=== PATIENT | male | born 1960 | race Caucasian/White ===

== ENCOUNTER 2019-08-28 15:24 | Inpatient (IN) ==
[2019-08-28] MEDS ORDERED: SODIUM CHLORIDE 0.9% 1000ML 1,000 ML IV SCH (16:30)
--- NOTE | 2019-08-28 16:32 | Emergency Department Note ---
Entered by Corrina Sloan acting as a scribe for Homero Cantu DO History of Present Illness General Chief complaint: Fall Stated complaint: FALL Time Seen by Provider: 08/28/19 16:00 Source: patient and other (half-way guards) History of Present Illness Onset (ago): hour(s) (today at 2:00PM) Location: pelvis (left hip) Pain Consistency: + constant Associated symptoms: + denies other symptoms (abdominal pain), + confusion (unsure where he is, mumbling words) and + other (increased falls over the past month, per guards new "markings" on legs) The patient is a 59 year old male with a PMHx pertinent for acidosis, kidney injury, bowel obstruction, lithium toxicity and no other medical problems [facility] who presents to the Emergency Room for evaluation of a fall. [facility] guards state that the patient has been experiencing increased falls and increasing AMS over the past month. The guards state that his most recent fall was today at 2:00PM. They state that the patient also experienced a fall this morning and his file from the half-way indicated that he has a left hip contusion. The guards also report that they noticed "markings" on the patient's legs when they arrived to the ED but they state they were not present this morning. They also note that his left hand was twisted in his cuff today which temporarily "cut off circulation" and they noticed a tasneem on the hand once they arrived to the ED. The patient is currently mumbling when asked questions and states that he is unsure where he is. He denies abdominal pain. HPI is limited due to patient's current condition Home Medications Home Medications Medication Instructions Recorded Confirmed Type ferrous sulfate [Feosol] 325 mg PO DAILY 07/05/19 08/28/19 History lithium carbonate [Lithobid] 300 mg PO BID 07/05/19 08/28/19 History clonazepam 1 mg PO BID 08/28/19 08/28/19 History cyanocobalamin (vitamin B-12) 100 mcg PO DAILY 08/28/19 08/28/19 History docusate sodium 250 mg PO HS 08/28/19 08/28/19 History magnesium hydroxide [Milk of 60 ml PO DAILY PRN 08/28/19 08/28/19 History Magnesia] olanzapine 10 mg PO HS 08/28/19 08/28/19 History spironolactone 25 mg PO DAILY 08/28/19 08/28/19 History sulfamethoxazole-trimethoprim 1 tab PO BID 08/28/19 08/28/19 History Allergies Allergy/AdvReac Type Severity Reaction Status Date / Time haloperidol [From Haldol] AdvReac Unknown Unknown Unverified 08/28/19 16:50 Past Med/Surg History Medical History Bipolar disorder Hepatitis C Family History Other No pertinent family history in first degree relatives Social History Preferred Language: Portuguese Communication Ability: Effective Cable Technician Required: No Beliefs That Will Affect Care: None Current Living Situation: Other Current Living Situation Comment: From [facility] Other Information That Helps Us Care for You: No Feels Safe at Home: Yes Safety Concerns: Feels Safe At This Time Smoking Status: Former smoker Tobacco Type: cigarettes ; Cigarettes Per Day: 1 pack per day ; Do You Dip or Chew Tobacco: No ; Second Hand Exposure: No ; To bacco Cessation Education Requested by Patient: No Hx Alcohol Use: No Hx Substance Use: No Review of Systems See HPI for pertinent positives & negatives. Other (ROS is limited due to patient's current condition ) Physical Exam Vital Signs Vital Signs - 24 hr 08/28/19 17:52 08/28/19 18:01 08/28/19 19:55 Pulse Rate [Apical] 55 L 66 77 Respiratory Rate 18 18 18 Blood Pressure [Right Arm] 82/56 L 91/60 L 113/67 Blood Pressure Mean [Right Arm] 64 70 82 Pulse Oximetry 100 100 98 Oxygen Delivery Method Room Air Room Air Room Air GENERAL: The patient is awake and alert. He is non-anxious appearing but is slow to answer questions and commands. EYES: The conjunctivae are clear. The pupils are round and reactive. EARS, NOSE, MOUTH AND THROAT: The nose is without any evidence of any deformity. Mucous members are dry. NECK: The neck is nontender and supple. RESPIRATORY: Shallow respirations were noted. There is no rales rhonchi or wheezing to auscultation. CARDIOVASCULAR: Bradycardic rate with regular rhythm was noted. There was no definite murmur noted to auscultation. GASTROINTESTINAL: The abdomen is soft and nondistended. There is left-sided tenderness to palpation. No guarding was noted. MUSCULOSKELETAL/EXTREMITIES: There is no evidence of gross deformity full range of motion is noted in the hips and shoulders SKIN: There is pedal edema bilaterally. There was edema to the left hand consistent with patient's recent infection according to his medical records. Skin was cool. NEUROLOGIC: Patient is oriented to person place and situation. Strength is diminished but symmetric. Course Course 1611: Past medical records reviewed. The patient was evaluated in room C09. A complete history and physical exam was performed. 2018: Spoke with Dr. Cheung, [facility] who accepts the patient for admission. The patient verbally expressed understanding and agreement of the treatment plan. The patient will be evaluated for further treatment. Administered Medications Clonazepam (Klonopin) 1 mg PO BID [facility] Stop: 09/27/19 22:42 Last Admin: 08/29/19 10:54 Dose: 1 mg Documented by: [id number] Admin: 08/28/19 23:12 Dose: 1 mg Documented by: [id number] Cyanocobalamin (Vitamin B-12) 100 mcg PO DAILY [facility] Stop: 09/28/19 08:59 Last Admin: 08/29/19 10:58 Dose: 100 mcg Documented by: [id number] Ferrous Sulfate (Feosol) 325 mg PO DAILY [facility] Stop: 09/28/19 08:59 Last Admin: 08/29/19 10:56 Dose: 325 mg Documented by: [id number] Ceftriaxone Sodium 1,000 mg/ (Dextrose) 50 mls @ 100 mls/hr IV Q24H [facility]; Protocol Stop: 09/07/19 22:59 Last Infusion: 08/29/19 01:05 Dose: 0 mls/hr Documented by: [id number] Admin: 08/29/19 00:21 Dose: 100 mls/hr Documented by: [id number] [place] Carbonate (Lithobid) 300 mg PO BID [facility] Stop: 09/27/19 22:42 Last Admin: 08/29/19 09:00 Dose: 300 mg Documented by: [id number] Admin: 08/29/19 00:17 Dose: 300 mg Documented by: [id number] Polyethylene Glycol (Miralax Powder Packet) 17 gm PO DAILY [facility] Stop: 09/28/19 08:59 Last Admin: 08/29/19 10:54 Dose: 17 gm Documented by: [id number] Spironolactone (Aldactone) 25 mg PO DAILY [facility] Stop: 09/28/19 08:59 Last Admin: 08/29/19 09:00 Dose: 25 mg Documented by: [id number] Trimethoprim/Sulfamethoxazole (Septra Ds 800/160mg Tab) 1 tab PO BID [facility] Stop: 09/07/19 22:42 Last Admin: 08/29/19 09:00 Dose: 1 tab Documented by: [id number] Admin: 08/29/19 00:17 Dose: 1 tab Documented by: [id number] Discontinued Medications Sodium Chloride (Nss 1000ml) 1,000 mls @ 999 mls/hr IV .Q1H1M [facility] Stop: 08/28/19 17:30 Last Infusion: 08/28/19 17:51 Dose: 0 mls/hr Documented by: [id number] Admin: 08/28/19 16:49 Dose: 999 mls/hr Documented by: [id number] Sodium Chloride (Nss 1000ml) 1,000 mls @ 999 mls/hr IV .Q1H1M ONE Stop: 08/28/19 18:49 Last Infusion: 08/28/19 18:52 Dose: 0 mls/hr Documented by: [id number] Admin: 08/28/19 17:51 Dose: 999 mls/hr Documented by: [id number] Piperacillin Sod/Tazobactam Sod (Zosyn) 4.5 gm in 120 mls @ 240 mls/hr IV NOW ONE Stop: 08/28/19 18:25 Last Infusion: 08/28/19 18:35 Dose: 0 mls/hr Documented by: [id number] Admin: 08/28/19 18:05 Dose: 240 mls/hr Documented by: [id number] Lactated Ringer's (Lr) 1,000 mls @ 100 mls/hr IV .Q10H [facility] Stop: 09/27/19 22:49 Last Infusion: 08/29/19 10:58 Dose: 0 mls/hr Documented by: [id number] Infusion: 08/29/19 02:35 Dose: 100 mls/hr Documented by: [id number] Infusion: 08/29/19 02:00 Dose: 0 mls/hr Documented by: [id number] Admin: 08/29/19 00:22 Dose: 100 mls/hr Documented by: [id number] Potassium Chloride (K Dinesh / Wtr) 10 meq in 100 mls @ 100 mls/hr IV Q1H [facility] Stop: 08/29/19 00:59 Last Infusion: 08/29/19 02:30 Dose: 100 mls/hr Documented by: [id number] Infusion: 08/29/19 02:00 Dose: 0 mls/hr Documented by: [id number] Admin: 08/29/19 01:15 Dose: 100 mls/hr Documented by: [id number] Infusion: 08/29/19 01:15 Dose: 100 mls/hr Documented by: [id number] Admin: 08/29/19 00:22 Dose: 100 mls/hr Documented by: [id number] Dextrose (D5w) 1,000 mls @ 300 mls/hr IV .Q3H20M [facility] Stop: 09/28/19 07:59 Last Admin: 08/29/19 15:14 Dose: 300 mls/hr Documented by: [id number] Infusion: 08/29/19 13:34 Dose: 180 mls/hr Documented by: [id number] Admin: 08/29/19 08:00 Dose: 180 mls/hr Documented by: [id number] Ioversol (Optiray 320 100ml) 90 ml IV ONCE PRN PRN Reason: Interaction Checking Stop: 09/01/19 17:10 Last Admin: 08/28/19 17:11 Dose: 90 ml Documented by: [id number] Impression & Plan Dehydration, Hypothermia, Weakness, Contusion of hip, left Discharge Plan Visit Data *Final* Discharge Date/Time: 08/28/19 22:10 Chief Complaint: Fall Stated Complaint: FALL ED Provider: Homero Cantu Discharge Problem: Dehydration, Hypothermia, Weakness, Contusion of hip, left Patient Disposition: Admitted As Inpatient Discharge Instructions Interventions: ED Discharge Assessment Last Done: 08/28/19 22:10 Medical Decision Making Differential Diagnosis Differential diagnosis includes but is not limited to etiologies such as metabolic, infection, hypo/hyperglycemia, electrolyte abnormalities, cardiac sources, intracerebral event, toxicologic, neurologic, as well as others were entertained. Medical Records Attestation: I reviewed the patient's medical records. Home Medications Current Medication List: was personally reviewed by me Laboratory Data Attestation: I reviewed the patient's lab results. Result diagrams: 08/29/19 06:16 08/29/19 14:59 Lab Results 08/28/19 08/28/19 08/28/19 Range/Units 16:41 16:41 16:41 WBC (4.8-10.8) K/uL RBC (4.7-6.1) M/uL Hgb (14.0-18.0) g/dL POC Hgb (14.0-18.0) g/dl Hct (42-52) % POC Hct (42-52) % MCV (80-100) fL MCH (25-34) pg MCHC (32-36) g/dL RDW Std Deviation (36.4-46.3) fL RDW Coeff of Shamar (11.5-14.5) % Plt Count (130-400) K/uL MPV (7.4-10.4) fL Immature Gran % (Auto) % Neut % (Auto) % Lymph % (Auto) % [place] % (Auto) % Eos % (Auto) % Baso % (Auto) % Immature Gran # (Auto) (0.00-0.02) K/uL Neut # (Auto) (1.4-6.5) K/uL Lymph # (Auto) (1.2-3.4) K/uL [place] # (Auto) (0.11-0.59) K/uL Eos # (Auto) (0-0.5) K/uL Baso # (Auto) (0-0.2) K/uL Absolute Nucleated RBC (0-0) K/uL Nucleated RBC % (auto) % Toxic Vacuolation Echinocytes Peripher Smr Path Cons PT 11.4 (9.0-12.0) Seconds INR 1.1 (0.9-1.1) APTT 37.5 H (21.0-31.0) Seconds PTT Ratio 1.4 POC Sodium (135-144) mEq/L Sodium (136-145) mmol/L POC Potassium (3.3-5.0) mEq/L Potassium (3.5-5.1) mmol/L POC Chloride (101-112) mEq/L Chloride (98-107) mmol/L Carbon Dioxide (21-32) mmol/L POC Total CO2 (24-31) mEq/l Anion Gap (3-11) POC Anion Gap (16-25) mmol/L POC BUN (7-18) mg/dl BUN (7-18) mg/dl Creatinine (0.6-1.4) mg/dl POC Creatinine (0.6-1.3) mg/dl Est Cr Clr Drug Dosing ml/min Est GFR ( Amer) Est GFR (Non-Af Amer) BUN/Creatinine Ratio (10-20) Glucose (70-99) mg/dl POC Glucose (other) (70-99) mg/dl Lactate 1.9 (0.4-2.0) mmol/L Calcium (8.5-10.1) mg/dl POC Ioniz Calcium Jaki (1.12-1.32) mmol/l Magnesium (1.8-2.4) mg/dl Total Bilirubin (0.2-1) mg/dl AST (15-37) U/L ALT (12-78) U/L Alkaline Phosphatase (45-117) U/L Total Creatine Kinase (39-308) U/L Troponin I (0-0.045) ng/ml Total Protein (6.4-8.2) gm/dl Albumin (3.4-5.0) gm/dl Globulin (2.5-4.0) gm/dl Albumin/Globulin Ratio (0.9-2) TSH (0.300-4.500) uIu/ml Urine Color Urine Appearance (Clear) Urine pH (4.5-7.5) Ur Specific [place] (1.000-1.030) Urine Protein (Negative) Urine Glucose (UA) (Negative) Urine Ketones (Negative) Urine Blood (Negative) Urine Nitrite (Negative) Urine Bilirubin (Negative) Urine Urobilinogen (Negative) Ur Leukocyte Esterase (Negative) [place] 1.0 (0.6-1.2) mmol/L 08/28/19 08/28/19 08/28/19 Range/Units 16:41 16:41 16:47 WBC 7.22 (4.8-10.8) K/uL RBC 3.11 L (4.7-6.1) M/uL Hgb 9.4 L (14.0-18.0) g/dL POC Hgb 8.8 L (14.0-18.0) g/dl Hct 29.6 L (42-52) % POC Hct 26 L (42-52) % MCV 95.2 (80-100) fL MCH 30.2 (25-34) pg MCHC 31.8 L (32-36) g/dL RDW Std Deviation 52.2 H (36.4-46.3) fL RDW Coeff of Shamar 15.1 H (11.5-14.5) % Plt Count 116 L (130-400) K/uL MPV 11.4 H (7.4-10.4) fL Immature Gran % (Auto) 0.1 % Neut % (Auto) 89.1 % Lymph % (Auto) 6.2 % [place] % (Auto) 4.6 % Eos % (Auto) 0.0 % Baso % (Auto) 0.0 % Immature Gran # (Auto) 0.01 (0.00-0.02) K/uL Neut # (Auto) 6.43 (1.4-6.5) K/uL Lymph # (Auto) 0.45 L (1.2-3.4) K/uL [place] # (Auto) 0.33 (0.11-0.59) K/uL Eos # (Auto) 0.00 (0-0.5) K/uL Baso # (Auto) 0.00 (0-0.2) K/uL Absolute Nucleated RBC 0.00 (0-0) K/uL Nucleated RBC % (auto) 0.0 % Toxic Vacuolation 1+ Echinocytes 1+ Peripher Smr Path Cons PT (9.0-12.0) Seconds INR (0.9-1.1) APTT (21.0-31.0) Seconds PTT Ratio POC Sodium 147 H (135-144) mEq/L Sodium 147 H (136-145) mmol/L POC Potassium 3.3 (3.3-5.0) mEq/L Potassium 3.4 L (3.5-5.1) mmol/L POC Chloride 114 H (101-112) mEq/L Chloride 117 H (98-107) mmol/L Carbon Dioxide 26 (21-32) mmol/L POC Total CO2 26 (24-31) mEq/l Anion Gap 4.0 (3-11) POC Anion Gap 11.0 L (16-25) mmol/L POC BUN 22 H (7-18) mg/dl BUN 24 H (7-18) mg/dl Creatinine 1.01 (0.6-1.4) mg/dl POC Creatinine 1.0 (0.6-1.3) mg/dl Est Cr Clr Drug Dosing 80.8 ml/min Est GFR ( Amer) 93.9 Est GFR (Non-Af Amer) 81.0 BUN/Creatinine Ratio 23.4 H (10-20) Glucose 137 H (70-99) mg/dl POC Glucose (other) 142 H (70-99) mg/dl Lactate (0.4-2.0) mmol/L Calcium 10.0 (8.5-10.1) mg/dl POC Ioniz Calcium Jaki 1.46 H (1.12-1.32) mmol/l Magnesium 2.4 (1.8-2.4) mg/dl Total Bilirubin 0.2 (0.2-1) mg/dl AST 10 L (15-37) U/L ALT 19 (12-78) U/L Alkaline Phosphatase 62 (45-117) U/L Total Creatine Kinase 88 (39-308) U/L Troponin I < 0.015 (0-0.045) ng/ml Total Protein 6.3 L (6.4-8.2) gm/dl Albumin 2.5 L (3.4-5.0) gm/dl Globulin 3.8 (2.5-4.0) gm/dl Albumin/Globulin Ratio 0.7 L (0.9-2) TSH 1.590 (0.300-4.500) uIu/ml Urine Color Urine Appearance (Clear) Urine pH (4.5-7.5) Ur Specific [place] (1.000-1.030) Urine Protein (Negative) Urine Glucose (UA) (Negative) Urine Ketones (Negative) Urine Blood (Negative) Urine Nitrite (Negative) Urine Bilirubin (Negative) Urine Urobilinogen (Negative) Ur Leukocyte Esterase (Negative) [place] (0.6-1.2) mmol/L 08/28/19 Range/Units 20:54 WBC (4.8-10.8) K/uL RBC (4.7-6.1) M/uL Hgb (14.0-18.0) g/dL POC Hgb (14.0-18.0) g/dl Hct (42-52) % POC Hct (42-52) % MCV (80-100) fL MCH (25-34) pg MCHC (32-36) g/dL RDW Std Deviation (36.4-46.3) fL RDW Coeff of Shamar (11.5-14.5) % Plt Count (130-400) K/uL MPV (7.4-10.4) fL Immature Gran % (Auto) % Neut % (Auto) % Lymph % (Auto) % [place] % (Auto) % Eos % (Auto) % Baso % (Auto) % Immature Gran # (Auto) (0.00-0.02) K/uL Neut # (Auto) (1.4-6.5) K/uL Lymph # (Auto) (1.2-3.4) K/uL [place] # (Auto) (0.11-0.59) K/uL Eos # (Auto) (0-0.5) K/uL Baso # (Auto) (0-0.2) K/uL Absolute Nucleated RBC (0-0) K/uL Nucleated RBC % (auto) % Toxic Vacuolation Echinocytes Peripher Smr Path Cons PT (9.0-12.0) Seconds INR (0.9-1.1) APTT (21.0-31.0) Seconds PTT Ratio POC Sodium (135-144) mEq/L Sodium (136-145) mmol/L POC Potassium (3.3-5.0) mEq/L Potassium (3.5-5.1) mmol/L POC Chloride (101-112) mEq/L Chloride (98-107) mmol/L Carbon Dioxide (21-32) mmol/L POC Total CO2 (24-31) mEq/l Anion Gap (3-11) POC Anion Gap (16-25) mmol/L POC BUN (7-18) mg/dl BUN (7-18) mg/dl Creatinine (0.6-1.4) mg/dl POC Creatinine (0.6-1.3) mg/dl Est Cr Clr Drug Dosing ml/min Est GFR ( Amer) Est GFR (Non-Af Amer) BUN/Creatinine Ratio (10-20) Glucose (70-99) mg/dl POC Glucose (other) (70-99) mg/dl Lactate (0.4-2.0) mmol/L Calcium (8.5-10.1) mg/dl POC Ioniz Calcium Jaki (1.12-1.32) mmol/l Magnesium (1.8-2.4) mg/dl Total Bilirubin (0.2-1) mg/dl AST (15-37) U/L ALT (12-78) U/L Alkaline Phosphatase (45-117) U/L Total Creatine Kinase (39-308) U/L Troponin I (0-0.045) ng/ml Total Protein (6.4-8.2) gm/dl Albumin (3.4-5.0) gm/dl Globulin (2.5-4.0) gm/dl Albumin/Globulin Ratio (0.9-2) TSH (0.300-4.500) uIu/ml Urine Color Yellow Urine Appearance Clear (Clear) Urine pH 8.0 H (4.5-7.5) Ur Specific [place] 1.014 (1.000-1.030) Urine Protein Negative (Negative) Urine Glucose (UA) Negative (Negative) Urine Ketones Negative (Negative) Urine Blood Negative (Negative) Urine Nitrite Negative (Negative) Urine Bilirubin Negative (Negative) Urine Urobilinogen Negative (Negative) Ur Leukocyte Esterase Negative (Negative) [place] (0.6-1.2) mmol/L Imaging Data Radiologist's Impression: Radiology results as stated below per my review and the radiologist's interpretation: ABDOMEN AND PELVIS CT WITH IV CONTRAST CT DOSE: 610.78 mGycm HISTORY: Acute mid abdominal pain pain TECHNIQUE: Multiaxial CT images of the abdomen and pelvis were performed following the IV administration of 90 cc of Optiray 320, A dose lowering technique was utilized adhering to the principles of ALARA. COMPARISON STUDY: CT abdomen and pelvis 07/05/2019 FINDINGS: Moderate emphysema. Dependent bibasilar airspace consolidation. Study is motion degraded. Study is limited secondary to positioning of the upper extremities. Imaged inferior cardiac chambers are unremarkable. There is resolution of the previously described pneumatosis and portal venous air. There is no pneumatosis or pneumoperitoneum identified on today's exam. The unenhanced liver is unremarkable. Spleen is enlarged, 14.6 cm. Mild generalized pancreatic atrophy. No biliary ductal dilation. Contracted gallbladder. Unremarkable adrenal glands. Cuneiform is unremarkable. Dilation of the infrarenal abdominal aorta redemonstrated, 5.7 x 4.5 cm. Moderate mixed plaque of the abdominal aorta. No evidence of aneurysm rupture. Unremarkable IVC. There is no adenopathy by CT size criteria. Resolution of the previously noted small bowel obstruction. Moderate fecal retention. No bowel wall thickening identified. Air-filled tubular structure is noted within the abdominal right lower quadrant suggestive of an noninflamed appendix. No drainable fluid collection. Degenerative changes of the pelvis, hips and spine. Mild generalized body wall and mesenteric edema. Severe disc space narrowing at L5-S1. IMPRESSION: 1. No bowel obstruction or bowel wall thickening. 2. Moderate fecal retention. 3. Diffuse mesenteric and body wall edema. 4. Moderate emphysema with dependent bibasilar consolidative opacities suggestive of atelectasis or pneumonitis. 5. Fusiform aneurysmal dilation of the infrarenal abdominal aorta appears unchanged, 5.7 x 4.5 cm. No evidence of aneurysm rupture. 6. Additional findings as above. Electronically signed by: Isidro Mak M.D. 08/28/2019 5:24 PM XR hand LT min 3V routine CLINICAL HISTORY: 59 years-old Male presenting with fall. TECHNIQUE: Frontal, oblique, and lateral views of the left hand were obtained. COMPARISON: None. FINDINGS: Middle and distal phalanges of the fourth finger absent, which appears chronic. No acute fracture or malalignment. No advanced degenerative change. Mild diffuse soft tissue swelling. IMPRESSION: No acute osseous injury. Electronically signed by: Surendra Bolton M.D. 08/28/2019 4:[address] head/brain wo con CLINICAL HISTORY: 59 years-old Male with fall. Acute head injury status post fall TECHNIQUE: Multiple axial CT images of the head were obtained without contrast. A dose lowering technique was utilized adhering to the principles of ALARA. CT DOSE: 638.56 mGycm COMPARISON: Head CT 07/05/2019. FINDINGS: No acute intracranial hemorrhage, midline shift, intracranial mass, hydrocephalus, territorial ischemia or abnormal extra-axial collection. Mild age-related involutional changes. Mild patchy white matter hypodensities suggest chronic microvascular ischemic disease. The calvarium is intact. The paranasal sinuses, mastoid air cells, and middle ear cavities are clear. IMPRESSION: No acute intracranial abnormality or calvarial fracture. The above report was generated using voice recognition software. It may contain grammatical, syntax or spelling errors. Electronically signed by: Isidro Mak M.D. 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 Severe disc space narrowing at L5-S1. No acute fracture, dislocation or avascular necrosis. Moderate fecal retention. Imaged pelvic bones appear intact. IMPRESSION: No acute fracture or dislocation. The above report was generated using voice recognition software. It may contain grammatical, syntax or spelling errors. Electronically signed by: Isidro Mak M.D. 08/28/2019 4:37 PM XR chest 1V portable CLINICAL HISTORY: 59 years-old Male presenting with weakness. TECHNIQUE: Portable upright AP view of the chest was obtained. COMPARISON: 07/05/2019. FINDINGS: Cardiomediastinal silhouette normal. Mildly coarsened lung markings with heterogeneous radiolucency of the upper lungs. Lung markings at the lung bases stable to slightly increased in prominence from prior. No other focal opacity. No large effusion or pneumothorax. Osseous structures normal. Upper abdomen normal. IMPRESSION: 1. Prominent bibasilar lung markings. Subtle basilar infiltrates or atelectasis not excluded. 2. Heterogeneous radiolucency of the upper lobes could suggest underlying emphysema. Electronically signed by: Surendra Bolton M.D. 08/28/2019 4:33 PM ECG Data Attestation: I personally reviewed and interpreted this ECG as follows: Indication: + other (fall) Rate (beats per minute): 66 Rhythm: + normal sinus ECG Findings: + Other (no acute ST segments); no PACs and no PVCs Comparison ECG Date: from (07/05/19) Change: no significant change Blood Pressure Blood Pressure Findings: Low blood pressure Blood Pressure Disposition: further management by hospitalist PATRICK Peguero The patient is a 59-year-old male who presented to the emergency department for an evaluation of weakness and falls. 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 He did have recent surgery on his abdomen. He is currently being treated for an infection in his left hand. This is felt to be a soft tissue infection. The patient has been having more falls and generalized weakness and was sent from the half-way for further evaluation. The patient was treated with IV fluids and IV antibiotics. He was reevaluated multiple times. The patient was found to have hypothermia. There is significant concern that the patient may be hypovolemic and dehydrated. There is also significant concern for infection. The patient was feeling somewhat improved on reevaluation. I discussed the patient's condition with the on-call [facility] hospitalist group. They have agreed to evaluate the patient in the emergency department for further management disposition. Discharge Problem: Hypothermia Qualifiers: Encounter type: initial encounter Qualified Code(s): T68.XXXA - Hypothermia, initial encounter Contusion of hip, left Qualifiers: Encounter type: initial encounter Qualified Code(s): S70.02XA - Contusion of left hip, initial encounter The scribe's documentation has been prepared under my direction and personally reviewed by me in its entirety. I confirm that the note above accurately reflects all work, treatment, procedures, and medical decision making performed by me.
--- NOTE | 2019-08-28 16:35 | XRay Report ---
XR chest 1V portable CLINICAL HISTORY: 59 years-old Male presenting with weakness. TECHNIQUE: Portable upright AP view of the chest was obtained. COMPARISON: 07/05/2019. FINDINGS: Cardiomediastinal silhouette normal. Mildly coarsened lung markings with heterogeneous radiolucency o f the upper lungs. Lung markings at the lung bases stable to slightly increased in prominence from pr ior. No other focal opacity. No large effusion or pneumothorax. Osseous structures normal. Upper abdo men normal. IMPRESSION: 1. Prominent bibasilar lung markings. Subtle basilar infiltrates or atelectasis not excluded. 2. Heterogeneous radiolucency of the upper lobes could suggest underlying emphysema. Electronically signed by: Surendra Bolton M.D. 08/28/2019 4:33 PM
--- NOTE | 2019-08-28 16:38 | XRay Report ---
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 Severe disc space narrowing at L5-S1. No acute fracture, dislocation or avascular necrosis. M oderate fecal retention. Imaged pelvic bones appear intact. IMPRESSION: No acute fracture or dislocation. The above report was generated using voice recognition software. It may contain grammatical, syntax o r spelling errors. Electronically signed by: Isidro Mak M.D. 08/28/2019 4:37 PM
--- NOTE | 2019-08-28 16:38 | XRay Report ---
XR hand LT min 3V routine CLINICAL HISTORY: 59 years-old Male presenting with fall. TECHNIQUE: Frontal, oblique, and lateral views of the left hand were obtained. COMPARISON: None. FINDINGS: Middle and distal phalanges of the fourth finger absent, which appears chronic. No acute fracture or malalignment. No advanced degenerative change. Mild diffuse soft tissue swelling. IMPRESSION: No acute osseous injury. Electronically signed by: Surendra Bolton M.D. 08/28/2019 4:37 PM
[2019-08-28 16:54] LABS: Hematocrit (blood only) 29.6 % (42-52); Hemoglobin 9.4 g/dL (14.0-18.0); Immature Granulocytes # (auto) 0.01 K/uL (0.00-0.02); Immature Granulocytes % (auto) 0.1 %; Lymphocytes # (auto) 0.45 K/uL (1.2-3.4); Lymphocytes % (auto) 6.2 %; Mean Corpuscular Hemoglobin 30.2 pg (25-34); Mean Corpuscular Hgb Conc 31.8 g/dL (32-36); Mean Corpuscular Volume 95.2 fL (80-100); Mean Platelet Volume 11.4 fL (7.4-10.4); Monocytes # (auto) 0.33 K/uL (0.11-0.59); Monocytes % (auto) 4.6 %; Neutrophils # (auto) 6.43 K/uL (1.4-6.5); Neutrophils % (auto) 89.1 %; Platelet Count 116 K/uL (130-400); RDW Coefficient of Variation 15.1 % (11.5-14.5); RDW Standard Deviation 52.2 fL (36.4-46.3); Red Blood Count 3.11 M/uL (4.7-6.1); White Blood Count 7.22 K/uL (4.8-10.8)
[2019-08-28 17:04] LABS: INR 1.1 (0.9-1.1); Partial Thromboplastin Ratio 1.4; Partial Thromboplastin Time 37.5 Seconds (21.0-31.0); Prothrombin Time 11.4 Seconds (9.0-12.0)
[2019-08-28 17:11] LABS: Alanine Aminotransferase 19 U/L (12-78); Albumin Level 2.5 gm/dl (3.4-5.0); Aspartate Aminotransferase 10 U/L (15-37); BUN Creatinine Ratio 23.4 (10-20); Blood Urea Nitrogen 24 mg/dl (7-18); Carbon Dioxide 26 mmol/L (21-32); Chloride 117 mmol/L (98-107); Creatinine Clr Calc Pharmacy 80.8 ml/min; Est GFR (African American) 93.9; Glucose 137 mg/dl (70-99); Magnesium 2.4 mg/dl (1.8-2.4); Potassium 3.4 mmol/L (3.5-5.1); Sodium 147 mmol/L (136-145)
[2019-08-28] MEDS ORDERED: IOVERSOL 100ml IV PRN (17:11)
--- NOTE | 2019-08-28 17:17 | CT Scan Report ---
CT head/brain wo con CLINICAL HISTORY: 59 years-old Male with fall. Acute head injury status post fall TECHNIQUE: Multiple axial CT images of the head were obtained without contrast. A dose lowering tech nique was utilized adhering to the principles of ALARA. CT DOSE: 638.56 mGycm COMPARISON: Head CT 07/05/2019. FINDINGS: No acute intracranial hemorrhage, midline shift, intracranial mass, hydrocephalus, territorial ischem ia or abnormal extra-axial collection. Mild age-related involutional changes. Mild patchy white matte r hypodensities suggest chronic microvascular ischemic disease. The calvarium is intact. The paranasal sinuses, mastoid air cells, and middle ear cavities are clear . IMPRESSION: No acute intracranial abnormality or calvarial fracture. The above report was generated using voice recognition software. It may contain grammatical, syntax o r spelling errors. Electronically signed by: Isidro Mak M.D. 08/28/2019 5:15 PM
[2019-08-28 17:22] LABS: Albumin Globulin Ratio 0.7 (0.9-2); Alkaline Phosphatase 62 U/L (45-117); Bilirubin,Total 0.2 mg/dl (0.2-1); Creatine Kinase 88 U/L (39-308); Globulin 3.8 gm/dl (2.5-4.0); Total Protein 6.3 gm/dl (6.4-8.2); Troponin I < 0.015 ng/ml (0-0.045)
--- NOTE | 2019-08-28 17:25 | CT Scan Report ---
ABDOMEN AND PELVIS CT WITH IV CONTRAST CT DOSE: 610.78 mGycm HISTORY: Acute mid abdominal pain pain TECHNIQUE: Multiaxial CT images of the abdomen and pelvis were performed following the IV administrat ion of 90 cc of Optiray 320, A dose lowering technique was utilized adhering to the principles of AL ALDO. COMPARISON STUDY: CT abdomen and pelvis 07/05/2019 FINDINGS: Moderate emphysema. Dependent bibasilar airspace consolidation. Study is motion degraded. Study is li mited secondary to positioning of the upper extremities. Imaged inferior cardiac chambers are unremar kable. There is resolution of the previously described pneumatosis and portal venous air. There is no pneumatosis or pneumoperitoneum identified on today's exam. The unenhanced liver is unremarkable. Spleen is enlarged, 14.6 cm. Mild generalized pancreatic atroph y. No biliary ductal dilation. Contracted gallbladder. Unremarkable adrenal glands. Cuneiform is unre markable. Dilation of the infrarenal abdominal aorta redemonstrated, 5.7 x 4.5 cm. Moderate mixed stacie que of the abdominal aorta. No evidence of aneurysm rupture. Unremarkable IVC. There is no adenopathy by CT size criteria. Resolution of the previously noted small bowel obstruction. Moderate fecal rete ntion. No bowel wall thickening identified. Air-filled tubular structure is noted within the abdomina l right lower quadrant suggestive of an noninflamed appendix. No drainable fluid collection. Degenera tive changes of the pelvis, hips and spine. Mild generalized body wall and mesenteric edema. Severe d isc space narrowing at L5-S1. IMPRESSION: 1. No bowel obstruction or bowel wall thickening. 2. Moderate fecal retention. 3. Diffuse mesenteric and body wall edema. 4. Moderate emphysema with dependent bibasilar consolidative opacities suggestive of atelectasis or p neumonitis. 5. Fusiform aneurysmal dilation of the infrarenal abdominal aorta appears unchanged, 5.7 x 4.5 cm. No evidence of aneurysm rupture. 6. Additional findings as above. Electronically signed by: Isidro Mak M.D. 08/28/2019 5:24 PM
[2019-08-28] MEDS ORDERED: SODIUM CHLORIDE 0.9% 1000ML 1,000 ML IV ONE (17:49)
[2019-08-28] MEDS ORDERED: PIPERACILL/TAZOBAC CONSULT ACTIVE PRN (17:56)
[2019-08-28] MEDS ORDERED: PIPERACILLIN/TAZOBACTAM 4.5 GM/120 ML BAG IV ONE (17:56)
[2019-08-28 21:08] LABS: Appearance Urine Clear (Clear); Bilirubin Urine Negative (Negative); Blood Urine Negative (Negative); Color Urine Yellow; Glucose Urine UA Negative (Negative); Ketones Urine Negative (Negative); Leukocyte Esterase Urine Negative (Negative); Nitrite Urine Negative (Negative); Protein Urine Negative (Negative); Specific Gravity Urine 1.014 (1.000-1.030); Urobilinogen Urine Negative (Negative)
--- NOTE | 2019-08-28 21:41 | History & Physical Report ---
Date of Service August 28, 2019 Assessment & Plan (1) Hypothermia: 59yoM with hx of anemia, B12 deficiency, HCV, schizoaffective disorder, seizure, GERD, constipation, aspiration pneumonitis, gastroparesis, abdominal aortic aneurysm presents status post 2 falls most recently at 2 PM today [facility] records reviewed: Recent labs on 08/27/2019 in the setting of left upper extremity cellulitis concerning for WBC of 18.1, hemoglobin 10.[address] 218. BUN/creatinine 29/1.3 and sodium 144. Found to be hypothermic and concern for left upper extremity cellulitis Fall with left hip contusion Likely secondary to infection versus chronic deconditioning/weakness versus possible seizure given history See infectious work-up below CT had negative Hip/pelvis x-ray negative CK normal Troponin negative EKG: Normal sinus rhythm 66 QTC 540 Cellulitis left upper extremity Hypothermia otherwise normal vitals White blood cell count improved from 18.1 on August 27, 2019 to 7.2 today, lactate X-ray and: Mild diffuse soft tissue swelling, middle and distal phalanx fourth finger chronically missing Culture x2 pending Given significant hand edema concern for DVT -Doppler ordered Continue Bactrim Started on Rocephin for gram-negative coverage Continue to monitor clinically Consider CT hand if clinically worsening Hyponatremia/hyperchloremia Given elevated BUN/creatinine ratio and exam likely secondary to dehydration Started on IV fluids LR at 100 cc/h Thrombocytopenia Possibly secondary to Bactrim; no concern for DIC Platelet count 116 Blood count normal on 08/27/2019 at 218 Peripheral smear ordered Continue to monitor CBC Constipation Abdominal CT: Moderate fecal retention, diffuse mesenteric/bowel wall edema Continue home bowel regimen MiraLAX daily Hypokalemia Replete 20 mEq KCl IV History of anemia Cannot rule out acute GI bleed Hemoglobin 10.4 on 08/27 and 9.4 today Patient refused rectal exam for Hemoccult Stool Hemoccult ordered Continue ferrous sulfate Continue to monitor History of hypertension Tinea home spironolactone B12 deficiency Continue B12 supplement Schizoaffective disorder Continue home lithium, olanzapine and clonazepam FEN/GI: LR 100 cc/h, heart healthy diet Code: Full Dispo: MedSurg with telemetry DVT prophylaxis: SCDs, chemical withheld given downtrending hemoglobin for concern of possible GI bleed (2) Dehydration: (3) Contusion of hip, left: (4) Fall: (5) Schizoaffective disorder: (6) Pneumonitis: (7) Gastroparesis: (8) AAA (abdominal aortic aneurysm): (9) Constipation: (10) Anemia: (11) HCV (hepatitis C virus): (12) GERD (gastroesophageal reflux disease): (13) B12 deficiency: History of Present Illness Chief Complaint: fall Primary Care Provider: SARAI Ramos 59yoM with hx of anemia, B12 deficiency, HCV, schizoaffective disorder, seizure, GERD, constipation, aspiration pneumonitis, gastroparesis, abdominal aortic aneurysm presents status post 2 falls most recently at 2 PM today. Patient disoriented and does not answer questions appropriately. He denies any complaints right now. Per guards he is more disoriented compared to baseline and was initially also complaining of left hip pain. Patient was also recently diagnosed with left hand/arm cellulitis and started on Bactrim. Found to have hypothermia rectal temp of 31.4 in the ED. [facility] records reviewed: Recent labs on 08/27/2019 in the setting of left upper extremity cellulitis concerning for WBC of 18.1, hemoglobin 10.[address] 218[address] BUN/creatinine 29/1.3 and sodium 144. Allergies Allergy/AdvReac Type Severity Reaction Status Date / Time haloperidol [From Haldol] AdvReac Unknown Unknown Unverified 08/28/19 16:50 Home Medications Home Medications Medication Instructions Recorded Confirmed Type ferrous sulfate [Feosol] 325 mg PO DAILY 07/05/19 08/28/19 History lithium carbonate [Lithobid] 300 mg PO BID 07/05/19 08/28/19 History clonazepam 1 mg PO BID 08/28/19 08/28/19 History cyanocobalamin (vitamin B-12) 100 mcg PO DAILY 08/28/19 08/28/19 History docusate sodium 250 mg PO HS 08/28/19 08/28/19 History magnesium hydroxide [Milk of 60 ml PO DAILY PRN 08/28/19 08/28/19 History Magnesia] olanzapine 10 mg PO HS 08/28/19 08/28/19 History spironolactone 25 mg PO DAILY 08/28/19 08/28/19 History sulfamethoxazole-trimethoprim 1 tab PO BID 08/28/19 08/28/19 History Past Med/Surg History Medical History Bipolar disorder Hepatitis C Family History Other No pertinent family history in first degree relatives Social History Preferred Language: Nepali Communication Ability: Effective Reel And Rewinder Operator Required: No Beliefs That Will Affect Care: None Current Living Situation: Other Current Living Situation Comment: From [facility] Other Information That Helps Us Care for You: No Feels Safe at Home: Yes Safety Concerns: Feels Safe At This Time Smoking Status: Former smoker Tobacco Type: cigarettes ; Cigarettes Per Day: 1 pack per day ; Do You Dip or Chew Tobacco: No ; Second Hand Exposure: No ; Tobacco Cessation Education Requested by Patient: No Hx Alcohol Use: No Hx Substance Use: No Review of Systems Review of Systems: As per HPI otherwise limited due to patient mental status Physical Exam Physical Exam: General: In NAD, disoriented Neuro: Disoriented but alert Psych: disorganized speech, appears to be responding to internal stimuli Pulm: CTAB equal breath sounds bilaterally CV: RRR, no m/r/g Abdomen:+BS, no TTP in all quadrants, non-distended, midline abdominal incision MSK: LUE forearm cellulitis extending up the arm, 2+ dorsal hand edema without associated erythema, no open lesions on hand or arm, several scabs on hand/fingers LE: no LE edema, no calf TTP Results & Data Vital Signs (Past 12 Hours) Vital Signs Temp Pulse Pulse Resp BP BP Pulse Ox 08/28/19 19:55 77 18 113/67 98 08/28/19 18:01 66 18 91/60 L 100 08/28/19 17:52 55 L 18 82/56 L 100 08/28/19 17:24 62 18 99/58 L 100 08/28/19 17:00 60 16 102/59 L 100 08/28/19 16:25 99 08/28/19 16:21 31.4 C L 08/28/19 15:44 99 08/28/19 15:32 66 18 114/60 99 Laboratory Results Abnormal lab results 08/28/19 08/28/19 08/28/19 Range/Units 16:41 16:41 16:41 RBC 3.11 L (4.7-6.1) M/uL Hgb 9.4 L (14.0-18.0) g/dL Hct 29.6 L (42-52) % MCHC 31.8 L (32-36) g/dL RDW Std Deviation 52.2 H (36.4-46.3) fL RDW Coeff of Shamar 15.1 H (11.5-14.5) % Plt Count 116 L (130-400) K/uL MPV 11.4 H (7.4-10.4) fL Lymph # (Auto) 0.45 L (1.2-3.4) K/uL APTT 37.5 H (21.0-31.0) Seconds Sodium 147 H (136-145) mmol/L Potassium 3.4 L (3.5-5.1) mmol/L Chloride 117 H (98-107) mmol/L BUN 24 H (7-18) mg/dl BUN/Creatinine Ratio 23.4 H (10-20) Glucose 137 H (70-99) mg/dl AST 10 L (15-37) U/L Total Protein 6.3 L (6.4-8.2) gm/dl Albumin 2.5 L (3.4-5.0) gm/dl Albumin/Globulin Ratio 0.7 L (0.9-2) Urine pH (4.5-7.5) 08/28/19 Range/Units 20:54 RBC (4.7-6.1) M/uL Hgb (14.0-18.0) g/dL Hct (42-52) % MCHC (32-36) g/dL RDW Std Deviation (36.4-46.3) fL RDW Coeff of Shamar (11.5-14.5) % Plt Count (130-400) K/uL MPV (7.4-10.4) fL Lymph # (Auto) (1.2-3.4) K/uL APTT (21.0-31.0) Seconds Sodium (136-145) mmol/L Potassium (3.5-5.1) mmol/L Chloride (98-107) mmol/L BUN (7-18) mg/dl BUN/Creatinine Ratio (10-20) Glucose (70-99) mg/dl AST (15-37) U/L Total Protein (6.4-8.2) gm/dl Albumin (3.4-5.0) gm/dl Albumin/Globulin Ratio (0.9-2) Urine pH 8.0 H (4.5-7.5) Diagnostic Findings ABDOMEN AND PELVIS CT WITH IV CONTRAST CT DOSE: 610.78 mGycm HISTORY: Acute mid abdominal pain pain TECHNIQUE: Multiaxial CT images of the abdomen and pelvis were performed followi ng the IV administration of 90 cc of Optiray 320, A dose lowering technique was utilized adhering to the principles of ALARA. COMPARISON STUDY: CT abdomen and pelvis 07/05/2019 FINDINGS: Moderate emphysema. Dependent bibasilar airspace consolidation. Study is motion degraded. Study is limited secondary to positioning of the upper extremities. Imaged inferior cardiac chambers are unremarkable. There is resolution of the previously described pneumatosis and portal venous air. There is no pneumatosis or pneumoperitoneum identified on today's exam. The unenhanced liver is unremarkable. Spleen is enlarged, 14.6 cm. Mild generalized pancreatic atrophy. No biliary ductal dilation. Contracted gallbladder. Unremarkable adrenal glands. Cuneiform is unremarkable. Dilation of the infrarenal abdominal aorta redemonstrated, 5.7 x 4.5 cm. Moderate mixed plaque of the abdominal aorta. No evidence of aneurysm rupture. Unremarkable IVC. There is no adenopathy by CT size criteria. Resolution of the previously noted small bowel obstruction. Moderate fecal retention. No bowel wall thickening identified. Air-filled tubular structure is noted within the abdominal right lower quadrant suggestive of an noninflamed appendix. No drainable fluid collection. Degenerative changes of the pelvis, hips and spine. Mild generalized body wall and mesenteric edema. Severe disc space narrowing at L5-S1. IMPRESSION: 1. No bowel obstruction or bowel wall thickening. 2. Moderate fecal retention. 3. Diffuse mesenteric and body wall edema. 4. Moderate emphysema with dependent bibasilar consolidative opacities s uggestive of atelectasis or pneumonitis. 5. Fusiform aneurysmal dilation of the infrarenal abdominal aorta appears unchanged, 5.7 x 4.5 cm. No evidence of aneurysm rupture. 6. Additional findings as above. XR hand LT min 3V routine CLINICAL HISTORY: 59 years-old Male presenting with fall. TECHNIQUE: Frontal, oblique, and lateral views of the left hand were obtained. COMPARISON: None. FINDINGS: Middle and distal phalanges of the fourth finger absent, which appears chronic. No acute fracture or malalignment. No advanced degenerative change. Mild diffuse soft tissue swelling. IMPRESSION: No acute osseous injury. CT head/brain wo con CLINICAL HISTORY: 59 years-old Male with fall. Acute head injury status post fall TECHNIQUE: Multiple axial CT images of the head were obtained without contrast. A dose lowering technique was utilized adhering to the principles of ALARA. CT DOSE: 638.56 mGycm COMPARISON: Head CT 07/05/2019. FINDINGS: No acute intracranial hemorrhage, midline shift, intracranial mass, hydrocephalus, territorial ischemia or abnormal extra-axial collection. Mild age-related involutional changes. Mild patchy white matter hypodensities suggest chronic microvascular ischemic disease. The calvarium is intact. The paranasal sinuses, mastoid air cells, and middle ear cavities are clear. IMPRESSION: No acute intracranial abnormality or calvarial fracture. XR hip LT 2V w pelvis HISTORY: 59 years-old Male fall acute pelvic and left hip pain status post fall COMPARISON: CT abdomen and pelvis 07/05/2019 TECHNIQUE: AP view of the pelvis with 2 views of the left hip FINDINGS: Mild osteoarthritis of the bilateral femoral acetabular joints with prominent marginal osteophytic spurring. Severe disc space narrowing at L5-S1. No acute fracture, dislocation or avascular necrosis. Moderate fecal retention. Imaged pelvic bones appear intact. IMPRESSION: No acute fracture or dislocation. XR chest 1V portable CLINICAL HISTORY: 59 years-old Male presenting with weakness. TECHNIQUE: Portable upright AP view of the chest was obtained. COMPARISON: 07/05/2019. FINDINGS: Cardiomediastinal silhouette normal. Mildly coarsened lung markings with heterogeneous radiolucency of the upper lungs. Lung markings at the lung bases stable to slightly increased in prominence from prior. No other focal opacity. No large effusion or pneumothorax. Osseous structures normal. Upper abdomen normal. IMPRESSION: 1. Prominent bibasilar lung markings. Subtle basilar infiltrates or atelectasis not excluded. 2. Heterogeneous radiolucency of the upper lobes could suggest underlying emphysema. Code Status & VTE Plan Code Status Full VTE Prophylaxis Plan VTE Prophylaxis will be ordered: Yes Supervising Physician Co-Signing Physician Notes Attending addendum: I have physically seen this patient, have supervised the medical residents activities, and agree with the H&P unless as otherwise noted. Assessment and Plan: Cellulitis of left upper extremity- Continue oral Bactrim. Add ceftriaxone 1 g IV daily. Doppler negative for DVT. White blood cell count has improved significantly over the past 24 hours, however, if clinical condition does not continue to improve appropriately, will order CT to assess for possible osteo-. Hyponatremia/hypokalemia- Check serum and urine osmolalities. For now, placed on LR 100 cc/h. Give single K rider 20 mEq IV. Follow serial BMP and magnesium levels. Remainder orders and notations as noted. Resident Activity Tracking Resident Involvement: Resident Care Provided Care Provided: Adult Hospital Medicine (1) Hypothermia Encounter type: initial encounter Qualified Code(s): T68.XXXA - Hypothermia, initial encounter (2) Contusion of hip, left Encounter type: initial encounter Qualified Code(s): S70.02XA - Contusion of left hip, initial encounter
[2019-08-28] MEDS ORDERED: ACETAMINOPHEN 325 MG TAB PO PRN (22:43)
[2019-08-28] MEDS ORDERED: MAGNESIUM HYDROXIDE SUSP 30 ML UDC PO PRN (22:43)
[2019-08-28] MEDS ORDERED: LACTATED RINGER'S 1,000 ML IV SCH (22:50)
[2019-08-28] MEDS: clonazePAM 1 MG TAB PO SCH (23:12)
[2019-08-28 23:45] LABS: Echinocytes 1+
[2019-08-29] MEDS: LITHIUM CARBONATE SLOW REL 300 MG TAB PO SCH ×3 (00:17→20:31)
[2019-08-29] MEDS: SULFAMETHOXAZOLE/TRIMETHOPRIM DS 800/160MG TAB PO SCH ×3 (00:17→20:31)
[2019-08-29] MEDS: cefTRIAXone SODIUM 1,000 MG in DEXTROSE 5% 50 ML IV SCH ×2 (00:21→22:23)
[2019-08-29] MEDS: POTASSIUM CHLORIDE / WTR 10 MEQ/100 ML PLCT IV SCH ×2 (00:22→01:15)
[2019-08-29 06:55] LABS: Mean Corpuscular Hgb Conc 31.6 g/dL (32-36)
--- NOTE | 2019-08-29 07:07 | Ultrasound Report ---
US venous doppler UE LT CLINICAL HISTORY: 59 years-old Male presenting with left hand swelling, concern for upper extremity D VT. TECHNIQUE: Real-time grayscale and color and spectral Doppler ultrasound imaging of the veins of the left upper extremity was performed. Compression and augmentation were also utilized. COMPARISON: None. FINDINGS: LEFT: Internal jugular vein: Patent. Subclavian vein: Patent. Axillary vein: Patent. Brachial vein: Patent. Basilic vein (superficial): Patent. Cephalic vein (superficial): Occlusive thrombus extending from the antecubital fossa to the shoulder. Radial vein: Patent. Ulnar vein: Patent. Other: Prominent lymph node noted in the left supraclavicular region measuring 1.4 x 1.0 x 0.9 cm. Th is has a somewhat globular morphology. IMPRESSION: 1. Occlusive superficial venous thrombosis in the cephalic vein. 2. No evidence of deep venous thrombosis. 3. Enlarged left supraclavicular lymph node. This does not have a definitively benign morphology. A follow-up ultrasound or contrast-enhanced CT neck is recommended within one to 3 months. This could b e reactive though a malignant etiology is also possible. The report will be called/faxed according to standard departmental protocol. Electronically signed by: Surendra Bolton M.D. 08/29/2019 7:06 AM
[2019-08-29 07:17] LABS: Hematocrit (blood only) 29.4 % (42-52); Hemoglobin 9.3 g/dL (14.0-18.0); Mean Corpuscular Hemoglobin 30.2 pg (25-34); Mean Corpuscular Volume 95.5 fL (80-100); RDW Coefficient of Variation 15.1 % (11.5-14.5); RDW Standard Deviation 52.2 fL (36.4-46.3); Red Blood Count 3.08 M/uL (4.7-6.1); White Blood Count 5.36 K/uL (4.8-10.8)
[2019-08-29 07:18] LABS: Immature Granulocytes # (auto) 0.03 K/uL (0.00-0.02); Immature Granulocytes % (auto) 0.6 %; Lymphocytes # (auto) 0.52 K/uL (1.2-3.4); Lymphocytes % (auto) 9.7 %; Monocytes # (auto) 0.25 K/uL (0.11-0.59); Monocytes % (auto) 4.7 %; Neutrophils # (auto) 4.56 K/uL (1.4-6.5)
[2019-08-29 07:20] LABS: BUN Creatinine Ratio 18.3 (10-20); Calcium 9.7 mg/dl (8.5-10.1); Creatinine Clr Calc Pharmacy 77.4 ml/min; Est GFR (African American) 103.8; Est GFR (Non-African American) 89.5; Potassium 3.6 mmol/L (3.5-5.1)
[2019-08-29] MEDS: DEXTROSE 5% 1,000 ML IV SCH ×2 (08:00→15:14)
[2019-08-29 08:16] LABS: Toxic Vacuolation 1+
[2019-08-29 08:22] LABS: Echinocytes 1+
[2019-08-29] MEDS: SPIRONOLACTONE 25 MG TAB PO SCH (09:00)
[2019-08-29 09:01] LABS: BUN Creatinine Ratio 16.2 (10-20); Calcium 9.8 mg/dl (8.5-10.1); Creatinine Clr Calc Pharmacy 75.8 ml/min; Est GFR (African American) 101.1; Est GFR (Non-African American) 87.3; Potassium 3.4 mmol/L (3.5-5.1)
[2019-08-29 10:40] LABS: BUN Creatinine Ratio 14.2 (10-20); Calcium 9.9 mg/dl (8.5-10.1); Creatinine Clr Calc Pharmacy 68.6 ml/min; Est GFR (African American) 89.6; Est GFR (Non-African American) 77.3; Potassium 3.5 mmol/L (3.5-5.1)
[2019-08-29] MEDS: POLYETHYLENE (MIRALAX) 17 GM PACK PO SCH (10:54)
[2019-08-29] MEDS: clonazePAM 1 MG TAB PO SCH ×2 (10:54→20:31)
[2019-08-29] MEDS: FERROUS SULFATE 325 MG TAB PO SCH (10:56)
[2019-08-29] MEDS: CYANOCOBALAMIN (VITAMIN B-12) 100 MCG TABLET PO SCH (10:58)
[2019-08-29 12:38] LABS: BUN Creatinine Ratio 13.6 (10-20); Calcium 9.4 mg/dl (8.5-10.1); Creatinine Clr Calc Pharmacy 65.5 ml/min; Est GFR (African American) 84.7; Est GFR (Non-African American) 73.1; Potassium 3.6 mmol/L (3.5-5.1)
[2019-08-29 13:47] LABS: iSTAT Hemoglobin 8.8 g/dl (14.0-18.0); iSTAT Ionized Calcium 1.46 mmol/l (1.12-1.32); iSTAT Potassium 3.3 mEq/L (3.3-5.0)
[2019-08-29 14:02] LABS: BUN Creatinine Ratio 11.1 (10-20); Calcium 9.7 mg/dl (8.5-10.1); Est GFR (African American) 74.7; Est GFR (Non-African American) 64.5; Potassium 3.8 mmol/L (3.5-5.1)
[2019-08-29 15:22] LABS: BUN Creatinine Ratio 10.5 (10-20); Calcium 9.9 mg/dl (8.5-10.1); Creatinine Clr Calc Pharmacy 56.3 ml/min; Est GFR (African American) 70.5; Est GFR (Non-African American) 60.9; Potassium 3.8 mmol/L (3.5-5.1)
[2019-08-29 17:39] LABS: Calcium 9.9 mg/dl (8.5-10.1); Creatinine Clr Calc Pharmacy 59.5 ml/min; Est GFR (African American) 75.5; Est GFR (Non-African American) 65.1; Potassium 3.7 mmol/L (3.5-5.1)
[2019-08-29] MEDS: SODIUM CHLORIDE 0.45 % 1,000 ML IV SCH (17:58)
--- NOTE | 2019-08-29 18:17 | Hospitalist Progress Note ---
Date of Service August 29, 2019 Assessment & Plan (1) Dehydration: 59yoM with hx of anemia, B12 deficiency, HCV, schizoaffective disorder, seizure, GERD, constipation, aspiration pneumonitis, gastroparesis, abdominal aortic aneurysm presents status post 2 falls most recently at 2 PM today Hypernatremia -likely secondary to dehydration; this AM Na = 150 -Started on D5W at 180mL/h before progression to 300mL/h; with serial rechecks of BMP -Na trended down to 146 during the day -switched IV fluids to 1/2NSS at 120mL/h; will continue serial checks of Na overnight. Fall with left hip contusion: -Likely secondary to infection versus chronic deconditioning/weakness versus possible seizure given history -CT head negative -Hip/pelvis x-ray negative -CK normal -Troponin negative -EKG: Normal sinus rhythm 66 QTC 540 Cellulitis left upper extremity: -White blood cell count improved from 18.1 on August 27, 2019 to 7.2 today, lactate -X-ray and: Mild diffuse soft tissue swelling, middle and distal phalanx fourth finger chronically missing -DVT -Doppler demonstrated History of hypertension: -continue home spironolactone B12 deficiency: -Continue B12 supplement Schizoaffective disorder: -Continue home lithium, olanzapine and clonazepam FEN/GI: LR 100 cc/h, heart healthy diet Code: Full Dispo: MedSurg with telemetry (2) Hypothermia: (3) Contusion of hip, left: (4) Fall: (5) Schizoaffective disorder: (6) Pneumonitis: (7) Gastroparesis: (8) AAA (abdominal aortic aneurysm): (9) Constipation: (10) Anemia: (11) HCV (hepatitis C virus): (12) GERD (gastroesophageal reflux disease): (13) B12 deficiency: Supervising Physician Co-Signing Physician Notes I personally examined the patient and verified all montemayor points of history and exam, discussed case, and agree with decision making with Dr Harvey. Difficult to obtain much HPI review of systems from him. He was very verbose, but fairly tangential and uncertain how much veracity. He claims to be feeling fine. Vitals noted, in general he is awake and alert pleasant no distress. HEENT normal cephalic atraumatic mucous membranes are still fairly dry despite rather copious IV fluids. Breathing is unlabored no accessory muscle use good effort. Skin shows no rashes no pallor or icterus. He has rather significant muscle wasting and temporal wasting. No focal neuro deficits. Mental status as above. Hypothermiasuspect this was erroneoushe was refusing to have meaningful temper atures checked, but Dr. Harvey was able to convince him that it was important and now we are getting true readings that are not hypothermic. Hypernatremiastrongly suspect from poor oral intakehe is a picture of malnutrition with his muscle wasting, and clinically still appears dry with his dry cracked lips in spite of having had copious IV fluids since admission. Continue fluids, given that he also has lower blood pressures and the hyponatremia is now improving, we will switch from D5W to half-normal saline to affect a degree of intravascular repletion as well. Follow oral intake. Clinically proteincalorie malnutritionconcern on how much she is eating and drinking at the [facility]. Once we have him doing better clinically here, we will follow his oral intake. After discharge certainly will ask him to keep a close eye on how he is doing back at present as well. Fallssuspect due to low blood pressure Borderline hypotensionalmost certainly from volume depletionsee above. Otherwise as above. Subjective Patient remains compliant with all questions but is really unable to provide meaningful information about situation leading up to his fall, per [facility] guards stood up from bed and then fell yesterday. No previous episodes that they are aware of. Review of Systems Review of Systems: Unobtainable due to cognitive status Physical Exam Constitutional: WD/WN, vitals as above + thin and + underweight Eyes: PERRL, conjunctivae normal, anicteric sclerae ENMT: Mouth: + lip abnormality (dry mucus membranes) Respiratory: normal respiratory effort, lungs clear to auscultation Cardiovascular: Rate/Rhythm: regular rate and regular rhythm Heart Sounds: normal S1 and normal S2; no gallop, no murmur and no cardiac rub Gastrointestinal (Abdomen): normal bowel sounds, soft, nontender, no hepatosplenomegaly Neurologic: moves all extremities; no focal motor deficits Motor/Sensory: no tremor Psychiatric: Affect: euthymic affect Insight: + limited insight Judgement: + limited judgement Results & Data Vital Signs (Past 12 Hours) Vital Signs Temp Pulse Pulse Resp BP BP Pulse Ox 08/29/19 15:32 36.6 C 96 H 20 106/61 97 08/29/19 15:00 100 H 08/29/19 11:27 36.9 C 86 18 81/55 L 95 08/29/19 07:47 60 18 99/50 L 96 08/29/19 07:25 34.6 C L 08/29/19 07:19 61 08/29/19 06:44 34.6 C L Laboratory Results 08/29/19 08/29/19 08/29/19 Range/Units 16:49 14:59 13:28 WBC (4.8-10.8) K/uL RBC (4.7-6.1) M/uL Hgb (14.0-18.0) g/dL POC Hgb (14.0-18.0) g/dl Hct (42-52) % POC Hct (42-52) % MCV (80-100) fL MCH (25-34) pg MCHC (32-36) g/dL RDW Std Deviation (36.4-46.3) fL RDW Coeff of Shamar (11.5-14.5) % Plt Count (130-400) K/uL MPV (7.4-10.4) fL Immature Gran % (Auto) % Neut % (Auto) % Lymph % (Auto) % [place] % (Auto) % Eos % (Auto) % Baso % (Auto) % Immature Gran # (Auto) (0.00-0.02) K/uL Neut # (Auto) (1.4-6.5) K/uL Lymph # (Auto) (1.2-3.4) K/uL [place] # (Auto) (0.11-0.59) K/uL Eos # (Auto) (0-0.5) K/uL Baso # (Auto) (0-0.2) K/uL Absolute Nucleated RBC (0-0) K/uL Nucleated RBC % (auto) % Toxic Vacuolation Echinocytes Peripher Smr Path Cons POC Sodium (135-144) mEq/L Sodium 146 H 148 H 147 H (136-145) mmol/L POC Potassium (3.3-5.0) mEq/L Potassium 3.7 3.8 3.8 (3.5-5.1) mmol/L POC Chloride (101-112) mEq/L Chloride 116 H 117 H 117 H (98-107) mmol/L Carbon Dioxide 23 23 23 (21-32) mmol/L POC Total CO2 (24-31) mEq/l Anion Gap 7.0 7.0 7.0 (3-11) POC Anion Gap (16-25) mmol/L POC BUN (7-18) mg/dl BUN 13 14 14 (7-18) mg/dl Creatinine 1.21 1.28 1.22 (0.6-1.4) mg/dl POC Creatinine (0.6-1.3) mg/dl Est Cr Clr Drug Dosing 59.5 56.3 59.0 ml/min Est GFR ( Amer) 75.5 70.5 74.7 Est GFR (Non-Af Amer) 65.1 60.9 64.5 BUN/Creatinine Ratio 11.0 10.5 11.1 (10-20) Glucose 138 H 142 H 165 H (70-99) mg/dl POC Glucose (other) (70-99) mg/dl Calcium 9.9 9.9 9.7 (8.5-10.1) mg/dl POC Ioniz Calcium Jaki (1.12-1.32) mmol/l Specimen Hemolysis Urine Color Urine Appearance (Clear) Urine pH (4.5-7.5) Ur Specific [place] (1.000-1.030) Urine Protein (Negative) Urine Glucose (UA) (Negative) Urine Ketones (Negative) Urine Blood (Negative) Urine Nitrite (Negative) Urine Bilirubin (Negative) Urine Urobilinogen (Negative) Ur Leukocyte Esterase (Negative) Nasal Screen MRSA (PCR) (Negative) 08/29/19 08/29/19 08/29/19 Range/Units 11:59 09:57 08:06 WBC (4.8-10.8) K/uL RBC (4.7-6.1) M/uL Hgb (14.0-18.0) g/dL POC Hgb (14.0-18.0) g/dl Hct (42-52) % POC Hct (42-52) % MCV (80-100) fL MCH (25-34) pg MCHC (32-36) g/dL RDW Std Deviation (36.4-46.3) fL RDW Coeff of Shamar (11.5-14.5) % Plt Count (130-400) K/uL MPV (7.4-10.4) fL Immature Gran % (Auto) % Neut % (Auto) % Lymph % (Auto) % [place] % (Auto) % Eos % (Auto) % Baso % (Auto) % Immature Gran # (Auto) (0.00-0.02) K/uL Neut # (Auto) (1.4-6.5) K/uL Lymph # (Auto) (1.2-3.4) K/uL [place] # (Auto) (0.11-0.59) K/uL Eos # (Auto) (0-0.5) K/uL Baso # (Auto) (0-0.2) K/uL Absolute Nucleated RBC (0-0) K/uL Nucleated RBC % (auto) % Toxic Vacuolation Echinocytes Peripher Smr Path Cons POC Sodium (135-144) mEq/L Sodium 149 H 150 H 151 H (136-145) mmol/L POC Potassium (3.3-5.0) mEq/L Potassium 3.6 3.5 3.4 L (3.5-5.1) mmol/L POC Chloride (101-112) mEq/L Chloride 120 H 121 H 122 H (98-107) mmol/L Carbon Dioxide 24 25 24 (21-32) mmol/L POC Total CO2 (24-31) mEq/l Anion Gap 5.0 4.0 5.0 (3-11) POC Anion Gap (16-25) mmol/L POC BUN (7-18) mg/dl BUN 15 15 15 (7-18) mg/dl Creatinine 1.10 1.05 0.95 (0.6-1.4) mg/dl POC Creatinine (0.6-1.3) mg/dl Est Cr Clr Drug Dosing 65.5 68.6 75.8 ml/min Est GFR ( Amer) 84.7 89.6 101.1 Est GFR (Non-Af Amer) 73.1 77.3 87.3 BUN/Creatinine Ratio 13.6 14.2 16.2 (10-20) Glucose 132 H 124 H 61 L (70-99) mg/dl POC Glucose (other) (70-99) mg/dl Calcium 9.4 9.9 9.8 (8.5-10.1) mg/dl POC Ioniz Calcium Jaki (1.12-1.32) mmol/l Specimen Hemolysis Urine Color Urine Appearance (Clear) Urine pH (4.5-7.5) Ur Specific [place] (1.000-1.030) Urine Protein (Negative) Urine Glucose (UA) (Negative) Urine Ketones (Negative) Urine Blood (Negative) Urine Nitrite (Negative) Urine Bilirubin (Negative) Urine Urobilinogen (Negative) Ur Leukocyte Esterase (Negative) Nasal Screen MRSA (PCR) (Negative) 08/29/19 08/29/19 08/29/19 Range/Units 06:16 06:16 00:36 WBC 5.36 (4.8-10.8) K/uL RBC 3.08 L (4.7-6.1) M/uL Hgb 9.3 L (14.0-18.0) g/dL POC Hgb (14.0-18.0) g/dl Hct 29.4 L (42-52) % POC Hct (42-52) % MCV 95.5 (80-100) fL MCH 30.2 (25-34) pg MCHC 31.6 L (32-36) g/dL RDW Std Deviation 52.2 H (36.4-46.3) fL RDW Coeff of Shamar 15.1 H (11.5-14.5) % Plt Count (130-400) K/uL MPV (7.4-10.4) fL Immature Gran % (Auto) 0.6 % Neut % (Auto) 85.0 % Lymph % (Auto) 9.7 % [place] % (Auto) 4.7 % Eos % (Auto) 0.0 % Baso % (Auto) 0.0 % Immature Gran # (Auto) 0.03 H (0.00-0.02) K/uL Neut # (Auto) 4.56 (1.4-6.5) K/uL Lymph # (Auto) 0.52 L (1.2-3.4) K/uL [place] # (Auto) 0.25 (0.11-0.59) K/uL Eos # (Auto) 0.00 (0-0.5) K/uL Baso # (Auto) 0.00 (0-0.2) K/uL Absolute Nucleated RBC (0-0) K/uL Nucleated RBC % (auto) % Toxic Vacuolation Echinocytes 1+ Peripher Smr Path Cons POC Sodium (135-144) mEq/L Sodium 150 H (136-145) mmol/L POC Potassium (3.3-5.0) mEq/L Potassium 3.6 (3.5-5.1) mmol/L POC Chloride (101-112) mEq/L Chloride 121 H (98-107) mmol/L Carbon Dioxide 23 (21-32) mmol/L POC Total CO2 (24-31) mEq/l Anion Gap 6.0 (3-11) POC Anion Gap (16-25) mmol/L POC BUN (7-18) mg/dl BUN 17 (7-18) mg/dl Creatinine 0.93 (0.6-1.4) mg/dl POC Creatinine (0.6-1.3) mg/dl Est Cr Clr Drug Dosing 77.4 ml/min Est GFR ( Amer) 103.8 Est GFR (Non-Af Amer) 89.5 BUN/Creatinine Ratio 18.3 (10-20) Glucose 69 L (70-99) mg/dl POC Glucose (other) (70-99) mg/dl Calcium 9.7 (8.5-10.1) mg/dl POC Ioniz Calcium Jaki (1.12-1.32) mmol/l Specimen Hemolysis Urine Color Urine Appearance (Clear) Urine pH (4.5-7.5) Ur Specific [place] (1.000-1.030) Urine Protein (Negative) Urine Glucose (UA) (Negative) Urine Ketones (Negative) Urine Blood (Negative) Urine Nitrite (Negative) Urine Bilirubin (Negative) Urine Urobilinogen (Negative) Ur Leukocyte Esterase (Negative) Nasal Screen MRSA (PCR) Negative (Negative) 08/28/19 08/28/19 08/28/19 Range/Units 20:54 16:47 16:41 WBC (4.8-10.8) K/uL RBC (4.7-6.1) M/uL Hgb (14.0-18.0) g/dL POC Hgb 8.8 L (14.0-18.0) g/dl Hct (42-52) % POC Hct 26 L (42-52) % MCV (80-100) fL MCH (25-34) pg MCHC (32-36) g/dL RDW Std Deviation (36.4-46.3) fL RDW Coeff of Shamar (11.5-14.5) % Plt Count (130-400) K/uL MPV (7.4-10.4) fL Immature Gran % (Auto) % Neut % (Auto) % Lymph % (Auto) % [place] % (Auto) % Eos % (Auto) % Baso % (Auto) % Immature Gran # (Auto) (0.00-0.02) K/uL Neut # (Auto) (1.4-6.5) K/uL Lymph # (Auto) (1.2-3.4) K/uL [place] # (Auto) (0.11-0.59) K/uL Eos # (Auto) (0-0.5) K/uL Baso # (Auto) (0-0.2) K/uL Absolute Nucleated RBC 0.00 (0-0) K/uL Nucleated RBC % (auto) 0.0 % Toxic Vacuolation 1+ Echinocytes 1+ Peripher Smr Path Cons POC Sodium 147 H (135-144) mEq/L Sodium (136-145) mmol/L POC Potassium 3.3 (3.3-5.0) mEq/L Potassium (3.5-5.1) mmol/L POC Chloride 114 H (101-112) mEq/L Chloride (98-107) mmol/L Carbon Dioxide (21-32) mmol/L POC Total CO2 26 (24-31) mEq/l Anion Gap (3-11) POC Anion Gap 11.0 L (16-25) mmol/L POC BUN 22 H (7-18) mg/dl BUN (7-18) mg/dl Creatinine (0.6-1.4) mg/dl POC Creatinine 1.0 (0.6-1.3) mg/dl Est Cr Clr Drug Dosing ml/min Est GFR ( Amer) Est GFR (Non-Af Amer) BUN/Creatinine Ratio (10-20) Glucose (70-99) mg/dl POC Glucose (other) 142 H (70-99) mg/dl Calcium (8.5-10.1) mg/dl POC Ioniz Calcium Jaki 1.46 H (1.12-1.32) mmol/l Specimen Hemolysis Urine Color Yellow Urine Appearance Clear (Clear) Urine pH 8.0 H (4.5-7.5) Ur Specific [place] 1.014 (1.000-1.030) Urine Protein Negative (Negative) Urine Glucose (UA) Negative (Negative) Urine Ketones Negative (Negative) Urine Blood Negative (Negative) Urine Nitrite Negative (Negative) Urine Bilirubin Negative (Negative) Urine Urobilinogen Negative (Negative) Ur Leukocyte Esterase Negative (Negative) Nasal Screen MRSA (PCR) (Negative) Medications Administered Current Inpatient Medications Acetaminophen (Tylenol) 650 mg PO Q4H PRN PRN Reason: Pain or Fever Stop: 09/27/19 22:42 Clonazepam (Klonopin) 1 mg PO BID PENDING SALE TO [facility] Stop: 09/27/19 22:42 Last Admin: 08/29/19 10:54 Dose: 1 mg Documented by: Cyanocobalamin (Vitamin B-12) 100 mcg PO DAILY PENDING SALE TO [facility] Stop: 09/28/19 08:59 Last Admin: 08/29/19 10:58 Dose: 100 mcg Documented by: Docusate Sodium (Colace) 250 mg PO HS PENDING SALE TO [facility] Stop: 09/28/19 20:59 Ferrous Sulfate (Feosol) 325 mg PO DAILY PENDING SALE TO [facility] Stop: 09/28/19 08:59 Last Admin: 08/29/19 10:56 Dose: 325 mg Documented by: Ceftriaxone Sodium 1,000 mg/ (Dextrose) 50 mls @ 100 mls/hr IV Q24H PENDING SALE TO [facility]; Protocol Stop: 09/07/19 22:59 Last Infusion: 08/29/19 01:05 Dose: Infused Documented by: Sodium Chloride (1/2 Nss) 1,000 mls @ 120 mls/hr IV .Q8H20M PENDING SALE TO [facility] Stop: 09/28/19 16:44 Last Admin: 08/29/19 17:58 Dose: 120 mls/hr Documented by: [place] Carbonate (Lithobid) 300 mg PO BID PENDING SALE TO [facility] Stop: 09/27/19 22:42 Last Admin: 08/29/19 09:00 Dose: 300 mg Documented by: Magnesium Hydroxide (Milk Of Magnesia) 60 ml PO DAILY PRN PRN Reason: Constipation Stop: 09/27/19 22:42 Olanzapine (Zyprexa) 10 mg PO HS PENDING SALE TO [facility] Stop: 09/28/19 20:59 Polyethylene Glycol (Miralax Powder Packet) 17 gm PO DAILY PENDING SALE TO [facility] Stop: 09/28/19 08:59 Last Admin: 08/29/19 10:54 Dose: 17 gm Documented by: Spironolactone (Aldactone) 25 mg PO DAILY PENDING SALE TO [facility] Stop: 09/28/19 08:59 Last Admin: 08/29/19 09:00 Dose: 25 mg Documented by: Trimethoprim/Sulfamethoxazole (Septra Ds 800/160mg Tab) 1 tab PO BID DIANA Stop: 09/07/19 22:42 Last Admin: 08/29/19 09:00 Dose: 1 tab Documented by: Resident Activity Tracking Resident Involvement: Resident Care Provided Care Provided: Adult Hospital Medicine (1) Hypothermia Encounter type: initial encounter Qualified Code(s): T68.XXXA - Hypothermia, initial encounter (2) Contusion of hip, left Encounter type: initial encounter Qualified Code(s): S70.02XA - Contusion of left hip, initial encounter
--- NOTE | 2019-08-29 19:01 | Billing Data ---
Coding Level of Care Code 95206 Subseq Hosp Care Lvl 3
[2019-08-29 19:32] LABS: BUN Creatinine Ratio 9.7 (10-20); Calcium 9.4 mg/dl (8.5-10.1); Creatinine Clr Calc Pharmacy 52.9 ml/min; Est GFR (African American) 65.5; Est GFR (Non-African American) 56.6; Potassium 3.8 mmol/L (3.5-5.1)
[2019-08-29] MEDS: DOCUSATE SODIUM SYRUP 100 MG/10 ML UDC PO SCH (20:31)
[2019-08-29] MEDS ORDERED: OLANZapine 10 MG TAB PO SCH (21:00)
[2019-08-29 23:14] LABS: BUN Creatinine Ratio 9.1 (10-20); Calcium 9.7 mg/dl (8.5-10.1); Creatinine Clr Calc Pharmacy 50.3 ml/min; Est GFR (African American) 61.7; Est GFR (Non-African American) 53.2; Potassium 3.8 mmol/L (3.5-5.1)
--- NOTE | 2019-08-30 00:50 | Billing Data ---
Coding Level of Care Code 00417 Initial Inpt Care Lvl 3
[2019-08-30] MEDS: SODIUM CHLORIDE 0.45 % 1,000 ML IV SCH ×2 (02:12→10:35)
[2019-08-30 03:48] LABS: Hematocrit (blood only) 28.3 % (42-52); Lymphocytes # (auto) 0.93 K/uL (1.2-3.4); Lymphocytes % (auto) 16.2 %; Mean Corpuscular Hemoglobin 30.3 pg (25-34); Mean Corpuscular Hgb Conc 31.8 g/dL (32-36); Mean Corpuscular Volume 95.3 fL (80-100); Mean Platelet Volume 11.3 fL (7.4-10.4); Monocytes # (auto) 0.32 K/uL (0.11-0.59); Monocytes % (auto) 5.6 %; Neutrophils # (auto) 4.48 K/uL (1.4-6.5); Neutrophils % (auto) 78.2 %; Platelet Count 123 K/uL (130-400); RDW Coefficient of Variation 15.3 % (11.5-14.5); RDW Standard Deviation 53.1 fL (36.4-46.3); Red Blood Count 2.97 M/uL (4.7-6.1); White Blood Count 5.73 K/uL (4.8-10.8)
[2019-08-30 04:04] LABS: BUN Creatinine Ratio 9.8 (10-20); Calcium 9.1 mg/dl (8.5-10.1); Creatinine Clr Calc Pharmacy 51.1 ml/min; Est GFR (African American) 62.7; Est GFR (Non-African American) 54.1; Potassium 3.6 mmol/L (3.5-5.1)
[2019-08-30] MEDS: SPIRONOLACTONE 25 MG TAB PO SCH (07:38)
[2019-08-30] MEDS: POLYETHYLENE (MIRALAX) 17 GM PACK PO SCH (07:47)
[2019-08-30] MEDS: SULFAMETHOXAZOLE/TRIMETHOPRIM DS 800/160MG TAB PO SCH (07:47)
[2019-08-30] MEDS: LITHIUM CARBONATE SLOW REL 300 MG TAB PO SCH (07:47)
[2019-08-30] MEDS: clonazePAM 1 MG TAB PO SCH (07:47)
[2019-08-30] MEDS: FERROUS SULFATE 325 MG TAB PO SCH (07:47)
[2019-08-30] MEDS: CYANOCOBALAMIN (VITAMIN B-12) 100 MCG TABLET PO SCH (07:48)
[2019-08-30 07:59] LABS: Est GFR (African American) 70.5; Potassium 3.7 mmol/L (3.5-5.1)
[2019-08-30 08:00] LABS: BUN Creatinine Ratio 10.4 (10-20); Calcium 9.6 mg/dl (8.5-10.1); Creatinine Clr Calc Pharmacy 63.3 ml/min; Est GFR (Non-African American) 60.9
[2019-08-30 10:28] LABS: BUN Creatinine Ratio 10.4 (10-20); Calcium 9.4 mg/dl (8.5-10.1); Creatinine Clr Calc Pharmacy 60.9 ml/min; Est GFR (African American) 67.3; Est GFR (Non-African American) 58.1; Potassium 3.8 mmol/L (3.5-5.1)
[2019-08-30] MEDS ORDERED: VANCOMYCIN CONSULT ACTIVE PRN (11:09)
[2019-08-30 12:27] LABS: Base Excess VBG -0.8 mEq/L; Oxygen Saturation VBG 84.5 %; pH VBG 7.43 (7.36-7.41)
[2019-08-30] MEDS ORDERED: VANCOMYCIN HCL 1,750 MG in SODIUM CHLORIDE 0.9% 500 ML IV ONE (12:30)
[2019-08-30] MEDS ORDERED: CEFEPIME 2,000 MG in SYRINGE 7.5 ML IV SCH (12:30)
[2019-08-30] MEDS ORDERED: VANCOMYCIN HCL 1,750 MG in DEXTROSE 5% 500 ML IV ONE (12:30)
--- NOTE | 2019-08-30 12:36 | Critical Care Consultation ---
Date of Consultation August 30, 2019 Assessment & Plan (1) Altered mental status: Reason Critically Ill: Dennis Childers is a 59 y/o male with a history of vitamin B12 deficiency, schizoaffective disorder, anemia, seizures, GERD, constipation, aspiration pneumonitis, gastroparesis, abdominal aortic aneurysm, CKD. He presented to [facility] for complaints of a fall x2 and AMS. He was found to have decreasing level of consciousness and hypothermia and appeared critically ill without explanation. Hospitalist service consulted net developer software engineer c service for ICU management with evaluation and management of a critically ill patient. His past medical history is limited on medical record review. [facility] was contacted but medical record staff left for weekend. Neuro: Confused and unintelligible He has a reported history of schizoaffective disorder/Bipolar type and on [place] 300mg BID; two levels have been taking with one repeated today that were both WNL. Last visit prior 07/05/19 had [place] toxicity of 2.8. Will hold [place]. He is on Clonazepam 1mg PO BID, unknown reason, will hold since was scheduled order and will only contribute to AMS Zyprexa 10mg PO HS is also reviewed on med list; medication stopped He has had [address], with most recent today after worsening mentation which were both negative for acute intracranial abnormality; Left occipital scalp contusion and trace hematoma were noted; No subjacent osseous injury Considered Hepatic Encephalopathy, ordered Ammonia which was 31 WNL His medical records from [facility] note seizure history which is new from previous [facility] facesheet provided at ED visit here on 07/05/2019. Cardiac/Vascular: Trop on initial workup was negative Initial ECG was significant for prolonged QTc; repeat today was improved Soft BPs of 90s/50s despite adequate fluid status Rate is stable in 70s. Follow on manager monitoring; monitor hemodynamics. Pulm: CXR on 08/28/19 showed prominent bibasilar lung markings and findings suggestive of emphysema Currently on 3L NC with SpO2 100% GI: Continue with home Vitamin B12 oral medication for Vitamin B12 deficiency Nutrition consulted; patient appears very thin Requested to obtain records from [facility] and [facility] about events after Lifeflight from here on 07/05/2019 for ischemic bowel. Hx noted of Hep C; no elevations of AST/ALT Renal/Lytes: Sodium elevated at 146 but improved from prior. Potassium, Phos, Mag WNL Creatinine this AM of 1.33 improved from 1.43 yesterday; possible baseline of 1.0-1.1. Discontinued D5W @ 300mL and started NSS @ 125mLs/hr : Ng ordered Monitor I&O Prior UA unremarkable Urine culture ordered by hospitalist Urine Osmolality ordered Endo: Elevated blood glucose levels in 100s persistently; will order A1C in the AM Hypothyroid hx: hold oral medication at this time Random Cortisol this AM was 19.33 Heme Hx of anemia this AM Hgb 9.0; with no medical records available to determine baseline No signs of bleeding Platelets stable at 123 WBC WNL ID: Was transfered here on Cefepime and Vanc Will discontinue as no significant signs of infection MRSA swab negative Will follow blood and urine cultures Lines: peripheral IVs Bear hugger for Hypothermia with rectal temps to track re-warming status; currently 36.9 C WNL; came in to ED with temp of 31.4 C. DVT ppx: None currently ordered Resuscitation Status: Full Code; contacted [facility] to attempt to get consent forms in need of CVC or need for otto, but no one available to give consent until Monday. They are unaware of any family members who would be able to give consent (2) Dehydration: (3) Hypothermia: (4) Contusion of hip, left: (5) Fall: (6) Schizoaffective disorder: (7) Pneumonitis: (8) Gastroparesis: (9) AAA (abdominal aortic aneurysm): (10) Constipation: (11) Anemia: (12) HCV (hepatitis C virus): (13) GERD (gastroesophageal reflux disease): (14) B12 deficiency: Supervising Physician Co-Signing Physician Notes Patient seen and examined at the request of the hospitalist. History is obtained from discussion with them as the patient is obtunded and unable to pro vide pertinent history. Agree with assessment and plan by FP resident as noted with following addendum. 59-year-old incarcerated male with a history of schizoaffective disorder admitted after multiple falls. He is chronically on lithium and Zyprexa for his schizoaffective disorder. The patient apparently has had multiple falls and was brought to the emergency room 08/28. He was found to be hyponatremic with sodium above 150. There was also concern about a hand cellulitis. He was also noted to be hypothermic. He was admitted to the hospitalist service. They contacted me today due to progressive encephalopathy and recurrent hypothermia. I assessed the patient on arrival to the ICU. He is arousable to verbal and tactile stimulus but becomes somnolent fairly rapidly thereafter. He is receiving passive external warming. Of note the patient had a lithium level of 2.8. In June. His current level has been 1-0.8 Impression: 59-year-old incarcerated male with multiple falls and presentation now with hyponatremia, hypothermia, and altered level of consciousness. Certainly his hypernatremia and altered level of consciousness may be attributed to chronic lithium toxicity. Acute levels often do not reflect chronic exposures. Do not think the patient requires dialysis currently for removal of lithium but will follow closely. Is unclear if his temperature dysregulation it may be related to lithium as well. For now we will hold his lithium as well as other antipsychotics and allow for his mental status to clear. His neuro exam appears nonfocal. I do not think he warrants a lumbar puncture currently but if there were suspicion for persistent encephalopathy, consultation with neurology and consideration for LP may be appropriate. with regards to his hypothermia comments unclear if this could be attributed to his lithium toxicity. His cortisol is borderline at 19 and TSH was normal at 1.59. He does not have other electrolyte abnormalities which would be highly suggestive of primary adrenal insufficiency. We will hold on replacement for now pending patient's clinical response although should his blood pressure drop would have a low threshold for institution of replacement hydrocortisone and Florinef Hypovolemic hyponatremia: Wonder if the patient could have nephrogenic or central diabetes insipidus perpetuated by lithium and limited access to water due to his schizoaffective disorder and institutionalized state. Will change fluids to normal saline with frequent BMP levels. Checking urine osmolarity. Follow urine output with Ng catheter. Depending on his urine osmolarity, may need to change to more hypotonic fluids and increased rate to match output. We will continue to follow during his ICU course. History of Present Illness Attending Physician: Jairo Carrillo DO History of Present Illness Caveat: History Limited by - Altered Mental Status. Dennis Childers is a 59 y/o male with a history of vitamin B12 deficiency, schizoaffective disorder, anemia, seizures, GERD, constipation, aspiration pneumonitis, gastroparesis, abdominal aortic aneurysm, CKD. He presented to [facility] for complaints of a fall x2. He sustained injury to left hip contusion. Imaging in [facility] did not show any acute fractures and head CT was negative. He was found to have decreasing level of consciousness an hypothermia and appeared critically ill without explanation. Hospitalist service consulted net developer software engineer c service for ICU management with evaluation and management of a critically ill patient. Futher rewiew of old EMR to get more information on patient shows that he was Life Flighted to [facility] on 07/05/2019 for bowel ischemia; there is no records showing what happened between then and when arriving to [facility] for current admission. Allergies Allergy/AdvReac Type Severity Reaction Status Date / Time haloperidol [From Haldol] AdvReac Unknown Unknown Unverified 08/28/19 16:50 Home Medications Home Medications Medication Instructions Recorded Confirmed Type ferrous sulfate [Feosol] 325 mg PO DAILY 07/05/19 08/28/19 History lithium carbonate [Lithobid] 300 mg PO BID 07/05/19 08/28/19 History clonazepam 1 mg PO BID 08/28/19 08/28/19 History cyanocobalamin (vitamin B-12) 100 mcg PO DAILY 08/28/19 08/28/19 History docusate sodium 250 mg PO HS 08/28/19 08/28/19 History magnesium hydroxide [Milk of 60 ml PO DAILY PRN 08/28/19 08/28/19 History Magnesia] olanzapine 10 mg PO HS 08/28/19 08/28/19 History spironolactone 25 mg PO DAILY 08/28/19 08/28/19 History sulfamethoxazole-trimethoprim 1 tab PO BID 08/28/19 08/28/19 History Patient History Medical History Bipolar disorder Hepatitis C Family History Other No pertinent family history in first degree relatives Social History Preferred Language: Swiss Communication Ability: Effective Air Quality Chemist Required: No Beliefs That Will Affect Care: None Current Living Situation: Other Current Living Situation Comment: From [facility] Other Information That Helps Us Care for You: No Feels Safe at Home: Yes Safety Concerns: Feels Safe At This Time Smoking Status: Former smoker Tobacco Type: cigarettes ; Cigarettes Per Day: 1 pack per day ; Do You Dip or Chew Tobacco: No ; Second Hand Exposure: No ; Tobacco Cessation Education Requested by Patient: No Hx Alcohol Use: No Hx Substance Use: No Review of Systems Review of Systems: Limited by Altered Mental Status/confusion Physical Exam Constitutional: + ill appearing, + thin, comfortable and + underweight Eyes: + conjunctival abnormality and PERRL Neck: normal visual inspection and trachea midline Respiratory: no respiratory distress Auscultation: + diminished lung sounds; no wheezes Cardiovascular: Rate/Rhythm: regular rate distant heart sounds Gastrointestinal (Abdomen): Percussion/Palpation: abdomen soft; abdomen nontender, no guarding and abdomen not rigid old well healed mid line abdominal surgical scar Musculoskeletal: Head/Neck/Chest: normocephalic left wrist handcuffed to exam bed; he is missing his left 4th digit from area after DIP that is healed; there are distal skin lesions that appear black and irregular but small less than 0.5cm to distal fingers; no significant erythema; he does withdraw hands from examination but unsure if painful, unable to understand speech; there are no lesions to nails; bilateral feet were examined and only significant for oncyhomycosis Skin: no rashes, warm and dry Neurologic: moves all extremities and + confused; no focal motor deficits does respond to yes/no questioning and can follow simple commands Psychiatric: Orientation: + not oriented to place and + not oriented to time drowsy but arouses easily Results & Data Vital Signs (Past 12 Hours) Vital Signs Temp Pulse Pulse Resp BP BP Pulse Ox 08/30/19 11:44 35.1 C L 08/30/19 11:03 34.7 C L 08/30/19 10:59 64 18 93/59 L 96 08/30/19 10:15 34.8 C L 08/30/19 08:00 78 08/30/19 07:18 65 20 93/57 L 96 08/30/19 03:21 36.4 C L 75 18 101/60 96 PG Care Time/CCT Total # of Minutes Spent Total Time Spent with Patient: Total time spent is greater than 50% in coordination of care (as documented) at patient's floor/unit and/or counseling patient: Resident Activity Tracking Resident Involvement: Resident Care Provided Care Provided: Adult Hospital Medicine (1) Hypothermia Encounter type: initial encounter Qualified Code(s): T68.XXXA - Hypothermia, initial encounter (2) Altered mental status Altered mental status type: unspecified Qualified Code(s): R41.82 - Altered mental status, unspecified (3) Contusion of hip, left Encounter type: initial encounter Qualified Code(s): S70.02XA - Contusion of left hip, initial encounter
[2019-08-30 12:46] LABS: BUN Creatinine Ratio 11.4 (10-20); Calcium 9.6 mg/dl (8.5-10.1); Creatinine Clr Calc Pharmacy 65.9 ml/min; Est GFR (Non-African American) 63.9
--- NOTE | 2019-08-30 12:55 | Pharmacy Report ---
Pharmacy Abx Dose Short Note - Date of Service August 30, 2019 - Assessment & Plan Assessment * 59 year old M receiving VANCOMYCIN + CEFEPIME for treatment of LUE cellulitis. Pharmacy consulted to dose VANCOMYCIN * Patient was admitted for falls, dehydration, hypernatremia on 08/28. Today patient is being transferred to ICU for deteriorating clinical status * + risk factors for MRSA (incarceration), however nares not colonized * Patient had been receiving Bactrim prior to admission * Of note, pt does have underlying malnutrition, thus making assessment of eCrCl/eGFR less accurate Plan Vancomycin * Loading dose: 1750mg (~24mg/kg) IV x 1 * Maint dose: 1000mg (~14mg/kg) IV Q 14 hrs * Goal trough level for skin/soft tissue infxn, possible sepsis : 15 to 20 mcg/mL initially given ICU admission * Trough level ordered for: 09/01/19 w/ maint dose * P'kinetic estimates: Vd 0.7L/kg, half-life ~13 hrs * OF NOTE: ONLY 48 HRS IF VANCOMYCIN THERAPY HAVE BEEN ORDERED Pharmacy will continue to follow and will adjust dose/frequency as necessary. Thank you.
[2019-08-30] MEDS: DEXTROSE 5% 1,000 ML IV SCH ×2 (12:59→15:17)
--- NOTE | 2019-08-30 13:04 | CT Scan Report ---
CT head/brain wo con CLINICAL HISTORY: 59 years-old Male presenting with decreasing sedation, altered mental status. TECHNIQUE: Multidetector CT imaging of the head was performed without the use of intravenous contrast . IV contrast: None. One or more dose lowering techniques were used consistent with the principles of ALARA (as low as reasonably achievable), including automatic exposure control, mA or kV adjustment t o individual patient size, and/or use of iterative reconstruction. COMPARISON: 08/28/2019. CT DOSE (mGy.cm): The estimated cumulative dose is 614.27 mGy.cm. FINDINGS: Slusher Operator topogram: Unremarkable. Ventricles and sulci normal in size. No hemorrhage. Brain parenchyma normal in appearance with preser bobby noel-white differentiation. No acute territorial infarct. No mass effect or midline shift. No ext ra-axial fluid collection. Paranasal sinuses and mastoid air cells clear. Calvarium intact. Extensive infiltration and swelling with trace hematoma in the left occipital scalp. IMPRESSION: 1. No acute intracranial abnormality. 2. Left occipital scalp contusion and trace hematoma. No subjacent osseous injury. Electronically signed by: Surendra Bolton M.D. 08/30/2019 1:02 PM
[2019-08-30 13:38] LABS: INR 1.1 (0.9-1.1); Prothrombin Time 11.2 Seconds (9.0-12.0)
[2019-08-30 13:47] LABS: Magnesium 2.3 mg/dl (1.8-2.4); Phosphorus 2.6 mg/dl (2.5-4.9)
[2019-08-30 13:48] LABS: Alanine Aminotransferase 17 U/L (12-78); Albumin Level 2.1 gm/dl (3.4-5.0); Aspartate Aminotransferase 9 U/L (15-37); BUN Creatinine Ratio 11.8 (10-20); Bilirubin Direct < 0.1 mg/dl (0-0.2); Blood Urea Nitrogen 14 mg/dl (7-18); Calcium 9.2 mg/dl (8.5-10.1); Carbon Dioxide 23 mmol/L (21-32); Chloride 120 mmol/L (98-107); Creatinine Clr Calc Pharmacy 66.4 ml/min; Est GFR (African American) 74.7; Est GFR (Non-African American) 64.5; Glucose 172 mg/dl (70-99); Potassium 3.9 mmol/L (3.5-5.1); Sodium 146 mmol/L (136-145)
[2019-08-30 13:53] LABS: Alkaline Phosphatase 141 U/L (45-117); Bilirubin,Total 0.2 mg/dl (0.2-1); Total Protein 5.9 gm/dl (6.4-8.2)
--- NOTE | 2019-08-30 13:53 | Hospitalist Progress Note ---
Date of Service August 30, 2019 Assessment & Plan (1) Dehydration: 59yoM with hx of anemia, B12 deficiency, HCV, schizoaffective disorder, seizure, GERD, constipation, aspiration pneumonitis, gastroparesis, abdominal aortic aneurysm presents status post 2 falls most recently at 2 PM today Obtundation: -rapid onset somnelence, in setting of rehydration hypernatremia to 148; ?source/connection to rehydration vs hypothermia vs sepsis vs lithium toxicity vs adrenal insufficiency vs cerebral edema -At jail was quoted as being hypothermic to 31.4 C, after monitoring during the day yesterday with rectal temps true temp determined to be 36.9 C; this morning repeat temps initially 36.4C before sudden drop to 34.6C rectal, and decrease in functional status - Blood cultures X2 taken, Urine Culture ordered - ordered rewarming with D5W for continued improvement of temperature and hypernatremia - started on broad spectrum Vanc & Cefepime - lithium level 0.8 - Cortisol 19.33 - repeat CT head did not demonstrate any intracranial abnormalities Hypernatremia -likely secondary to dehydration; this AM Na = 148; 150 on admission -Started on D5W at progression to 300mL/h; with serial rechecks of BMP -switched IV fluids to 1/2NSS at 120mL/h; will continue serial checks of Na overnight. Fall with left hip contusion: -Likely secondary to infection versus chronic deconditioning/weakness versus possible seizure given history -CT head negative -Hip/pelvis x-ray negative -CK normal -Troponin negative -EKG: Normal sinus rhythm 66 QTC 540 Cellulitis left upper extremity: -White blood cell count improved from 18.1 on August 27, 2019 to 7.2 today, lactate -X-ray and: Mild diffuse soft tissue swelling, middle and distal phalanx fourth finger chronically missing -DVT -Doppler demonstrated History of hypertension: -continue home spironolactone B12 deficiency: -Continue B12 supplement Schizoaffective disorder: -Continue home lithium, olanzapine and clonazepam FEN/GI: LR 100 cc/h, heart healthy diet Code: Full Dispo: MedSurg with telemetry Supervising Physician Co-Signing Physician Notes I personally examined the patient and verified all montemayor points of history and exam, discussed case, and agree with decision making with Dr Harvey. somnolent. follows commands and denies pain but falls asleep mid sentence Vitals noted, in general he is fairly somnolent. He will awaken to medium loud voice or physical stimulation, but fairly quickly trails off. HEENT normocephalic atraumatic mucous membranes are more moist than yesterday. Neck appears to be supple. Cardio is regular without rubs murmurs or gallops. Lungs clear to auscultation bilaterally no rales rhonchi or wheezes with moderate spontaneous effort certainly suboptimal exam. Abdomen is soft nondistended nontender no masses organomegaly. Extremities show no sinus clubbing or edema no calf tenderness. Ongoing muscle wasting as before. Hypothermiayesterday this appeared erroneous given that he was refusing to have meaningful temperatures checked but rectal temps were all normal. However today he is showing even a rectal temperature that is somewhat low. Wide differential including sepsis, lithium toxicity, adrenal insufficiency, possibly simple exp osure given how frail and wasted he is. Warm IV fluids, warming blanket, moved to ICU given his obtunded state. Hypernatremianot dumping urine to corroborate diabetes insipidus, would still suspect from poor oral intake, but continue to follow closely and rehydrate carefully. Clinically proteincalorie malnutritionconcern on how much she is eating and [facility] the jail. Once we have him doing better clinically here, we will follow his oral intake. After discharge certainly will ask him to keep a close eye on how he is doing back at present as well. Fallssuspect due to low blood pressure Borderline hypotensionalmost certainly from volume depletionsee above. Transfer to ICU, case discussed with ICU staff multiple times throughout the day, input greatly appreciated. Otherwise as above. Subjective Patient was responsive to questions, and while somewhat tangential when seen this morning at 9am, had clear decompensation in functional status when checking on him an hour later. Had increased somnelence as compared and impairment of his speech. Able to be aroused with light sternal stimulation, but quickly return to sleep despite active conversation. Review of Systems Review of Systems: Unobtainable due to reduced consciousness Physical Exam Constitutional: + intoxicated appearing, + altered mental status, + lethargic and + underweight Eyes: PERRL, conjunctivae normal, anicteric sclerae Respiratory: normal respiratory effort; no respiratory distress Auscultation: lungs clear to auscultation bilaterally Cardiovascular: Rate/Rhythm: regular rate and regular rhythm Heart Sounds: normal S1 and normal S2; no gallop, no murmur and no cardiac rub Skin: + turgor decreased; no rashes, no lesions and no ulcers Neurologic: moves all extremities, + confused and + obtunded; no focal motor deficits increased sedation, responsive to sternal stimulation, with rapid return to sleep during conversation when not being stimulated Psychiatric: Orientation: oriented to person and oriented to place Thought Process: + tangential thought process and + looseness of associations Results & Data Vital Signs (Past 12 Hours) Vital Signs Temp Pulse Pulse Resp BP BP Pulse Ox 08/30/19 11:44 35.1 C L 08/30/19 11:03 34.7 C L 08/30/19 10:59 64 18 93/59 L 96 08/30/19 10:15 34.8 C L 08/30/19 08:00 78 08/30/19 07:18 65 20 93/57 L 96 08/30/19 03:21 36.4 C L 75 18 101/60 96 Laboratory Results 08/30/19 08/30/19 08/30/19 Range/Units 13:19 13:19 13:18 WBC (4.8-10.8) K/uL RBC (4.7-6.1) M/uL Hgb (14.0-18.0) g/dL POC Hgb (14.0-18.0) g/dl Hct (42-52) % POC Hct (42-52) % MCV (80-100) fL MCH (25-34) pg MCHC (32-36) g/dL RDW Std Deviation (36.4-46.3) fL RDW Coeff of Shamar (11.5-14.5) % Plt Count (130-400) K/uL MPV (7.4-10.4) fL Immature Gran % (Auto) % Neut % (Auto) % Lymph % (Auto) % [place] % (Auto) % Eos % (Auto) % Baso % (Auto) % Immature Gran # (Auto) (0.00-0.02) K/uL Neut # (Auto) (1.4-6.5) K/uL Lymph # (Auto) (1.2-3.4) K/uL [place] # (Auto) (0.11-0.59) K/uL Eos # (Auto) (0-0.5) K/uL Baso # (Auto) (0-0.2) K/uL PT (9.0-12.0) Seconds INR (0.9-1.1) VBG pH (7.36-7.41) VBG pCO2 (38-50) mmHg VBG pO2 mmHg VBG HCO3 mmol/L VBG O2 Saturation % VBG Base Excess mEq/L Barometric Pressure mm/Hg POC Sodium (135-144) mEq/L Sodium (136-145) mmol/L POC Potassium (3.3-5.0) mEq/L Potassium (3.5-5.1) mmol/L POC Chloride (101-112) mEq/L Chloride (98-107) mmol/L Carbon Dioxide (21-32) mmol/L POC Total CO2 (24-31) mEq/l Anion Gap (3-11) POC Anion Gap (16-25) mmol/L POC BUN (7-18) mg/dl BUN (7-18) mg/dl Creatinine Cancelled (0.6-1.4) mg/dl POC Creatinine (0.6-1.3) mg/dl Est Cr Clr Drug Dosing Cancelled ml/min Est GFR ( Amer) Cancelled Est GFR (Non-Af Amer) Cancelled BUN/Creatinine Ratio (10-20) Glucose (70-99) mg/dl POC Glucose (other) (70-99) mg/dl Lactate Pending Calcium (8.5-10.1) mg/dl POC Ioniz Calcium Jaki (1.12-1.32) mmol/l Phosphorus Pending Magnesium Pending Total Bilirubin Direct Bilirubin AST ALT Alkaline Phosphatase Ammonia Total Protein Albumin Random Cortisol mcg/dl [place] (0.6-1.2) mmol/L 08/30/19 08/30/19 08/30/19 Range/Units 13:18 13:18 13:18 WBC (4.8-10.8) K/uL RBC (4.7-6.1) M/uL Hgb (14.0-18.0) g/dL POC Hgb (14.0-18.0) g/dl Hct (42-52) % POC Hct (42-52) % MCV (80-100) fL MCH (25-34) pg MCHC (32-36) g/dL RDW Std Deviation (36.4-46.3) fL RDW Coeff of Shamar (11.5-14.5) % Plt Count (130-400) K/uL MPV (7.4-10.4) fL Immature Gran % (Auto) % Neut % (Auto) % Lymph % (Auto) % [place] % (Auto) % Eos % (Auto) % Baso % (Auto) % Immature Gran # (Auto) (0.00-0.02) K/uL Neut # (Auto) (1.4-6.5) K/uL Lymph # (Auto) (1.2-3.4) K/uL [place] # (Auto) (0.11-0.59) K/uL Eos # (Auto) (0-0.5) K/uL Baso # (Auto) (0-0.2) K/uL PT 11.2 (9.0-12.0) Seconds INR 1.1 (0.9-1.1) VBG pH (7.36-7.41) VBG pCO2 (38-50) mmHg VBG pO2 mmHg VBG HCO3 mmol/L VBG O2 Saturation % VBG Base Excess mEq/L Barometric Pressure mm/Hg POC Sodium (135-144) mEq/L Sodium Pending (136-145) mmol/L POC Potassium (3.3-5.0) mEq/L Potassium Pending (3.5-5.1) mmol/L POC Chloride (101-112) mEq/L Chloride Pending (98-107) mmol/L Carbon Dioxide Pending (21-32) mmol/L POC Total CO2 (24-31) mEq/l Anion Gap Pending (3-11) POC Anion Gap (16-25) mmol/L POC BUN (7-18) mg/dl BUN Pending (7-18) mg/dl Creatinine Pending (0.6-1.4) mg/dl POC Creatinine (0.6-1.3) mg/dl Est Cr Clr Drug Dosing Pending ml/min Est GFR ( Amer) Pending Est GFR (Non-Af Amer) Pending BUN/Creatinine Ratio Pending (10-20) Glucose Pending (70-99) mg/dl POC Glucose (other) (70-99) mg/dl Lactate Calcium Pending (8.5-10.1) mg/dl POC Ioniz Calcium Jaki (1.12-1.32) mmol/l Phosphorus Magnesium Total Bilirubin Pending Direct Bilirubin Pending AST Pending ALT Pending Alkaline Phosphatase Pending Ammonia Pending Total Protein Pending Albumin Pending Random Cortisol mcg/dl [place] (0.6-1.2) mmol/L 08/30/19 08/30/19 08/30/19 Range/Units 12:18 12:18 10:28 WBC (4.8-10.8) K/uL RBC (4.7-6.1) M/uL Hgb (14.0-18.0) g/dL POC Hgb (14.0-18.0) g/dl Hct (42-52) % POC Hct (42-52) % MCV (80-100) fL MCH (25-34) pg MCHC (32-36) g/dL RDW Std Deviation (36.4-46.3) fL RDW Coeff of Shamar (11.5-14.5) % Plt Count (130-400) K/uL MPV (7.4-10.4) fL Immature Gran % (Auto) % Neut % (Auto) % Lymph % (Auto) % [place] % (Auto) % Eos % (Auto) % Baso % (Auto) % Immature Gran # (Auto) (0.00-0.02) K/uL Neut # (Auto) (1.4-6.5) K/uL Lymph # (Auto) (1.2-3.4) K/uL [place] # (Auto) (0.11-0.59) K/uL Eos # (Auto) (0-0.5) K/uL Baso # (Auto) (0-0.2) K/uL PT (9.0-12.0) Seconds INR (0.9-1.1) VBG pH 7.43 H (7.36-7.41) VBG pCO2 36 L (38-50) mmHg VBG pO2 52 mmHg VBG HCO3 23 mmol/L VBG O2 Saturation 84.5 % VBG Base Excess -0.8 mEq/L Barometric Pressure 736.5 mm/Hg POC Sodium (135-144) mEq/L Sodium 147 H (136-145) mmol/L POC Potassium (3.3-5.0) mEq/L Potassium 4.0 (3.5-5.1) mmol/L POC Chloride (101-112) mEq/L Chloride 120 H (98-107) mmol/L Carbon Dioxide 23 (21-32) mmol/L POC Total CO2 (24-31) mEq/l Anion Gap 4.0 (3-11) POC Anion Gap (16-25) mmol/L POC BUN (7-18) mg/dl BUN 14 (7-18) mg/dl Creatinine 1.23 (0.6-1.4) mg/dl POC Creatinine (0.6-1.3) mg/dl Est Cr Clr Drug Dosing 65.9 ml/min Est GFR ( Amer) 74.0 Est GFR (Non-Af Amer) 63.9 BUN/Creatinine Ratio 11.4 (10-20) Glucose 131 H (70-99) mg/dl POC Glucose (other) (70-99) mg/dl Lactate Calcium 9.6 (8.5-10.1) mg/dl POC Ioniz Calcium Jaki (1.12-1.32) mmol/l Phosphorus Magnesium Total Bilirubin Direct Bilirubin AST ALT Alkaline Phosphatase Ammonia Total Protein Albumin Random Cortisol 19.33 mcg/dl [place] (0.6-1.2) mmol/L 08/30/19 08/30/19 08/30/19 Range/Units 10:28 09:44 06:59 WBC (4.8-10.8) K/uL RBC (4.7-6.1) M/uL Hgb (14.0-18.0) g/dL POC Hgb (14.0-18.0) g/dl Hct (42-52) % POC Hct (42-52) % MCV (80-100) fL MCH (25-34) pg MCHC (32-36) g/dL RDW Std Deviation (36.4-46.3) fL RDW Coeff of Shamar (11.5-14.5) % Plt Count (130-400) K/uL MPV (7.4-10.4) fL Immature Gran % (Auto) % Neut % (Auto) % Lymph % (Auto) % [place] % (Auto) % Eos % (Auto) % Baso % (Auto) % Immature Gran # (Auto) (0.00-0.02) K/uL Neut # (Auto) (1.4-6.5) K/uL Lymph # (Auto) (1.2-3.4) K/uL [place] # (Auto) (0.11-0.59) K/uL Eos # (Auto) (0-0.5) K/uL Baso # (Auto) (0-0.2) K/uL PT (9.0-12.0) Seconds INR (0.9-1.1) VBG pH (7.36-7.41) VBG pCO2 (38-50) mmHg VBG pO2 mmHg VBG HCO3 mmol/L VBG O2 Saturation % VBG Base Excess mEq/L Barometric Pressure mm/Hg POC Sodium (135-144) mEq/L Sodium 148 H 148 H (136-145) mmol/L POC Potassium (3.3-5.0) mEq/L Potassium 3.8 3.7 (3.5-5.1) mmol/L POC Chloride (101-112) mEq/L Chloride 120 H 120 H (98-107) mmol/L Carbon Dioxide 24 23 (21-32) mmol/L POC Total CO2 (24-31) mEq/l Anion Gap 4.0 6.0 (3-11) POC Anion Gap (16-25) mmol/L POC BUN (7-18) mg/dl BUN 14 13 (7-18) mg/dl Creatinine 1.33 1.28 (0.6-1.4) mg/dl POC Creatinine (0.6-1.3) mg/dl Est Cr Clr Drug Dosing 60.9 63.3 ml/min Est GFR ( Amer) 67.3 70.5 Est GFR (Non-Af Amer) 58.1 60.9 BUN/Creatinine Ratio 10.4 10.4 (10-20) Glucose 142 H 97 (70-99) mg/dl POC Glucose (other) (70-99) mg/dl Lactate Calcium 9.4 9.6 (8.5-10.1) mg/dl POC Ioniz Calcium Jaki (1.12-1.32) mmol/l Phosphorus Magnesium Total Bilirubin Direct Bilirubin AST ALT Alkaline Phosphatase Ammonia Total Protein Albumin Random Cortisol mcg/dl [place] 0.8 (0.6-1.2) mmol/L 08/30/19 08/30/19 08/29/19 Range/Units 03:18 03:18 22:42 WBC 5.73 (4.8-10.8) K/uL RBC 2.97 L (4.7-6.1) M/uL Hgb 9.0 L (14.0-18.0) g/dL POC Hgb (14.0-18.0) g/dl Hct 28.3 L (42-52) % POC Hct (42-52) % MCV 95.3 (80-100) fL MCH 30.3 (25-34) pg MCHC 31.8 L (32-36) g/dL RDW Std Deviation 53.1 H (36.4-46.3) fL RDW Coeff of Shamar 15.3 H (11.5-14.5) % Plt Count 123 L (130-400) K/uL MPV 11.3 H (7.4-10.4) fL Immature Gran % (Auto) 0.0 % Neut % (Auto) 78.2 % Lymph % (Auto) 16.2 % [place] % (Auto) 5.6 % Eos % (Auto) 0.0 % Baso % (Auto) 0.0 % Immature Gran # (Auto) 0.00 (0.00-0.02) K/uL Neut # (Auto) 4.48 (1.4-6.5) K/uL Lymph # (Auto) 0.93 L (1.2-3.4) K/uL [place] # (Auto) 0.32 (0.11-0.59) K/uL Eos # (Auto) 0.00 (0-0.5) K/uL Baso # (Auto) 0.00 (0-0.2) K/uL PT (9.0-12.0) Seconds INR (0.9-1.1) VBG pH (7.36-7.41) VBG pCO2 (38-50) mmHg VBG pO2 mmHg VBG HCO3 mmol/L VBG O2 Saturation % VBG Base Excess mEq/L Barometric Pressure mm/Hg POC Sodium (135-144) mEq/L Sodium 146 H 146 H (136-145) mmol/L POC Potassium (3.3-5.0) mEq/L Potassium 3.6 3.8 (3.5-5.1) mmol/L POC Chloride (101-112) mEq/L Chloride 118 H 116 H (98-107) mmol/L Carbon Dioxide 24 25 (21-32) mmol/L POC Total CO2 (24-31) mEq/l Anion Gap 4.0 5.0 (3-11) POC Anion Gap (16-25) mmol/L POC BUN (7-18) mg/dl BUN 14 13 (7-18) mg/dl Creatinine 1.41 H 1.43 H (0.6-1.4) mg/dl POC Creatinine (0.6-1.3) mg/dl Est Cr Clr Drug Dosing 51.1 50.3 ml/min Est GFR ( Amer) 62.7 61.7 Est GFR (Non-Af Amer) 54.1 53.2 BUN/Creatinine Ratio 9.8 L 9.1 L (10-20) Glucose 119 H 132 H (70-99) mg/dl POC Glucose (other) (70-99) mg/dl Lactate Calcium 9.1 9.7 (8.5-10.1) mg/dl POC Ioniz Calcium Jaki (1.12-1.32) mmol/l Phosphorus Magnesium Total Bilirubin Direct Bilirubin AST ALT Alkaline Phosphatase Ammonia Total Protein Albumin Random Cortisol mcg/dl [place] (0.6-1.2) mmol/L 08/29/19 08/29/19 08/29/19 Range/Units 19:08 16:49 14:59 WBC (4.8-10.8) K/uL RBC (4.7-6.1) M/uL Hgb (14.0-18.0) g/dL POC Hgb (14.0-18.0) g/dl Hct (42-52) % POC Hct (42-52) % MCV (80-100) fL MCH (25-34) pg MCHC (32-36) g/dL RDW Std Deviation (36.4-46.3) fL RDW Coeff of Shamar (11.5-14.5) % Plt Count (130-400) K/uL MPV (7.4-10.4) fL Immature Gran % (Auto) % Neut % (Auto) % Lymph % (Auto) % [place] % (Auto) % Eos % (Auto) % Baso % (Auto) % Immature Gran # (Auto) (0.00-0.02) K/uL Neut # (Auto) (1.4-6.5) K/uL Lymph # (Auto) (1.2-3.4) K/uL [place] # (Auto) (0.11-0.59) K/uL Eos # (Auto) (0-0.5) K/uL Baso # (Auto) (0-0.2) K/uL PT (9.0-12.0) Seconds INR (0.9-1.1) VBG pH (7.36-7.41) VBG pCO2 (38-50) mmHg VBG pO2 mmHg VBG HCO3 mmol/L VBG O2 Saturation % VBG Base Excess mEq/L Barometric Pressure mm/Hg POC Sodium (135-144) mEq/L Sodium 145 146 H 148 H (136-145) mmol/L POC Potassium (3.3-5.0) mEq/L Potassium 3.8 3.7 3.8 (3.5-5.1) mmol/L POC Chloride (101-112) mEq/L Chloride 115 H 116 H 117 H (98-107) mmol/L Carbon Dioxide 24 23 23 (21-32) mmol/L POC Total CO2 (24-31) mEq/l Anion Gap 6.0 7.0 7.0 (3-11) POC Anion Gap (16-25) mmol/L POC BUN (7-18) mg/dl BUN 13 13 14 (7-18) mg/dl Creatinine 1.36 1.21 1.28 (0.6-1.4) mg/dl POC Creatinine (0.6-1.3) mg/dl Est Cr Clr Drug Dosing 52.9 59.5 56.3 ml/min Est GFR ( Amer) 65.5 75.5 70.5 Est GFR (Non-Af Amer) 56.6 65.1 60.9 BUN/Creatinine Ratio 9.7 L 11.0 10.5 (10-20) Glucose 153 H 138 H 142 H (70-99) mg/dl POC Glucose (other) (70-99) mg/dl Lactate Calcium 9.4 9.9 9.9 (8.5-10.1) mg/dl POC Ioniz Calcium Jaki (1.12-1.32) mmol/l Phosphorus Magnesium Total Bilirubin Direct Bilirubin AST ALT Alkaline Phosphatase Ammonia Total Protein Albumin Random Cortisol mcg/dl [place] (0.6-1.2) mmol/L 08/29/19 08/28/19 Range/Units 13:28 16:47 WBC (4.8-10.8) K/uL RBC (4.7-6.1) M/uL Hgb (14.0-18.0) g/dL POC Hgb 8.8 L (14.0-18.0) g/dl Hct (42-52) % POC Hct 26 L (42-52) % MCV (80-100) fL MCH (25-34) pg MCHC (32-36) g/dL RDW Std Deviation (36.4-46.3) fL RDW Coeff of Shamar (11.5-14.5) % Plt Count (130-400) K/uL MPV (7.4-10.4) fL Immature Gran % (Auto) % Neut % (Auto) % Lymph % (Auto) % [place] % (Auto) % Eos % (Auto) % Baso % (Auto) % Immature Gran # (Auto) (0.00-0.02) K/uL Neut # (Auto) (1.4-6.5) K/uL Lymph # (Auto) (1.2-3.4) K/uL [place] # (Auto) (0.11-0.59) K/uL Eos # (Auto) (0-0.5) K/uL Baso # (Auto) (0-0.2) K/uL PT (9.0-12.0) Seconds INR (0.9-1.1) VBG pH (7.36-7.41) VBG pCO2 (38-50) mmHg VBG pO2 mmHg VBG HCO3 mmol/L VBG O2 Saturation % VBG Base Excess mEq/L Barometric Pressure mm/Hg POC Sodium 147 H (135-144) mEq/L Sodium 147 H (136-145) mmol/L POC Potassium 3.3 (3.3-5.0) mEq/L Potassium 3.8 (3.5-5.1) mmol/L POC Chloride 114 H (101-112) mEq/L Chloride 117 H (98-107) mmol/L Carbon Dioxide 23 (21-32) mmol/L POC Total CO2 26 (24-31) mEq/l Anion Gap 7.0 (3-11) POC Anion Gap 11.0 L (16-25) mmol/L POC BUN 22 H (7-18) mg/dl BUN 14 (7-18) mg/dl Creatinine 1.22 (0.6-1.4) mg/dl POC Creatinine 1.0 (0.6-1.3) mg/dl Est Cr Clr Drug Dosing 59.0 ml/min Est GFR ( Amer) 74.7 Est GFR (Non-Af Amer) 64.5 BUN/Creatinine Ratio 11.1 (10-20) Glucose 165 H (70-99) mg/dl POC Glucose (other) 142 H (70-99) mg/dl Lactate Calcium 9.7 (8.5-10.1) mg/dl POC Ioniz Calcium Jaki 1.46 H (1.12-1.32) mmol/l Phosphorus Magnesium Total Bilirubin Direct Bilirubin AST ALT Alkaline Phosphatase Ammonia Total Protein Albumin Random Cortisol mcg/dl [place] (0.6-1.2) mmol/L Medications Administered Current Inpatient Medications Acetaminophen (Tylenol) 650 mg PO Q4H PRN PRN Reason: Pain or Fever Stop: 09/27/19 22:42 Clonazepam (Klonopin) 1 mg PO BID DIANA Stop: 09/27/19 22:42 Last Admin: 08/30/19 07:47 Dose: 1 mg Documented by: Cyanocobalamin (Vitamin B-12) 100 mcg PO DAILY DIANA Stop: 09/28/19 08:59 Last Admin: 08/30/19 07:48 Dose: 100 mcg Documented by: Docusate Sodium (Colace) 250 mg PO HS DIANA Stop: 09/28/19 20:59 Last Admin: 08/29/19 20:31 Dose: 250 mg Documented by: Ferrous Sulfate (Feosol) 325 mg PO DAILY DIANA Stop: 09/28/19 08:59 Last Admin: 08/30/19 07:47 Dose: 325 mg Documented by: Dextrose (D5w) 1,000 mls @ 300 mls/hr IV .Q3H20M DIANA Stop: 09/29/19 09:29 Last Admin: 08/30/19 12:59 Dose: 300 mls/hr Documented by: Cefepime HCl 2,000 mg/ Syringe 20 mls @ 5 mls/min IV Q12H DIANA; Protocol Stop: 09/01/19 12:29 Last Admin: 08/30/19 12:59 Dose: 5 mls/min Documented by: Vancomycin HCl 1,750 mg/ (Dextrose) 535 mls @ 200 mls/hr IV 1230 ONE Stop: 08/30/19 15:10 Last Admin: 08/30/19 13:00 Dose: 200 mls/hr Documented by: Vancomycin HCl 1,000 mg/ (Sodium Chloride) 270 mls @ 125 mls/hr IV Q14H DIANA Stop: 09/01/19 12:30 [place] Carbonate (Lithobid) 300 mg PO BID DIANA Stop: 09/27/19 22:42 Last Admin: 08/30/19 07:47 Dose: 300 mg Documented by: Magnesium Hydroxide (Milk Of Magnesia) 60 ml PO DAILY PRN PRN Reason: Constipation Stop: 09/27/19 22:42 Miscellaneous Information (Consult) 1 ea N/A UD PRN PRN Reason: Consult Stop: 09/29/19 11:08 Olanzapine (Zyprexa) 10 mg PO HS DIANA Stop: 09/28/19 20:59 Last Admin: 08/29/19 20:31 Dose: 10 mg Documented by: Polyethylene Glycol (Miralax Powder Packet) 17 gm PO DAILY DIANA Stop: 09/28/19 08:59 Last Admin: 08/30/19 07:47 Dose: 17 gm Documented by:
[2019-08-30] MEDS ORDERED: SODIUM CHLORIDE 0.9% 500 ML IV SCH (15:15)
[2019-08-30] MEDS: SODIUM CHLORIDE 0.9% 1000ML 1,000 ML IV SCH ×2 (15:21→23:49)
[2019-08-30 15:22] LABS: iSTAT Hematocrit 24 % (42-52); iSTAT Potassium 3.8 mEq/L (3.3-5.0); iSTAT Sodium 145 mEq/L (135-144)
[2019-08-30 15:23] LABS: iSTAT Art Bld Gas pCO2 Correct 39 mmHg (35-46); iSTAT Art Bld Gas pH Corrected 7.369 (7.35-7.45); iSTAT Arterial Blood Gas pCO2 41 mmHg (35-46); iSTAT Arterial Blood Gas pH 7.35 (7.35-7.45); iSTAT Hemoglobin 8.2 g/dl (14.0-18.0)
[2019-08-30 15:24] LABS: iSTAT Arterial Blood Gas HCO3 23 meg/L (19-24); iSTAT Arterial Blood Gas pO2 129 mmHg (80-95); iSTAT Arterial Blood Gas pO2 C 123; iSTAT Carbon Dioxide 24 mEq/l (24-31)
--- NOTE | 2019-08-30 19:21 | Billing Data ---
Coding Level of Care Code 19897 Subseq Hosp Care Lvl 3
[2019-08-30] MEDS: DOCUSATE SODIUM SYRUP 100 MG/10 ML UDC PO SCH (21:26)
[2019-08-31] MEDS ORDERED: VANCOMYCIN HCL 1,000 MG in SODIUM CHLORIDE 0.9% 250 ML IV SCH (02:00)
[2019-08-31 04:59] LABS: Hematocrit (blood only) 30.1 % (42-52); Hemoglobin 9.5 g/dL (14.0-18.0); Mean Corpuscular Hemoglobin 29.8 pg (25-34); Mean Corpuscular Hgb Conc 31.6 g/dL (32-36); Mean Corpuscular Volume 94.4 fL (80-100); Mean Platelet Volume 11.4 fL (7.4-10.4); Platelet Count 121 K/uL (130-400); RDW Coefficient of Variation 15.2 % (11.5-14.5); RDW Standard Deviation 52.8 fL (36.4-46.3); Red Blood Count 3.19 M/uL (4.7-6.1); White Blood Count 7.63 K/uL (4.8-10.8)
[2019-08-31 05:17] LABS: Albumin Level 2.2 gm/dl (3.4-5.0); BUN Creatinine Ratio 12.5 (10-20); Calcium 9.4 mg/dl (8.5-10.1); Creatinine Clr Calc Pharmacy 72.3 ml/min; Est GFR (African American) 82.9; Est GFR (Non-African American) 71.5; Magnesium 2.1 mg/dl (1.8-2.4); Potassium 4.1 mmol/L (3.5-5.1)
[2019-08-31 05:29] LABS: Albumin Globulin Ratio 0.6 (0.9-2); Bilirubin,Total 0.2 mg/dl (0.2-1); Ferritin 199.8 ng/ml (8-388); Globulin 3.9 gm/dl (2.5-4.0); Phosphorus 3.4 mg/dl (2.5-4.9); Total Protein 6.1 gm/dl (6.4-8.2)
[2019-08-31] MEDS ORDERED: SODIUM CHLORIDE 0.65% NA SOLN 45 ML (OCEAN) ONE (07:28)
[2019-08-31 07:37] LABS: Estimated Average Glucose 131 mg/dl; Hemoglobin A1C 6.2 % (4.5-5.6)
[2019-08-31] MEDS: SODIUM CHLORIDE 0.9% 1000ML 1,000 ML IV SCH (08:14)
--- NOTE | 2019-08-31 08:14 | Critical Care Progress Note ---
Date of Service August 31, 2019 Assessment & Plan (1) Altered mental status: Reason Critically Ill: Dennis Childers is a 59 y/o male with a history of vitamin B12 deficiency, schizoaffective disorder, anemia, seizures, GERD, constipation, aspiration pneumonitis, gastroparesis, abdominal aortic aneurysm, CKD. He presented to [facility] for complaints of a fall x2 and AMS. He was found to have decreasing level of consciousness and hypothermia and appeared critically ill without explanation. Hospitalist service consulted portable irrigation operator service for ICU management with evaluation and management of a critically ill patient. Patient is had high urine output with low urine Ausmus concerning for potential diabetes insipidus. This may be related to lithium toxicity. His previous lithium level was elevated in June at almost 3. Suspect chronic lithium toxicity causing many of his problems. His mental status is resolved Neuro: Now back to baseline. I suspect the patient had some component of lithium toxicity. His other schizoaffective medications of also been held. Would consider restarting these at some point in time although lithium may not be the drug of choice given potential chronic toxicity and diabetes insipidus. Psychiatric consultation may be beneficial. Cardiac/Vascular: No acute issues. Hemodynamic stable. Continue to follow Pulm: Wean oxygen as tolerated. Chest x-ray without infiltrates GI: Continue with home Vitamin B12 oral medication for Vitamin B12 deficiency Nutrition consulted. Renal/Lytes: Urine awesome inappropriately low especially given hypernatremia. Feel this is consistent with diabetes insipidus. Discontinued lithium and follow. Continue IV fluids to replace output. Encourage free water. Will change fluids to half- normal saline. Could consider DDAVP and repeating urine zones but suspect this may continue to improve with discontinuation of the patient's lithium : Remove Ng. Continues to have high urinary output and will need to be followed questionable issue of urinary retention and this will need to be followed Endo: Elevated blood glucose levels in 100s persistently; will order A1C in the AM Hypothyroid hx: Continue oral Synthroid Random Cortisol this AM was 19.33 Heme Hx of anemia this AM Hgb 9.0; with no medical records available to determine baseline No signs of bleeding Platelets stable at 123 WBC WNL ID: Patient was hypothermic and there was suspicion for sepsis causing this. I see no signs of infection feel this is more likely related to his toxicology issues. Antibiotics have been held. Follow clinically Lines: peripheral IVs DVT ppx: Subcu heparin Resuscitation Status: Full Code; contacted [facility] to attempt to get consent forms in need of CVC or need for otto, but no one available to give consent until Monday. They are unaware of any family members who would be able to give consent Patient has responded favorably to observation and discontinuation of antipsychotics and lithium. Would recommend he be back to the floor. Will sign off once he leaves the ICU. Feel free to contact us with questions or concerns. (2) Schizoaffective disorder: (3) Hypothermia: (4) Tula toxicity: (5) Diabetes insipidus: Subjective Patient seen and examined. Electronic medical record reviewed. The patient is markedly better this morning. His temperature is regulated. He continues to have high urine output. Tula and other antipsychotics were held with marked clearing of his mental status. He appears to be back to baseline today although his speech is somewhat pressured and tangential. Review of Systems Review of Systems: All systems reviewed & are unremarkable except as noted in HPI & below Physical Exam Constitutional: WD/WN, vitals as above + thin and + underweight Eyes: PERRL, conjunctivae normal, anicteric sclerae ENMT: Mouth: + lip abnormality (dry mucus membranes) Respiratory: normal respiratory effort, lungs clear to auscultation Cardiovascular: Rate/Rhythm: regular rate and regular rhythm Heart Sounds: normal S1 and normal S2; no gallop, no murmur and no cardiac rub Gastrointestinal (Abdomen): normal bowel sounds, soft, nontender, no hepatosplenomegaly Neurologic: moves all extremities; no focal motor deficits Motor/Sensory: no tremor Psychiatric: Affect: euthymic affect Insight: + limited insight Judgement: + limited judgement Results & Data Vital Signs (Past 12 Hours) Vital Signs Temp Pulse Pulse Resp BP BP Pulse Ox 08/31/19 06:00 37 C 95 H 95 H 19 143/73 H 143/73 H 97 08/31/19 05:00 96 H 96 H 16 111/71 111/71 98 08/31/19 04:00 36.7 C 83 83 16 122/73 122/73 98 08/31/19 03:00 89 89 16 121/71 121/71 97 08/31/19 02:00 96 H 96 H 15 100/57 L 100/57 L 100 08/31/19 01:00 89 89 17 109/66 109/66 97 08/31/19 00:00 37.0 C 82 82 18 121/62 121/62 100 08/30/19 23:00 92 H 92 H 14 113/60 113/60 97 08/30/19 21:00 82 82 16 107/74 107/74 98 Coding Level of Care Code 44597 Subseq Hosp Care Lvl 3 Diagnoses Altered mental status R41.82 Altered mental status type: unspecified Schizoaffective disorder F25.9 Hypothermia T68.XXXA Encounter type: initial encounter Tula toxicity T56.891A Diabetes insipidus E23.2 Time Spent (min) 35 (1) Altered mental status Altered mental status type: unspecified Qualified Code(s): R41.82 - Altered mental status, unspecified (2) Hypothermia Encounter type: initial encounter Qualified Code(s): T68.XXXA - Hypothermia, initial encounter
[2019-08-31] MEDS: POLYETHYLENE (MIRALAX) 17 GM PACK PO SCH (08:29)
[2019-08-31] MEDS: FERROUS SULFATE 325 MG TAB PO SCH (08:29)
[2019-08-31] MEDS: CYANOCOBALAMIN (VITAMIN B-12) 100 MCG TABLET PO SCH (08:29)
[2019-08-31] MEDS: SODIUM CHLORIDE 0.45 % 1,000 ML IV SCH ×2 (08:30→18:15)
--- NOTE | 2019-08-31 16:21 | Hospitalist Progress Note ---
Date of Service August 31, 2019 Assessment & Plan (1) Dehydration: 59yoM with hx of anemia, B12 deficiency, HCV, schizoaffective disorder, seizure, GERD, constipation, aspiration pneumonitis, gastroparesis, abdominal aortic aneurysm presents status post 2 falls Obtundation: (resolved) -rapid onset somnelence, in setting of rehydration hypernatremia to 148; ?source/connection to rehydration vs hypothermia vs sepsis vs lithium toxicity vs adrenal insufficiency vs cerebral edema -At detention was quoted as being hypothermic to 31.4 C, after monitoring during the day yesterday with rectal temps true temp determined to be 36.9 C; this morning repeat temps initially 36.4C before sudden drop to 34.6C rectal, and decrease in functional status - Blood cultures X2 taken, Urine Culture ordered - ordered rewarming with D5W for continued improvement of temperature and hypernatremia - started on broad spectrum Vanc & Cefepime - lithium level 0.8 - Cortisol 19.33 - repeat CT head did not demonstrate any intracranial abnormalities - this could be secondary to lithium toxicity, however this does not explain the acute decline in mentation yesterday verse other days while in the hospital, and the history of missing medications while in detention, in the setting of normal lithium levels - will continue to hold lithium given inherit risks for patient's condition and poor existing control of mental status -increased Zyprexa to 15mg daily Hypernatremia -likely secondary to dehydration; this AM Na = 148; 150 on admission -currently being maintained on NSS, will recheck in AM and consider gentle rehydration in the setting of improved mentation Fall with left hip contusion: -Likely secondary to infection versus chronic deconditioning/weakness versus possible seizure given history -CT head negative -Hip/pelvis x-ray negative -CK normal -Troponin negative -EKG: Normal sinus rhythm 66 QTC 540 Cellulitis left upper extremity: -White blood cell count improved from 18.1 on August 27, 2019 to 7.2 today, lactate -X-ray and: Mild diffuse soft tissue swelling, middle and distal phalanx fourth finger chronically missing -DVT -Doppler demonstrated History of hypertension: -continue home spironolactone B12 deficiency: -Continue B12 supplement Schizoaffective disorder: -will continue to hold lithium for inherit risks to mentation -continue clonazepam; increase zyprexa to 15mg daily Diet: heart healthy diet Code: Full Dispo: MedSurg with telemetry Supervising Physician Co-Signing Physician Notes I personally examined the patient and verified all montemayor points of history and exam, discussed case, and agree with decision making with Dr Harvey. feeling better doing better talking much more and seeming more like himself from 2 days ago. no new complaints, passing foul smelling flatus at times but notes that he's feeling like he'll have to have a bowel movement soon. Hypothermiaimproved. ?lithium related vs other - but has improved. follow. stopped lithium Hypernatremia?poor intake (current guard who knows him well corroborates that this would be quite possible with his baseline) or ?DI / lithium related - continue to follow, contnue hydration Clinically proteincalorie malnutritionconcern on how much she is eating and drinking at the detention. seems to be eating better today. After discharge certainly will ask him to keep a close eye on how he is doing back at present as well. Fallssuspect due to low blood pressure Borderline hypotensionalmost certainly from volume depletionsee above. now improved schizoaffective / ?schizophrenia - hold lithium for now, increase zyprexa follow for sedation, cointinue klonopin for now, detention psych to assume care/titration of meds after discharge (and therefore as long as no significant decompensation, would hold on inpt psych consult) Otherwise as above. Subjective Patient is much more responsive today, has no clear memory of the events of yesterday; otherwise continues to be tangential in discussions. Able to tolerate foods well throughout the day without complications Review of Systems Review of Systems: Unobtainable due to mental health condition Physical Exam Constitutional: WD/WN, vitals as above + thin and + underweight Eyes: PERRL, conjunctivae normal, anicteric sclerae Respiratory: normal respiratory effort, lungs clear to auscultation normal respiratory effort; no respiratory distress Auscultation: lungs clear to auscultation bilaterally Cardiovascular: Rate/Rhythm: regular rate and regular rhythm Heart Sounds: normal S1 and normal S2; no gallop, no murmur and no cardiac rub Gastrointestinal (Abdomen): normal bowel sounds, soft, nontender, no hepatosplenomegaly Skin: + turgor decreased; no rashes, no lesions and no ulcers Neurologic: moves all extremities; no focal motor deficits Motor/Sensory: no tremor Psychiatric: Orientation: oriented to person and oriented to place Affect: euthymic affect Thought Process: + tangential thought process and + looseness of associations Insight: + limited insight Judgement: + limited judgement Results & Data Vital Signs (Past 12 Hours) Vital Signs Temp Pulse Pulse Pulse Resp BP BP 08/31/19 16:02 36.9 C 90 18 116/69 08/31/19 14:52 98 H 08/31/19 11:54 97 H 08/31/19 11:25 37.1 C 95 H 18 143/83 H 08/31/19 08:13 36.5 C 08/31/19 08:00 86 20 153/87 H 08/31/19 07:31 99 H 17 135/87 08/31/19 07:01 77 17 117/65 08/31/19 06:00 37 C 95 H 95 H 19 143/73 H 08/31/19 05:00 96 H 96 H 16 111/71 BP Pulse Ox 08/31/19 16:02 97 08/31/19 14:52 08/31/19 11:54 08/31/19 11:25 98 08/31/19 08:13 08/31/19 08:00 96 08/31/19 07:31 95 08/31/19 07:01 96 08/31/19 06:00 143/73 H 97 08/31/19 05:00 111/71 98 Laboratory Results 08/31/19 08/31/19 08/31/19 Range/Units Unknown Unknown 04:45 WBC (4.8-10.8) K/uL RBC (4.7-6.1) M/uL Hgb (14.0-18.0) g/dL Hct (42-52) % MCV (80-100) fL MCH (25-34) pg MCHC (32-36) g/dL RDW Std Deviation (36.4-46.3) fL RDW Coeff of Shamar (11.5-14.5) % Plt Count (130-400) K/uL MPV (7.4-10.4) fL Sodium (136-145) mmol/L Potassium (3.5-5.1) mmol/L Chloride (98-107) mmol/L Carbon Dioxide (21-32) mmol/L Anion Gap (3-11) BUN (7-18) mg/dl Creatinine (0.6-1.4) mg/dl Est Cr Clr Drug Dosing ml/min Est GFR ( Amer) Est GFR (Non-Af Amer) BUN/Creatinine Ratio (10-20) Glucose (70-99) mg/dl POC Glucose (70-99) Estimat Average Glucose 131 mg/dl Hemoglobin A1c 6.2 H (4.5-5.6) % Calcium (8.5-10.1) mg/dl Phosphorus (2.5-4.9) mg/dl Magnesium (1.8-2.4) mg/dl Iron (35-175) mcg/dl TIBC (250-450) mcg/dl Ferritin (8-388) ng/ml Total Bilirubin (0.2-1) mg/dl AST (15-37) U/L ALT (12-78) U/L Alkaline Phosphatase (45-117) U/L Total Protein (6.4-8.2) gm/dl Albumin (3.4-5.0) gm/dl Globulin (2.5-4.0) gm/dl Albumin/Globulin Ratio (0.9-2) Urine Osmolality 168 L (500-800) mOsm/kg Ur Random Sodium 54 mmol/L 08/31/19 08/31/19 08/30/19 Range/Units 04:45 04:45 16:34 WBC 7.63 (4.8-10.8) K/uL RBC 3.19 L (4.7-6.1) M/uL Hgb 9.5 L (14.0-18.0) g/dL Hct 30.1 L (42-52) % MCV 94.4 (80-100) fL MCH 29.8 (25-34) pg MCHC 31.6 L (32-36) g/dL RDW Std Deviation 52.8 H (36.4-46.3) fL RDW Coeff of Shamar 15.2 H (11.5-14.5) % Plt Count 121 L (130-400) K/uL MPV 11.4 H (7.4-10.4) fL Sodium 148 H (136-145) mmol/L Potassium 4.1 (3.5-5.1) mmol/L Chloride 121 H (98-107) mmol/L Carbon Dioxide 22 (21-32) mmol/L Anion Gap 5.0 (3-11) BUN 14 (7-18) mg/dl Creatinine 1.12 (0.6-1.4) mg/dl Est Cr Clr Drug Dosing 72.3 ml/min Est GFR ( Amer) 82.9 Est GFR (Non-Af Amer) 71.5 BUN/Creatinine Ratio 12.5 (10-20) Glucose 78 (70-99) mg/dl POC Glucose 125 H (70-99) Estimat Average Glucose mg/dl Hemoglobin A1c (4.5-5.6) % Calcium 9.4 (8.5-10.1) mg/dl Phosphorus 3.4 (2.5-4.9) mg/dl Magnesium 2.1 (1.8-2.4) mg/dl Iron 16 L (35-175) mcg/dl TIBC 171 L (250-450) mcg/dl Ferritin 199.8 (8-388) ng/ml Total Bilirubin 0.2 (0.2-1) mg/dl AST 7 L (15-37) U/L ALT 18 (12-78) U/L Alkaline Phosphatase 61 (45-117) U/L Total Protein 6.1 L (6.4-8.2) gm/dl Albumin 2.2 L (3.4-5.0) gm/dl Globulin 3.9 (2.5-4.0) gm/dl Albumin/Globulin Ratio 0.6 L (0.9-2) Urine Osmolality (500-800) mOsm/kg Ur Random Sodium mmol/L Medications Administered Current Inpatient Medications Acetaminophen (Tylenol) 650 mg PO Q4H PRN PRN Reason: Pain or Fever Stop: 09/27/19 22:42 Clonazepam (Klonopin) 1 mg PO BID DIANA Stop: 09/27/19 22:42 Last Admin: 08/30/19 07:47 Dose: 1 mg Documented by: Cyanocobalamin (Vitamin B-12) 100 mcg PO DAILY DIANA Stop: 09/28/19 08:59 Last Admin: 08/31/19 08:29 Dose: 100 mcg Documented by: Docusate Sodium (Colace) 250 mg PO HS DIANA Stop: 09/28/19 20:59 Last Admin: 08/30/19 21:26 Dose: 250 mg Documented by: Ferrous Sulfate (Feosol) 325 mg PO DAILY DIANA Stop: 09/28/19 08:59 Last Admin: 08/31/19 08:29 Dose: 325 mg Documented by: Sodium Chloride (1/2 Nss) 1,000 mls @ 125 mls/hr IV .Q8H DIANA Stop: 09/30/19 08:14 Last Admin: 08/31/19 08:30 Dose: 125 mls/hr Documented by: Magnesium Hydroxide (Milk Of Magnesia) 60 ml PO DAILY PRN PRN Reason: Constipation Stop: 09/27/19 22:42 Olanzapine (Zyprexa) 15 mg PO HS DIANA Stop: 09/30/19 20:59 Polyethylene Glycol (Miralax Powder Packet) 17 gm PO DAILY DIANA Stop: 09/28/19 08:59 Last Admin: 08/31/19 08:29 Dose: 17 gm Documented by: Resident Activity Tracking Resident Involvement: Resident Care Provided Care Provided: Adult Hospital Medicine
--- NOTE | 2019-08-31 16:51 | Billing Data ---
Coding Level of Care Code 04168 Subseq Hosp Care Lvl 3
[2019-08-31] MEDS ORDERED: OLANZapine 10 MG TAB PO SCH (21:00)
[2019-08-31] MEDS: DOCUSATE SODIUM SYRUP 100 MG/10 ML UDC PO SCH (21:15)
[2019-08-31] MEDS: OLANZapine 5 MG TABLET PO SCH (21:16)
[2019-09-01] MEDS: SODIUM CHLORIDE 0.45 % 1,000 ML IV SCH ×2 (00:21→08:03)
[2019-09-01] MEDS ORDERED: VANCOMYCIN TROUGH ONE (05:30)
[2019-09-01 06:29] LABS: Hematocrit (blood only) 29.8 % (42-52); Hemoglobin 9.4 g/dL (14.0-18.0); Immature Granulocytes # (auto) 0.02 K/uL (0.00-0.02); Immature Granulocytes % (auto) 0.3 %; Lymphocytes # (auto) 0.99 K/uL (1.2-3.4); Lymphocytes % (auto) 13.9 %; Mean Corpuscular Hemoglobin 29.7 pg (25-34); Mean Corpuscular Hgb Conc 31.5 g/dL (32-36); Mean Corpuscular Volume 94.3 fL (80-100); Mean Platelet Volume 11.2 fL (7.4-10.4); Monocytes # (auto) 0.73 K/uL (0.11-0.59); Monocytes % (auto) 10.3 %; Neutrophils # (auto) 5.36 K/uL (1.4-6.5); Neutrophils % (auto) 75.5 %; Platelet Count 125 K/uL (130-400); RDW Coefficient of Variation 15.3 % (11.5-14.5); RDW Standard Deviation 52.7 fL (36.4-46.3); Red Blood Count 3.16 M/uL (4.7-6.1)
[2019-09-01 07:06] LABS: BUN Creatinine Ratio 16.1 (10-20); Calcium 9.5 mg/dl (8.5-10.1); Creatinine Clr Calc Pharmacy 71.6 ml/min; Est GFR (African American) 82.9; Est GFR (Non-African American) 71.5; Magnesium 2.2 mg/dl (1.8-2.4); Phosphorus 3.3 mg/dl (2.5-4.9); Potassium 4.1 mmol/L (3.5-5.1)
[2019-09-01] MEDS: CYANOCOBALAMIN (VITAMIN B-12) 100 MCG TABLET PO SCH (08:03)
[2019-09-01] MEDS: FERROUS SULFATE 325 MG TAB PO SCH (08:03)
[2019-09-01] MEDS: POLYETHYLENE (MIRALAX) 17 GM PACK PO SCH (08:08)
--- NOTE | 2019-09-01 15:29 | Hospitalist Progress Note ---
Date of Service September 01, 2019 Assessment & Plan (1) Dehydration: 59yoM with hx of anemia, B12 deficiency, HCV, schizoaffective disorder, seizure, GERD, constipation, aspiration pneumonitis, gastroparesis, abdominal aortic aneurysm presents status post 2 falls Obtundation: (resolved) - this in combination with hypernatremia, and the addition that patient had a seizure leading up to being brought to the hospital and was receiving several doses of Ativan, had decreased oral intake - rapid onset somnelence, in setting of rehydration hypernatremia to 148; ?source/connection to rehydration vs hypothermia vs sepsis vs lithium toxicity vs adrenal insufficiency vs cerebral edema - At [facility] was quoted as being hypothermic to 31.4 C, after monitoring during the day yesterday with rectal temps true temp determined to be 36.9 C; this morning repeat temps initially 36.4C before sudden drop to 34.6C rectal, and decrease in functional status - Blood cultures X2 negative, Urine Culture negative - lithium level 0.8 - Cortisol 19.33 - repeat CT head did not demonstrate any intracranial abnormalities - will advise discontinuing lithium given inherit risks for patient's condition and poor existing control of mental status - increased Zyprexa to 15mg daily Hypernatremia - likely secondary to dehydration; this AM Na = 146; 150 on admission - will recheck in AM and consider gentle rehydration in the setting of improved mentation Fall with left hip contusion: - Likely secondary to infection versus chronic deconditioning/weakness versus possible seizure given history - CT head negative - Hip/pelvis x-ray negative - CK normal - Troponin negative - EKG: Normal sinus rhythm 66 QTC 540 Cellulitis left upper extremity: - White blood cell count improved from 18.1 on August 27, 2019 to 7.2 today, lactate - X-ray and: Mild diffuse soft tissue swelling, middle and distal phalanx fourth finger chronically missing - superficial VT - Doppler demonstrated History of hypertension: - continue home spironolactone B12 deficiency: - Continue B12 supplement Schizoaffective disorder: - will continue to hold lithium for inherit risks to mentation - continue clonazepam; increase zyprexa to 15mg daily Diet: heart healthy diet Code: Full Supervising Physician Co-Signing Physician Notes I personally examined the patient and verified all montemayor points of history and exam, discussed case, and agree with decision making with Dr Harvey. feeling good overall, joking. eating well, drinking well. vitals noted nad heent nc at mmm breathing unlabored no accessory muscles good effort. no focal neuro deficits. Hypothermiaimproved. ?lithium related vs other - but has improved. follow. stopped lithium, continue to follow Hypernatremia?poor intake (current guard who knows him well corroborates that this would be quite possible with his baseline) or ?DI / lithium related - now stabilized. off lithium and this would be the most likely reversible culprit. stop IVF and follow BMP into tomorrow. if holding stable then can consider discharge seizures at [facility] - not reported to us until Dr Harvey called infirmary today. no structural brain disease on imaging, could relate to lithium as well. Clinically proteincalorie malnutritionconcern on how much she is eating and drinking at the [facility]. appears to be eating better today. After discharge certainly will ask him to keep a close eye on how he is doing back at present as well. Fallssuspect due to low blood pressure Borderline hypotensionalmost certainly from volume depletionsee above. now improved schizoaffective / ?schizophrenia -stopping, increased zyprexa follow for sedation but actually currently is the best we've seen his mentation, continue klonopin for now, [facility] psych to assume care/titration of meds after discharge (and therefore as long as no significant decompensation, would hold on inpt psych consult) Otherwise as above. Subjective Patient is continuing to feel better, and has been able to get up and walk to bathroom with assistance of the officers and walker. After discussions with the [facility], patient was receiving Ativan up to three times a day for the last several days prior to being sent to the hospital after having a seizure on 08/23. Physical Exam Constitutional: WD/WN, vitals as above + thin and + underweight Eyes: PERRL, conjunctivae normal, anicteric sclerae Respiratory: normal respiratory effort; no respiratory distress Auscultation: lungs clear to auscultation bilaterally Cardiovascular: Rate/Rhythm: regular rate and regular rhythm Heart Sounds: normal S1 and normal S2; no gallop, no murmur and no cardiac rub Psychiatric: Orientation: oriented to person and oriented to place Thought Process: + tangential thought process and + looseness of associations Insight: + limited insight Judgement: + limited judgement Results & Data Vital Signs (Past 12 Hours) Vital Signs Temp Pulse Pulse Resp BP BP Pulse Ox 09/01/19 15:06 105 H 09/01/19 11:25 36.7 C 71 18 109/60 97 09/01/19 09:35 80 09/01/19 07:30 37 C 81 20 131/61 97 09/01/19 04:40 37 C 76 20 137/74 98 Laboratory Results 09/01/19 09/01/19 Range/Units 06:08 06:08 WBC 7.10 (4.8-10.8) K/uL RBC 3.16 L (4.7-6.1) M/uL Hgb 9.4 L (14.0-18.0) g/dL Hct 29.8 L (42-52) % MCV 94.3 (80-100) fL MCH 29.7 (25-34) pg MCHC 31.5 L (32-36) g/dL RDW Std Deviation 52.7 H (36.4-46.3) fL RDW Coeff of Shamar 15.3 H (11.5-14.5) % Plt Count 125 L (130-400) K/uL MPV 11.2 H (7.4-10.4) fL Immature Gran % (Auto) 0.3 % Neut % (Auto) 75.5 % Lymph % (Auto) 13.9 % Otero % (Auto) 10.3 % Eos % (Auto) 0.0 % Baso % (Auto) 0.0 % Immature Gran # (Auto) 0.02 (0.00-0.02) K/uL Neut # (Auto) 5.36 (1.4-6.5) K/uL Lymph # (Auto) 0.99 L (1.2-3.4) K/uL Otero # (Auto) 0.73 H (0.11-0.59) K/uL Eos # (Auto) 0.00 (0-0.5) K/uL Baso # (Auto) 0.00 (0-0.2) K/uL Sodium 146 H (136-145) mmol/L Potassium 4.1 (3.5-5.1) mmol/L Chloride 120 H (98-107) mmol/L Carbon Dioxide 21 (21-32) mmol/L Anion Gap 5.0 (3-11) BUN 18 (7-18) mg/dl Creatinine 1.12 (0.6-1.4) mg/dl Est Cr Clr Drug Dosing 71.6 ml/min Est GFR ( Amer) 82.9 Est GFR (Non-Af Amer) 71.5 BUN/Creatinine Ratio 16.1 (10-20) Glucose 118 H (70-99) mg/dl Calcium 9.5 (8.5-10.1) mg/dl Phosphorus 3.3 (2.5-4.9) mg/dl Magnesium 2.2 (1.8-2.4) mg/dl Medications Administered Current Inpatient Medications Acetaminophen (Tylenol) 650 mg PO Q4H PRN PRN Reason: Pain or Fever Stop: 09/27/19 22:42 Clonazepam (Klonopin) 1 mg PO BID [facility] Stop: 09/27/19 22:42 Last Admin: 08/30/19 07:47 Dose: 1 mg Documented by: Cyanocobalamin (Vitamin B-12) 100 mcg PO DAILY DIANA Stop: 09/28/19 08:59 Last Admin: 09/01/19 08:03 Dose: 100 mcg Documented by: Docusate Sodium (Colace) 250 mg PO HS DIANA Stop: 09/28/19 20:59 Last Admin: 08/31/19 21:15 Dose: 250 mg Documented by: Ferrous Sulfate (Feosol) 325 mg PO DAILY DIANA Stop: 09/28/19 08:59 Last Admin: 09/01/19 08:03 Dose: 325 mg Documented by: Magnesium Hydroxide (Milk Of Magnesia) 60 ml PO DAILY PRN PRN Reason: Constipation Stop: 09/27/19 22:42 Olanzapine (Zyprexa) 15 mg PO HS DIANA Stop: 09/30/19 20:59 Last Admin: 08/31/19 21:16 Dose: 15 mg Documented by: Polyethylene Glycol (Miralax Powder Packet) 17 gm PO DAILY DIANA Stop: 09/28/19 08:59 Last Admin: 09/01/19 08:08 Dose: 17 gm Documented by: Resident Activity Tracking Resident Involvement: Resident Care Provided Care Provided: Adult [facility] Medicine
--- NOTE | 2019-09-01 17:33 | Billing Data ---
Coding Level of Care Code 47178 Subseq Hosp Care Lvl 3
[2019-09-01] MEDS: DOCUSATE SODIUM SYRUP 100 MG/10 ML UDC PO SCH (21:08)
[2019-09-01] MEDS: OLANZapine 5 MG TABLET PO SCH (21:08)
[2019-09-02 07:06] LABS: Hematocrit (blood only) 30.4 % (42-52); Hemoglobin 9.6 g/dL (14.0-18.0); Immature Granulocytes # (auto) 0.01 K/uL (0.00-0.02); Immature Granulocytes % (auto) 0.2 %; Lymphocytes # (auto) 1.36 K/uL (1.2-3.4); Lymphocytes % (auto) 21.3 %; Mean Corpuscular Hemoglobin 29.7 pg (25-34); Mean Corpuscular Hgb Conc 31.6 g/dL (32-36); Mean Corpuscular Volume 94.1 fL (80-100); Monocytes # (auto) 0.55 K/uL (0.11-0.59); Monocytes % (auto) 8.6 %; Neutrophils # (auto) 4.48 K/uL (1.4-6.5); Neutrophils % (auto) 69.9 %; Platelet Count 117 K/uL (130-400); RDW Coefficient of Variation 15.3 % (11.5-14.5); RDW Standard Deviation 52.2 fL (36.4-46.3); Red Blood Count 3.23 M/uL (4.7-6.1)
[2019-09-02 07:31] LABS: BUN Creatinine Ratio 20.5 (10-20); Calcium 9.3 mg/dl (8.5-10.1); Creatinine Clr Calc Pharmacy 79.3 ml/min; Est GFR (African American) 98.6; Est GFR (Non-African American) 85.1; Magnesium 2.2 mg/dl (1.8-2.4); Phosphorus 3.1 mg/dl (2.5-4.9)
[2019-09-02] MEDS: POLYETHYLENE (MIRALAX) 17 GM PACK PO SCH (08:54)
[2019-09-02] MEDS: CYANOCOBALAMIN (VITAMIN B-12) 100 MCG TABLET PO SCH (08:55)
[2019-09-02] MEDS: FERROUS SULFATE 325 MG TAB PO SCH (08:55)
--- NOTE | 2019-09-02 14:59 | Discharge Summary ---
Date of Service September 02, 2019 Admission HPI Per Admitting Provider 59yoM with hx of anemia, B12 deficiency, HCV, schizoaffective disorder, seizure, GERD, constipation, aspiration pneumonitis, gastroparesis, abdominal aortic aneurysm presents status post 2 falls most recently at 2 PM today. Patient disoriented and does not answer questions appropriately. He denies any complaints right now. Per guards he is more disoriented compared to baseline and was initially also complaining of left hip pain. Patient was also recently diagnosed with left hand/arm cellulitis and started on Bactrim. Found to have hypothermia rectal temp of 31.4 in the ED. Long-Term records reviewed: Recent labs on 08/27/2019 in the setting of left upper extremity cellulitis concerning for WBC of 18.1, hemoglobin 10.[address] 218[address] BUN/creatinine 29/1.3 and sodium 144. Admission Exam Per Admitting Provider General: In NAD, disoriented Neuro: Disoriented but alert Psych: disorganized speech, appears to be responding to internal stimuli Pulm: CTAB equal breath sounds bilaterally CV: RRR, no m/r/g Abdomen:+BS, no TTP in all quadrants, non-distended, midline abdominal incision MSK: LUE forearm cellulitis extending up the arm, 2+ dorsal hand edema without associated erythema, no open lesions on hand or arm, several scabs on hand/fingers LE: no LE edema, no calf TTP Principal Diagnosis Somnolence, Hypothermia, Diabetes Insipidus Discharge Exam Constitutional WD/WN, vitals as above Eyes PERRL, conjunctivae normal, anicteric sclerae Respiratory normal respiratory effort, lungs clear to auscultation Cardiovascular RRR, no murmur, no edema Gastrointestinal (Abdomen) normal bowel sounds, soft, nontender, no hepatosplenomegaly Skin no rashes, warm and dry Psychiatric Orientation: alert, oriented to person, oriented to place and cooperative Affect: + labile affect Thought Process: + tangential thought process Insight: + limited insight Judgement: + limited judgement Discharge Data Allergies Allergy/AdvReac Type Severity Reaction Status Date / Time haloperidol [From Haldol] AdvReac Unknown Unknown Unverified 08/28/19 16:50 Consultations 08/28/19 17:55 ED Decision to Admit Stat 08/28/19 20:02 ED Decision to Admit Stat 08/30/19 11:22 Consult Investigations Director Routine Ordered Studies 08/28/19 16:16 CT abd pelvis IV con only Stat CT head/brain wo con Stat 08/28/19 21:13 US venous doppler UE LT Urgent 08/30/19 11:26 CT head/brain wo con Stat Hospital Course (1) Altered mental status: 59 yo M with hx of anemia, B12 deficiency, HCV, schizoaffective disorder, seizure, GERD, constipation, aspiration pneumonitis, gastroparesis, abdominal aortic aneurysm presents status post 2 falls Mental status change - ? sec to nephrogenic DI from lithium causing hypernatremia leading to seizures. - No sign of infection - Blood cultures X2 negative, Urine Culture negative. - CT head x 2 negative. . - d/kelly [place]. - Mental cleared at the time of discharge. Probable DI - resolved. - likely from lithium. - lithium d/kelly. Hypernatremia - likely secondary to dehydration vs DI; this AM Na is 145 and pt is doing well. Schizoaffective disorder: - d/kelly lithium for h/o toxicity leading to diabetes insipidus. - continue clonazepam; - increased Zyprexa to 15mg daily. Fall with left hip contusion: - Hip/pelvis x-ray negative. - CK normal. Swelling of left upper extremity: - White blood cell count improved from 18.1 on August 27, 2019 to 6.40 today. No signs or symptoms of infection. - X-ray: Mild diffuse soft tissue swelling, middle and distal phalanx fourth finger chronically missing. - US showed superficial clot but no DVT. Hypertension: - continue home spironolactone. B12 deficiency: - Continue B12 supplement. Constipation: - Miralax PRN constipation. (2) [place] toxicity: (3) Diabetes insipidus: (4) B12 deficiency: (5) GERD (gastroesophageal reflux disease): (6) Constipation: (7) Schizoaffective disorder: (8) Contusion of hip, left: (9) Hypernatremia: Total Time Total Time Spent Total Time Spent (In Minutes): see attending attestation. Discharge Plan Discharge Items Patient Disposition: [facility] Reason For Visit: FALL,HYPOTHERMIA,CELLULITIS Discharge Diagnosis: confusion likely due to lithium toxicity Condition on Discharge: Good Activity: Resume your previous activity Non-emergency contact: Primary Care Provider and Hospitalist Call non-emergency contact if: your symptoms worsen and your rectal temperature is above 100.4 Follow-up/Referrals: Richard MOON [Primary Care Provider] - Diet: Regular Addtl Attending Provider Instructions: 59 yo M with hx of anemia, B12 deficiency, HCV, schizoaffective disorder, seizure, GERD, constipation, aspiration pneumonitis, gastroparesis, abdominal aortic aneurysm presents status post 2 falls Obtundation: (resolved) - likely due to a combination of factors including hypernatremia, central DI due to lithium toxicity, seizure prior to arrival also likely due to lithium. - Blood cultures X2 negative, Urine Culture negative. - repeat CT head did not demonstrate any intracranial abnormalities that would explain his somnolence. - advise discontinuing lithium indefinitely given inherit risks for patient's condition and poor existing control of mental status - increased Zyprexa to 15mg daily, Ativan as needed for seizures. Hypernatremia - likely secondary to dehydration vs DI; this AM Na is 145 and pt is doing well. - encourage PO hydration. Fall with left hip contusion: - Hip/pelvis x-ray negative. - CK normal. Swelling of left upper extremity: - White blood cell count improved from 18.1 on August 27, 2019 to 6.40 today. No signs or symptoms of infection. - X-ray: Mild diffuse soft tissue swelling, middle and distal phalanx fourth finger chronically missing - US showed superficial clot but no DVT. History of hypertension: - continue home spironolactone. B12 deficiency: - Continue B12 supplement. Schizoaffective disorder: - will continue to hold lithium for inherit risks to mentation. - continue clonazepam; increase Zyprexa to 15mg daily. Constipation: - Miralax PRN constipation. Pending Studies at Discharge: No Stand-Alone Forms: My [facility] Skilled Items Patient informed of condition?: Yes Discharge Level of Care: Other Communicable Disease: Yes Discharge Prognosis: Stable Lines: None Urinary Catheter: No Medications and DC Order Prescriptions: New polyethylene glycol 3350 [Miralax] 17 gram Powder In Packet 17 g PO ONCE PRN (Reason: constipation) Qty: 10 RF: 0 olanzapine 5 mg Tablet 15 mg PO HS Qty: 30 RF: 1 Continued cyanocobalamin (vitamin B-12) 100 mcg Tablet 100 mcg PO DAILY RF: 0 clonazepam 1 mg Tablet 1 mg PO BID RF: 0 sulfamethoxazole-trimethoprim 800-160 mg Tablet 1 tab PO BID RF: 0 spironolactone 25 mg Tablet 25 mg PO DAILY RF: 0 magnesium hydroxide [Milk of Magnesia] 400 mg/5 mL Suspension 60 ml PO DAILY PRN (Reason: Constipation) RF: 0 docusate sodium 250 mg Capsule 250 mg PO HS RF: 0 ferrous sulfate [Feosol] 325 mg (65 mg iron) Tablet 325 mg PO DAILY RF: 0 Discontinued olanzapine 10 mg Tablet 10 mg PO HS RF: 0 lithium carbonate [Lithobid] 300 mg Tablet Extended Release 300 mg PO BID RF: 0 Discharge Orders: Discharge Order (Routine); Ordered 09/02/19 Ordered By: Stella Negrete Admission Data Admit Date/Time: 08/28/19 21:36 Attending Provider: Harmony Red Admit Provider: Higinio Cheung Primary Care Provider: Richard MOON Other Providers: Thai Patterson ; Higinio Cheung ; Kobe Mejia ; Jairo Carrillo Other Interventions: Discharge Summary Assessment (RN) Last Done: 09/02/19 13:01 DC Date/Time DO NOT enter until pt leaves facility: 09/02/19 15:07 Supervising Physician Co-Signing Physician Notes Resident Physician Supervision Note: I independently interviewed and examined the patient and verified the montemayor history and physical, reviewed labs and image studies, discussed the case with the resident Dr. Negrete and agree with the findings and care plan. Time spent in discharge 35 min Resident Activity Tracking Resident Involvement: Resident Care Provided Care Provided: Adult Hospital Medicine
--- NOTE | 2019-09-09 08:12 | Coding Query ---
CODING QUERY To promote full compliance with coding requirements relating to patient care, provider participation is requested in all cases of accountant budget uncertainty. Please assist us with the question(s) below: Coding Question(s): Patient admitted with altered mental status, diabetes insipidus due to [place] toxicity. 08/30 Critical care note documented encephalopathy. Please document, if known or suspected, the etiology of the encephalophy on admission. Thanks for your help! Oscar Collier SURVEY COORDINATOR [facility] Physician's Response(s): Diabetes Insipidus, Hypernatremia secondary to [place] Toxicity Principal Diagnosis: "that condition established after study, to be chiefly responsible for occasioning the admission of the patient to the hospital for care." Co-Existing Principal Diagnosis: "when two or more diagnoses equally meet the criteria for principal diagnosis as determined by the circumstances of admission, diagnostic work up, and/or therapy provided, and the Alphabetic Index, Tabular List, or another coding guideline does not provide sequencing direction, any one of the diagnoses may be sequenced first." "When the physician has documented what appears to be a current diagnosis in the body of the record, but has not included the diagnosis in the final diagnostic statement, the physician should be asked whether the diagnosis should be added." (Source Coding [facility] 2 QTR90. p3-4) NATALI
== END 2019-09-02 15:07 | DRG 643 ==
LOC: ED 15:24 → SUATTDRO 21:36 → 2N 21:36 → 2W 08-29 20:42 → 1E 08-30 11:35 → 2N 08-31 10:00

== ENCOUNTER 2019-09-12 12:28 | Inpatient (IN) ==
[2019-09-12] MEDS ORDERED: SODIUM CHLORIDE 0.9% 1000ML 2,000 ML IV ONE (12:47)
[2019-09-12] MEDS ORDERED: HALOPERIDOL LACTATE 5 MG/ML 1 ML VIAL ONE (12:47)
[2019-09-12] MEDS ORDERED: HALOPERIDOL LACTATE 5 MG/ML 1 ML VIAL IV STA (12:47)
[2019-09-12 13:07] LABS: Hemoglobin 10.8 g/dL (14.0-18.0); Immature Granulocytes # (auto) 0.01 K/uL (0.00-0.02); Immature Granulocytes % (auto) 0.1 %; Lymphocytes # (auto) 1.02 K/uL (1.2-3.4); Lymphocytes % (auto) 12.5 %; Mean Corpuscular Hemoglobin 30.3 pg (25-34); Mean Corpuscular Hgb Conc 32.7 g/dL (32-36); Mean Corpuscular Volume 92.7 fL (80-100); Mean Platelet Volume 11.7 fL (7.4-10.4); Monocytes # (auto) 0.49 K/uL (0.11-0.59); Neutrophils # (auto) 6.66 K/uL (1.4-6.5); Neutrophils % (auto) 81.4 %; Platelet Count 269 K/uL (130-400); RDW Coefficient of Variation 15.2 % (11.5-14.5); RDW Standard Deviation 51.6 fL (36.4-46.3); Red Blood Count 3.56 M/uL (4.7-6.1); White Blood Count 8.18 K/uL (4.8-10.8)
[2019-09-12 13:16] LABS: INR 1.1 (0.9-1.1)
[2019-09-12 13:24] LABS: Alanine Aminotransferase 24 U/L (12-78); Albumin Level 3.5 gm/dl (3.4-5.0); Aspartate Aminotransferase 21 U/L (15-37); BUN Creatinine Ratio 37.6 (10-20); Blood Urea Nitrogen 56 mg/dl (7-18); Calcium 10.5 mg/dl (8.5-10.1); Carbon Dioxide 16 mmol/L (21-32); Chloride 109 mmol/L (98-107); Creatinine Clr Calc Pharmacy 51.9 ml/min; Est GFR (African American) 58.2; Est GFR (Non-African American) 50.2; Glucose 114 mg/dl (70-99); Lipase 43 U/L (73-393); Magnesium 2.7 mg/dl (1.8-2.4); Potassium 4.2 mmol/L (3.5-5.1); Sodium 142 mmol/L (136-145)
[2019-09-12 13:35] LABS: Albumin Globulin Ratio 0.8 (0.9-2); Alkaline Phosphatase 93 U/L (45-117); Bilirubin,Total 0.5 mg/dl (0.2-1); Globulin 4.6 gm/dl (2.5-4.0); Phosphorus 6.5 mg/dl (2.5-4.9); Total Protein 8.1 gm/dl (6.4-8.2); Troponin I < 0.015 ng/ml (0-0.045)
[2019-09-12 13:35] LABS: Appearance Urine Clear (Clear); Bilirubin Urine Negative (Negative); Blood Urine Negative (Negative); Color Urine Yellow; Glucose Urine UA Negative (Negative); Ketones Urine 1+ (Negative); Leukocyte Esterase Urine Negative (Negative); Nitrite Urine Negative (Negative); Protein Urine Negative (Negative); Specific Gravity Urine 1.017 (1.000-1.030); Urobilinogen Urine Negative (Negative)
--- NOTE | 2019-09-12 13:36 | XRay Report ---
XR chest 1V portable CLINICAL HISTORY: 59 years-old Male presenting with Chest Pain. TECHNIQUE: Portable upright AP view of the chest was obtained. COMPARISON: 08/28/2019. FINDINGS: Atherosclerosis of the aortic arch. Cardiac silhouette normal in size. No focal opacity. No large eff usion or pneumothorax. Osseous structures normal. Upper abdomen normal. IMPRESSION: 1. No acute cardiopulmonary disease. Electronically signed by: Surendra Bolton M.D. 09/12/2019 1:34 PM
[2019-09-12] MEDS ORDERED: D5W AND NSS 1,000 ML IV STA (13:50)
[2019-09-12] MEDS ORDERED: THIAMINE HCL 100 MG in SYRINGE 9 ML IV STA (13:50)
--- NOTE | 2019-09-12 13:56 | CT Scan Report ---
CT head/brain wo con CLINICAL HISTORY: 59 years-old Male presenting with ams. TECHNIQUE: Multidetector CT imaging of the head was performed without the use of intravenous contrast . IV contrast: None. One or more dose lowering techniques were used consistent with the principles of ALARA (as low as reasonably achievable), including automatic exposure control, mA or kV adjustment t o individual patient size, and/or use of iterative reconstruction. COMPARISON: 08/30/2019. CT DOSE (mGy.cm): The estimated cumulative dose is 823.12 mGy.cm. FINDINGS: Accounts Receivable Clerk topogram: Unremarkable. Ventricles and sulci normal in size. No hemorrhage. Brain parenchyma normal in appearance with preser bobby noel-white differentiation. No acute territorial infarct. No mass effect or midline shift. No ext ra-axial fluid collection. Paranasal sinuses and mastoid air cells clear. Calvarium intact. The prior left occipital scalp contusion and hematoma have largely resolved. IMPRESSION: 1. No acute intracranial abnormality. 2. Near complete resolution of the prior left occipital scalp contusion and hematoma. Electronically signed by: Surendra Bolton M.D. 09/12/2019 1:54 PM
--- NOTE | 2019-09-12 14:37 | Emergency Department Note ---
Entered by Veronica Griffith acting as a scribe for History of Present Illness General Chief complaint: Altered Mental Status Time Seen by Provider: 09/12/19 12:29 Source: EMS and other ([facility] psychiatry note) Mode of arrival: EMS Limitations: no limitations History of Present Illness Provider complaint: Altered mental status Onset (ago): hour(s) (around 0700 today) Location: head Radiation: non-radiation Pain Consistency: + other (worsening) Quality: + other (altered mental status) Associated symptoms: + other (Additional symptoms: word salad, agitation, decreased cognitive reserve) The patient is a 59 year old male inmate at [facility] with a history of schizoaffective disorder previously well controlled with El[place] and Clozaril, bipolar disorder, Hep C, and an SBO who presents to the Emergency Room with complaints of a worsening altered mental status starting around 0700 today. Per EMS, the patient is normally calm but has become agitated today. Per psychiatry note from [facility], the patient was recently hospitalized for a SBO with complications of aspiration and vent requirement. He was subsequently taken off Clozaril and tried on Stelazine instead but showed evidence of worsening psychosis, so his medication was changed to Zyprexa. El[place]orn was discontinued shortly after secondary to diabetes insipidus and his Zyprexa dose was increased to 15 mg QHS for additional mood stabilization coverage. Per psychiatry progress note, the patient has continued to worsen from a psychiatric perspective and started deteriorating last night. The patient has reportedly been speaking nonsensical word salad, spitting on staff, grabbing and shaking his genitals, refusing medication, and exhibiting decreased cognitive reserve. Home Medications Home Medications Medication Instructions Recorded Confirmed Type ferrous sulfate [Feosol] 325 mg PO DAILY 07/05/19 09/12/19 History cyanocobalamin (vitamin B-12) 100 mcg PO DAILY 08/28/19 09/12/19 History docusate sodium 250 mg PO HS 08/28/19 09/12/19 History magnesium hydroxide [Milk of 60 ml PO DAILY PRN 08/28/19 09/12/19 History Magnesia] spironolactone 25 mg PO DAILY 08/28/19 09/12/19 History polyethylene glycol 3350 [Miralax] 17 g PO ONCE PRN #10 ea 09/02/19 09/12/19 Rx olanzapine 20 mg PO HS 09/12/19 09/12/19 History ramelteon 8 mg PO HS 09/12/19 09/12/19 History Allergies Allergy/AdvReac Type Severity Reaction Status Date / Time haloperidol [From Haldol] AdvReac Unknown Unknown Unverified 09/12/19 13:23 Past Med/Surg History Medical History Bipolar disorder Bowel obstruction (Inactive) Diabetes insipidus Hepatitis C Schizoaffective disorder Family History Other No pertinent family history in first degree relatives Social History Preferred Language: Upper Sorbian Communication Ability: Effective Business Excellence Manager Required: No Beliefs That Will Affect Care: None Current Living Situation: Other Current Living Situation Comment: [facility] Feels Safe at Home: Yes Smoking Status: Former smoker Tobacco Type: cigarettes ; Cigarettes Per Day: 1 pack per day ; Second Hand Exposure: No ; Hx Alcohol Use: No Hx Substance Use: No Review of Systems See HPI for pertinent positives & negatives. and A total of 10 systems reviewed and were otherwise negative Physical Exam Vital Signs Vital Signs - 24 hr 09/12/19 12:38 09/12/19 12:56 09/12/19 14:19 Temperature 36.8 C Temperature Source Axillary Pulse Rate 101 H Pulse Rate [Apical] 89 Respiratory Rate 20 18 Respiratory Effort / Characteristics Non-Labored Spontaneous Non-Labored Spontaneous Respiratory Depth Normal Normal Blood Pressure 134/73 Blood Pressure [Right Arm] 88/65 L Blood Pressure Mean 93 Blood Pressure Mean [Right Arm] 72 Pulse Oximetry 100 100 100 Oxygen Delivery Method Room Air Sepsis Recent Fever Within 48 Hours No Sepsis New/Unexplained Change in Mental Status No Sepsis Action Taken by Nursing No Action Required GENERAL: Awake, belligerent, psychotic appearing, physically restrained in handcuffs. HENT: Normocephalic, atraumatic. Oropharynx with dry mucous membranes and otherwise unremarkable. EYES: Normal conjunctiva. Sclera non-icteric. EOMI. No nystamgus. PEARRL. NECK: Supple. No nuchal rigidity. FROM. No JVD. RESPIRATORY: CTAB. CARDIAC: Tachycardic rate, normal rhythm. Extremities warm and well perfused. Pulses equal. ABDOMEN: Soft, non-distended. No tenderness to palpation. No rebound or guarding. No masses. RECTAL: Deferred. MUSCULOSKELETAL: Chest examination reveals no tenderness. The back is symmetrical on inspection without obvious abnormality. There is no CVA tenderness to palpation. No joint edema. LOWER EXTREMITIES: Calves are equal size bilaterally and non-tender. No edema. No discoloration. NEURO: Normal sensorium. No sensory or motor deficits noted. SKIN: No rash or jaundice noted. Course Course 1240: The patient was evaluated in room B8, and a complete history and physical examination were performed. 1410: I reviewed the patient's case with Dr[facility] Shah will evaluate the patient for further management. Consultations Consultation #1: I reviewed the patient's case with Dr. Shah - Hospitaleddie, [facility]. Dr. Shah will evaluate the patient for further management. Time: 14:10 Administered Medications Sodium Chloride (Nss 1000ml) 1,000 mls @ 100 mls/hr IV .Q10H DIANA Stop: 09/13/19 12:10 Last Admin: 09/12/19 16:50 Dose: 100 mls/hr Documented by: [id number] Discontinued Medications Haloperidol Lactate (Haldol) Confirm Administered Dose 5 mg .ROUTE .STK-MED ONE Stop: 09/12/19 12:48 Last Admin: 09/12/19 12:51 Dose: Not Given Documented by: [id number] Haloperidol Lactate (Haldol) 2 mg IV NOW STA Stop: 09/12/19 12:48 Last Admin: 09/12/19 12:51 Dose: 2 mg Documented by: [id number] Sodium Chloride (Nss 1000ml) 2,000 mls @ 999 mls/hr IV .Q2H1M ONE Stop: 09/12/19 14:47 Last Infusion: 09/12/19 15:03 Dose: 0 mls/hr Documented by: [id number] Admin: 09/12/19 12:51 Dose: 999 mls/hr Documented by: [id number] Thiamine HCl 100 mg/ Syringe 10 mls @ 2 mls/min IV NOW STA Stop: 09/12/19 13:54 Last Admin: 09/12/19 14:38 Dose: 2 mls/min Documented by: [id number] Dextrose/Sodium Chloride (D5w And Nss) 1,000 mls @ 999 mls/hr IV .Q1H1M STA Stop: 09/12/19 14:50 Last Infusion: 09/12/19 16:02 Dose: 0 mls/hr Documented by: [id number] Admin: 09/12/19 14:52 Dose: 999 mls/hr Documented by: [id number] Folic Acid 1 mg/ Syringe 10 mls @ 5 mls/min IV ONE ONE Stop: 09/12/19 16:46 Last Admin: 09/12/19 16:51 Dose: 5 mls/min Documented by: [id number] Olanzapine (Zyprexa) 10 mg IM NOW STA Stop: 09/12/19 14:42 Last Admin: 09/12/19 14:52 Dose: 10 mg Documented by: [id number] Critical Care Time Critical Care Time: Yes Total Critical Care Time: 35 I have personally spent greater than 35 minutes of critical care time in the direct management of this patient. This includes bedside care, interpretation of diagnostic studies, and testing, discussion with consultants, patient, and family members, and other required patient management activities. This 35 estuardo lou is in excess of all separately billable procedures. Medical Decision Making Differential Diagnosis Differential diagnosis: Etiologies such as metabolic, infection, hypo/hyperglycemia, electrolyte abnormalities, cardiac sources, intracerebral event, toxicologic, neurologic, as well as others were entertained. Medical Records Attestation: I reviewed the patient's medical records. Home Medications Current Medication List: was personally reviewed by me Laboratory Data Attestation: I reviewed the patient's lab results. Result diagrams: 09/12/19 16:22 09/12/19 12:55 Lab Results 09/12/19 09/12/19 09/12/19 Range/Units 12:55 12:55 12:55 WBC 8.18 (4.8-10.8) K/uL RBC 3.56 L (4.7-6.1) M/uL Hgb 10.8 L (14.0-18.0) g/dL Hct 33.0 L (42-52) % MCV 92.7 (80-100) fL MCH 30.3 (25-34) pg MCHC 32.7 (32-36) g/dL RDW Std Deviation 51.6 H (36.4-46.3) fL RDW Coeff of Shamar 15.2 H (11.5-14.5) % Plt Count 269 (130-400) K/uL MPV 11.7 H (7.4-10.4) fL Immature Gran % (Auto) 0.1 % Neut % (Auto) 81.4 % Lymph % (Auto) 12.5 % [place] % (Auto) 6.0 % Eos % (Auto) 0.0 % Baso % (Auto) 0.0 % Immature Gran # (Auto) 0.01 (0.00-0.02) K/uL Neut # (Auto) 6.66 H (1.4-6.5) K/uL Lymph # (Auto) 1.02 L (1.2-3.4) K/uL [place] # (Auto) 0.49 (0.11-0.59) K/uL Eos # (Auto) 0.00 (0-0.5) K/uL Baso # (Auto) 0.00 (0-0.2) K/uL PT 11.0 (9.0-12.0) Seconds INR 1.1 (0.9-1.1) Sodium 142 (136-145) mmol/L Potassium 4.2 (3.5-5.1) mmol/L Chloride 109 H (98-107) mmol/L Carbon Dioxide 16 L (21-32) mmol/L Anion Gap 17.0 H (3-11) BUN 56 H (7-18) mg/dl Creatinine 1.50 H (0.6-1.4) mg/dl Est Cr Clr Drug Dosing 51.9 ml/min Est GFR ( Amer) 58.2 Est GFR (Non-Af Amer) 50.2 BUN/Creatinine Ratio 37.6 H (10-20) Glucose 114 H (70-99) mg/dl Calcium 10.5 H (8.5-10.1) mg/dl Phosphorus 6.5 H (2.5-4.9) mg/dl Magnesium 2.7 H (1.8-2.4) mg/dl Total Bilirubin 0.5 (0.2-1) mg/dl AST 21 (15-37) U/L ALT 24 (12-78) U/L Alkaline Phosphatase 93 (45-117) U/L Ammonia (11-32) umol/L Troponin I < 0.015 (0-0.045) ng/ml Total Protein 8.1 (6.4-8.2) gm/dl Albumin 3.5 (3.4-5.0) gm/dl Globulin 4.6 H (2.5-4.0) gm/dl Albumin/Globulin Ratio 0.8 L (0.9-2) Lipase 43 L (73-393) U/L TSH 1.810 (0.300-4.500) uIu/ml Urine Color Urine Appearance (Clear) Urine pH (4.5-7.5) Ur Specific [place] (1.000-1.030) Urine Protein (Negative) Urine Glucose (UA) (Negative) Urine Ketones (Negative) Urine Blood (Negative) Urine Nitrite (Negative) Urine Bilirubin (Negative) Urine Urobilinogen (Negative) Ur Leukocyte Esterase (Negative) 09/12/19 09/12/19 Range/Units 12:55 13:22 WBC (4.8-10.8) K/uL RBC (4.7-6.1) M/uL Hgb (14.0-18.0) g/dL Hct (42-52) % MCV (80-100) fL MCH (25-34) pg MCHC (32-36) g/dL RDW Std Deviation (36.4-46.3) fL RDW Coeff of Shamar (11.5-14.5) % Plt Count (130-400) K/uL MPV (7.4-10.4) fL Immature Gran % (Auto) % Neut % (Auto) % Lymph % (Auto) % [place] % (Auto) % Eos % (Auto) % Baso % (Auto) % Immature Gran # (Auto) (0.00-0.02) K/uL Neut # (Auto) (1.4-6.5) K/uL Lymph # (Auto) (1.2-3.4) K/uL [place] # (Auto) (0.11-0.59) K/uL Eos # (Auto) (0-0.5) K/uL Baso # (Auto) (0-0.2) K/uL PT (9.0-12.0) Seconds INR (0.9-1.1) Sodium (136-145) mmol/L Potassium (3.5-5.1) mmol/L Chloride (98-107) mmol/L Carbon Dioxide (21-32) mmol/L Anion Gap (3-11) BUN (7-18) mg/dl Creatinine (0.6-1.4) mg/dl Est Cr Clr Drug Dosing ml/min Est GFR ( Amer) Est GFR (Non-Af Amer) BUN/Creatinine Ratio (10-20) Glucose (70-99) mg/dl Calcium (8.5-10.1) mg/dl Phosphorus (2.5-4.9) mg/dl Magnesium (1.8-2.4) mg/dl Total Bilirubin (0.2-1) mg/dl AST (15-37) U/L ALT (12-78) U/L Alkaline Phosphatase (45-117) U/L Ammonia < 10.0 L (11-32) umol/L Troponin I (0-0.045) ng/ml Total Protein (6.4-8.2) gm/dl Albumin (3.4-5.0) gm/dl Globulin (2.5-4.0) gm/dl Albumin/Globulin Ratio (0.9-2) Lipase (73-393) U/L TSH (0.300-4.500) uIu/ml Urine Color Yellow Urine Appearance Clear (Clear) Urine pH 5.0 (4.5-7.5) Ur Specific [place] 1.017 (1.000-1.030) Urine Protein Negative (Negative) Urine Glucose (UA) Negative (Negative) Urine Ketones 1+ H (Negative) Urine Blood Negative (Negative) Urine Nitrite Negative (Negative) Urine Bilirubin Negative (Negative) Urine Urobilinogen Negative (Negative) Ur Leukocyte Esterase Negative (Negative) Imaging Data Radiologist's Impression: Radiology results as stated below per my review and the radiologist's interpretation: XR chest 1V portable CLINICAL HISTORY: 59 years-old Male presenting with Chest Pain. TECHNIQUE: Portable upright AP view of the chest was obtained. COMPARISON: 08/28/2019. FINDINGS: Atherosclerosis of the aortic arch. Cardiac silhouette normal in size. No focal opacity. No large effusion or pneumothorax. Osseous structures normal. Upper abdomen normal. IMPRESSION: 1. No acute cardiopulmonary disease. Electronically signed by: Surendra Bolton M.D. 09/12/2019 1:[address] head/brain wo con CLINICAL HISTORY: 59 years-old Male presenting with ams. TECHNIQUE: Multidetector CT imaging of the head was performed without the use of intravenous contrast. IV contrast: None. One or more dose lowering techniques were used consistent with the principles of ALARA (as low as reasonably achievable), including automatic exposure control, mA or kV adjustment to individual patient size, and/or use of iterative reconstruction. COMPARISON: 08/30/2019. CT DOSE (mGy.cm): The estimated cumulative dose is 823.12 mGy.cm. FINDINGS: System Support Technician topogram: Unremarkable. Ventricles and sulci normal in size. No hemorrhage. Brain parenchyma normal in appearance with preserved noel-white differentiation. No acute territorial infarct. No mass effect or midline shift. No extra-axial fluid collection. Paranasal sinuses and mastoid air cells clear. Calvarium intact. The prior left occipital scalp contusion and hematoma have largely resolved. IMPRESSION: 1. No acute intracranial abnormality. 2. Near complete resolution of the prior left occipital scalp contusion and hematoma. Electronically signed by: Surendra Bolton M.D. 09/12/2019 1:54 PM ECG Data Attestation: I personally reviewed and interpreted this ECG as follows: Indication: + altered mental status Rate (beats per minute): 96 Rhythm: + normal sinus ECG [place]: + Normal ECG ST segments: no ST depression and no ST elevation ECG Findings: + Other (QTC is 497); no PACs and no PVCs Blood Pressure Blood Pressure Findings: Normal blood pressure MDM Narrative The patient is a pleasant 59-year-old gentleman with a past medical history of schizophrenia, history of bowel obstruction status post laparotomy in June 2019, history of AAA measuring 5 cm, history of dehydration/hypernatremia in the setting of possible lithium toxicity/DI who presents emergency department from his present facility concern for worsening psychosis over the past 24 hours per hpi. On arrival is in no acute distress, afebrile stable vital signs. The patient is psychotic appearing with hallucinations appearing to be respond to internal stimuli. He appears clinically dry. Reflexes within normal limits. There are no focal neuro deficits. EKG without overt acute ischemia. Chest x- ray negative for acute process. CT head negative for acute process. WBC and platelets within normal limits. H/H 10.8/33.0 improved from prior values. Chemistry demonstrates anion gap acidosis in the setting of acute renal insuffic iency. Bicarb is 16 with anion gap of 17 and creatinine is 1.5 with BUN of 56. BUN/creatinine > 30 digestive of prerenal etiology. Patient also does have elevated electrolytes including calcium of 10.5, phosphorus of 6.5 and magnesium of 2.7. UA negative for infection however does have 1+ ketones. Given the patient's clinically dry and cachectic appearance certainly a starvation ketosis with associated renal insufficiency could explain the patient's symptoms. Lactate, VBG and blood cultures were ordered and are pending. Given these metabolic abnormalities reasonable to admit the patient for further management. Lactate subsequently within normal limits at 0.7. VBG with acidemia with a pH of 7.26. Case was discussed with Dr. Shah, [facility] [place] hospitalist, who will evaluate the patient for admission. Impression & Plan Metabolic acidosis, increased anion gap, Altered mental status, Hypercalcemia, Hypermagnesemia, Hyperphosphatemia, Acute renal insufficiency, Psychosis Discharge Plan Visit Data *Final* Discharge Date/Time: 09/12/19 15:20 Chief Complaint: Altered Mental Status ED Provider: Dontrell Calvert Discharge Problem: Metabolic acidosis, increased anion gap, Altered mental status, Hypercalcemia, Hypermagnesemia, Hyperphosphatemia, Acute renal insufficiency, Psychosis Patient Disposition: Admitted As Inpatient Discharge Instructions Interventions: ED Discharge Assessment Last Done: 09/12/19 15:20 Discharge Problem: Altered mental status Qualifiers: Altered mental status type: unspecified Qualified Code(s): R41.82 - Altered mental status, unspecified Psychosis Qualifiers: Psychosis type: unspecified psychosis type Qualified Code(s): F29 - Unspecified psychosis not due to a substance or known physiological condition The scribe's documentation has been prepared under my direction and personally reviewed by me in its entirety. I confirm that the note above accurately reflects all work, treatment, procedures, and medical decision making performed by me.
[2019-09-12] MEDS ORDERED: OLANZapine 10 MG/2.1 ML SDV IM STA (14:41)
--- NOTE | 2019-09-12 14:47 | History & Physical Report ---
Date of Service September 12, 2019 Assessment & Plan (1) Metabolic acidosis, increased anion gap: Admits to PCU on telemetry Vital signs every 4 hours Replenish electrolytes CBC CMP daily BMP every 6 hours, BNP pending, lactate pending. IV fluid hydration with D5 normal saline at 100 cc/h. Given folic acid and vitamin B12. DVT prophylaxis heparin 5000 units every 12 hours. Full code Present on Admission?: Yes (2) Altered mental status: Patient has hallucinations visual and tactile. He is combative, unable to follow the directions. Consult psychiatry. Discussed with Dr. Jhaveri and he recommended to give him in addition to 2 mg of Haldol IV , 10 mg of Zyprexa IM and if that does not help 2 mg of Ativan separately in 1 to 2 hours after Zyprexa. Patient has 2 guards in the room, he is prisoner. CT of the head negative for acute abnormalities. Present on Admission?: Yes (3) Hypermagnesemia: Monitor magnesium. Today's 2.7. Present on Admission?: Yes (4) Hyperphosphatemia: Most likely due to dehydration. IV fluids with normal saline 100 cc/h. Monitor electrolytes and phosphate. Present on Admission?: Yes (5) Acute renal insufficiency: Appears to be due to dehydration. Avoid nephrotoxic agents. Continue IV fluid hydration 100 cc/h. Monitor electrolytes creatinine and GFR. Present on Admission?: Yes (6) Acute psychosis: Patient was discharged on September 02. 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 Patient was sent home with olanzapine 20 mg p.o. nightly. It is not clear and patient was taking his medicine or not. He was in senior care all the time. Urine drug screen pending and alcohol involved. Discussed with Dr. Jhaveri psychiatrist and he recommended to besides Haldol that has been already given in the emergency room 2 mg IV x1 the patient does not come down to give him 10 mg of olanzapine IM, and if not improvement then 2 mg of lorazepam IV or IM which are accessible. Present on Admission?: Yes (7) Diabetes insipidus: Diabetes insipidus induced by lithium before probably is because of of severe dehydration that resulted in metabolic acidosis. Continue monitoring electrolytes. Replenish IV fluids. Patient is not on lithium anymore. Present on Admission?: Yes (8) HCV (hepatitis C virus): We will check hepatitis C quant. Appears stable now. Present on Admission?: Yes (9) Constipation: Continue MiraLAX. Hold milk of magnesia since patient magnesium is 2.7. Present on Admission?: Yes (10) AAA (abdominal aortic aneurysm): Patient had appointment with vascular surgeon last admission for elective repair of abdominal aortic aneurysm since it is 5 cm in size. Appears that he did not follow-up. Consults [facility] vascular. Present on Admission?: Yes (11) Bipolar disorder: As discussed above. Patient is in acute psychosis. Consulted psychiatry. Drug screen pending. Alcohol pending. Robbins was discontinued last visit due to nephrogenic diabetes insipidus. 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 Per psychiatry note from [facility] the patient was hospitalized at [facility] for small bowel obstruction with complication of aspiration and ventilation requirement. Patient was at that point taken off Clozaril and tried on Stelazine instead but showed evidence of worsening psychosis, so his medication was changed to Zyprexa. Fair patient records patient supposed to take 20 mg of the proximal nightly. Robbins was also discontinued at the previous visit to the hospital due to nephrogenic diabetes insipidus and continued with Zyprexa 2 stabilize patient mood. Per psychiatric notes patient continued to worsen from psychiatric perspective and started to deteriorate at night. Patient exhibits nonsensical word salad, spitting on staff, refusing medication, attempting to bite personnel, having active hallucinations and delusions. Patient is poor historian and review of system is extremely d ifficult. No significant complaint at this time. Patient is in his own internal world. Labs are reviewed: WBC is 8.18, hemoglobin 10.8, hematocrit 33.0, platelets 269, PT 11, INR 1.1, pH 7.26, PCO2 31, O2 54, sodium 142, potassium 4.2 chloride 109, carbon dioxide 16, BUN 56, creatinine 1.5, GFR 50, calcium 10.5, phosphorus 6.5, magnesium 2.7, AST 21, ALT 24, ammonia less than 10, troponin 0 0.015, TSH 1.81. Urine normal with 1+ ketones. Nasal MRSA negative from the previous visit. Head CT: No acute intracranial abnormality. Near complete resolution of the prior left occipital scalp contusion and hematoma. Chest x-ray no acute cardiopulmonary disease. Patient was treated in the emergency room with 1 L of normal saline and 1 L of D5 with normal saline, hypothyroid 2 mg IV x1, thiamine 100 mg x 1, olanzapine 10 mg x 1 IM. Decision was made to admit patient to PCU on telemetry for acute metabolic acidosis, electrolyte his balance including phosphorus and magnesium, acute kidney injury, severe dehydration and acute psychosis. Allergies Allergy/AdvReac Type Severity Reaction Status Date / Time haloperidol [From Haldol] AdvReac Unknown Unknown Unverified 09/12/19 13:23 Home Medications Home Medications Medication Instructions Recorded Confirmed Type ferrous sulfate [Feosol] 325 mg PO DAILY 07/05/19 09/12/19 History cyanocobalamin (vitamin B-12) 100 mcg PO DAILY 08/28/19 09/12/19 History docusate sodium 250 mg PO HS 08/28/19 09/12/19 History magnesium hydroxide [Milk of 60 ml PO DAILY PRN 08/28/19 09/12/19 History Magnesia] spironolactone 25 mg PO DAILY 08/28/19 09/12/19 History polyethylene glycol 3350 [Miralax] 17 g PO ONCE PRN #10 ea 09/02/19 09/12/19 Rx olanzapine 20 mg PO HS 09/12/19 09/12/19 History ramelteon 8 mg PO HS 09/12/19 09/12/19 History Past Med/Surg History Medical History Bipolar disorder Bowel obstruction (Inactive) Diabetes insipidus Hepatitis C Schizoaffective disorder Family History Other No pertinent family history in first degree relatives Social History Preferred Language: Swedish Communication Ability: Effective Credit Analyst Required: No Beliefs That Will Affect Care: None Current Living Situation: Other Current Living Situation Comment: [facility] Other Information That Helps Us Care for You: No Feels Safe at Home: Yes Safety Concerns: Feels Safe At This Time Smoking Status: Former smoker Tobacco Type: cigarettes ; Cigarettes Per Day: 1 pack per day ; Do You Dip or Chew Tobacco: No ; Second Hand Exposure: No ; Tobacco Cessation Education Requested by Patient: No Hx Alcohol Use: No Hx Substance Use: No Review of Systems Review of Systems: All systems reviewed & are unremarkable except as noted in HPI & below Physical Exam Constitutional: well developed, + ill appearing and + cachectic Eyes: PERRL, conjunctivae normal, anicteric sclerae ENMT: external ear and nose normal, oropharynx normal Neck: trachea midline, no thyromegaly Respiratory: normal respiratory effort, lungs clear to auscultation Cardiovascular: Rate/Rhythm: + tachycardic Heart Sounds: normal S1 and normal S2 Vessels: dorsalis pedis pulses present Gastrointestinal (Abdomen): normal bowel sounds, soft, nontender, no hepatosplenomegaly Musculoskeletal: no cyanosis or clubbing, extremities motor strength 5/5 Skin: no rashes, warm and dry Neurologic: patellar DTR's 2+ bilat, sensation intact Psychiatric: Apperance: + disheveled Motor Behavior: + psychomotor agitation and + akathisia Speech: + loud speech Affect: + irritable affect Mood: + angry mood Thought Process: + perseveration and + incoherent th ought process Thought Content: + compulsions, + delusions, + neologisms and + thought insertion Insight: + impaired insight Lymphatic: no cervical or axillary lymphadenopathy Results & Data Vital Signs (Past 12 Hours) Vital Signs Temp Pulse Pulse Resp BP BP Pulse Ox 09/12/19 14:19 89 18 88/65 L 100 09/12/19 12:56 100 09/12/19 12:38 36.8 C 101 H 20 134/73 100 Code Status & VTE Plan Code Status Full code VTE Prophylaxis Plan VTE Prophylaxis will be ordered: Yes PG Care Time/CCT Total # of Minutes Spent Total Time Spent with Patient: Total time spent is greater than 50% in coordination of care (as documented) at patient's floor/unit and/or counseling patient: (1) Altered mental status Altered mental status type: unspecified Qualified Code(s): R41.82 - Altered mental status, unspecified
[2019-09-12 14:50] LABS: Base Excess VBG -12.1 mEq/L; pH VBG 7.26 (7.36-7.41)
[2019-09-12] MEDS ORDERED: ACETAMINOPHEN 325 MG TAB PO PRN (16:11)
[2019-09-12] MEDS ORDERED: ONDANSETRON INJ 2 MG/ML 2 ML VIAL IV PRN (16:11)
[2019-09-12] MEDS ORDERED: POLYETHYLENE (MIRALAX) 17 GM PACK PO PRN (16:11)
[2019-09-12] MEDS ORDERED: ALUMINUM/MAGNESIUM SUSP 30 ML UDC PO PRN (16:11)
[2019-09-12] MEDS ORDERED: HALOPERIDOL LACTATE 5 MG/ML 1 ML VIAL IV PRN (16:11)
[2019-09-12] MEDS ORDERED: MAGNESIUM HYDROXIDE SUSP 30 ML UDC PO PRN (16:11)
[2019-09-12 16:41] LABS: Hemoglobin 8.9 g/dL (14.0-18.0); Lymphocytes # (auto) 0.94 K/uL (1.2-3.4); Lymphocytes % (auto) 16.4 %; Mean Corpuscular Hemoglobin 29.8 pg (25-34); Mean Corpuscular Hgb Conc 31.8 g/dL (32-36); Mean Corpuscular Volume 93.6 fL (80-100); Mean Platelet Volume 10.3 fL (7.4-10.4); Monocytes # (auto) 0.36 K/uL (0.11-0.59); Monocytes % (auto) 6.3 %; Neutrophils # (auto) 4.43 K/uL (1.4-6.5); Neutrophils % (auto) 77.3 %; Platelet Count 200 K/uL (130-400); RDW Coefficient of Variation 15.1 % (11.5-14.5); RDW Standard Deviation 51.4 fL (36.4-46.3); Red Blood Count 2.99 M/uL (4.7-6.1); White Blood Count 5.73 K/uL (4.8-10.8)
[2019-09-12] MEDS ORDERED: FOLIC ACID 1 MG in SYRINGE 9.8 ML IV ONE (16:45)
[2019-09-12] MEDS: SODIUM CHLORIDE 0.9% 1000ML 1,000 ML IV SCH (16:50)
[2019-09-12 17:10] LABS: Phosphorus 5.6 mg/dl (2.5-4.9)
[2019-09-12 17:44] LABS: Amphetamines+Metham, Urine Neg (Neg); Barbiturates, Urine Neg (Neg); Benzodiazepine, Urine Neg (Neg); Cocaine, Urine Neg (Neg); MDMA (Ecstacy), Urine Neg (Neg); Methadone, Urine Neg (Neg); Opiate, Urine Neg (Neg); Phencyclidine, Urine Neg (Neg)
[2019-09-12] MEDS: OLANZapine 20 MG TABLET PO SCH (21:25)
[2019-09-12] MEDS: HEPARIN SOD 5,000 UNIT/0.5 ML VIAL SQ SCH (21:31)
[2019-09-12] MEDS: DOCUSATE SODIUM 100 MG CAP PO SCH (21:31)
[2019-09-13] MEDS: SODIUM CHLORIDE 0.9% 1000ML 1,000 ML IV SCH (02:18)
[2019-09-13 07:05] LABS: Hematocrit (blood only) 27.9 % (42-52); Hemoglobin 8.9 g/dL (14.0-18.0); Lymphocytes # (auto) 0.92 K/uL (1.2-3.4); Lymphocytes % (auto) 18.1 %; Mean Corpuscular Hemoglobin 29.6 pg (25-34); Mean Corpuscular Hgb Conc 31.9 g/dL (32-36); Mean Corpuscular Volume 92.7 fL (80-100); Mean Platelet Volume 10.2 fL (7.4-10.4); Monocytes # (auto) 0.36 K/uL (0.11-0.59); Monocytes % (auto) 7.1 %; Neutrophils # (auto) 3.79 K/uL (1.4-6.5); Neutrophils % (auto) 74.8 %; Platelet Count 193 K/uL (130-400); RDW Coefficient of Variation 15.4 % (11.5-14.5); Red Blood Count 3.01 M/uL (4.7-6.1); Reticulocyte % 2.2 % (0.5-2.0); Reticulocytes # 0.07 10^6/uL (0.02-0.10); White Blood Count 5.07 K/uL (4.8-10.8)
[2019-09-13 07:38] LABS: Albumin Globulin Ratio 0.8 (0.9-2); Albumin Level 2.7 gm/dl (3.4-5.0); Bilirubin,Total 0.3 mg/dl (0.2-1); Calcium 9.3 mg/dl (8.5-10.1); Creatinine Clr Calc Pharmacy 73.5 ml/min; Est GFR (African American) 92.8; Est GFR (Non-African American) 80.1; Estimated Average Glucose 151 mg/dl; Globulin 3.5 gm/dl (2.5-4.0); Hemoglobin A1C 6.9 % (4.5-5.6); Potassium 3.2 mmol/L (3.5-5.1); Total Protein 6.2 gm/dl (6.4-8.2)
[2019-09-13] MEDS: CYANOCOBALAMIN (VITAMIN B-12) 100 MCG TABLET PO SCH (08:16)
[2019-09-13] MEDS: FERROUS SULFATE 325 MG TAB PO SCH (08:16)
[2019-09-13] MEDS: ASCORBIC ACID 500 MG TAB PO SCH (08:16)
[2019-09-13] MEDS: HEPARIN SOD 5,000 UNIT/0.5 ML VIAL SQ SCH ×2 (08:17→20:20)
[2019-09-13] MEDS: D5W AND 1/2NSS + 20MEQ KCL 20 MEQ/1,000 ML BAG IV SCH ×2 (08:42→17:10)
[2019-09-13] MEDS: POTASSIUM CHLORIDE / WTR 10 MEQ/100 ML PLCT IV SCH ×2 (08:43→10:17)
[2019-09-13] MEDS ORDERED: SPIRONOLACTONE 25 MG TAB PO SCH (09:00)
[2019-09-13] MEDS ORDERED: FERROUS SULFATE 325 MG TAB PO SCH (09:00)
[2019-09-13 09:26] LABS: Vitamin B12 > 2000 pg/ml (211-911)
[2019-09-13 09:27] LABS: Folate (Folic Acid) 23.65 ng/ml (>5.38)
--- NOTE | 2019-09-13 09:34 | Psychiatric Consultation ---
Date of Consultation September 13, 2019 Impression / Recommendations Impression Complicate a 59-year-old incarcerated gentleman with a history of schizoaffective disorder and recently complicated medical history. He has been discontinued from what sounds to have been a long-standing regimen of clozapine and lithium between July and August of this year during medical hospitalizations. That medication regimen had historically been stabilizing per outside records. Presently he appears delirious however it sounds that it is possible that he has demonstrated a progressive decompensation of his mental status since these medication changes have been made as well. He does not de monstrate s/o NMS. At this point acute treatment goals from a psychiatric perspective would be to keep the patient calm such that his underlying medical conditions can be treated. As suggested by the outside physician at the nursing home, reinitiation of clozapine could be considered however this will take weeks to re-titrate and requires compliance w/ PO meds and we will defer that for the time being. Instead will add a 5 mg morning dose of olanzapine p.o. or IM (for p.o. refusal) in addition to his scheduled nightly dose of 20 mg at bedtime and discontinue the Haldol prn due to reported allergy (more likely intolerance.) Patient may require disposition to nursing home system MHU if he does not reconsolidate in his thought process as delirium clears. (1) Schizoaffective disorder, bipolar type: 09/13 - zyprexa 5mg qm, 20mg qhs - give olanzapine IM if refuses PO - considering reinitiation of clozapine but increases risk for seizure and will take weeks to retitrate (2) Delirium due to another medical condition, acute, mixed level of activity: 09/13 - supportive care while treating active medical conditions - reorientation prn - would prefer not to use benzodiazepine however we may need to add an ativan 1mg IV q4h prn if his agitation persists despite the olanzapine (with goal to use w/ minimal frequency). if ativan prn is started it should not be given within 1 hour of IM zyprexa. Risk Factors Assessment Do You Have Access To A Gun?: No CPT Code 40048 Psych History Identifying Data 59-year-old prisoner with reported history of schizoaffective disorder and multiple medical problems admitted through the ER from [facility]. 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 Per psychiatry note from [facility] the patient was hospitalized at [facility] for small bowel obstruction with complication of aspiration and ventilation requirement. Patient was at that point taken off Clozaril and tried on Stelazine instead but showed evidence of worsening psychosis, so his medication was changed to Zyprexa. Fair patient records patient supposed to take 20 mg of the proximal nightly. Pickett was also discontinued at the previous visit to the hospital due to nephrogenic diabetes insipidus and continued with Zyprexa 2 stabilize patient mood. Per psychiatric notes patient continued to worsen from psychiatric perspective and started to deteriorate at night. Patient exhibits nonsensical word salad, spitting on staff, refusing medication, attempting to bite personnel, having active hallucinations and delusions. Patient is poor historian and review of system is extremely difficult. No significant complaint at this time. Patient is in his own internal world. Labs are reviewed: WBC is 8.18, hemoglobin 10.8, hematocrit 33.0, platelets 269, PT 11, INR 1.1, pH 7.26, PCO2 31, O2 54, sodium 142, potassium 4.2 chloride 109, carbon dioxide 16, BUN 56, creatinine 1.5, GFR 50, calcium 10.5, phosphorus 6.5, magnesium 2.7, AST 21, ALT 24, ammonia less than 10, troponin 0 0.015, TSH 1.81. Urine normal with 1+ ketones. Nasal MRSA negative from the previous visit. Head CT: No acute intracranial abnormality. Near complete resolution of the prior left occipital scalp contusion and hematoma. Chest x-ray no acute cardiopulmonary disease. Patient was treated in the emergency room with 1 L of normal saline and 1 L of D5 with normal saline, hypothyroid 2 mg IV x1, thiamine 100 mg x 1, olanzapine 10 mg x 1 IM. Decision was made to admit patient to PCU on telemetry for acute metabolic acidosis, electrolyte his balance including phosphorus and magnesium, acute kidney injury, severe dehydration and acute psychosis. In reviewing available outside records from the nursing home patient has undergone multiple/recent psychotropic medication changes in the setting of several medical hospitalizations in the past few months. In June he was taking lithium ER 600 mg twice a day and clozapine 200 mg in the morning and 250 mg at bedtime and carried a diagnosis of schizoaffective disorder bipolar type. Per [facility] discharge documentation from 07/05/2019 to 07/30/2019 patient was treated for small bowel obstruction with laparotomy and septic shock and had altered mental status at that time. During that medical hospitalization it appears that his clozapine and lithium were held. He was seen by both neurology and psychiatry during that visit. Reportedly brain MRI and head CT and 24-hour EEG were unremarkable. Additional records from nursing home indicate that the patient was taking clonazepam 1 mg twice daily (tapering) and olanzapine 10 mg nightly and lithium 3 mg twice a day prior to another medical hospitalization at [facility] where he was suspected of nephrogenic diabetes insipidus secondary to lithium which was discontinued and Zyprexa was increased to 15 mg nightly. Recent mental health note from Dr. Chung at the present reviewed which indicates increased disorganization of behavior. "Schizoaffective disorder bipolar type previously well-controlled with lithium and Clozaril." He described increased agitation, failure to comply with directions, suspected likelihood of multifactorial delirium. Zyprexa was increased to 20 mg at bedtime and started on Rozerem 8 mg at bedtime and suggested consideration for restarting clozapine if no improvement on 09/10/2019. Patient was admitted through the ER at [facility] on 09/12/2019 with altered mental status and was agitated on presentation. Receiving initially 2 mg of Haldol in the ER, then 10 mg of Zyprexa following my conversation with Dr. Shah. He was reportedly attempting to bite personnel and appeared to be hallucinating. Head CT showed no acute abnormality. Patient was medically admitted to the PCU on telemetry for acute metabolic acidosis and metabolic disarray. Patient is unable to provide any meaningful history. He is restrained with soft restraints. He is initially asleep on approach and wakes only briefly. He makes very brief eye contact and asks for water which he accepts from a straw. He then asks for more water but recoils his head and yells no jerking his hands. He quickly closes his eyes again and appears lethargic. Accompanying guards report that at his baseline he never seems normal however he is typically not so acutely confused and lethargic. Past Psychiatric History Previous Psych History: Schizoaffective disorder bipolar type Outpatient Services: Mental health services received at nursing home Do You Have Access To A Gun?: No Past Medication Trials: Clozapine 200 mg in the morning and 250 mg at bedtime is continued during medical hospitalization July 2019 Pickett 600 mg twice a day discontinued due to suspected diabetes insipidus between July and August 2019 Olanzapine started in August 2019 Clonazepam Rozerem Haldol -listed as drug allergy Allergies Allergy/AdvReac Type Severity Reaction Status Date / Time haloperidol [From Haldol] AdvReac Unknown Unknown Unverified 09/12/19 13:23 Home Medications Home Medications Medication Instructions Recorded Confirmed Type ferrous sulfate [Feosol] 325 mg PO DAILY 07/05/19 09/12/19 History cyanocobalamin (vitamin B-12) 100 mcg PO DAILY 08/28/19 09/12/19 History docusate sodium 250 mg PO HS 08/28/19 09/12/19 History magnesium hydroxide [Milk of 60 ml PO DAILY PRN 08/28/19 09/12/19 History Magnesia] spironolactone 25 mg PO DAILY 08/28/19 09/12/19 History polyethylene glycol 3350 [Miralax] 17 g PO ONCE PRN #10 ea 09/02/19 09/12/19 Rx olanzapine 20 mg PO HS 09/12/19 09/12/19 History ramelteon 8 mg PO HS 09/12/19 09/12/19 History Family History Patient unable to provide Substance Abuse History Patient unable to provide Personal History Living Arrangements Comments: Incarcerated Beliefs That Will Affect Care: None Psychological Trauma History Comment: Patient unable to provide Patient History Medical History (Updated 09/13/19 @ 15:22 by Karen Plaza MD) Bipolar disorder Bowel obstruction (Inactive) Diabetes insipidus Diabetes mellitus Hepatitis C Schizoaffective disorder Surgical History (Updated 09/13/19 @ 09:54 by Volodymyr Jhaveri MD) History of laparotomy Family History Other No pertinent family history in first degree relatives Social History Preferred Language: Yakut Communication Ability: Effective Crm Administrator Required: No Beliefs That Will Affect Care: None Current Living Situation: Other Current Living Situation Comment: [facility] Feels Safe at Home: Yes Smoking Status: Former smoker Tobacco Type: cigarettes ; Cigarettes Per Day: 1 pack per day ; Second Hand Exposure: No ; Hx Alcohol Use: No Hx Substance Use: No Physical Exam Psychiatric: Orientation: + not alert, + not oriented x 3 and + uncooperative Apperance: + disheveled Eye Contact: + poor eye contact Motor Behavior: + psychomotor retardation (With brief agitation) Speech: + abnormal rate/rhythm/volume of speech (Speech is soft, almost unintelligible, minimal) Affect: + labile affect Unable to characterize Thought Process: + incoherent thought process Thought Content: + delusions Unable to assess Unable to assess Cognition: + attention not intact Insight: + poor insight Judgement: + poor judgement Vital Signs (Past 24 Hours): Last Vital Signs Temp 36.3 C L 09/13/19 08:03 Pulse 51 L 09/13/19 08:03 Resp 14 09/13/19 08:03 BP 120/58 L 09/13/19 08:22 Pulse Ox 98 09/13/19 08:03 Review of Systems Patient unable to participate in review of systems due to suppressed sensorium Results & Data Medications Administered Ascorbic [facility] (Vitamin C) [facility] [place] [facility] Stop: 10/13/19 08:59 Last Admin: 09/13/19 08:16 Dose: 500 mg Documented by: [id number] Cyanocobalamin (Vitamin B-12) 100 mcg PO DAILY [facility] Stop: 10/13/19 08:59 Last Admin: 09/13/19 08:16 Dose: 100 mcg Documented by: [id number] Docusate Sodium (Colace) 200 mg PO HS [facility]; Protocol Stop: 10/12/19 20:59 Last Admin: 09/12/19 21:31 Dose: Not Given Documented by: [id number] Ferrous Sulfate (Feosol) 325 mg PO DAILY [facility] Stop: 10/13/19 08:59 Last Admin: 09/13/19 08:16 Dose: 325 mg Documented by: [id number] Haloperidol Lactate (Haldol) 2 mg IV BID PRN PRN Reason: Agitation Stop: 10/12/19 16:10 Last Admin: 09/13/19 05:08 Dose: 2 mg Documented by: [id number] Heparin Sodium (Porcine) (Heparin Sodium (Porcine)) 5,000 units SQ Q12 DIANA Stop: 10/12/19 20:59 Last Admin: 09/13/19 08:17 Dose: 5,000 units Documented by: [id number] Cosigned by: [id number] Admin: 09/12/19 21:31 Dose: Not Given Documented by: [id number] Potassium Chloride/Dextrose/Sod Cl (D5w And 1/2nss + 20meq Kcl) 20 meq in 1,000 mls @ 100 mls/hr IV .Q10H DIANA Stop: 10/13/19 07:59 Last Admin: 09/13/19 08:42 Dose: 100 mls/hr Documented by: [id number] Potassium Chloride (K Dinesh / Wtr) 10 meq in 100 mls @ 100 mls/hr IV Q1H DIANA Stop: 09/13/19 10:29 Last Admin: 09/13/19 08:43 Dose: 100 mls/hr Documented by: [id number] Olanzapine (Zyprexa) 20 mg PO HS DIANA Stop: 10/12/19 20:59 Last Admin: 09/12/19 21:25 Dose: 20 mg Documented by: [id number] Coding Level of Care Code 27512 U Intl Hosp Care Lvl 2 Diagnoses Schizoaffective disorder, bipolar type F25.0 Delirium due to another medical condition, acute, mixed level of activity F05
[2019-09-13] MEDS ORDERED: GLUCOSE 10 TABS/TUBE PO PRN (10:05)
[2019-09-13] MEDS ORDERED: DEXTROSE 50% 50 ML SYRINGE IV PRN (10:05)
[2019-09-13] MEDS ORDERED: GLUCAGON FOR INJ 1 MG VIAL SQ PRN (10:05)
[2019-09-13] MEDS ORDERED: GLUCOSE 40% GEL 15 GM TUBE PO PRN (10:05)
[2019-09-13] MEDS ORDERED: INSULIN GLARGINE SOLOSTAR 100 UNITS/ML 3 ML PEN SC SCH (10:15)
[2019-09-13] MEDS ORDERED: FLUDROCORTISONE ACETATE 0.1 MG TAB PO SCH (10:15)
--- NOTE | 2019-09-13 11:00 | Hospitalist Progress Note ---
Date of Service September 13, 2019 Assessment & Plan (1) Altered mental status: With acute metabolic encephalopathy Presented with worsening mental status. Noted to have visual and tactile hallucinations and is combative at times, unable to respond with meaningful answers to questions No source of infection noted, and is with metabolic acidosis which may be from his starvation ketoacidosis. Is also with an acute kidney injury and dehydration, as well as hypernatremia. With hypotension here as well as hypothermia the morning after admission Also with new onset diabetes, could this be a late onset autoimmune diabetes with a DKA?-See below All of his altered mental status did seem to occur since his prolonged ICU stay in July at [facility] in [place] with a small bowel obstruction with volvulus and subsequent lysis of adhesions followed by prolonged ICU stay on the ventilator. Urine drug screen here is negative, alcohol level is negative. Ammonia level is normal, TSH normal CT noncontrast of the head is negative Upon review of the [facility] records from 1 month ago, he apparently had an MRI of the brain there which was normal and an EEG which was normal when he had a similar alteration in mental status He had an admission for very similar presentation at this facility less than 2 weeks ago, with similar hypotension, hypothermia, decreased mentation. He was thought to have had lithium toxicity contributing to diabetes insipidus and his lithium and cholesterol were discontinued at that time. After discharge, he as per reports from the detention was not really the same. He was found to be rolling around in his own urine and feces on the day of admission at this time. He has been given IM Zyprexa, Haldol, and Ativan so far He is still altered but is alert. Given the recurrence of hypothermia, hypotension, other electrolyte abnormalities, question of his adrenal insufficiency versus [employer] infection? Seems less likely to have [employer] infection given that he improved within a couple of days on the last admission almost completely back to baseline. There was mention of seizures in the notes from previous that had occurred at the detention -Appreciate psychiatry consultation-plan to use increased doses of Zyprexa and Ativan as needed to get him to settle down so that his metabolic issues can be corrected -Continue IV fluid hydration, giving IV hydrocortisone for hypotension -Work-up for metabolic acidosis and treatment as below -Treating hypernatremia as below -Continue Izabel hugger for hypothermia -Continue Zyprexa 20 mg at night and added 5 mg dose in the morning -Consult neurology-question if recommend further work-up to include lumbar puncture and/or repeat brain MRI? (2) Metabolic acidosis, increased anion gap: Presented with anion gap metabolic acidosis. His glucose was only minimally elevated on admission. His beta hydroxybutyric acid was significantly elevated. His lactate was negative. Alcohol level is negative. He did have an acute kidney injury which could be contributing With 1+ ketones in urinalysis, no evidence of infection. -Does have new onset diabetes but hemoglobin A1c is only 6.9%, occasional hyperglycemia Could he have new onset latent autoimmune diabetes with DKA picture? Not likely Could be starvation ketoacidosis-he has not had great p.o. intake in many weeks since his bowel surgery and he is cachectic and underweight -Now improved with hydration overnight with normal saline and improvement in renal function -Was given 1 dose of Lantus 5 units but will now discontinue -Add on supplemental insulin and Accu-Cheks -Check C-peptide and insulin antibody -Continue IV fluid hydration -Check BMP again this afternoon (3) Hypotension: New in onset overnight despite IV fluid hydration Random cortisol this morning at 15 With hypokalemia, hypothermia Unclear if has adrenal insufficiency? No evidence of infection Could be secondary to atypical antipsychotics -Continue IV fluid hydration -Start hydrocortisone 50 mg IV every 6 hours and wean down as able to (4) Schizoaffective disorder, bipolar type: Stable for a long time on lithium and Clozaril which are both now discontinued due to suspected lithium toxicity last admission -Now on olanzapine 20 mg nightly With altered mental status as above -Appreciate psychiatry consultation -Control agitation for now with Zyprexa and Ativan as needed -Long-term plan will be as per detention psychiatrist (5) Hypothermia: Unclear reason as above -Bear matthias applied and improved -Follow Blood cultures pending (6) Hypermagnesemia: Elevated upon admission -Fall in the morning (7) Hyperphosphatemia: Elevated upon admission, could be secondary to dehydration or renal failure -IV fluids provided -Follow level in the morning (8) Acute renal insufficiency: Acute kidney injury upon admission with creatinine of 1.5 and now down to 1.0 after IV fluid hydration Appears to be due to dehydration/poor p.o. intake. -Avoid nephrotoxic agents -Follow BMP this afternoon and then daily -Converted IV fluids to D5 half-normal saline for hypernatremia as below (9) Acute psychosis: As above Appreciate psychiatry management (10) Diabetes insipidus: Suspected on last admission Patient is not on lithium anymore and continues to have issues with hypernatremia here More likely due to poor p.o. intake and dehydration Urine sodium 74 -Change fluids to D5 W half-normal saline with potassium chloride 20 mEq at 100 mL's per hour (11) Hypernatremia: With a history of this and suspected DI as above Free water deficit calculated at 2.3 L today Likely due to poor p.o. intake Convert IV fluids as above to D5W half-normal saline with 20 mEq of potassium chloride at 100 mL's per hour -Follow serial BMP -Encourage p.o. intake once mental status improved (12) HCV (hepatitis C virus): LFTs are acceptable -HCV quant is pending (13) Constipation: No bowel movement here so far -Continue MiraLAX as needed (14) AAA (abdominal aortic aneurysm): Patient had appointment with vascular surgeon last admission for elective repair of abdominal aortic aneurysm since it is 5.7 cm in size. It is infrarenal Follow-up as outpatient (15) Diabetes mellitus: With new onset diabetes, hemoglobin A1c here is 6.9% With some occasional hyperglycemia -Added Accu-Cheks and supplemental NovoLog Received 1 dose of Lantus 5 units on 09/13 -Checking insulin antibody and C-peptide as above given acidosis (16) Anemia: Hemoglobin 8.9 and fairly stable from 2 weeks ago His hemoglobin dropped from 15 in June 2018 down to 9 but that was secondary to his bowel obstruction with resultant surgery and prolonged ICU stay at [facility] in July It is normocytic No evidence of bleeding here Iron studies here suggest mild iron deficiency versus anemia of chronic disease B12 and folate are normal -Continue ferrous sulfate -Follow CBC (17) Hypokalemia: Secondary to poor p.o. intake most likely -Replace with IV potassium chloride and and maintenance IV fluids -Follow BMP (18) Seizure: Mention of this and reports that occurred at the detention and was being treated with Ativan and clonazepam? EEG noted to be normal during hospital stay on 07/2019 at [facility] -Follow clinically -Not currently on seizure medication (19) DVT prophylaxis: SCDs Disposition-remain on PCU Subjective Patient is awake and alert, but not able to answer questions with any meaningful responses. He at times mumbles nonsensical language and at other times opens his mouth and makes a throat clearing sound repeatedly. He has some psychomotor agitation. He became hypothermic and hypotensive this morning which is now improved with a bear hugger and IV hydrocortisone. Telemetry with normal sinus rhythm with rates in the 80s to 90s, some sinus bradycardia in the 40s overnight. Review of Systems Review of Systems: Unobtainable due to cognitive status Physical Exam Constitutional: + cachectic; no acute distress Eyes: + anicteric sclerae and EOM intact bilaterally; no eyelid abnormality ENMT: Mouth: + oral mucosal abnormality (Dry mucous membranes) Neck: trachea midline, no thyromegaly Respiratory: normal respiratory effort, lungs clear to auscultation Cardiovascular: RRR, no murmur, no edema Chest (Breasts): Chest: normal inspection of chest Gastrointestinal (Abdomen): Inspection/Auscultation: abdomen normal to inspection and normal bowel sounds; abdomen not distended Percussion/Palpation: abdomen soft Musculoskeletal: Extremities: extremities normal to inspection; no cyanosis and no clubbing Skin: no rashes, warm and dry Neurologic: moves all extremities and awake; no focal motor deficits Psychiatric: Orientation: alert; + not oriented to person, + not oriented to place, + not oriented to time and + uncooperative Eye Contact: + poor eye contact Motor Behavior: n tremor Speech: + abnormal rate/rhythm/volume of speech (Garbled, mumbled speech) Affect: + constricted affect Thought Process: + incoherent thought process and + word salad With psychomotor agitation, very jumpy, soon as he is touched for examination he jumps and retracts extremities and appears fearful Lymphatic: no lymphedema Results & Data Vital Signs (Past 12 Hours) Vital Signs Temp Pulse Pulse Pulse Resp BP BP 09/13/19 10:00 67 16 09/13/19 09:30 97 H 17 09/13/19 09:01 94 H 19 09/13/19 09:00 74 19 09/13/19 08:30 53 L 22 09/13/19 08:22 09/13/19 08:11 92 H 23 120/59 L 09/13/19 08:10 101 H 25 H 97/66 L 09/13/19 08:07 96 H 14 74/43 L 09/13/19 08:03 36.3 C L 51 L 14 74/43 L 09/13/19 08:00 34.7 C L 50 L 15 09/13/19 07:30 96 H 24 09/13/19 07:00 54 L 15 09/13/19 06:00 33.8 C L 09/13/19 04:51 33.7 C L 09/13/19 04:03 56 L 16 09/12/19 23:06 82 16 BP Pulse Ox 09/13/19 10:00 09/13/19 09:30 09/13/19 09:01 09/13/19 09:00 09/13/19 08:30 09/13/19 08:22 120/58 L 09/13/19 08:11 09/13/19 08:10 09/13/19 08:07 96 09/13/19 08:03 98 09/13/19 08:00 09/13/19 07:30 09/13/19 07:00 09/13/19 06:00 09/13/19 04:51 09/13/19 04:03 106/59 L 95 09/12/19 23:06 124/95 100 Laboratory Results 09/13/19 09/13/19 09/13/19 Range/Units 13:50 13:50 11:36 WBC (4.8-10.8) K/uL RBC (4.7-6.1) M/uL Hgb (14.0-18.0) g/dL Hct (42-52) % MCV (80-100) fL MCH (25-34) pg MCHC (32-36) g/dL RDW Std Deviation (36.4-46.3) fL RDW Coeff of Shamar (11.5-14.5) % Plt Count (130-400) K/uL MPV (7.4-10.4) fL Immature Gran % (Auto) % Neut % (Auto) % Lymph % (Auto) % [place] % (Auto) % Eos % (Auto) % Baso % (Auto) % Reticulocyte % (Auto) (0.5-2.0) % Immature Gran # (Auto) (0.00-0.02) K/uL Neut # (Auto) (1.4-6.5) K/uL Lymph # (Auto) (1.2-3.4) K/uL [place] # (Auto) (0.11-0.59) K/uL Eos # (Auto) (0-0.5) K/uL Baso # (Auto) (0-0.2) K/uL Reticulocyte # (0.02-0.10) 10^6/uL Sodium (136-145) mmol/L Potassium (3.5-5.1) mmol/L Chloride (98-107) mmol/L Carbon Dioxide (21-32) mmol/L Anion Gap (3-11) BUN (7-18) mg/dl Creatinine (0.6-1.4) mg/dl Est Cr Clr Drug Dosing ml/min Est GFR ( Amer) Est GFR (Non-Af Amer) BUN/Creatinine Ratio (10-20) Glucose (70-99) mg/dl POC Glucose 171 H (70-99) Estimat Average Glucose mg/dl Hemoglobin A1c (4.5-5.6) % C-Peptide Lactate (0.4-2.0) mmol/L Calcium (8.5-10.1) mg/dl Phosphorus (2.5-4.9) mg/dl Iron (35-175) mcg/dl TIBC (250-450) mcg/dl Total Bilirubin (0.2-1) mg/dl AST (15-37) U/L ALT (12-78) U/L Alkaline Phosphatase (45-117) U/L NT-Pro-B Natriuret Pep (0-900) pg/ml Total Protein (6.4-8.2) gm/dl Albumin (3.4-5.0) gm/dl Globulin (2.5-4.0) gm/dl Albumin/Globulin Ratio (0.9-2) Triglycerides (0-150) mg/dl Cholesterol (0-200) mg/dl LDL Cholesterol, Calc mg/dl VLDL Cholesterol, Calc mg/dl HDL Cholesterol mg/dl Cholesterol/HDL Ratio Vitamin B12 (211-911) pg/ml Folate (>5.38) ng/ml Beta-Hydroxybutyric Acd (0.2-2.81) mg/dl Random Cortisol mcg/dl Urine Osmolality 304 L (500-800) mOsm/kg Ur Random Sodium 72 mmol/L Urine Opiates Screen (Neg) Ur Methadone, Qual (Neg) Urine Barbiturates (Neg) Ur Phencyclidine (PCP) (Neg) U Amphetamin/Meth Scrn (Neg) MDMA (Ecstasy) Screen (Neg) U Benzodiazepines Scrn (Neg) Ur Cocaine Metabolite (Neg) U Marijuana (THC) Screen (Neg) Ethyl Alcohol mg/dL (0-3) mg/dl Insulin Autoantibody HCV RNA (PCR) IUs/ml HCV RNA PCR log IUs/ml 09/13/19 09/13/19 09/13/19 Range/Units 08:13 08:13 06:50 WBC (4.8-10.8) K/uL RBC (4.7-6.1) M/uL Hgb (14.0-18.0) g/dL Hct (42-52) % MCV (80-100) fL MCH (25-34) pg MCHC (32-36) g/dL RDW Std Deviation (36.4-46.3) fL RDW Coeff of Shamar (11.5-14.5) % Plt Count (130-400) K/uL MPV (7.4-10.4) fL Immature Gran % (Auto) % Neut % (Auto) % Lymph % (Auto) % [place] % (Auto) % Eos % (Auto) % Baso % (Auto) % Reticulocyte % (Auto) (0.5-2.0) % Immature Gran # (Auto) (0.00-0.02) K/uL Neut # (Auto) (1.4-6.5) K/uL Lymph # (Auto) (1.2-3.4) K/uL [place] # (Auto) (0.11-0.59) K/uL Eos # (Auto) (0-0.5) K/uL Baso # (Auto) (0-0.2) K/uL Reticulocyte # (0.02-0.10) 10^6/uL Sodium (136-145) mmol/L Potassium (3.5-5.1) mmol/L Chloride (98-107) mmol/L Carbon Dioxide (21-32) mmol/L Anion Gap (3-11) BUN (7-18) mg/dl Creatinine (0.6-1.4) mg/dl Est Cr Clr Drug Dosing ml/min Est GFR ( Amer) Est GFR (Non-Af Amer) BUN/Creatinine Ratio (10-20) Glucose (70-99) mg/dl POC Glucose (70-99) Estimat Average Glucose mg/dl Hemoglobin A1c (4.5-5.6) % C-Peptide Pending Lactate 0.7 (0.4-2.0) mmol/L Calcium (8.5-10.1) mg/dl Phosphorus (2.5-4.9) mg/dl Iron (35-175) mcg/dl TIBC (250-450) mcg/dl Total Bilirubin (0.2-1) mg/dl AST (15-37) U/L ALT (12-78) U/L Alkaline Phosphatase (45-117) U/L NT-Pro-B Natriuret Pep (0-900) pg/ml Total Protein (6.4-8.2) gm/dl Albumin (3.4-5.0) gm/dl Globulin (2.5-4.0) gm/dl Albumin/Globulin Ratio (0.9-2) Triglycerides (0-150) mg/dl Cholesterol (0-200) mg/dl LDL Cholesterol, Calc mg/dl VLDL Cholesterol, Calc mg/dl HDL Cholesterol mg/dl Cholesterol/HDL Ratio Vitamin B12 (211-911) pg/ml Folate (>5.38) ng/ml Beta-Hydroxybutyric Acd (0.2-2.81) mg/dl Random Cortisol 15.71 mcg/dl Urine Osmolality (500-800) mOsm/kg Ur Random Sodium mmol/L Urine Opiates Screen (Neg) Ur Methadone, Qual (Neg) Urine Barbiturates (Neg) Ur Phencyclidine (PCP) (Neg) U Amphetamin/Meth Scrn (Neg) MDMA (Ecstasy) Screen (Neg) U Benzodiazepines Scrn (Neg) Ur Cocaine Metabolite (Neg) U Marijuana (THC) Screen (Neg) Ethyl Alcohol mg/dL (0-3) mg/dl Insulin Autoantibody Pending HCV RNA (PCR) IUs/ml HCV RNA PCR log IUs/ml 09/13/19 09/13/19 09/13/19 Range/Units 06:50 06:50 06:50 WBC (4.8-10.8) K/uL RBC (4.7-6.1) M/uL Hgb (14.0-18.0) g/dL Hct (42-52) % MCV (80-100) fL MCH (25-34) pg MCHC (32-36) g/dL RDW Std Deviation (36.4-46.3) fL RDW Coeff of Shamar (11.5-14.5) % Plt Count (130-400) K/uL MPV (7.4-10.4) fL Immature Gran % (Auto) % Neut % (Auto) % Lymph % (Auto) % [place] % (Auto) % Eos % (Auto) % Baso % (Auto) % Reticulocyte % (Auto) (0.5-2.0) % Immature Gran # (Auto) (0.00-0.02) K/uL Neut # (Auto) (1.4-6.5) K/uL Lymph # (Auto) (1.2-3.4) K/uL [place] # (Auto) (0.11-0.59) K/uL Eos # (Auto) (0-0.5) K/uL Baso # (Auto) (0-0.2) K/uL Reticulocyte # (0.02-0.10) 10^6/uL Sodium (136-145) mmol/L Potassium (3.5-5.1) mmol/L Chloride (98-107) mmol/L Carbon Dioxide (21-32) mmol/L Anion Gap (3-11) BUN (7-18) mg/dl Creatinine (0.6-1.4) mg/dl Est Cr Clr Drug Dosing ml/min Est GFR ( Amer) Est GFR (Non-Af Amer) BUN/Creatinine Ratio (10-20) Glucose (70-99) mg/dl POC Glucose (70-99) Estimat Average Glucose 151 mg/dl Hemoglobin A1c 6.9 H (4.5-5.6) % C-Peptide Lactate (0.4-2.0) mmol/L Calcium (8.5-10.1) mg/dl Phosphorus (2.5-4.9) mg/dl Iron (35-175) mcg/dl TIBC (250-450) mcg/dl Total Bilirubin (0.2-1) mg/dl AST (15-37) U/L ALT (12-78) U/L Alkaline Phosphatase (45-117) U/L NT-Pro-B Natriuret Pep (0-900) pg/ml Total Protein (6.4-8.2) gm/dl Albumin (3.4-5.0) gm/dl Globulin (2.5-4.0) gm/dl Albumin/Globulin Ratio (0.9-2) Triglycerides (0-150) mg/dl Cholesterol (0-200) mg/dl LDL Cholesterol, Calc mg/dl VLDL Cholesterol, Calc mg/dl HDL Cholesterol mg/dl Cholesterol/HDL Ratio Vitamin B12 > 2000 H (211-911) pg/ml Folate 23.65 (>5.38) ng/ml Beta-Hydroxybutyric Acd (0.2-2.81) mg/dl Random Cortisol mcg/dl Urine Osmolality (500-800) mOsm/kg Ur Random Sodium mmol/L Urine Opiates Screen (Neg) Ur Methadone, Qual (Neg) Urine Barbiturates (Neg) Ur Phencyclidine (PCP) (Neg) U Amphetamin/Meth Scrn (Neg) MDMA (Ecstasy) Screen (Neg) U Benzodiazepines Scrn (Neg) Ur Cocaine Metabolite (Neg) U Marijuana (THC) Screen (Neg) Ethyl Alcohol mg/dL (0-3) mg/dl Insulin Autoantibody HCV RNA (PCR) IUs/ml Pending HCV RNA PCR log IUs/ml Pending 09/13/19 09/13/19 09/12/19 Range/Units 06:50 06:50 22:34 WBC 5.07 (4.8-10.8) K/uL RBC 3.01 L (4.7-6.1) M/uL Hgb 8.9 L (14.0-18.0) g/dL Hct 27.9 L (42-52) % MCV 92.7 (80-100) fL MCH 29.6 (25-34) pg MCHC 31.9 L (32-36) g/dL RDW Std Deviation 52.0 H (36.4-46.3) fL RDW Coeff of Shamar 15.4 H (11.5-14.5) % Plt Count 193 (130-400) K/uL MPV 10.2 (7.4-10.4) fL Immature Gran % (Auto) 0.0 % Neut % (Auto) 74.8 % Lymph % (Auto) 18.1 % [place] % (Auto) 7.1 % Eos % (Auto) 0.0 % Baso % (Auto) 0.0 % Reticulocyte % (Auto) 2.2 H (0.5-2.0) % Immature Gran # (Auto) 0.00 (0.00-0.02) K/uL Neut # (Auto) 3.79 (1.4-6.5) K/uL Lymph # (Auto) 0.92 L (1.2-3.4) K/uL [place] # (Auto) 0.36 (0.11-0.59) K/uL Eos # (Auto) 0.00 (0-0.5) K/uL Baso # (Auto) 0.00 (0-0.2) K/uL Reticulocyte # 0.07 (0.02-0.10) 10^6/uL Sodium 149 H (136-145) mmol/L Potassium 3.2 L D (3.5-5.1) mmol/L Chloride 121 H (98-107) mmol/L Carbon Dioxide 19 L (21-32) mmol/L Anion Gap 9.0 (3-11) BUN 36 H (7-18) mg/dl Creatinine 1.02 (0.6-1.4) mg/dl Est Cr Clr Drug Dosing 73.5 ml/min Est GFR ( Amer) 92.8 Est GFR (Non-Af Amer) 80.1 BUN/Creatinine Ratio 35.0 H (10-20) Glucose 121 H (70-99) mg/dl POC Glucose (70-99) Estimat Average Glucose mg/dl Hemoglobin A1c (4.5-5.6) % C-Peptide Lactate (0.4-2.0) mmol/L Calcium 9.3 (8.5-10.1) mg/dl Phosphorus (2.5-4.9) mg/dl Iron 15 L (35-175) mcg/dl TIBC 219 L (250-450) mcg/dl Total Bilirubin 0.3 (0.2-1) mg/dl AST 14 L (15-37) U/L ALT 18 (12-78) U/L Alkaline Phosphatase 71 (45-117) U/L NT-Pro-B Natriuret Pep 385 (0-900) pg/ml Total Protein 6.2 L D (6.4-8.2) gm/dl Albumin 2.7 L (3.4-5.0) gm/dl Globulin 3.5 (2.5-4.0) gm/dl Albumin/Globulin Ratio 0.8 L (0.9-2) Triglycerides 31 (0-150) mg/dl Cholesterol 107 (0-200) mg/dl LDL Cholesterol, Calc 45 mg/dl VLDL Cholesterol, Calc 6 mg/dl HDL Cholesterol 56 mg/dl Cholesterol/HDL Ratio 2 Vitamin B12 (211-911) pg/ml Folate (>5.38) ng/ml Beta-Hydroxybutyric Acd (0.2-2.81) mg/dl Random Cortisol mcg/dl Urine Osmolality (500-800) mOsm/kg Ur Random Sodium mmol/L Urine Opiates Screen (Neg) Ur Methadone, Qual (Neg) Urine Barbiturates (Neg) Ur Phencyclidine (PCP) (Neg) U Amphetamin/Meth Scrn (Neg) MDMA (Ecstasy) Screen (Neg) U Benzodiazepines Scrn (Neg) Ur Cocaine Metabolite (Neg) U Marijuana (THC) Screen (Neg) Ethyl Alcohol mg/dL (0-3) mg/dl Insulin Autoantibody HCV RNA (PCR) IUs/ml HCV RNA PCR log IUs/ml 09/12/19 09/12/19 09/12/19 Range/Units 16:48 16:22 16:22 WBC 5.73 (4.8-10.8) K/uL RBC 2.99 L (4.7-6.1) M/uL Hgb 8.9 L (14.0-18.0) g/dL Hct 28.0 L (42-52) % MCV 93.6 (80-100) fL MCH 29.8 (25-34) pg MCHC 31.8 L (32-36) g/dL RDW Std Deviation 51.4 H (36.4-46.3) fL RDW Coeff of Shamar 15.1 H (11.5-14.5) % Plt Count 200 (130-400) K/uL MPV 10.3 (7.4-10.4) fL Immature Gran % (Auto) 0.0 % Neut % (Auto) 77.3 % Lymph % (Auto) 16.4 % [place] % (Auto) 6.3 % Eos % (Auto) 0.0 % Baso % (Auto) 0.0 % Reticulocyte % (Auto) (0.5-2.0) % Immature Gran # (Auto) 0.00 (0.00-0.02) K/uL Neut # (Auto) 4.43 (1.4-6.5) K/uL Lymph # (Auto) 0.94 L (1.2-3.4) K/uL [place] # (Auto) 0.36 (0.11-0.59) K/uL Eos # (Auto) 0.00 (0-0.5) K/uL Baso # (Auto) 0.00 (0-0.2) K/uL Reticulocyte # (0.02-0.10) 10^6/uL Sodium (136-145) mmol/L Potassium (3.5-5.1) mmol/L Chloride (98-107) mmol/L Carbon Dioxide (21-32) mmol/L Anion Gap (3-11) BUN (7-18) mg/dl Creatinine (0.6-1.4) mg/dl Est Cr Clr Drug Dosing ml/min Est GFR ( Amer) Est GFR (Non-Af Amer) BUN/Creatinine Ratio (10-20) Glucose (70-99) mg/dl POC Glucose (70-99) Estimat Average Glucose mg/dl Hemoglobin A1c (4.5-5.6) % C-Peptide Lactate (0.4-2.0) mmol/L Calcium (8.5-10.1) mg/dl Phosphorus (2.5-4.9) mg/dl Iron (35-175) mcg/dl TIBC (250-450) mcg/dl Total Bilirubin (0.2-1) mg/dl AST (15-37) U/L ALT (12-78) U/L Alkaline Phosphatase (45-117) U/L NT-Pro-B Natriuret Pep (0-900) pg/ml Total Protein (6.4-8.2) gm/dl Albumin (3.4-5.0) gm/dl Globulin (2.5-4.0) gm/dl Albumin/Globulin Ratio (0.9-2) Triglycerides (0-150) mg/dl Cholesterol (0-200) mg/dl LDL Cholesterol, Calc mg/dl VLDL Cholesterol, Calc mg/dl HDL Cholesterol mg/dl Cholesterol/HDL Ratio Vitamin B12 (211-911) pg/ml Folate (>5.38) ng/ml Beta-Hydroxybutyric Acd (0.2-2.81) mg/dl Random Cortisol mcg/dl Urine Osmolality (500-800) mOsm/kg Ur Random Sodium mmol/L Urine Opiates Screen Neg (Neg) Ur Methadone, Qual Neg (Neg) Urine Barbiturates Neg (Neg) Ur Phencyclidine (PCP) Neg (Neg) U Amphetamin/Meth Scrn Neg (Neg) MDMA (Ecstasy) Screen Neg (Neg) U Benzodiazepines Scrn Neg (Neg) Ur Cocaine Metabolite Neg (Neg) U Marijuana (THC) Screen Neg (Neg) Ethyl Alcohol mg/dL < 3.0 (0-3) mg/dl Insulin Autoantibody HCV RNA (PCR) IUs/ml HCV RNA PCR log IUs/ml 09/12/19 09/12/19 Range/Units 16:22 14:36 WBC (4.8-10.8) K/uL RBC (4.7-6.1) M/uL Hgb (14.0-18.0) g/dL Hct (42-52) % MCV (80-100) fL MCH (25-34) pg MCHC (32-36) g/dL RDW Std Deviation (36.4-46.3) fL RDW Coeff of Shamar (11.5-14.5) % Plt Count (130-400) K/uL MPV (7.4-10.4) fL Immature Gran % (Auto) % Neut % (Auto) % Lymph % (Auto) % [place] % (Auto) % Eos % (Auto) % Baso % (Auto) % Reticulocyte % (Auto) (0.5-2.0) % Immature Gran # (Auto) (0.00-0.02) K/uL Neut # (Auto) (1.4-6.5) K/uL Lymph # (Auto) (1.2-3.4) K/uL [place] # (Auto) (0.11-0.59) K/uL Eos # (Auto) (0-0.5) K/uL Baso # (Auto) (0-0.2) K/uL Reticulocyte # (0.02-0.10) 10^6/uL Sodium (136-145) mmol/L Potassium (3.5-5.1) mmol/L Chloride (98-107) mmol/L Carbon Dioxide (21-32) mmol/L Anion Gap (3-11) BUN (7-18) mg/dl Creatinine (0.6-1.4) mg/dl Est Cr Clr Drug Dosing ml/min Est GFR ( Amer) Est GFR (Non-Af Amer) BUN/Creatinine Ratio (10-20) Glucose (70-99) mg/dl POC Glucose (70-99) Estimat Average Glucose mg/dl Hemoglobin A1c (4.5-5.6) % C-Peptide Lactate (0.4-2.0) mmol/L Calcium (8.5-10.1) mg/dl Phosphorus 5.6 H (2.5-4.9) mg/dl Iron (35-175) mcg/dl TIBC (250-450) mcg/dl Total Bilirubin (0.2-1) mg/dl AST (15-37) U/L ALT (12-78) U/L Alkaline Phosphatase (45-117) U/L NT-Pro-B Natriuret Pep 377 (0-900) pg/ml Total Protein (6.4-8.2) gm/dl Albumin (3.4-5.0) gm/dl Globulin (2.5-4.0) gm/dl Albumin/Globulin Ratio (0.9-2) Triglycerides (0-150) mg/dl Cholesterol (0-200) mg/dl LDL Cholesterol, Calc mg/dl VLDL Cholesterol, Calc mg/dl HDL Cholesterol mg/dl Cholesterol/HDL Ratio Vitamin B12 (211-911) pg/ml Folate (>5.38) ng/ml Beta-Hydroxybutyric Acd 59.43 H (0.2-2.81) mg/dl Random Cortisol mcg/dl Urine Osmolality (500-800) mOsm/kg Ur Random Sodium mmol/L Urine Opiates Screen (Neg) Ur Methadone, Qual (Neg) Urine Barbiturates (Neg) Ur Phencyclidine (PCP) (Neg) U Amphetamin/Meth Scrn (Neg) MDMA (Ecstasy) Screen (Neg) U Benzodiazepines Scrn (Neg) Ur Cocaine Metabolite (Neg) U Marijuana (THC) Screen (Neg) Ethyl Alcohol mg/dL (0-3) mg/dl Insulin Autoantibody HCV RNA (PCR) IUs/ml HCV RNA PCR log IUs/ml PG Care Time/CCT Total # of Minutes Spent Total Time Spent with Patient: Total time spent is greater than 50% in coordination of care (as documented) at patient's floor/unit and/or counseling patient: (1) Hypothermia Encounter type: initial encounter Qualified Code(s): T68.XXXA - Hypothermia, initial encounter (2) Altered mental status Altered mental status type: unspecified Qualified Code(s): R41.82 - Altered mental status, unspecified
[2019-09-13] MEDS ORDERED: OLANZapine 5 MG TABLET PO ONE (11:14)
[2019-09-13] MEDS: HYDROCORTISONE SOD 50 MG in SYRINGE 0 ML IV SCH ×2 (11:41→17:11)
[2019-09-13] MEDS: INSULIN ASPART 100 UNITS/ML 3 ML PEN SC SCH ×3 (11:41→21:37)
[2019-09-13 16:46] LABS: BUN Creatinine Ratio 25.1 (10-20); Calcium 9.2 mg/dl (8.5-10.1); Creatinine Clr Calc Pharmacy 74.9 ml/min; Est GFR (African American) 95.1; Potassium 3.6 mmol/L (3.5-5.1)
[2019-09-13] MEDS: RAMELTEON: ORDER AWAITING ACTION SCH (17:11)
[2019-09-13] MEDS: DOCUSATE SODIUM 100 MG CAP PO SCH (20:19)
[2019-09-13] MEDS: OLANZapine 20 MG TABLET PO SCH (20:19)
[2019-09-13] MEDS ORDERED: OLANZapine 10 MG/2.1 ML SDV IM ONE (21:00)
[2019-09-14] MEDS: RAMELTEON: ORDER AWAITING ACTION SCH ×3 (00:20→17:58)
[2019-09-14] MEDS: HYDROCORTISONE SOD 50 MG in SYRINGE 0 ML IV SCH ×2 (00:21→05:31)
[2019-09-14] MEDS: D5W AND 1/2NSS + 20MEQ KCL 20 MEQ/1,000 ML BAG IV SCH (00:50)
[2019-09-14 05:57] LABS: Hematocrit (blood only) 32.7 % (42-52); Hemoglobin 10.2 g/dL (14.0-18.0); Immature Granulocytes # (auto) 0.01 K/uL (0.00-0.02); Immature Granulocytes % (auto) 0.2 %; Lymphocytes # (auto) 0.79 K/uL (1.2-3.4); Lymphocytes % (auto) 16.5 %; Mean Corpuscular Hemoglobin 29.1 pg (25-34); Mean Corpuscular Hgb Conc 31.2 g/dL (32-36); Mean Corpuscular Volume 93.4 fL (80-100); Mean Platelet Volume 11.6 fL (7.4-10.4); Monocytes # (auto) 0.24 K/uL (0.11-0.59); Neutrophils # (auto) 3.76 K/uL (1.4-6.5); Neutrophils % (auto) 78.3 %; Platelet Count 222 K/uL (130-400); RDW Coefficient of Variation 15.6 % (11.5-14.5); RDW Standard Deviation 52.8 fL (36.4-46.3)
[2019-09-14 06:14] LABS: Albumin Level 2.9 gm/dl (3.4-5.0); BUN Creatinine Ratio 18.4 (10-20); Calcium 9.3 mg/dl (8.5-10.1); Creatinine Clr Calc Pharmacy 87.1 ml/min; Est GFR (Non-African American) 94.9; Magnesium 2.3 mg/dl (1.8-2.4); Potassium 3.4 mmol/L (3.5-5.1)
[2019-09-14 06:21] LABS: Albumin Globulin Ratio 0.7 (0.9-2); Bilirubin,Total 0.3 mg/dl (0.2-1); Phosphorus 2.2 mg/dl (2.5-4.9); Total Protein 6.9 gm/dl (6.4-8.2)
[2019-09-14] MEDS ORDERED: POTASSIUM PHOS 3 MMOL/1 ML INFUSION IV STA (07:44)
[2019-09-14] MEDS ORDERED: POTASSIUM PHOSPHATE 9 MMOL in SODIUM CHLORIDE 0.9% 250 ML IV ONE (08:15)
[2019-09-14] MEDS: FERROUS SULFATE 325 MG TAB PO SCH (08:36)
[2019-09-14] MEDS: HEPARIN SOD 5,000 UNIT/0.5 ML VIAL SQ SCH ×2 (08:36→22:03)
[2019-09-14] MEDS: INSULIN ASPART 100 UNITS/ML 3 ML PEN SC SCH ×4 (08:37→22:02)
[2019-09-14] MEDS: ASCORBIC ACID 500 MG TAB PO SCH (08:37)
[2019-09-14] MEDS: CYANOCOBALAMIN (VITAMIN B-12) 100 MCG TABLET PO SCH (08:37)
[2019-09-14] MEDS ORDERED: OLANZapine 10 MG/2.1 ML SDV IM PRN (08:53)
[2019-09-14] MEDS: OLANZapine 5 MG TABLET PO SCH (08:56)
[2019-09-14] MEDS: POTASSIUM CHLORIDE 40 MEQ in DEXTROSE 5% 1,000 ML IV SCH ×2 (09:43→16:14)
[2019-09-14] MEDS ORDERED: HYDROCORTISONE SOD 25 MG in SYRINGE 0 ML IV SCH (12:00)
[2019-09-14 12:43] LABS: BUN Creatinine Ratio 16.9 (10-20); Calcium 9.3 mg/dl (8.5-10.1); Creatinine Clr Calc Pharmacy 83.7 ml/min; Est GFR (African American) 109.5; Est GFR (Non-African American) 94.5; Potassium 3.4 mmol/L (3.5-5.1)
[2019-09-14] MEDS ORDERED: DESMOPRESSIN ACETATE IV ONE (13:31)
[2019-09-14] MEDS ORDERED: SODIUM CHLORIDE 0.9% IV ONE (13:31)
--- NOTE | 2019-09-14 13:52 | Hospitalist Progress Note ---
Date of Service September 14, 2019 Assessment & Plan (1) Altered mental status: Suspect multifactorial in the setting of what appears to be hypotension, hypothermia, nephrogenic diabetes insipidus, mood disturbance from stopping lithium, possible adrenal insufficiency, schizophrenia. See treatment below. Appears to be recurrent with previous similar presentations although no definitive diagnosis during prior admissions - appear do have started since ICU stay in July with SBO (subsequent adhesiolysis, ventilator) in [place]. Urine drug screen here is negative, alcohol level is negative. Ammonia level is normal, TSH normal CT noncontrast head negative. Prior MRI brain negative, EEG normal from 1 month prior on [facility] records with similar presentation. (2) Diabetes insipidus: Suspected on last admission and lithium discontinued. Continued polyuria. Given his previous mental stability on Clozaril and lithium will consult nephrology to see if it is possible for him to resume his lithium possibly at a lower dose with a thiazide potassium sparing diuretic. Urine osmolality on borderline for this but was taken after normal saline therefore suspect urine osmolality <300 on admission Treatment see below for hypernatremia (3) Hypernatremia: With a history of this and suspected DI as above Free water deficit calculated at 5.5L today Now adequately rehydrated, euvolemic and hyperchloremic we will switch to D5W. KCl added to correct potassium. Increase rate to 150 mL/HR to match excessive polyuria Q4H BMP. If Na not significant changing will give desmopressin as likely only has a partial resistance to ADH (4) Metabolic acidosis, increased anion gap: Anion gap now closed with rehydration vs. hydrocortisone use. Acidosis also appears to resolved. Anion gap metabolic acidosis on admission Elevated ketones due to fasting state. Lactate normal Urine UDS and ethanol normal. (5) Hypotension: Possible adrenal insufficiency with hyperkalemia, hypothermia and hypotension. Improved blood pressure with hydrocortisone, random cortisol 15. We will continue to wean hydrocortisone to 25 mg every 6 hours (6) Schizoaffective disorder, bipolar type: Appreciate psychiatric management. [place] and Clozaril both discontinued at this stage. Continues on Zyprexa. (7) Acute psychosis: As above Appreciate psychiatry management (8) Hypothermia: Possible adrenal insufficiency Blood cultures negative to date (9) Hyperphosphatemia: Elevated upon admission, could be secondary to acute renal failure Now improved (10) Hypokalemia: Secondary to poor p.o. intake versus adrenal insufficiency -Replace with IV potassium chloride -Follow BMP (11) Acute renal insufficiency: Mild acute kidney injury upon admission with creatinine of 1.5 Now resolved with IV NSS (12) HCV (hepatitis C virus): LFTs are acceptable -HCV quant is pending (13) Constipation: No bowel movement here so far No vomiting to suggest bowel obstruction although with recent history of this he is at high risk. Moderate fecal retention on last abdomen pelvis CT August 28, 2019 (14) AAA (abdominal aortic aneurysm): Patient had appointment with vascular surgeon last admission for elective repair of abdominal aortic aneurysm since it is 5.7 cm in size. It is infrarenal Follow-up as outpatient (15) Diabetes mellitus: With new onset mild diabetes mellitus, HbA1c 6.9% Continue NovoLog with q6h Accu-Cheks Insulin autoantibody and C-peptide pending although given low glucose (16) Anemia: Hemoglobin 8.9 and fairly stable from 2 weeks ago His hemoglobin dropped from 15 in June 2018 down to 9 but that was secondary to his bowel obstruction with resultant surgery and prolonged ICU stay at [facility] in July It is normocytic No evidence of bleeding here Iron studies here suggest mild iron deficiency versus anemia of chronic disease B12 and folate are normal -Continue ferrous sulfate as able -Follow CBC (17) Seizure: Mention of this and [facility] and was being treated with Ativan and clonazepam? EEG noted to be normal during hospital stay on 07/2019 at [facility] -Follow clinically -Not currently on seizure medication (18) Sinus node dysfunction: Significant bradycardia and tachycardia episodes on telemetry. Appreciate cardiology consult (19) DVT prophylaxis: Heparin 5000 units SQ q.12h Subjective Patient is lying on bed with a facemask on. Shouting at the guard and myself. Words are incomprehensible. Appears very agitated. Unable to get any history from the patient due to altered mental state. Unable to obtain history from patient. Discussed with his guard at bedside he reports he gets like this when his medications are not administered. Review of Systems Review of Systems: Unobtainable due to cognitive status Physical Exam Constitutional: + acute distress (Agitated in bed, handcuffed to the siderails, face mask present to stop biting and spitting), + ill appearing and + malnourished Eyes: Unable to fully examine due to agitated state ENMT: Ears: no external ear abnormality Nose: no external nose abnormality Mouth: no lip abnormality Neck: trachea midline Respiratory: normal respiratory effort Auscultation: lungs clear to auscultation bilaterally (Anteriorly); no diminished lung sounds, no crackles, no rales and no rhonchi Cardiovascular: Rate/Rhythm: + tachycardic Heart Sounds: normal S1 and normal S2; no murmur Extremities: normal capillary refill; no calf tenderness and no pedal edema Chest (Breasts): Chest: normal inspection of chest Gastrointestinal (Abdomen): Inspection/Auscultation: abdomen normal to inspection and normal bowel sounds; abdomen not distended Percussion/Palpation: abdomen soft; no guarding and abdomen not rigid Musculoskeletal: Extremities: extremities normal to inspection; no cyanosis and no clubbing Skin: no rashes, warm and dry Neurologic: moves all extremities and awake; no focal motor deficits (Unable to fully examine due to altered mental state but appears to be moving all 4 limbs) Psychiatric: Orientation: alert; + not oriented x 3 and + uncooperative Apperance: not disheveled Eye Contact: + poor eye contact Motor Behavior: + psychomotor agitation Speech: + loud speech Affect: + irritable affect Mood: + angry mood Thought Process: + incoherent thought process and + word salad Insight: + impaired insight Results & Data Vital Signs (Past 12 Hours) Vital Signs Temp Pulse Pulse Resp BP Pulse Ox 09/14/19 11:35 97.5 F L 91 H 19 144/78 H 100 09/14/19 10:49 97.5 F L 41 L 12 140/78 99 09/14/19 08:00 76 09/14/19 07:08 97.5 F L 70 20 131/95 91 09/14/19 03:37 97.3 F L 96 H 20 134/77 96 PG Care Time/CCT Total # of Minutes Spent Total Time Spent with Patient: Total time spent is greater than 50% in coordination of care (as documented) at patient's floor/unit and/or counseling patient: (1) Diabetes mellitus Diabetes mellitus type: type 2 Diabetes mellitus detention insulin use: without long wall shear operator use Diabetes mellitus complication status: with hyperglycemia Qualified Code(s): E11.65 - Type 2 diabetes mellitus with hyperglycemia (2) Hypothermia Encounter type: initial encounter Qualified Code(s): T68.XXXA - Hypothermia, initial encounter (3) Altered mental status Altered mental status type: unspecified Qualified Code(s): R41.82 - Altered mental status, unspecified (4) Hypotension Hypotension type: unspecified hypotension type Qualified Code(s): I95.9 - Hypotension, unspecified
--- NOTE | 2019-09-14 16:02 | Neurology Consultation ---
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 Neurology consulted given concern for possible seizures or neurological cause of worsening AMS (need for LP or repeat MRI). # AMS: likely multifactorial 2/2 multiple electrolyte abnormalities and underlying schizoaffective disorder. He was also profoundly uremic upon admission likely also contributed to his altered mental status. - do not think that a LP is indicated at this time (risk outweighs benefit and presentation unlikely to represent meningitis/encephalitis, unlikely autoimmune encephalitis unless repeat imaging shows something new) - would be ok to have repeat MRI brain if patient can tolerate without needing anesthesia - could consider repeat EEG if he will not rip leads off - continue to correct underlying medical problems as you are already doing - delirium precautions, lights on during the day, off at night, frequent reorientation - agree with psychiatry consult and recommendations Thank you for this interesting consult. We will continue to follow peripherally. Please call or text with questions. (2) Hypotension: (3) Delirium due to another medical condition, acute, mixed level of activity: (4) Schizoaffective disorder, bipolar type: (5) Altered mental status: History of Present Illness Attending Physician: Ananda Blackmon MD History of Present Illness Dennis Childers is a 59 yo man w/ PMH of DM, schizoaffective disorder, multiple electrolytes abnormalities 2/2 recent diagnosis of nephrogenic DI 2/2 lithium toxicity, known AAA, HCV, GERD, B12 deficiency and DESIREE who p/t [facility] with hypotension, hypothermia, and worsening psychosis/hallucinations. Neurology consulted given concern for possible seizures or neurological cause of worsening AMS (need for LP or repeat MRI). Per review of records, he was hospitalized at [facility] from July 05 until July 30, 2019 for small bowel obstruction secondary to adhesions and volvulus requiring ex lap, with hospital course complicated by AMS, septic shock secondary to aspiration pneumonia requiring pressor support and prolonged antibiotics. During that hospitalization, neurology was consulted and he had an MRI brain in 24-hour EEG that were reported as unremarkable per discharge summ mary jo. Psychiatry also seen him at that time and recommended holding lithium and Clozaril. He had poor p.o. intake and developed hypernatremia which improved after D5W free water flushes were added via tube feeds. His mental status reportedly improved over time and at discharge she is able to say his name and date of . There was still some concern about poor p.o. intake and he was advised to start night cycle enteral feeds via NG tube if needed. He re-presented to [facility] on August 28, 2019 with AMS in the setting of hypothermia, left hand and forearm cellulitis and multiple falls. AMS was attributed to nephrogenic DI which improved after lithium was held. He was changed to Zyprexa and klonopin . He represented to [facility] on September 12 after an increase in agitation, nonsensical speech, spitting on staff and refusing p.o. medications. In the ED he was found to be "in his own world". Labs are notable for WBC 8.18, Hb 10.8, platelets 269, INR 1.1, sodium 142, CO2 16, BUN 56 (baseline 18-20), creatinine 1.5 (baseline 0.97-1.12), anion gap of 18, glucose 97, A1c 6.9, mildly elevated calcium 10.5, elevated phosphorus 5.6, mildly elevated magnesium 2.7, low iron of 15 and low TIBC of 219, ammonia less than 10, negative troponin, LDL 45, B12 greater than 2000, beta hydroxybutyrate 59.43 (elevated), folate within normal, TSH within normal, random cortisol within normal, UA positive for ketones but otherwise unremarkable for infection, UDS negative. Chest x-ray showed no infection. CT head shows no hemorrhage or hypodensity. He received thiamine 100 mg and was admitted for further management of his AMS and agitation. When examined, patient was unable to tell me why he was in the hospital, reporting that an ambulance brought him to the hospital. He kept repeating that he was defecating and cannot tell me anything else at this time. Guards in the room told me that he had just tried to have dinner, but was spitting at them so his spit mask was put back on. Allergies Allergy/AdvReac Type Severity Reaction Status Date / Time haloperidol [From Haldol] AdvReac Unknown Unknown Unverified 09/12/19 13:23 Home Medications Home Medications Medication Instructions Recorded Confirmed Type ferrous sulfate [Feosol] 325 mg PO DAILY 07/05/19 09/12/19 History cyanocobalamin (vitamin B-12) 100 mcg PO DAILY 08/28/19 09/12/19 History docusate sodium 250 mg PO HS 08/28/19 09/12/19 History magnesium hydroxide [Milk of 60 ml PO DAILY PRN 08/28/19 09/12/19 History Magnesia] spironolactone 25 mg PO DAILY 08/28/19 09/12/19 History polyethylene glycol 3350 [Miralax] 17 g PO ONCE PRN #10 ea 09/02/19 09/12/19 Rx olanzapine 20 mg PO HS 09/12/19 09/12/19 History ramelteon 8 mg PO HS 09/12/19 09/12/19 History Patient History Medical History Bipolar disorder Bowel obstruction (Inactive) Diabetes insipidus Diabetes mellitus Hepatitis C Schizoaffective disorder Surgical History History of laparotomy Family History Other No pertinent family history in first degree relatives Social History Preferred Language: Slovak Communication Ability: Effective Pot Liner Required: No Beliefs That Will Affect Care: None Current Living Situation: Other Current Living Situation Comment: SARAI Ramos Feels Safe at Home: Yes Smoking Status: Former smoker Tobacco Type: cigarettes ; Cigarettes Per Day: 1 pack per day ; Second Hand Exposure: No ; Hx Alcohol Use: No Hx Substance Use: No Review of Systems Review of Systems: Unobtainable due to mental health condition and Unobtainable due to cognitive status Physical Exam Physical Exam: General Exam: GEN: NAD, restrained in bed. HEENT: No conjunctival injection, no rhinorrhea. CV: RRR on monitor, unable to assess for peripheral edema given agitation PULM: Nonlabored respirations on room air. Neuro Exam: MS: Awake and Alert. Oriented to person, not place or date. Speech fluent but nonsensical. No dysarthria or paraphasic errors. Inattentive, delusional, unable to fully assess his cognitive status due to patient unwillingness to participate in exam. CN: Unable to fully assess visual ricci were performed funduscopic exam given agitation. PERRLA OU. Extraocular movements appeared intact as he was looking around the room. Unable to assess facial sensation but muscles were full and symmetric. Hearing intact to conversation. Unable to assess uvula or tongue as patient was in spit mask for spitting on staff and trying to bite them. Normal shoulder shrug. MOTOR: Normal bulk, unable to assess tone. Able to move all extremities antigravity without drift REFLEXES: Not assessed this patient would start kicking or becoming agitated SENSORY: Not able to fully assess this patient would become agitated COORDINATION: No clear dysmetria or ataxia on observed movement GAIT: Deferred as patient is restrained in the bed due to violence towards staff Results & Data Vital Signs (Past 12 Hours) Vital Signs Temp Pulse Pulse Resp BP BP Pulse Ox 09/14/19 15:15 85 20 135/69 100 09/14/19 11:35 36.4 C L 91 H 19 144/78 H 100 09/14/19 10:49 36.4 C L 41 L 12 140/78 99 09/14/19 08:00 76 09/14/19 07:08 36.4 C L 70 20 131/95 91 PG Care Time/CCT Total # of Minutes Spent Total Time Spent with Patient: Total time spent is greater than 50% in coordination of care (as documented) at patient's floor/unit and/or counseling patient: (1) Altered mental status Altered mental status type: unspecified Qualified Code(s): R41.82 - Altered mental status, unspecified (2) Hypotension Hypotension type: unspecified hypotension type Qualified Code(s): I95.9 - Hypotension, unspecified
[2019-09-14 16:27] LABS: Calcium 9.5 mg/dl (8.5-10.1); Creatinine Clr Calc Pharmacy 86.7 ml/min; Est GFR (African American) 111.1; Est GFR (Non-African American) 95.8; Potassium 3.7 mmol/L (3.5-5.1)
[2019-09-14] MEDS: POTASSIUM CHLORIDE 20 MEQ in DEXTROSE 5% 1,000 ML IV SCH (17:43)
--- NOTE | 2019-09-14 18:14 | Cardiology Consultation ---
Date of Consultation September 14, 2019 Assessment & Plan (1) Sinus node dysfunction: He clearly has sinus node dysfunction. I do not know if this is been diagnosed in the past, it may be something that he has had for some time or it may be related to his acute presentation. So far I do not see anything that is terribly concerning and it is impossible to determine whether he is having any symptoms. Perhaps in the future we can get better correlation with symptoms and rhythm, but if he is asymptomatic or if the rhythm improves with correction of his metabolic abnormalities I would not pursue further evaluation or treatment. For the moment I would simply observe. (2) Long QT interval: On his admission electrocardiogram he had a long QT interval. I suspect that was related to his metabolic derangements. I am going to repeat the electrocardiogram since it is been several days since he had one and see if this persists. History of Present Illness Reason for Consultation: Bradycardia Attending Physician: Ananda Blackmon MD History of Present Illness This is a 59-year-old incarcerated male with a history of a bipolar disorder for which he is on lithium, and also has a schizophrenia affective disorder according to the chart. He has an abdominal aortic aneurysm for which he was to have a recent evaluation but I believe missed it, he came into the emergency room on the morning of September 12, 2019 with a change in mental status. Apparently he was having hallucinations, aggressiveness, combativeness and agitation. He was admitted and evidently had a metabolic encephalopathy with metabolic acidosis and recent onset of diabetes mellitus. He was also hypothermic and had acute renal insufficiency. He apparently has been very agitated and does not make sense when he verbalizes since admission. When I evaluated him this evening he was rambling about various things and was not specifically answering questions. He was shackled to the bed and had a mask over his face because he tends to spit at people. He did not appear to be uncomfortable. I could not obtain a reasonable history. He has been having difficulty with heart rate fluctuations including sinus bradycardia and sinus arrest with junctional escape's. I do not know that we can tell if any of these are symptomatic. Allergies Allergy/AdvReac Type Severity Reaction Status Date / Time haloperidol [From Haldol] AdvReac Unknown Unknown Unverified 09/12/19 13:23 Home Medications Home Medications Medication Instructions Recorded Confirmed Type ferrous sulfate [Feosol] 325 mg PO DAILY 07/05/19 09/12/19 History cyanocobalamin (vitamin B-12) 100 mcg PO DAILY 08/28/19 09/12/19 History docusate sodium 250 mg PO HS 08/28/19 09/12/19 History magnesium hydroxide [Milk of 60 ml PO DAILY PRN 08/28/19 09/12/19 History Magnesia] spironolactone 25 mg PO DAILY 08/28/19 09/12/19 History polyethylene glycol 3350 [Miralax] 17 g PO ONCE PRN #10 ea 09/02/19 09/12/19 Rx olanzapine 20 mg PO HS 09/12/19 09/12/19 History ramelteon 8 mg PO HS 09/12/19 09/12/19 History Patient History Medical History Bipolar disorder Bowel obstruction (Inactive) Diabetes insipidus Diabetes mellitus Hepatitis C Schizoaffective disorder Surgical History History of laparotomy Family History Other No pertinent family history in first degree relatives Social History Preferred Language: Luxembourgish Communication Ability: Effective Search Specialist Required: No Beliefs That Will Affect Care: None Current Living Situation: Other Current Living Situation Comment: SARAI Ramos Feels Safe at Home: Yes Smoking Status: Former smoker Tobacco Type: cigarettes ; Cigarettes Per Day: 1 pack per day ; Second Hand Exposure: No ; Hx Alcohol Use: No Hx Substance Use: No Review of Systems Review of Systems: Unobtainable due to cognitive status Physical Exam Physical Exam: Constitutional: Alert and in no distress. Shackled to the bed and not responding with appropriate answers to questions. He is very thin. HEENT: Unremarkable Neck: No jugular venous distention, carotid pulses are normal and equal bilaterally without bruits. Pulmonary: Clear to auscultation bilaterally. Cardiac: Regular rhythm with no murmur, gallop or rub. Abdomen: Soft, nontender with normal bowel sounds. Extremities: No edema. Distal pulses intact. Neurologic: No focal findings on a limited exam due to lack of cooperation. Gait was not tested. Skin: No rash, ecchymoses or petechiae. Results & Data Vital Signs (Past 12 Hours) Vital Signs Temp Pulse Pulse Resp BP BP Pulse Ox 09/14/19 15:15 85 20 135/69 100 09/14/19 11:35 36.4 C L 91 H 19 144/78 H 100 09/14/19 10:49 36.4 C L 41 L 12 140/78 99 09/14/19 08:00 76 09/14/19 07:08 36.4 C L 70 20 131/95 91 Laboratory Results Abnormal lab results 09/13/19 09/14/19 09/14/19 Range/Units 20:46 05:31 05:31 RBC 3.50 L (4.7-6.1) M/uL Hgb 10.2 L (14.0-18.0) g/dL Hct 32.7 L (42-52) % MCHC 31.2 L (32-36) g/dL RDW Std Deviation 52.8 H (36.4-46.3) fL RDW Coeff of Shamar 15.6 H (11.5-14.5) % MPV 11.6 H (7.4-10.4) fL Lymph # (Auto) 0.79 L (1.2-3.4) K/uL Sodium 152 H (136-145) mmol/L Potassium 3.4 L (3.5-5.1) mmol/L Chloride 123 H (98-107) mmol/L Glucose 160 H (70-99) mg/dl POC Glucose 148 H (70-99) Phosphorus 2.2 L D (2.5-4.9) mg/dl AST 12 L (15-37) U/L Albumin 2.9 L (3.4-5.0) gm/dl Albumin/Globulin Ratio 0.7 L (0.9-2) 09/14/19 09/14/19 09/14/19 Range/Units 07:06 11:38 11:58 RBC (4.7-6.1) M/uL Hgb (14.0-18.0) g/dL Hct (42-52) % MCHC (32-36) g/dL RDW Std Deviation (36.4-46.3) fL RDW Coeff of Shamar (11.5-14.5) % MPV (7.4-10.4) fL Lymph # (Auto) (1.2-3.4) K/uL Sodium 152 H (136-145) mmol/L Potassium 3.4 L (3.5-5.1) mmol/L Chloride 124 H (98-107) mmol/L Glucose 136 H (70-99) mg/dl POC Glucose 159 H 115 H (70-99) Phosphorus (2.5-4.9) mg/dl AST (15-37) U/L Albumin (3.4-5.0) gm/dl Albumin/Globulin Ratio (0.9-2) 09/14/19 09/14/19 Range/Units 16:01 16:14 RBC (4.7-6.1) M/uL Hgb (14.0-18.0) g/dL Hct (42-52) % MCHC (32-36) g/dL RDW Std Deviation (36.4-46.3) fL RDW Coeff of Shamar (11.5-14.5) % MPV (7.4-10.4) fL Lymph # (Auto) (1.2-3.4) K/uL Sodium 151 H (136-145) mmol/L Potassium (3.5-5.1) mmol/L Chloride 123 H (98-107) mmol/L Glucose 156 H (70-99) mg/dl POC Glucose 197 H (70-99) Phosphorus (2.5-4.9) mg/dl AST (15-37) U/L Albumin (3.4-5.0) gm/dl Albumin/Globulin Ratio (0.9-2) Diagnostic Findings Electrocardiogram: His electrocardiogram shows sinus tachycardia with a long QT interval however this was done during his metabolic abnormalities. Telemetry: He has been in sinus rhythm with a marked sinus arrhythmia, he will have periods of sinus tachycardia followed quickly by periods of sinus bradycardia. He will sometimes have periods of what appears to be sinus arrest with an appropriate junctional escape rhythm. His rhythm appears to be improving to a certain extent since shortly after admission. PG Care Time/CCT Total # of Minutes Spent Total Time Spent with Patient: Total time spent is greater than 50% in c oordination of care (as documented) at patient's floor/unit and/or counseling patient:
[2019-09-14] MEDS: HYDROCORTISONE SOD 10 MG in SYRINGE 0 ML IV SCH (18:25)
[2019-09-14 20:46] LABS: BUN Creatinine Ratio 16.9 (10-20); Calcium 9.6 mg/dl (8.5-10.1); Creatinine Clr Calc Pharmacy 80.9 ml/min; Est GFR (Non-African American) 93.2; Potassium 3.6 mmol/L (3.5-5.1)
[2019-09-14] MEDS: DOCUSATE SODIUM 100 MG CAP PO SCH (22:02)
[2019-09-14] MEDS: OLANZapine 20 MG TABLET PO SCH (22:03)
[2019-09-15] MEDS: RAMELTEON: ORDER AWAITING ACTION SCH ×3 (00:04→15:42)
[2019-09-15] MEDS: HYDROCORTISONE SOD 10 MG in SYRINGE 0 ML IV SCH ×5 (00:04→23:32)
[2019-09-15] MEDS: POTASSIUM CHLORIDE 20 MEQ in DEXTROSE 5% 1,000 ML IV SCH ×3 (00:30→18:24)
[2019-09-15 01:24] LABS: BUN Creatinine Ratio 15.7 (10-20); Calcium 9.7 mg/dl (8.5-10.1); Creatinine Clr Calc Pharmacy 84.6 ml/min; Est GFR (Non-African American) 94.9; Potassium 3.5 mmol/L (3.5-5.1)
[2019-09-15 04:29] LABS: Hematocrit (blood only) 32.4 % (42-52); Lymphocytes # (auto) 1.65 K/uL (1.2-3.4); Lymphocytes % (auto) 35.5 %; Mean Corpuscular Hemoglobin 29.2 pg (25-34); Mean Corpuscular Hgb Conc 30.9 g/dL (32-36); Mean Corpuscular Volume 94.5 fL (80-100); Mean Platelet Volume 11.2 fL (7.4-10.4); Monocytes # (auto) 0.43 K/uL (0.11-0.59); Monocytes % (auto) 9.2 %; Neutrophils # (auto) 2.57 K/uL (1.4-6.5); Neutrophils % (auto) 55.3 %; Platelet Count 188 K/uL (130-400); RDW Coefficient of Variation 15.6 % (11.5-14.5); RDW Standard Deviation 53.7 fL (36.4-46.3); Red Blood Count 3.43 M/uL (4.7-6.1); White Blood Count 4.65 K/uL (4.8-10.8)
[2019-09-15 04:49] LABS: Albumin Level 2.8 gm/dl (3.4-5.0); BUN Creatinine Ratio 15.1 (10-20); Calcium 9.3 mg/dl (8.5-10.1); Creatinine Clr Calc Pharmacy 83.7 ml/min; Est GFR (African American) 109.5; Est GFR (Non-African American) 94.5; Magnesium 2.2 mg/dl (1.8-2.4); Potassium 3.8 mmol/L (3.5-5.1)
[2019-09-15 04:51] LABS: Albumin Globulin Ratio 0.7 (0.9-2); Bilirubin,Total 0.3 mg/dl (0.2-1); Globulin 3.8 gm/dl (2.5-4.0); Total Protein 6.6 gm/dl (6.4-8.2)
[2019-09-15] MEDS: FERROUS SULFATE 325 MG TAB PO SCH (07:29)
[2019-09-15] MEDS: ASCORBIC ACID 500 MG TAB PO SCH (07:29)
[2019-09-15] MEDS: CYANOCOBALAMIN (VITAMIN B-12) 100 MCG TABLET PO SCH (07:29)
[2019-09-15] MEDS: HEPARIN SOD 5,000 UNIT/0.5 ML VIAL SQ SCH ×2 (07:30→21:31)
[2019-09-15] MEDS: OLANZapine 5 MG TABLET PO SCH (07:30)
[2019-09-15] MEDS: INSULIN ASPART 100 UNITS/ML 3 ML PEN SC SCH ×4 (07:44→21:29)
[2019-09-15] MEDS ORDERED: OLANZapine 10 MG/2.1 ML SDV IM PRN (07:47)
[2019-09-15] MEDS ORDERED: POTASSIUM PHOS 3 MMOL/1 ML INFUSION IV STA (08:11)
[2019-09-15] MEDS ORDERED: POTASSIUM PHOSPHATE 9 MMOL in SODIUM CHLORIDE 0.9% 250 ML IV ONE (08:45)
[2019-09-15 09:02] LABS: BUN Creatinine Ratio 14.7 (10-20); Calcium 9.7 mg/dl (8.5-10.1); Creatinine Clr Calc Pharmacy 79.2 ml/min; Est GFR (African American) 105.1; Est GFR (Non-African American) 90.7; Potassium 3.5 mmol/L (3.5-5.1)
--- NOTE | 2019-09-15 10:12 | Cardiology Progress Note ---
Date of Service September 15, 2019 Assessment & Plan (1) Sinus node dysfunction: He clearly haD sinus node dysfunction. I do not know if this has been diagnosed in the past, it may be something that he has had for some time or it may be exacerbated by his acute presentation. It has improved with medical treatment and a lot of it was probably due to diffuse metabolic abnormalities. So far I do not see anything that is terribly concerning and it is impossible to determine whether he was having any symptoms. Perhaps in the future we can get better correlation with symptoms and rhythm, but if he is asymptomatic and the rhythm has improved with correction of his metabolic abnormalities I would not pursue further evaluation or treatment. For the moment I would simply observe but I do not think he needs to be in the hospital for that. (2) Long QT interval: On his admission electrocardiogram he had a long QT interval. I suspect that was related to his metabolic derangements. A repeat electrocardiogram shows normalization of his QT interval. I would not pursue this further. Subjective He appears better today, he appears more comfortable and he is more interactive. He does not make sense when he tries to answer questions however even though he speaks in sentences. Physical Exam Physical Exam: Constitutional: Alert, cooperative and in no distress. Pulmonary: Clear to auscultation bilaterally. Cardiac: Regular rhythm with no murmur, gallop or rub. Abdomen: Soft, nontender with normal bowel sounds. Extremities: No edema. Skin: No rash, ecchymoses or petechiae. Results & Data Vital Signs (Past 12 Hours) Vital Signs Temp Pulse Pulse Resp BP BP Pulse Ox 09/15/19 07:26 36.4 C L 62 18 104/68 100 09/15/19 03:55 36.9 C 73 16 139/75 97 09/15/19 00:42 64 09/14/19 23:01 60 20 151/77 H 96 Laboratory Results Abnormal lab results 09/14/19 09/14/19 09/14/19 Range/Units 11:38 11:58 16:01 WBC (4.8-10.8) K/uL RBC (4.7-6.1) M/uL Hgb (14.0-18.0) g/dL Hct (42-52) % MCHC (32-36) g/dL RDW Std Deviation (36.4-46.3) fL RDW Coeff of Shamar (11.5-14.5) % MPV (7.4-10.4) fL VBG pH (7.36-7.41) Sodium 152 H 151 H (136-145) mmol/L Potassium 3.4 L (3.5-5.1) mmol/L Chloride 124 H 123 H (98-107) mmol/L Anion Gap (3-11) Glucose 136 H 156 H (70-99) mg/dl POC Glucose 115 H (70-99) Phosphorus (2.5-4.9) mg/dl AST (15-37) U/L Albumin (3.4-5.0) gm/dl Albumin/Globulin Ratio (0.9-2) Urine Osmolality (500-800) mOsm/kg 09/14/19 09/14/19 09/14/19 Range/Units 16:14 20:07 20:09 WBC (4.8-10.8) K/uL RBC (4.7-6.1) M/uL Hgb (14.0-18.0) g/dL Hct (42-52) % MCHC (32-36) g/dL RDW Std Deviation (36.4-46.3) fL RDW Coeff of Shamar (11.5-14.5) % MPV (7.4-10.4) fL VBG pH (7.36-7.41) Sodium 150 H (136-145) mmol/L Potassium (3.5-5.1) mmol/L Chloride 123 H (98-107) mmol/L Anion Gap (3-11) Glucose 133 H (70-99) mg/dl POC Glucose 197 H 142 H (70-99) Phosphorus (2.5-4.9) mg/dl AST (15-37) U/L Albumin (3.4-5.0) gm/dl Albumin/Globulin Ratio (0.9-2) Urine Osmolality (500-800) mOsm/kg 09/15/19 09/15/19 09/15/19 Range/Units 00:25 04:16 04:16 WBC 4.65 L (4.8-10.8) K/uL RBC 3.43 L (4.7-6.1) M/uL Hgb 10.0 L (14.0-18.0) g/dL Hct 32.4 L (42-52) % MCHC 30.9 L (32-36) g/dL RDW Std Deviation 53.7 H (36.4-46.3) fL RDW Coeff of Shamar 15.6 H (11.5-14.5) % MPV 11.2 H (7.4-10.4) fL VBG pH (7.36-7.41) Sodium 150 H 149 H (136-145) mmol/L Potassium (3.5-5.1) mmol/L Chloride 121 H 119 H (98-107) mmol/L Anion Gap 2.0 L (3-11) Glucose 153 H 165 H (70-99) mg/dl POC Glucose (70-99) Phosphorus 2.0 L (2.5-4.9) mg/dl AST 12 L (15-37) U/L Albumin 2.8 L (3.4-5.0) gm/dl Albumin/Globulin Ratio 0.7 L (0.9-2) Urine Osmolality (500-800) mOsm/kg 09/15/19 09/15/19 09/15/19 Range/Units 04:16 05:00 07:22 WBC (4.8-10.8) K/uL RBC (4.7-6.1) M/uL Hgb (14.0-18.0) g/dL Hct (42-52) % MCHC (32-36) g/dL RDW Std Deviation (36.4-46.3) fL RDW Coeff of Shamar (11.5-14.5) % MPV (7.4-10.4) fL VBG pH 7.43 H (7.36-7.41) Sodium (136-145) mmol/L Potassium (3.5-5.1) mmol/L Chloride (98-107) mmol/L Anion Gap (3-11) Glucose (70-99) mg/dl POC Glucose 135 H (70-99) Phosphorus (2.5-4.9) mg/dl AST (15-37) U/L Albumin (3.4-5.0) gm/dl Albumin/Globulin Ratio (0.9-2) Urine Osmolality 357 L (500-800) mOsm/kg 09/15/19 Range/Units 08:26 WBC (4.8-10.8) K/uL RBC (4.7-6.1) M/uL Hgb (14.0-18.0) g/dL Hct (42-52) % MCHC (32-36) g/dL RDW Std Deviation (36.4-46.3) fL RDW Coeff of Shamar (11.5-14.5) % MPV (7.4-10.4) fL VBG pH (7.36-7.41) Sodium 147 H (136-145) mmol/L Potassium (3.5-5.1) mmol/L Chloride 117 H (98-107) mmol/L Anion Gap (3-11) Glucose 153 H (70-99) mg/dl POC Glucose (70-99) Phosphorus (2.5-4.9) mg/dl AST (15-37) U/L Albumin (3.4-5.0) gm/dl Albumin/Globulin Ratio (0.9-2) Urine Osmolality (500-800) mOsm/kg Diagnostic Findings Electrocardiogram: A repeat electrocardiogram looks better with sinus rhythm and a normal QT interval, his prior had long QT Telemetry: Sinus rhythm, some sinus bradycardia, no significant heart rate variation as we are seeing around the time of admission PG Care Time/CCT Total # of Minutes Spent Total Time Spent with Patient: Total time spent is greater than 50% in coordination of care (as documented) at patient's floor/unit and/or counseling patient:
--- NOTE | 2019-09-15 10:24 | Hospitalist Progress Note ---
Date of Service September 15, 2019 Assessment & Plan (1) Altered mental status: Suspect multifactorial but appears to be resolving back to his baseline with improvement in metabolic abnormalities. Unclear what the driving force is but appears to have some degree of adrenal insufficiency, partial diabetes insipidus which leads to worsening mental status and dehydration/starvation state. Given improvement suspect stopping lithium actually had less of an effect. Appears to be recurrent with previous similar presentations although no definitive diagnosis during prior admissions - appear do have started since ICU stay in July with SBO (subsequent adhesiolysis, ventilator) in [place]. Urine drug screen negative, alcohol level is negative. Ammonia level is normal, TSH normal CT noncontrast head negative. Prior MRI brain negative, EEG normal from 1 month prior on [facility] records with similar presentation. (2) Diabetes insipidus: Suspected on last admission and lithium discontinued. No hypernatremia on presentation but possibly he was treating himself with water retriction as developed hypernatremic hyperchloremic quite easily with normal saline. Given small dose of desmopressin yesterday so unclear really how much that improved his sodium vs. D5W. Could consider desmopressin on discharge if Na continues to trend back up off of D5W. (3) Hypernatremia: With a history of this and suspected DI as above Na improving with D5W given yesterday, reduced rate and then stopped at the end of the day given improvement in Na. Repeat BMP in AM. (4) Metabolic acidosis, increased anion gap: Anion gap now closed with rehydration vs. hydrocortisone use. Acidosis also appears to resolved. Anion gap metabolic acidosis on admission Elevated ketones due to fasting state. Lactate normal Urine UDS and ethanol normal. (5) Hypotension: Possible adrenal insufficiency with hyperkalemia, hypothermia and hypotension. Improved blood pressure with hydrocortisone, random cortisol 15. Continue to wean hydrocortisone to 10 mg every 6 hours (6) Schizoaffective disorder, bipolar type: Appreciate psychiatric management. [place] and Clozaril both discontinued at this stage. Continues on Zyprexa. (7) Acute psychosis: As above. Mostly related to metabolic abnormalities Appreciate psychiatry management (8) Hypothermia: Now resolved. Possible adrenal insufficiency Blood cultures negative to date (9) Hyperphosphatemia: Elevated upon admission, could be secondary to acute renal failure Now hypophosphatemic and will continue to monitor for refeeding given degree of starvation. (10) Hypokalemia: Secondary to poor p.o. intake versus adrenal insufficiency -Replace with IV potassium chloride as needed -Follow BMP daily now Na resolved. (11) Acute renal insufficiency: Mild acute kidney injury upon admission with creatinine of 1.5 Now resolved with IV NSS (12) HCV (hepatitis C virus): LFTs are acceptable -HCV quant is pending (13) Constipation: No bowel movement here so far No vomiting to suggest bowel obstruction although with recent history of this he is at high risk. Moderate fecal retention on last abdomen pelvis CT August 28, 2019 Continue to monitor as oral intake increases (14) AAA (abdominal aortic aneurysm): Patient had appointment with vascular surgeon last admission for elective repair of abdominal aortic aneurysm since it is 5.7 cm in size. It is infrarenal Follow-up as outpatient (15) Diabetes mellitus: With new onset mild diabetes mellitus, HbA1c 6.9% Continue NovoLog with q6h Accu-Cheks Insulin autoantibody and C-peptide pending although given low glucose of doubtful significance (16) Anemia: Normocytic anemia. Hemoglobin 8.9 and fairly stable from 2 weeks ago His hemoglobin dropped from 15 in June 2018 down to 9 but that was secondary to his bowel obstruction with resultant surgery and prolonged ICU stay at [facility] in July No evidence of bleeding here Iron studies here suggest mild iron deficiency versus anemia of chronic disease B12 and folate are normal -Continue ferrous sulfate as able -Follow CBC (17) Seizure: Mention of this and reports that occurred at the halfway and was being treated with Ativan and clonazepam? EEG noted to be normal during hospital stay on 07/2019 at [facility] -Follow clinically -Not currently on seizure medication (18) Sinus node dysfunction: Significant bradycardia and tachycardia episodes on telemetry. Appears improving with correction of electrolytes. Appreciate cardiology review (19) DVT prophylaxis: Heparin 5000 units SQ q.12h Subjective Patient appears much more alert today. However repeating questions and cannot/refuses to answer orientation questions. Guards present at bedside unfamiliar with patient's baseline cognitive status so unsure whether he is back to baseline. He is unable to answer any questions leading up to this admission. Denies any pain at present. Repeatedly just asking for water. Review of Systems Review of Systems: Unobtainable due to mental health condition Physical Exam Constitutional: + ill appearing, + cachectic and + malnourished; no acute distress Eyes: normal pupil size ENMT: Ears: no external ear abnormality Nose: no external nose abnormality Mouth: no lip abnormality Neck: trachea midline Respiratory: normal respiratory effort Auscultation: lungs clear to auscultation bilaterally (Anteriorly); no diminished lung sounds, no crackles, no rales and no rhonchi Cardiovascular: Rate/Rhythm: regular rate and regular rhythm Heart Sounds: normal S1 and normal S2; no murmur Extremities: normal capillary refill; no calf tenderness and no pedal edema Chest (Breasts): Chest: normal inspection of chest Gastrointestinal (Abdomen): Inspection/Auscultation: abdomen normal to inspection and + hypoactive bowel sounds; abdomen not distended Percussion/Palpation: abdomen soft; abdomen nontender, no guarding and abdomen not rigid Musculoskeletal: Extremities: + muscle atrophy (generalized); no cyanosis and no clubbing Skin: no rashes, warm and dry Neurologic: moves all extremities, awake and + confused; no focal motor deficits (groslly normal) Motor/Sensory: no tremor Psychiatric: Orientation: alert; + not oriented x 3 and + uncooperative Apperance: + disheveled Eye Contact: + fair eye contact Motor Behavior: no abnormal motor movements Affect: + irritable affect Thought Process: + tangential thought process Thought Content: + preoccupation Insight: + impaired insight Results & Data Vital Signs (Past 12 Hours) Vital Signs Temp Pulse Pulse Resp BP BP Pulse Ox 09/15/19 07:26 97.5 F L 62 18 104/68 100 09/15/19 03:55 98.4 F 73 16 139/75 97 09/15/19 00:42 64 09/14/19 23:01 60 20 151/77 H 96 PG Care Time/CCT Total # of Minutes Spent Total Time Spent with Patient: Total time spent is greater than 50% in coordination of care (as documented) at patient's floor/unit and/or counseling patient: (1) Diabetes mellitus Diabetes mellitus complication status: with hyperglycemia 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
[2019-09-15 10:58] LABS: Hepatitis C Vira RNA (Log) PCR <1.18 NOT DETECTED LOG IU/ML (<1.18); Hepatitis C Viral RNA by PCR <15 NOT DETECTED IU/ML (<15)
--- NOTE | 2019-09-15 11:42 | Nephrology Consultation ---
Date of Consultation September 15, 2019 Assessment & Plan (1) Hypernatremia: -- Hypernatremia related to MS changes and poor free water intake -- Review of medical record shows that urine osmolality appropriately increases and UO drops in relation to dehydration. Doubt that formal water deprivation study would provide significant additional insight -- Recommend hydration w/ hypotonic IV solution. Monitor UO and serum sodium -- Given concern over possible lithium associated renal injury agree w/ Psychiatry's decision to avoid lithium and use alternative therapy -- Will sign off. Please call if further Nephrology assistance is needed (2) Schizoaffective disorder, bipolar type: -- Zyprexa and Haldol as per Psychiatry History of Present Illness Reason for Consultation: Hypernatremia Attending Physician: Ananda Blackmon MD History of Present Illness Mr. Childers is a 59 year old AA male who is seen at the request of Dr. Blackmon for evaluation of hypernatremia. Medical records in the EMR were reviewed today and are summarized as follows: Mr. Childers is incarcerated ([facility]). His medical history is significant for bipolar schizoaffective disorder, hepatitis C, and AAA. In 08/03 he was hospitalized at [facility] for SBO/volvulus requiring surgical repair. He was admitted to [facility] 08/28 with MS changes. He was diagnosed w/ LUE cellulitis. During his hospitalization serum Na ranged 145 - 150 mmol/L. Uosm 168. 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 [place] was stopped and patient was discharged 09/02 when his cellulitis had improved. Mr. Cihlders was readmitted 09/12 due to MS changes. He has been evaluated by Psychiatry who have substituted Zyprexa/Haldol for [place]. They note that it may take several weeks to establish therapeutic levels of Zyprexa. Serum sodium remains 147 mmol/L. Uosm 357 and UO only 1800 - 2000 cc/day. Primary service questions whether lithium can be safely restarted Allergies Allergy/AdvReac Type Severity Reaction Status Date / Time haloperidol [From Haldol] AdvReac Unknown Unknown Unverified 09/12/19 13:23 Home Medications Home Medications Medication Instructions Recorded Confirmed Type ferrous sulfate [Feosol] 325 mg PO DAILY 07/05/19 09/12/19 History cyanocobalamin (vitamin B-12) 100 mcg PO DAILY 08/28/19 09/12/19 History docusate sodium 250 mg PO HS 08/28/19 09/12/19 History magnesium hydroxide [Milk of 60 ml PO DAILY PRN 08/28/19 09/12/19 History Magnesia] spironolactone 25 mg PO DAILY 08/28/19 09/12/19 History polyethylene glycol 3350 [Miralax] 17 g PO ONCE PRN #10 ea 09/02/19 09/12/19 Rx olanzapine 20 mg PO HS 09/12/19 09/12/19 History ramelteon 8 mg PO HS 09/12/19 09/12/19 History Patient History Medical History Bipolar disorder Bowel obstruction (Inactive) Diabetes insipidus Diabetes mellitus Hepatitis C Schizoaffective disorder Surgical History History of laparotomy Family History Other No pertinent family history in first degree relatives Social History Preferred Language: Turkmen Communication Ability: Effective Undercollar Maker Required: No Beliefs That Will Affect Care: None Current Living Situation: Other Current Living Situation Comment: [facility] Feels Safe at Home: Yes Smoking Status: Former smoker Tobacco Type: cigarettes ; Cigarettes Per Day: 1 pack per day ; Second Hand Exposure: No ; Hx Alcohol Use: No Hx Substance Use: No Review of Systems Review of Systems: Unobtainable due to mental health condition Physical Exam Constitutional: + cachectic and + altered mental status Eyes: PERRL, conjunctivae normal, anicteric sclerae ENMT: external ear and nose normal, oropharynx normal Neck: trachea midline, no thyromegaly Respiratory: normal respiratory effort, lungs clear to auscultation Cardiovascular: RRR, no murmur, no edema Gastrointestinal (Abdomen): normal bowel sounds, soft, nontender, no hepatosplenomegaly Musculoskeletal: Extremities: no cyanosis Skin: no rashes, warm and dry Neurologic: awake (agitated) Results & Data Vital Signs (Past 12 Hours) Vital Signs Temp Pulse Pulse Resp BP Pulse Ox 09/15/19 07:26 36.4 C L 62 18 104/68 100 09/15/19 03:55 36.9 C 73 16 139/75 97 09/15/19 00:42 64 Laboratory Results Laboratory Tests 09/12/19 09/13/19 09/15/19 13:22 13:50 04:16 WBC 4.65 L Hgb 10.0 L Hct 32.4 L Plt Count 188 Sodium Potassium Chloride Carbon Dioxide BUN Creatinine Glucose Urine Color Yellow Urine Appearance Clear Urine pH 5.0 Ur Specific [place] 1.017 Urine Protein Negative Urine Glucose (UA) Negative Urine Blood Negative Urine Nitrite Negative Ur Leukocyte Esterase Negative Urine Osmolality 304 L 09/15/19 09/15/19 05:00 08:26 WBC Hgb Hct Plt Count Sodium 147 H Potassium 3.5 Chloride 117 H Carbon Dioxide 24 BUN 14 Creatinine 0.92 Glucose 153 H Urine Color Urine Appearance Urine pH Ur Specific [place] Urine Protein Urine Glucose (UA) Urine Blood Urine Nitrite Ur Leukocyte Esterase Urine Osmolality 357 L PG Care Time/CCT Total # of Minutes Spent Total Time Spent with Patient: Total time spent is greater than 50% in coordination of care (as documented) at patient's floor/unit and/or counseling patient:
[2019-09-15 13:12] LABS: BUN Creatinine Ratio 16.1 (10-20); Calcium 9.2 mg/dl (8.5-10.1); Creatinine Clr Calc Pharmacy 82.8 ml/min; Potassium 3.7 mmol/L (3.5-5.1)
[2019-09-15 16:33] LABS: BUN Creatinine Ratio 15.7 (10-20); Calcium 9.3 mg/dl (8.5-10.1); Creatinine Clr Calc Pharmacy 79.2 ml/min; Est GFR (African American) 105.1; Est GFR (Non-African American) 90.7; Potassium 4.1 mmol/L (3.5-5.1)
[2019-09-15 20:30] LABS: BUN Creatinine Ratio 17.2 (10-20); Calcium 9.3 mg/dl (8.5-10.1); Creatinine Clr Calc Pharmacy 85.8 ml/min; Est GFR (African American) 110.5; Est GFR (Non-African American) 95.4; Potassium 3.9 mmol/L (3.5-5.1)
[2019-09-15] MEDS: OLANZapine 20 MG TABLET PO SCH (21:31)
[2019-09-15] MEDS: DOCUSATE SODIUM 100 MG CAP PO SCH (21:33)
[2019-09-16] MEDS: RAMELTEON: ORDER AWAITING ACTION SCH ×3 (00:12→15:37)
[2019-09-16] MEDS: LORazepam 1 MG/2 ML VIAL IV PRN ×2 (01:38→14:33)
[2019-09-16] MEDS: HYDROCORTISONE SOD 10 MG in SYRINGE 0 ML IV SCH ×3 (05:12→17:37)
[2019-09-16] MEDS: MAGNESIUM HYDROXIDE SUSP 30 ML UDC PO PRN (05:13)
[2019-09-16 07:01] LABS: Hematocrit (blood only) 33.5 % (42-52); Hemoglobin 10.7 g/dL (14.0-18.0); Immature Granulocytes # (auto) 0.01 K/uL (0.00-0.02); Immature Granulocytes % (auto) 0.2 %; Lymphocytes # (auto) 1.61 K/uL (1.2-3.4); Lymphocytes % (auto) 32.4 %; Mean Corpuscular Hemoglobin 30.3 pg (25-34); Mean Corpuscular Hgb Conc 31.9 g/dL (32-36); Mean Corpuscular Volume 94.9 fL (80-100); Mean Platelet Volume 11.4 fL (7.4-10.4); Monocytes # (auto) 0.35 K/uL (0.11-0.59); Neutrophils % (auto) 60.4 %; Platelet Count 185 K/uL (130-400); RDW Coefficient of Variation 15.1 % (11.5-14.5); RDW Standard Deviation 51.6 fL (36.4-46.3); Red Blood Count 3.53 M/uL (4.7-6.1); White Blood Count 4.97 K/uL (4.8-10.8)
[2019-09-16 07:42] LABS: Albumin Level 2.8 gm/dl (3.4-5.0); BUN Creatinine Ratio 16.6 (10-20); Calcium 9.4 mg/dl (8.5-10.1); Est GFR (African American) 114.5; Est GFR (Non-African American) 98.8; Magnesium 2.1 mg/dl (1.8-2.4); Potassium 3.6 mmol/L (3.5-5.1)
[2019-09-16 07:48] LABS: Albumin Globulin Ratio 0.7 (0.9-2); Bilirubin,Total 0.3 mg/dl (0.2-1); Globulin 3.9 gm/dl (2.5-4.0); Phosphorus 2.7 mg/dl (2.5-4.9); Total Protein 6.7 gm/dl (6.4-8.2)
[2019-09-16] MEDS: FERROUS SULFATE 325 MG TAB PO SCH (08:20)
[2019-09-16] MEDS: ASCORBIC ACID 500 MG TAB PO SCH (08:21)
[2019-09-16] MEDS: THIAMINE HCL 100 MG TAB PO SCH ×3 (08:21→21:32)
[2019-09-16] MEDS: CYANOCOBALAMIN (VITAMIN B-12) 100 MCG TABLET PO SCH (08:23)
[2019-09-16] MEDS: HEPARIN SOD 5,000 UNIT/0.5 ML VIAL SQ SCH ×2 (08:23→21:32)
[2019-09-16] MEDS: OLANZapine 5 MG TABLET PO SCH (08:24)
[2019-09-16] MEDS: INSULIN ASPART 100 UNITS/ML 3 ML PEN SC SCH ×4 (09:29→21:33)
--- NOTE | 2019-09-16 12:44 | Hospitalist Progress Note ---
Date of Service September 16, 2019 Assessment & Plan (1) Altered mental status: Suspect multifactorial but appears to be resolving back to his baseline with improvement in metabolic abnormalities. Unclear what the driving force is but appears to have some degree of adrenal insufficiency, partial diabetes insipidus which leads to worsening mental status and dehydration/starvation state. Given improvement suspect stopping lithium actually had less of an effect. Appears to be recurrent with previous similar presentations although no definitive diagnosis during prior admissions - appear do have started since ICU stay in July with SBO (subsequent adhesiolysis, ventilator) in [place]. Urine drug screen negative, alcohol level is negative. Ammonia level is normal, TSH normal CT noncontrast head negative. Prior MRI brain negative, EEG normal from 1 month prior on [facility] records with similar presentation. Of note, patient's mental status seems to be improving off of lithium with improved electrolytes. Patient is also now on a decreased dose of IV hydrocortisone. We will continue treatment as detailed below. (2) Diabetes insipidus: Suspected on last admission and lithium discontinued. No hypernatremia on presentation but possibly he was treating himself with water retriction as developed hypernatremic hyperchloremic quite easily with normal saline. Given small dose of desmopressin yesterday so unclear really how much that improved his sodium vs. D5W. Patient is currently off IV fluids. I do note a fluid restriction he had been ordered previously on presentation which I discontinued. Patient will need to drink free water ad gerardo. Follow his electrolytes. (3) Hypernatremia: With a history of this and suspected DI as above Na improving with D5W given yesterday, now will be given free water ad gerardo. Continue to monitor his sodium. (4) Metabolic acidosis, increased anion gap: Anion gap now closed with rehydration vs. hydrocortisone use. Acidosis also appears to resolved. Anion gap metabolic acidosis on admission Elevated ketones due to fasting state. Lactate normal Urine UDS and ethanol normal. (5) Hypotension: Possible adrenal insufficiency with hyperkalemia, hypothermia and hypotension. Improved blood pressure with hydrocortisone, random cortisol 15. Continue to wean hydrocortisone to 10 mg every 6 hours. Question if this represents adrenal insufficiency versus hypopituitary is him. Of note, MRI reported to be negative from outside facility. (6) Schizoaffective disorder, bipolar type: Appreciate psychiatric management. [place] and Clozaril both discontinued at this stage. Continues on Zyprexa. (7) Acute psychosis: As above. Mostly related to metabolic abnormalities Appreciate psychiatry management (8) Hypothermia: Now resolved. Possible adrenal insufficiency Blood cultures negative to date (9) Hyperphosphatemia: Elevated upon admission, could be secondary to acute renal failure Now hypophosphatemic and will continue to monitor for refeeding given degree of starvation. (10) Hypokalemia: Secondary to poor p.o. intake versus adrenal insufficiency -Replace with IV potassium chloride as needed -Follow BMP daily now Na resolved. (11) Acute renal insufficiency: Mild acute kidney injury upon admission with creatinine of 1.5 Now resolved with IV NSS (12) HCV (hepatitis C virus): LFTs are acceptable HCVRNA is not detected. (13) Constipation: No bowel movement here so far No vomiting to suggest bowel obstruction although with recent history of this he is at high risk. Moderate fecal retention on last abdomen pelvis CT August 28, 2019 Continue to monitor as oral intake increases (14) AAA (abdominal aortic aneurysm): Patient had appointment with vascular surgeon last admission for elective repair of abdominal aortic aneurysm since it is 5.7 cm in size. It is infrarenal Follow-up as outpatient (15) Diabetes mellitus: With new onset mild diabetes mellitus, HbA1c 6.9% Continue NovoLog with q6h Accu-Cheks Insulin autoantibody and C-peptide pending although given low glucose of doubtful significance (16) Anemia: Normocytic anemia. Hemoglobin 8.9 and fairly stable from 2 weeks ago His hemoglobin is much improved and is actually trending upward. Is 10.7 today. Other labs are unremarkable. Can follow periodically. -Follow CBC (17) Seizure: Mention of this and reports that occurred at the custodial and was being treated with Ativan and clonazepam? EEG noted to be normal during hospital stay on 07/2019 at [facility] -Follow clinically -Not currently on seizure medication (18) Sinus node dysfunction: Documented vital signs appear to be within normal limits now the last pulse being 69 blood pressure 118/59. Appreciate cardiology review (19) DVT prophylaxis: Heparin 5000 units SQ q.12h Subjective Patient seen with custodial guards in the room. Patient is awake and alert. He is bizarre and oriented on any self. He tells me he thinks he is in his apartment. Guards to state that the patient seems to be improved from yesterday but is not yet near his baseline. Patient does not appear to be in any distress and is eating lunch. Physical Exam Physical Exam: Gen: AA, oriented only to self, NAD HEENT: neck supple, no JVD. MMM. Heart: RR, no murmurs Lungs: clear to auscultation in all ricci Abd: soft, nontender, nondistended. Normal BS Neuro: awake, alert. Nonfocal Psych: Bizarre affect, oriented to self only Ext: No clubbing, cyanosis, edema Results & Data Vital Signs (Past 12 Hours) Vital Signs Temp Pulse Pulse Resp BP Pulse Ox 09/16/19 11:42 69 18 118/59 L 92 09/16/19 07:31 77 18 125/55 L 98 09/16/19 07:19 36.5 C 78 12 130/65 99 09/16/19 04:00 36.3 C L 09/16/19 03:00 71 18 135/80 99 09/16/19 01:46 58 L PG Care Time/CCT Total # of Minutes Spent Total Time Spent with Patient: Total time spent is greater than 50% in coordination of care (as documented) at patient's floor/unit and/or counseling patient: (1) Altered mental status Altered mental status type: unspecified Qualified Code(s): R41.82 - Altered mental status, unspecified (2) Hypotension Hypotension type: unspecified hypotension type Qualified Code(s): I95.9 - Hypotension, unspecified (3) Hypothermia Encounter type: initial encounter Qualified Code(s): T68.XXXA - Hypothermia, initial encounter (4) Diabetes mellitus Diabetes mellitus type: type 2 Diabetes mellitus alf insulin use: without terminal make up operator use Diabetes mellitus complication status: with hyperglycemia Qualified Code(s): E11.65 - Type 2 diabetes mellitus with hyperglycemia
[2019-09-16] MEDS: OLANZapine 20 MG TABLET PO SCH (20:17)
[2019-09-16] MEDS: DOCUSATE SODIUM 100 MG CAP PO SCH (20:22)
[2019-09-17] MEDS: RAMELTEON: ORDER AWAITING ACTION SCH ×3 (00:39→17:59)
[2019-09-17] MEDS: HYDROCORTISONE SOD 10 MG in SYRINGE 0 ML IV SCH ×4 (00:39→18:39)
[2019-09-17] MEDS: LORazepam 1 MG/2 ML VIAL IV PRN ×2 (06:09→12:22)
[2019-09-17 07:43] LABS: Hematocrit (blood only) 34.7 % (42-52); Hemoglobin 10.8 g/dL (14.0-18.0); Lymphocytes # (auto) 1.84 K/uL (1.2-3.4); Lymphocytes % (auto) 40.7 %; Mean Corpuscular Hemoglobin 29.5 pg (25-34); Mean Corpuscular Hgb Conc 31.1 g/dL (32-36); Mean Corpuscular Volume 94.8 fL (80-100); Mean Platelet Volume 11.2 fL (7.4-10.4); Monocytes # (auto) 0.27 K/uL (0.11-0.59); Neutrophils # (auto) 2.41 K/uL (1.4-6.5); Neutrophils % (auto) 53.3 %; Platelet Count 171 K/uL (130-400); RDW Coefficient of Variation 15.2 % (11.5-14.5); Red Blood Count 3.66 M/uL (4.7-6.1); White Blood Count 4.52 K/uL (4.8-10.8)
[2019-09-17] MEDS: FERROUS SULFATE 325 MG TAB PO SCH (07:57)
[2019-09-17] MEDS: THIAMINE HCL 100 MG TAB PO SCH ×3 (07:58→20:54)
[2019-09-17] MEDS: CYANOCOBALAMIN (VITAMIN B-12) 100 MCG TABLET PO SCH (07:58)
[2019-09-17] MEDS: ASCORBIC ACID 500 MG TAB PO SCH (08:01)
[2019-09-17] MEDS: OLANZapine 5 MG TABLET PO SCH (08:02)
[2019-09-17] MEDS: MAGNESIUM HYDROXIDE SUSP 30 ML UDC PO PRN (08:05)
[2019-09-17 08:15] LABS: Albumin Level 2.8 gm/dl (3.4-5.0); Calcium 9.8 mg/dl (8.5-10.1); Creatinine Clr Calc Pharmacy 78.9 ml/min; Est GFR (African American) 108.5; Est GFR (Non-African American) 93.6; Magnesium 2.3 mg/dl (1.8-2.4); Potassium 3.6 mmol/L (3.5-5.1)
[2019-09-17 08:18] LABS: Albumin Globulin Ratio 0.7 (0.9-2); Bilirubin,Total 0.3 mg/dl (0.2-1); Globulin 3.9 gm/dl (2.5-4.0); Total Protein 6.7 gm/dl (6.4-8.2)
[2019-09-17] MEDS: INSULIN ASPART 100 UNITS/ML 3 ML PEN SC SCH ×4 (09:01→20:55)
[2019-09-17] MEDS: HEPARIN SOD 5,000 UNIT/0.5 ML VIAL SQ SCH ×2 (09:02→20:54)
--- NOTE | 2019-09-17 14:12 | Hospitalist Progress Note ---
Date of Service September 17, 2019 Assessment & Plan (1) Altered mental status: Patient was previously reported to be improving but seems to be having worsening agitation. I do note that patient's medication regimen was recently changed by psychiatry with lithium being discontinued. Patient is now on Zyprexa but remains very agitated. Feel this may be a combination of encephalopathy, the patient's baseline mental illness, and possible mild to moderate dementia. I did ask psychiatry without the patient to see if there are other additional measures to be taken (2) Diabetes insipidus: Patient's lithium was discontinued. Patient's sodium is 147 today. I did liberalize his diet for fluids. However, as the patient is agitated and now restrained, he will be difficult to administer free water by mouth. Therefore, I did restart the D5W at 100 cc an hour. We will continue to follow sodium levels. (3) Hypernatremia: As noted above, continue to monitor (4) Metabolic acidosis, increased anion gap: Anion gap now closed with rehydration vs. hydrocortisone use. Acidosis also appears to resolved. Anion gap metabolic acidosis on admission Elevated ketones due to fasting state. Lactate normal Urine UDS and ethanol normal. (5) Hypotension: Possible adrenal insufficiency, now improved blood pressure 127/72. (6) Schizoaffective disorder, bipolar type: Appreciate psychiatric management. [place] and Clozaril both discontinued at this stage. Continues on Zyprexa, reconsult as noted above (7) Acute psychosis: As above. Mostly related to metabolic abnormalities Appreciate psychiatry management (8) Hypothermia: Now resolved. Possible adrenal insufficiency Blood cultures negative to date (9) Hyperphosphatemia: Elevated upon admission, could be secondary to acute renal failure Now hypophosphatemic and will continue to monitor for refeeding given degree of starvation. (10) Hypokalemia: Secondary to poor p.o. intake versus adrenal insufficiency -Replace with IV potassium chloride as needed -Follow BMP daily now Na resolved. (11) Acute renal insufficiency: Mild acute kidney injury upon admission with creatinine of 1.5 Now resolved with IV NSS (12) HCV (hepatitis C virus): LFTs are acceptable HCVRNA is not detected. (13) Constipation: No bowel movement here so far No vomiting to suggest bowel obstruction although with recent history of this he is at high risk. Moderate fecal retention on last abdomen pelvis CT August 28, 2019 Continue to monitor as oral intake increases (14) AAA (abdominal aortic aneurysm): Patient had appointment with vascular surgeon last admission for elective repair of abdominal aortic aneurysm since it is 5.7 cm in size. It is infrarenal Follow-up as outpatient (15) Diabetes mellitus: With new onset mild diabetes mellitus, HbA1c 6.9% Continue NovoLog with q6h Accu-Cheks Insulin autoantibody and C-peptide pending although given low glucose of doubtful significance (16) Anemia: Normocytic anemia. Hemoglobin 8.9 and fairly stable from 2 weeks ago His hemoglobin is much improved and is actually trending upward. Is 10.7 today. Other labs are unremarkable. Can follow periodically. -Follow CBC (17) Seizure: Mention of this and reports that occurred at the retirement and was being treated with Ativan and clonazepam? EEG noted to be normal during hospital stay on 07/2019 at [facility] -Follow clinically -Not currently on seizure medication (18) Sinus node dysfunction: Documented vital signs appear to be within normal limits now the last pulse being 69 blood pressure 118/59. Appreciate cardiology review (19) DVT prophylaxis: Heparin 5000 units SQ q.12h Subjective Patient was seen with 4 retirement guards in the room during their shift change. One relates to me that the patient had multiple episodes of behavioral issues. At one point he tried to punch 1 of the guards. At another time, the patient threw his lunch tray and remains agitated. The patient is now in four-point cuffs on the bed. He is ranting but is not coherent. Jail guards tell me that the patient does tend to have periods of confusion at his baseline but is typically not as aggressive as he is today. Physical Exam Physical Exam: Gen: Patient is awake and alert, very confused. Rambling speech, difficult to understand and may not be coherent HEENT: neck supple, no JVD. MMM. Heart: Deferred due to verbalization Lungs: Deferred due to verbalization Abd: soft, nontender, nondistended. Normal BS Neuro: awake, alert. Nonfocal Psych: Agitated in four-point handcuffs on the bed Ext: No clubbing, cyanosis, edema Results & Data Vital Signs (Past 12 Hours) Vital Signs Temp Pulse Resp BP Pulse Ox 09/17/19 12:17 90 17 127/72 100 09/17/19 08:07 36.3 C L 75 18 116/65 98 09/17/19 03:56 36.5 C 60 19 121/78 100 PG Care Time/CCT Total # of Minutes Spent Total Time Spent with Patient: Total time spent is greater than 50% in coordination of care (as documented) at patient's floor/unit and/or counseling patient: (1) Altered mental status Altered mental status type: unspecified Qualified Code(s): R41.82 - Altered mental status, unspecified (2) Hypotension Hypotension type: unspecified hypotension type Qualified Code(s): I95.9 - Hypotension, unspecified (3) Hypothermia Encounter type: initial encounter Qualified Code(s): T68.XXXA - Hypothermia, initial encounter (4) Diabetes mellitus Diabetes mellitus type: type 2 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
[2019-09-17] MEDS: DEXTROSE 5% 500 ML IV SCH ×2 (15:14→20:55)
--- NOTE | 2019-09-17 18:18 | Communication Note ---
Date of Service: September 17, 2019 Received request for re-evaluation due to reported increased agitation today. As patient was asleep at time of availability for re-evaluation, it was deemed most productive to allow him to rest. Will follow-up with patient in the morning, as medications are in place for urgent needs to manage agitation. Would prefer to be able to examine patient prior to recommending major changes to treatment course. As per initial psychiatric consultation, IM olanzapine should be utilized for PO medication refusal in order to ensure medication is being provided routinely. As a reminder - lorazepam and IM olanzapine should not be utilized within an hour of each other.
[2019-09-17] MEDS: OLANZapine 20 MG TABLET PO SCH (20:54)
[2019-09-17] MEDS: DOCUSATE SODIUM 100 MG CAP PO SCH (21:00)
[2019-09-18] MEDS: HYDROCORTISONE SOD 10 MG in SYRINGE 0 ML IV SCH ×4 (00:47→18:31)
[2019-09-18] MEDS: RAMELTEON: ORDER AWAITING ACTION SCH ×3 (00:48→16:31)
[2019-09-18] MEDS: DEXTROSE 5% 500 ML IV SCH ×2 (01:41→01:53)
[2019-09-18] MEDS: DEXTROSE 5% 1,000 ML IV SCH ×3 (01:54→22:32)
[2019-09-18 08:12] LABS: BUN Creatinine Ratio 16.6 (10-20); Calcium 9.8 mg/dl (8.5-10.1); Creatinine Clr Calc Pharmacy 78.4 ml/min; Est GFR (Non-African American) 93.2; Magnesium 2.1 mg/dl (1.8-2.4); Potassium 3.4 mmol/L (3.5-5.1)
[2019-09-18] MEDS: INSULIN ASPART 100 UNITS/ML 3 ML PEN SC SCH ×4 (09:12→20:53)
[2019-09-18] MEDS: THIAMINE HCL 100 MG TAB PO SCH ×3 (09:32→20:52)
[2019-09-18] MEDS: FERROUS SULFATE 325 MG TAB PO SCH (09:32)
[2019-09-18] MEDS: ASCORBIC ACID 500 MG TAB PO SCH (09:33)
[2019-09-18] MEDS: OLANZapine 5 MG TABLET PO SCH (09:33)
[2019-09-18] MEDS: HEPARIN SOD 5,000 UNIT/0.5 ML VIAL SQ SCH (09:35)
--- NOTE | 2019-09-18 09:37 | Hospitalist Progress Note ---
Date of Service September 18, 2019 Assessment & Plan (1) Altered mental status: Patient's confusion remains concerning. Patient does have significant psychiatric illness as well as possible metabolic process as well. I did appreciate psychiatry re-eval, they recommendations have not changed and the patient should be continued on Zyprexa. Ativan can be used for significant agitation. 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 (2) Diabetes insipidus: Patient's lithium was discontinued. Patient's sodium is improved today, patient is in four-point and refusing oral intake so he is now on D5W. We will changes to include potassium as his case is trending down. Will need to restart liberal fluid intake soon as he is able. (3) Hypernatremia: As noted above, continue to monitor (4) Metabolic acidosis, increased anion gap: Anion gap now closed with rehydration vs. hydrocortisone use. Acidosis a lso appears to resolved. Metabolic acidosis seems to be resolved from laboratory work. He is still mildly hyperchloremic although this is also improved with hydration and may been secondary to volume contraction. (5) Hypotension: Possible adrenal insufficiency, now improved blood pressure but seems to have bradycardia which is difficult to explain. Patient is on no negative chronotropic meds. Blood pressure appears to be stable will continue for now, monitor. Replete electrolytes, check magnesium. I do see the patient was evaluated by cardiology 09/14 with no further recommendations. (6) Schizoaffective disorder, bipolar type: Appreciate psychiatric management. [place] and Clozaril both discontinued at this stage. Continues on Zyprexa, reconsult as noted above (7) Acute psychosis: As above. Mostly related to metabolic abnormalities Appreciate psychiatry management (8) Hypothermia: Now resolved. Possible adrenal insufficiency Blood cultures negative to date (9) Hyperphosphatemia: Elevated upon admission, could be secondary to acute renal failure Now hypophosphatemic and will continue to monitor for refeeding given degree of starvation. (10) Hypokalemia: Secondary to poor p.o. intake versus adrenal insufficiency Addition of potassium as noted above, follow BMP. (11) Acute renal insufficiency: Mild acute kidney injury upon admission with creatinine of 1.5 Now resolved with IV NSS (12) HCV (hepatitis C virus): LFTs are acceptable HCVRNA is not detected. (13) Constipation: No bowel movement here so far No vomiting to suggest bowel obstruction although with recent history of this he is at high risk. Moderate fecal retention on last abdomen pelvis CT August 28, 2019 Continue to monitor as oral intake increases (14) AAA (abdominal aortic aneurysm): Patient had appointment with vascular surgeon last admission for elective repair of abdominal aortic aneurysm since it is 5.7 cm in size. It is infrarenal Follow-up as outpatient (15) Diabetes mellitus: With new onset mild diabetes mellitus, HbA1c 6.9% Continue NovoLog with q6h Accu-Cheks Insulin autoantibody and C-peptide pending although given low glucose of doubtful significance (16) Anemia: Normocytic anemia. Hemoglobin 8.9 and fairly stable from 2 weeks ago His hemoglobin is much improved and is actually trending upward. Is 10.7 today. Other labs are unremarkable. Can follow periodically. -Follow CBC (17) Seizure: Mention of this and reports that occurred at the longterm and was being treated with Ativan and clonazepam? EEG noted to be normal during hospital stay on 07/2019 at [facility] -Follow clinically -Not currently on seizure medication (18) Sinus node dysfunction: Documented vital signs appear to be within normal limits now the last pulse being 69 blood pressure 118/59. Appreciate cardiology review (19) DVT prophylaxis: Heparin 5000 units SQ q.12h Subjective Patient is awake and alert today. He remains very confused and somewhat oppositional. He is in continued four-point restraints in the bed. Guards at bedside tell me they did try to feed him this morning but the patient would acc ept food. He is able to communicate with as his speech is somewhat dysarthric and may not be entirely coherent. Nurse reports that the patient has had some hypothermia and temp is recorded is 35.8 Celsius. He is also had ongoing bradycardia with a pulse as low as the 30s. Physical Exam Physical Exam: Gen: AA, agitated and difficult to understand, possibly incoherent HEENT: neck supple, no JVD. MMM. Heart: RR, no murmurs, bradycardic, limited exam Lungs: clear to auscultation in all ricci, limited exam Abd: soft, nontender, nondistended. Normal BS Neuro: awake, alert. Nonfocal Psych: Bizarre affect described above Ext: No clubbing, cyanosis, edema, remains in four-point restraints Results & Data Vital Signs (Past 12 Hours) Vital Signs Temp Pulse Pulse Resp BP Pulse Ox 09/18/19 08:37 35.8 C L 09/18/19 07:12 35.5 C L 51 L 18 137/74 100 09/18/19 03:00 36.3 C L 73 19 130/62 99 09/18/19 00:45 55 L 09/17/19 23:02 36.2 C L 101 H 20 134/84 98 PG Care Time/CCT Total # of Minutes Spent Total Time Spent with Patient: Total time spent is greater than 50% in coordination of care (as documented) at patient's floor/unit and/or counseling patient: (1) Altered mental status Altered mental status type: unspecified Qualified Code(s): R41.82 - Altered mental status, unspecified (2) Hypotension Hypotension type: unspecified hypotension type Qualified Code(s): I95.9 - Hypotension, unspecified (3) Hypothermia Encounter type: initial encounter Qualified Code(s): T68.XXXA - Hypothermia, initial encounter (4) Diabetes mellitus Diabetes mellitus type: type 2 Diabetes mellitus terminologist insulin use: without care home use Diabetes mellitus complication status: with hyperglycemia Qualified Code(s): E11.65 - Type 2 diabetes mellitus with hyperglycemia :
[2019-09-18] MEDS: CYANOCOBALAMIN (VITAMIN B-12) 100 MCG TABLET PO SCH (10:19)
[2019-09-18] MEDS: POTASSIUM CHLORIDE / WTR 10 MEQ/100 ML PLCT IV SCH ×3 (10:21→14:01)
[2019-09-18] MEDS ORDERED: CHLORPROMAZINE HCL 25 MG TABLET PO PRN (15:33)
--- NOTE | 2019-09-18 15:37 | Psychiatric Progress Note ---
Date of Service September 18, 2019 Impression / Recommendations Impression Per 09/13 Evaluation - Complicate a 59-year-old incarcerated gentleman with a history of schizoaffective disorder and recently complicated medical history. He has been discontinued from what sounds to have been a long-standing regimen of clozapine and lithium between July and August of this year during medical hospitalizations. That medication regimen had historically been stabilizing per outside records. Presently he appears delirious however it sounds that it is possible that he has demonstrated a progressive decompensation of his mental status since these medication changes have been made as well. He does not demonstrate s/o NMS. At this point acute treatment goals from a psychiatric perspective would be to keep the patient calm such that his underlying medical conditions can be treated. As suggested by the outside physician at the nursing home, reinitiation of clozapine could be considered however this will take weeks to re-titrate and requires compliance w/ PO meds and we will defer that for the time being. Instead will add a 5 mg morning dose of olanzapine p.o. or IM (for p.o. refusal) in addition to his scheduled nightly dose of 20 mg at bedtime and discontinue the Haldol prn due to reported allergy (more likely intolerance.) Patient may require disposition to nursing home system MHU if he does not reconsolidate in his thought process as delirium clears. (1) Schizoaffective disorder, bipolar type: 09/13 - zyprexa 5mg qm, 20mg qhs - give olanzapine IM if refuses PO - considering reinitiation of clozapine but increases risk for seizure and will take weeks to retitrate 09/18 - Recommend titrating Zyprexa to 10mg qAM and 20mg qHS - IM Zyprexa for PO refusal as above (2) Delirium due to another medical condition, acute, mixed level of activity: 09/13 - supportive care while treating active medical conditions - reorientation prn - would prefer not to use benzodiazepine however we may need to add an ativan 1mg IV q4h prn if his agitation persists despite the olanzapine (with goal to use w/ minimal frequency). if ativan prn is started it should not be given within 1 hour of IM zyprexa. 09/18 - Recommend utilization of chlorpromazine 50mg q4h prn agitation, as alternative to lorazepam as patient continues to demonstrate agitation and disorganization - Continue routine reorientation as above Risk Factors Assessment Do You Have Access To A Gun?: No Interval History Identifying Information 59-year-old prisoner with reported history of schizoaffective disorder and multiple medical problems admitted through the ER from [facility]. Initial psychiatric consultation was requested to evaluate patient for "acute psychosis." We examination was requested due to "continued behavioral disturbance." Chief Complaint "Who are you? You hear that voice don't you?" - directed to photographic intelligence officer Review of Systems Notes Patient does not verbalize any acute physical complaints. Difficulty gathering full review of systems due to level of disorganization. Subjective Subjective Patient's case was reviewed with psychiatric nurse liaison and supervising psychiatrist. Patient is seen on psychiatric consult service to reevaluate for "continued behavioral disturbance." It is reported that patient had been demonstrating increased agitation yesterday, with reports of attempting to punch corrections officers, spitting on individuals, and requiring four-point restraint to prevent harm to self and others. The patient was reevaluated today, alert during time of examination. When this provider entered the room, the patient stated "who are you?" Than inquired of the photographic intelligence officer if he could also hear this provider's voice. Patient was asked how he was doing after this provider introduced herself. Patient raised his voice, and stated "get the f*ck away from me. Back the f*ck up." This provider did as patient requested, and backed away from his bed. Attempts were continued to gather information from the patient, who continued to verbalize nonsensical statements. No significant history could be obtained from the patient at this time. Fortunately, corrections officers were present for observation yesterday, and state agitation appears to be worsened today. Both corrections officers and nursing staff state they have not noticed a correlation between any specific interventions and the patient's agitation. They state for the most part his reactions are "random." When this provider again attempted to speak with the patient, he responded by saying, "you f*cking get the f*ck out of my room." Again, this provider did as patient requested in order to prevent further agitation. Physical Exam Psychiatric Orientation: alert and oriented to person; + not oriented to place, + not oriented to time and + uncooperative (And agitated) Apperance: appropriately dressed (In hospital gown) and + disheveled Underweight appearing -[place] male, alert and appearing agitated. Hair and matt appear clean; however, patient is disheveled. Eye Contact: + fair eye contact (Intently staring, wide eyed) Motor Behavior: + psychomotor agitation Appearing restless, frequently pulling at handcuffs attached to bed Speech: + abnormal rate/rhythm/volume of speech (Speech is nonsensical) Affect: + irritable affect Thought Process: + thought process not goal directed (Disorganized, incoherent) and + thought association not intact Insight: + severely impaired insight Judgement: + severely impaired judgement Vital Signs (Past 24 Hours) Last Vital Signs Temp 36.7 C 09/18/19 15:07 Pulse 50 L 09/18/19 11:38 Resp 18 09/18/19 11:38 BP 103/60 09/18/19 11:38 Pulse Ox 100 09/18/19 11:38 Results & Data Laboratory Results Laboratory Results - last 24 hr 09/17/19 09/18/19 09/18/19 16:14 07:30 07:33 Sodium 144 Potassium 3.4 L Chloride 114 H Carbon Dioxide 26 Anion Gap 5.0 BUN 15 Creatinine 0.90 Est Cr Clr Drug Dosing 78.4 Est GFR ( Amer) 108.0 Est GFR (Non-Af Amer) 93.2 BUN/Creatinine Ratio 16.6 Glucose 146 H POC Glucose 113 H 145 H Calcium 9.8 Phosphorus 3.0 Magnesium 2.1 09/18/19 12:00 Sodium Potassium Chloride Carbon Dioxide Anion Gap BUN Creatinine Est Cr Clr Drug Dosing Est GFR ( Amer) Est GFR (Non-Af Amer) BUN/Creatinine Ratio Glucose POC Glucose 121 H Calcium Phosphorus Magnesium Current Inpatient Medications Current Inpatient Medications: Current Inpatient Medications Acetaminophen (Tylenol) 650 mg PO Q4H PRN PRN Reason: Pain or Fever Stop: 10/12/19 16:10 Al Hydrox/Mg Hydrox/Simethicone (Maalox) 15 ml PO Q4H PRN PRN Reason: Dyspepsia Stop: 10/12/19 16:10 Ascorbic Acid (Vitamin C) 500 mg PO QAM DIANA Stop: 10/13/19 08:59 Last Admin: 09/18/19 09:33 Dose: 500 mg Documented by: Cyanocobalamin (Vitamin B-12) 100 mcg PO DAILY DIANA Stop: 10/13/19 08:59 Last Admin: 09/18/19 10:19 Dose: 100 mcg Documented by: Dextrose (Dextrose 50%) 25 - 50 ml IV UD PRN; Protocol PRN Reason: Hypoglycemia Protocol Stop: 10/13/19 10:04 Docusate Sodium (Colace) 200 mg PO HS DIANA; Protocol Stop: 10/12/19 20:59 Last Admin: 09/17/19 21:00 Dose: 200 mg Documented by: Ferrous Sulfate (Feosol) 325 mg PO DAILY DIANA Stop: 10/13/19 08:59 Last Admin: 09/18/19 09:32 Dose: 325 mg Documented by: Glucagon (Glucagen) 1 mg SQ UD PRN; Protocol PRN Reason: Hypoglycemia Protocol Stop: 10/13/19 10:04 Glucose (Dex4 Glucose) 4 - 8 tabs PO UD PRN; Protocol PRN Reason: Hypoglycemia Protocol Stop: 10/13/19 10:04 Glucose (Glucose 40%) 15 - 30 gm PO UD PRN; Protocol PRN Reason: Hypoglycemia Protocol Stop: 10/13/19 10:04 Lorazepam (Ativan) 1 mg in 2 mls @ 2 mls/min IV Q4H PRN PRN Reason: Agitation Stop: 10/13/19 11:43 Last Admin: 09/17/19 12:22 Dose: 2 mls/min Documented by: Hydrocortisone Sodium (Succinate 10 mg/ Syringe) 0.2 mls @ 4 mls/min IV Q6 DIANA Stop: 10/14/19 17:59 Last Admin: 09/18/19 12:03 Dose: 4 mls/min Documented by: Dextrose (D5w) 1,000 mls @ 100 mls/hr IV .Q10H DIANA Stop: 10/18/19 01:59 Last Admin: 09/18/19 12:01 Dose: 100 mls/hr Documented by: Insulin Aspart (Novolog Flexpen) 0 units SC ACHS [facility] Stop: 10/13/19 11:29 Last Admin: 09/18/19 12:03 Dose: Not Given Documented by: Magnesium Hydroxide (Milk Of Magnesia) 60 ml PO DAILY PRN PRN Reason: Constipation Stop: 10/12/19 16:10 Last Admin: 09/17/19 08:05 Dose: 60 ml Documented by: Magnesium Hydroxide (Milk Of Magnesia) 30 ml PO Q12H PRN PRN Reason: Constipation Stop: 10/12/19 16:10 Miscellaneous (Order Awaiting Action) 1 ea N/A QS DIANA Stop: 10/13/19 16:59 Last Admin: 09/18/19 09:10 Dose: Not Given Documented by: Miscellaneous (Carbohydrates For Hypoglycemia) 15 - 30 gm PO UD PRN PRN Reason: Hypoglycemia Protocol Stop: 10/13/19 10:04 Olanzapine (Zyprexa) 20 mg PO HS DIANA Stop: 10/12/19 20:59 Last Admin: 09/17/19 20:54 Dose: 20 mg Documented by: Olanzapine (Zyprexa) 10 mg IM HS PRN PRN Reason: If unable to take PO dose Stop: 10/14/19 08:52 Ondansetron HCl (Zofran) 4 mg IV Q6H PRN PRN Reason: Nausea Stop: 10/12/19 16:10 Polyethylene Glycol (Miralax Powder Packet) 17 gm PO ONCE PRN PRN Reason: constipation Stop: 10/12/19 16:10 Thiamine HCl (Vitamin B-1) 100 mg PO TID [facility] Stop: 10/16/19 08:59 Last Admin: 09/18/19 13:59 Dose: 100 mg Documented by:
[2019-09-18] MEDS: OLANZapine 20 MG TABLET PO SCH (20:52)
[2019-09-18] MEDS: DOCUSATE SODIUM 100 MG CAP PO SCH (22:33)
[2019-09-19] MEDS: RAMELTEON: ORDER AWAITING ACTION SCH ×3 (00:11→16:04)
[2019-09-19] MEDS: HYDROCORTISONE SOD 10 MG in SYRINGE 0 ML IV SCH ×4 (00:59→18:40)
[2019-09-19] MEDS: LORazepam 1 MG/2 ML VIAL IV PRN (01:20)
[2019-09-19 08:23] LABS: Hematocrit (blood only) 36.7 % (42-52); Hemoglobin 11.5 g/dL (14.0-18.0); Immature Granulocytes # (auto) 0.01 K/uL (0.00-0.02); Immature Granulocytes % (auto) 0.2 %; Lymphocytes # (auto) 1.37 K/uL (1.2-3.4); Lymphocytes % (auto) 28.3 %; Mean Corpuscular Hemoglobin 29.7 pg (25-34); Mean Corpuscular Hgb Conc 31.3 g/dL (32-36); Mean Corpuscular Volume 94.8 fL (80-100); Mean Platelet Volume 12.6 fL (7.4-10.4); Monocytes # (auto) 0.49 K/uL (0.11-0.59); Monocytes % (auto) 10.1 %; Neutrophils # (auto) 2.97 K/uL (1.4-6.5); Neutrophils % (auto) 61.4 %; Platelet Count 149 K/uL (130-400); RDW Coefficient of Variation 15.4 % (11.5-14.5); RDW Standard Deviation 53.2 fL (36.4-46.3); Red Blood Count 3.87 M/uL (4.7-6.1); White Blood Count 4.84 K/uL (4.8-10.8)
[2019-09-19 08:53] LABS: BUN Creatinine Ratio 12.5 (10-20); Calcium 9.7 mg/dl (8.5-10.1); Creatinine Clr Calc Pharmacy 81.8 ml/min; Magnesium 2.2 mg/dl (1.8-2.4); Phosphorus 2.8 mg/dl (2.5-4.9); Potassium 3.8 mmol/L (3.5-5.1)
[2019-09-19] MEDS: DEXTROSE 5% 1,000 ML IV SCH ×2 (09:33→19:00)
[2019-09-19] MEDS: FERROUS SULFATE 325 MG TAB PO SCH (09:34)
[2019-09-19] MEDS: CYANOCOBALAMIN (VITAMIN B-12) 100 MCG TABLET PO SCH (09:34)
[2019-09-19] MEDS: OLANZapine 10 MG TAB PO SCH (09:34)
[2019-09-19] MEDS: THIAMINE HCL 100 MG TAB PO SCH ×3 (09:34→20:29)
[2019-09-19] MEDS: ASCORBIC ACID 500 MG TAB PO SCH (09:34)
[2019-09-19] MEDS: INSULIN ASPART 100 UNITS/ML 3 ML PEN SC SCH ×4 (09:37→20:28)
[2019-09-19] MEDS: MAGNESIUM HYDROXIDE SUSP 30 ML UDC PO PRN (09:48)
--- NOTE | 2019-09-19 20:26 | Hospitalist Progress Note ---
Date of Service September 19, 2019 Assessment & Plan (1) Altered mental status: Suspect combination of metabolic encephalopathy - possible infection left 3rd finger, hypernatremia, hypothermia, etc - in setting of chronic mental health d/o (schizoaffective d/o). Remains on Zyprexa BID. Ativan prn agitation. Previously was on clozaril - his primary psychiatrist has suggested potentially going back on such. I passed this on to the psych liason today. Previously was on lithium - discontinued due to nephrogenic DI. CT head this admission wnl. MRI brain would be helpful but he would be too agitated for such. Ammonia, B12, TSH wnl. B1 level pending. Thiamine 100mg TID was started after level was sent. Check RPR to be complete. (2) Diabetes insipidus: Nephrogenic. 2nd to lithium. Montrose has been d/c. Hypernatremia is improved. Will attempt to wean dextrose-containing fluids. If hypernatremia recurs, large volume dilute urine persists, etc -- may need DDAVP. BMP am. (3) Hypernatremia: As noted above in "DI" (4) Metabolic acidosis, increased anion gap: resolved (5) Hypotension: with concomitant hypothermia at time of admission. adrenal insufficiency was suspected - was placed on empiric steroids. cortisol levels (random) were 15 and 19, however, making adrenal insuff highly unlikely will start to wean steroids (was on QID dosing; cut to BID dosing) due to sepsis?? (6) Schizoaffective disorder, bipolar type: Appreciate psychiatric management. Montrose and Clozaril both discontinued. Remains on Zyprexa BID. See discussion above in "altered MS" 4-point restraints remain due to significant agitation according to guards and concern for injury (7) Hypothermia: cause? TSH and Free T4 wnl Cortisol wnl hypothalamic dysfunction? sepsis? other? (8) Hyperphosphatemia: resolved (9) Hypokalemia: resolved (10) Acute renal insufficiency: Mild acute kidney injury upon admission with creatinine of 1.5 resolved 2nd volume depletion (11) Constipation: ongoing place on miralax +/- senna (12) AAA (abdominal aortic aneurysm): 5.7 cm in size. Infra-renal. Follow-up as outpatient (13) Diabetes mellitus: HbA1c 6.9% Continue NovoLog ac/hs prn Sugars will improve once off IV steroids and dextrose-containing fluids Will consider lantus type 1?? (14) Anemia: stable follow (15) Seizure: question of seizure in the past. however, EEG noted to be normal during hospital stay on 07/2019 at [facility] Not on AEDs at this time (16) Sinus node dysfunction: cardiology consult obtained likely due to recent hypothermia no Rx (17) Finger deformity: left 3rd finger start with x-rays r/o fracture, osteomyelitis, etc low threshold for abx - appears to have cellulitic component (18) DVT prophylaxis: Heparin 5000 units SQ q.12h Subjective patient unable to provide any meaningful history. still in 4-pt restraints. one of the guards has been on his watch for 2 days and states he has become more calm during that time period. appetite is very poor. Review of Systems Review of Systems: Unobtainable due to cognitive status Physical Exam Constitutional: + cachectic, + altered mental status and + frail appearing; + not well developed, + not well nourished and no acute distress Eyes: PERRL; no nystagmus ENMT: external ear and nose normal, oropharynx normal Respiratory: normal respiratory effort, lungs clear to auscultation Cardiovascular: Rate/Rhythm: regular rate and regular rhythm Heart Sounds: normal S1 and normal S2; no murmur Vessels: no JVD Extremities: no edema heart tones distant Gastrointestinal (Abdomen): normal bowel sounds, soft, nontender, no hepatosplenomegaly Musculoskeletal: left 3rd digit - erythematous, skin breakdown, nail is distorted/damaged; both hands very cool, cap refill >2 sec, clubbing of all fingernails Skin: + pallor Neurologic: moves all extremities Psychiatric: Orientation: alert; + not oriented x 3 Results & Data Vital Signs (Past 12 Hours) Vital Signs Temp Pulse Resp BP Pulse Ox 09/19/19 19:00 36.9 C 82 20 128/63 95 09/19/19 15:34 36.4 C L 66 21 112/65 91 09/19/19 12:23 36.4 C L 91 H 17 118/66 100 Laboratory Results Laboratory Results - last 24 hr 09/19/19 09/19/19 09/19/19 07:49 07:58 07:58 WBC 4.84 RBC 3.87 L Hgb 11.5 L Hct 36.7 L MCV 94.8 MCH 29.7 MCHC 31.3 L RDW Std Deviation 53.2 H RDW Coeff of Shamar 15.4 H Plt Count 149 MPV 12.6 H Immature Gran % (Auto) 0.2 Neut % (Auto) 61.4 Lymph % (Auto) 28.3 Addison % (Auto) 10.1 Eos % (Auto) 0.0 Baso % (Auto) 0.0 Immature Gran # (Auto) 0.01 Neut # (Auto) 2.97 Lymph # (Auto) 1.37 Addison # (Auto) 0.49 Eos # (Auto) 0.00 Baso # (Auto) 0.00 Sodium 142 Potassium 3.8 Chloride 112 H Carbon Dioxide 26 Anion Gap 4.0 BUN 11 Creatinine 0.88 Est Cr Clr Drug Dosing 81.8 Est GFR ( Amer) 109.0 Est GFR (Non-Af Amer) 94.0 BUN/Creatinine Ratio 12.5 Glucose 141 H POC Glucose 141 H Calcium 9.7 Phosphorus 2.8 Magnesium 2.2 Free T4 09/19/19 09/19/19 09/19/19 07:58 11:27 16:39 WBC RBC Hgb Hct MCV MCH MCHC RDW Std Deviation RDW Coeff of Shamar Plt Count MPV Immature Gran % (Auto) Neut % (Auto) Lymph % (Auto) Addison % (Auto) Eos % (Auto) Baso % (Auto) Immature Gran # (Auto) Neut # (Auto) Lymph # (Auto) Addison # (Auto) Eos # (Auto) Baso # (Auto) Sodium Potassium Chloride Carbon Dioxide Anion Gap BUN Creatinine Est Cr Clr Drug Dosing Est GFR ( Amer) Est GFR (Non-Af Amer) BUN/Creatinine Ratio Glucose POC Glucose 119 H 81 Calcium Phosphorus Magnesium Free T4 1.54 PG Care Time/CCT Total # of Minutes Spent Total Time Spent with Patient: Total time spent is greater than 50% in coordination of care (as documented) at patient's floor/unit and/or counseling patient: (1) Diabetes mellitus Diabetes mellitus complication status: with hyperglycemia 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 insulin use: without care home use Diabetes mellitus type: type 2 Qualified Code(s): E11.65 - Type 2 diabetes mellitus with hyperglycemia (2) AAA (abdominal aortic aneurysm) Presence of rupture: without rupture Qualified Code(s): I71.4 - Abdominal aortic aneurysm, without rupture (3) Anemia Anemia type: other cause Other causes of anemia: other cause, not classified Qualified Code(s): D64.89 - Other specified anemias (4) Hypothermia Encounter type: initial encounter Qualified Code(s): T68.XXXA - Hypothermia, initial encounter (5) Altered mental status Altered mental status type: unspecified Qualified Code(s): R41.82 - Altered mental status, unspecified (6) Hypotension Hypotension type: unspecified hypotension type Qualified Code(s): I95.9 - Hypotension, unspecified (7) Constipation Constipation type: other constipation type Qualified Code(s): K59.09 - Other constipation (8) Finger deformity Laterality: left Qualified Code(s): M20.002 - Unspecified deformity of left finger(s)
[2019-09-19] MEDS: OLANZapine 20 MG TABLET PO SCH (20:29)
[2019-09-19] MEDS: DOCUSATE SODIUM 100 MG CAP PO SCH (20:32)
[2019-09-20] MEDS: RAMELTEON: ORDER AWAITING ACTION SCH ×3 (00:17→17:39)
[2019-09-20] MEDS: DEXTROSE 5% 1,000 ML IV SCH ×2 (05:03→17:42)
[2019-09-20] MEDS: INSULIN ASPART 100 UNITS/ML 3 ML PEN SC SCH ×4 (08:35→21:13)
[2019-09-20] MEDS: HYDROCORTISONE SOD 10 MG in SYRINGE 0 ML IV SCH ×2 (08:35→17:39)
[2019-09-20] MEDS: CYANOCOBALAMIN (VITAMIN B-12) 100 MCG TABLET PO SCH (08:36)
[2019-09-20] MEDS: ASCORBIC ACID 500 MG TAB PO SCH (08:36)
[2019-09-20] MEDS: OLANZapine 10 MG TAB PO SCH (08:37)
[2019-09-20] MEDS: THIAMINE HCL 100 MG TAB PO SCH ×3 (08:37→21:13)
[2019-09-20] MEDS: FERROUS SULFATE 325 MG TAB PO SCH (08:37)
[2019-09-20 08:45] LABS: BUN Creatinine Ratio 14.8 (10-20); Calcium 9.6 mg/dl (8.5-10.1); Creatinine Clr Calc Pharmacy 86.2 ml/min; Est GFR (African American) 110.5; Est GFR (Non-African American) 95.4; Potassium 3.6 mmol/L (3.5-5.1)
--- NOTE | 2019-09-20 09:50 | XRay Report ---
XR finger LT min 2V HISTORY: 59 years-old Male LEFT 3rd finger infection; ?osteomyelitis acute infection of the third di git COMPARISON: Left hand radiographs 08/28/2019 TECHNIQUE: 3 views of the left third finger FINDINGS: Prior dictation of the fourth finger at the level of the PIP joint. Bony erosive changes at the secon d distal phalangeal tuft is redemonstrated. Additional bony erosive changes of the mid and distal asp ects third distal phalanx are noted which have progressed from comparison. Soft tissue defect of the distal fingers also noted. IMPRESSION: 1. Bony erosive changes of the third distal phalanx have progressed from 08/28/2019 suggestive of acu te osteomyelitis. 2. Mild erosive changes of the second distal phalanx may have also progressed in the interval. Correl ate clinically to exclude additional site of osteomyelitis. The above report was generated using voice recognition software. It may contain grammatical, syntax o r spelling errors. Electronically signed by: Isidro Mak M.D. 09/20/2019 9:49 AM
--- NOTE | 2019-09-20 10:19 | Cardiology Progress Note ---
Date of Service September 20, 2019 Assessment & Plan (1) Sinus node dysfunction: He clearly had sinus node dysfunction on admission and he has had it several times since but to a lesser degree. I do not know if this has been diagnosed in the past, it may be something that he has had for some time or it may be exacerbated by his acute presentation. It has improved with medical treatment and a lot of it was probably due to diffuse metabolic abnormalities. So far I do not see anything that is terribly concerning and it is impossible to determine whether he was having any symptoms. Perhaps in the future we can get better correlation with symptoms and rhythm, but if he is asymptomatic and the rhythm has improved with correction of his metabolic abnormalities I would not pursue further evaluation or treatment. For the moment I would simply observe while he is in the hospital. (2) Long QT interval: On his admission electrocardiogram he had a long QT interval. I suspect that was related to his metabolic derangements. A repeat electrocardiogram shows normalization of his QT interval. I would not pursue this further. Subjective He is not communicative today. He seems to be in good spirits and he responds when question but does not make any sense. He seems to be complaining of a rash on his arm, I do not think he has any cardiovascular complaints. Physical Exam Physical Exam: Constitutional: Alert, cooperative and in no distress. He is shackled to the bed. He is very thin. Pulmonary: Clear to auscultation bilaterally. Cardiac: Regular rhythm with no murmur, gallop or rub. Abdomen: Soft, nontender with normal bowel sounds. Extremities: No edema. Skin: No rash, ecchymoses or petechiae. Results & Data Vital Signs (Past 12 Hours) Vital Signs Temp Pulse Pulse Resp BP Pulse Ox 09/20/19 07:12 69 09/20/19 07:10 36.2 C L 52 L 18 122/69 99 09/20/19 04:12 36.8 C 65 20 128/70 100 09/20/19 00:00 58 L 09/19/19 23:50 36.9 C 64 20 129/62 95 Laboratory Results Abnormal lab results 09/19/19 09/19/19 09/20/19 Range/Units 11:27 20:26 07:26 Chloride (98-107) mmol/L Glucose (70-99) mg/dl POC Glucose 119 H 179 H 131 H (70-99) 09/20/19 Range/Units 07:58 Chloride 112 H (98-107) mmol/L Glucose 139 H (70-99) mg/dl POC Glucose (70-99) Diagnostic Findings Telemetry: Sinus rhythm, some sinus bradycardia, PVCs. Occasionally heart rates in the 30s (last time yesterday), probably not significant. PG Care Time/CCT Total # of Minutes Spent Total Time Spent with Patient: Total time spent is greater than 50% in coordination of care (as documented) at patient's floor/unit and/or counseling patient:
[2019-09-20 12:18] LABS: C-Peptide 0.73 L
[2019-09-20] MEDS ORDERED: VANCOMYCIN CONSULT ACTIVE PRN (12:21)
[2019-09-20] MEDS ORDERED: VANCOMYCIN HCL 1,750 MG in SODIUM CHLORIDE 0.9% 500 ML IV ONE (13:30)
--- NOTE | 2019-09-20 15:11 | Pharmacy Report ---
Pharmacy Abx Initial Consult - Date of Service September 20, 2019 - Pharmacy Dosing Scope Date of Consult: [09/20 Consultation requested by: Dr. Rae Pharmacy is consulted to initiate vancomycin IV/PO dosing therapy, order appropriate labs and adjust drug dose/frequency. - Subjective The patient is a 59 year old M admitted on 09/12/19 14:35. - Objective Height: 6 ft 3 in Weight: 65.1 kg Vital Signs (Past 12hrs): Vital Signs Temp Pulse Pulse Resp BP Pulse Ox 09/20/19 15:05 36.4 C L 95 H 18 122/72 95 09/20/19 11:30 35.7 C L 62 18 126/84 100 09/20/19 07:12 69 09/20/19 07:10 36.2 C L 52 L 18 122/69 99 09/20/19 04:12 36.8 C 65 20 128/70 100 Lab Results (24hrs): Laboratory Tests (24 Hours) 09/20/19 07:58 Creatinine 0.85 Est Cr Clr Drug Dosing 86.2 Micro Results: 09/12/19 14:35 Aerobic Blood Culture - Final Blood No growth in Aerobic bottle after 5 days. Anaerobic Blood Culture - Final No growth in Anaerobic bottle after 5 days. 09/12/19 14:36 Aerobic Blood Culture - Final Blood No growth in Aerobic bottle after 5 days. Anaerobic Blood Culture - Final No growth in Anaerobic bottle after 5 days. - Risk Factors for Resistance * Current hospitalization > 5 days - Assessment & Plan Assessment 59 year old M admitted with metabolic acidosis, altered mental status, diabetes insipidus,hypotension. Now concern for osteomyelitis on finger xray today. St arted on vancomycin. Blood cultures are no growth. Plan Vancomycin IV * Received loading dose of vancomycin 1750 mg iv x 1 (~26 mg/kg) * Will start maintenance dose of vancomycin 1250 mg (~19 mg/kg) iv q 12 hrs to achieve estimated trough ~20 mcg/ml (goal for osteo) * Estimated kinetics: t1/29 hrs, ke~.08 hr-1, CrCl ~86 ml/min * Will plan to obtain a trough prior to the 1400 dose on 09/22 to ensure therapeutic - could consider drawing early if renal function changes Pharmacy will continue to follow and will adjust dose/frequency as necessary. Thank you.
--- NOTE | 2019-09-20 17:17 | Consultation Report ---
DATE OF CONSULTATION: 09/20/2019 HISTORY OF PRESENT ILLNESS: This is a 59-year-old [facility] inmate who is serving a life sentence presents for altered mental status on admission on 09/12/2019. He had been in the hospital for the last several days, noticed he has scabbing and ulceration over his left third digit, at which point they ordered x-rays. There is consideration for osteomyelitis, chronic of his left hand third digit distal phalanx and second digit distal phalanx. At this point, Orthopedics has been consulted. The patient has a complicated history with multiple medical comorbidities of which the largest feature is a psychiatric disease. He has had multiple episodes of altered mentation with several visits to the Emergency Department with a recent Life Flight to [facility] as well. During this admission, the patient was in his usual state of health at [facility]. He had complaints of altered mental status with hallucinations, aggression, combativeness and agitation. He was admitted to the hospital for the multiple diagnoses and Orthopedics was then consulted. PAST MEDICAL HISTORY: Significant for bipolar disorder, bowel obstruction, diabetes insipidus, hepatitis C, schizoaffective disorder, metabolic acidosis, hypomagnesemia, hypophosphatemia, acute psychosis, abdominal aortic aneurysm. PAST SURGICAL HISTORY: Previous amputation and surgery, left hand several digits. Rest of the surgical history is noncontributory. ALLERGIES: HALOPERIDOL. MEDICATIONS: Feosol, vitamin B12, docusate sodium, milk of magnesia, spironolactone, MiraLax, olanzapine and Ramelteon. SOCIAL HISTORY: He is a lifetime incarcerated inmate at [facility]. He is a smoker, smokes 1 pack per day; however, he has recently quit smoking due to mandate. Denies alcohol use or drug use. PHYSICAL EXAMINATION: This is a 59-year-old [facility] inmate present with 2 guards present. He is awake and alert; however, he is not oriented to person, place or time. Examination of the left hand demonstrates a previous amputation of the fourth digit of his left hand. He has lytic changes of the distal phalanges of the second distal phalanx and also the third distal phalanx. Cystic change in the distal phalanx of the third digit. No acute fractures noted. Previous partial amputation of distal phalanx of the second digit, is possible. No foreign bodies. Examination of the left hand demonstrates previous amputation of the fourth digit. Dry cracked skin in multiple distal phalanges with apparent prior surgery of the distal phalanx of the second digit. Eschar noted of the third digit, distal phalanx. Fingers are tender to palpation, limited range of motion, distal to the PIP joints of all digits of the left hand. Significant tenderness to palpation of the tips of the fingers of the residual digits. Radial pulses palpable left upper extremity. Limited examination of strength due to the patient's mental status. No proximal redness or streaking of the left hand or digits. No streaking in the forearm. No evidence of phlebitis. LABORATORIES: Reviewed. White blood count 4.84, hemoglobin 11.5, hematocrit 36.7, platelets 149. IMPRESSION: Left hand likely osteomyelitis, chronic third digit distal phalanx and second digit distal phalanx. RECOMMENDATION: As this is likely chronic condition without any evidence of acute involvement of his current mental status change could certainly be managed as an outpatient. Could certainly be maintained on IV antibiotics should there be a concern of another source. However, this appears to be a chronic and stable osteomyelitis, distal phalanges of the second and third digits of the left hand. Would recommend supportive care at this time rather than surgical intervention. We will follow up with you. Thank you for the opportunity to consult in care of this patient.
--- NOTE | 2019-09-20 21:01 | Hospitalist Progress Note ---
Date of Service September 20, 2019 Assessment & Plan (1) Osteomyelitis of finger of left hand: left 3rd finger. seems to have a component of cellulitis as well. this may be cause of intermittent hypothermia, etc. started IV vancomycin. orthopedic consult placed. seems to have impaired blood flow to each hand; could consider arterial dopplers of arms. defer for now. (2) Altered mental status: suspect metabolic encephalopathy in setting of severe schizoaffective d/o. treat finger infection. defer med management of schizoaffective d/o psych. (3) Diabetes insipidus: Nephrogenic. 2nd to long-standing lithium use. lithium was discontinued earlier this stay. DI led to hypernatremia - now resolved with hypotonic fluids. UOP >3L over last 24 hours despite only 50cc/hr of D5W. Literature suggests that in small portion of patients, even after stopping lithium, the DI can be permanent. He may need DDAVP if hypernatremia recurs, UOP remains high, etc. Consider nephrology consultation for assistance. (4) Hypernatremia: 2nd to nephrogenic DI. see "DI" above (5) Schizoaffective disorder, bipolar type: Appreciate psychiatric management. [place] and Clozaril both discontinued. Remains on zyprexa BID. His psychiatrist from [facility] suggests resuming clozaril. I communicated this to psych team - defer to them whether to re-start clozaril. CT head this admission neg. RPR pending. B12, ammonia, TSH wnl. B1 level pending. (6) Metabolic acidosis, increased anion gap: resolved (7) Hypotension: Possible adrenal insufficiency entertained earlier this stay and placed on empiric hydrocortisone. However 2 cortisol levels were 15 or higher making adrenal insufficiency unlikely. Hypotension may simply have been volume contraction. BPs now normal. Would wean steroids off. (8) Acute psychosis: 2nd to schizoaffective d/o Metabolic factors also likely contributed Med management per psych remains in 4-point restraints due to violent behavior (9) Hypothermia: TSH, FT4 wnl cortisol 15 and 19 on 2 checks blood cx's neg cause? celluitis/osteomyelitis L 3rd finger? temps acceptable today follow (10) Hypokalemia: repleted and resolved (11) Acute renal insufficiency: resolved (12) Constipation: place on miralax with senna (13) AAA (abdominal aortic aneurysm): 5.7 cm in size - infrarenal Follow-up as outpatient very, very poor surgical candidate (14) Diabetes mellitus: HbA1c 6.9% Given his thin stature this is likely type 1 start low-dose lantus 4 units HS novolog w/ meals wean off steroids and dextrose-containing fluids (15) Anemia: stable exact cause uncertain b12, folate, Fe all acceptable chronic disease/osteomyelitis?? (16) Seizure: ? past seizure records suggest normal EEG in past not on AEDs follow (17) Sinus node dysfunction: suspect had sinus cleve in setting of hypothermia cardiology following - no Rx (18) Severe protein-calorie malnutrition: recent imaging showed left supraclavicular lymphadenopathy in light of COPD, prior tobacco, etc - chest malignancy would be high on differential too ill with other issues to perform w/u focus on his nutrition for now (19) DVT prophylaxis: Heparin 5000 units SQ q.12h remains very ill w/ very poor prognosis would need to contact intermediate to discuss code status would do poorly if he ever had cardiac arrest Subjective patient still in 4-point restraints care of handcuffs guards at bedside state that they tried removing 1 handcuff today and immediately tried to hit or kick thus 4-point placed back on has episodes of speech being clear/more fluent and at other times his sentences make no sense unable to obtain full ROS but he did deny pain in any location urine in billings very light-colored tele stable overnight Review of Systems Review of Systems: Unobtainable due to mental health condition and Unobtainable due to cognitive status Physical Exam Constitutional: + cachectic, + altered mental status and + frail appearing; + not well developed, + not well nourished and no acute distress Eyes: PERRL; no nystagmus ENMT: external ear and nose normal, oropharynx normal Respiratory: normal respiratory effort, lungs clear to auscultation Cardiovascular: Rate/Rhythm: regular rate and regular rhythm Heart Sounds: normal S1 and normal S2; no murmur Vessels: no JVD Extremities: no edema Gastrointestinal (Abdomen): normal bowel sounds, soft, nontender, no hepa tosplenomegaly Musculoskeletal: left 3rd finger - distal portion erythematous, skin breakdown; mildly tender w/ palpation; nail is damaged/distorted; severe f ingernail clubbing of all fingernails. cap refill about 2-3 sec both hands. hands are cool but I can palpate both radial pulses. Skin: + pallor Neurologic: moves all extremities Psychiatric: Orientation: alert; + not oriented x 3 Results & Data Vital Signs (Past 12 Hours) Vital Signs Temp Pulse Pulse Resp BP Pulse Ox 09/20/19 19:00 36.5 C 59 L 20 139/78 100 09/20/19 18:35 90 09/20/19 15:05 36.4 C L 95 H 18 122/72 95 09/20/19 11:30 35.7 C L 62 18 126/84 100 Laboratory Results Laboratory Results - last 24 hr 09/13/19 09/20/19 09/20/19 06:50 07:26 07:58 Sodium 143 Potassium 3.6 Chloride 112 H Carbon Dioxide 28 Anion Gap 3.0 BUN 13 Creatinine 0.85 Est Cr Clr Drug Dosing 86.2 Est GFR ( Amer) 110.5 Est GFR (Non-Af Amer) 95.4 BUN/Creatinine Ratio 14.8 Glucose 139 H POC Glucose 131 H C-Peptide 0.73 L Calcium 9.6 Insulin Autoantibody <0.4 RPR 09/20/19 09/20/19 09/20/19 07:58 11:59 16:45 Sodium Potassium Chloride Carbon Dioxide Anion Gap BUN Creatinine Est Cr Clr Drug Dosing Est GFR ( Amer) Est GFR (Non-Af Amer) BUN/Creatinine Ratio Glucose POC Glucose 239 H 157 H C-Peptide Calcium Insulin Autoantibody RPR Pending 09/20/19 20:36 Sodium Potassium Chloride Carbon Dioxide Anion Gap BUN Creatinine Est Cr Clr Drug Dosing Est GFR ( Amer) Est GFR (Non-Af Amer) BUN/Creatinine Ratio Glucose POC Glucose 183 H C-Peptide Calcium Insulin Autoantibody RPR Diagnostic Findings x-ray left 3rd finger -- distal tuft osteomyelitis changes PG Care Time/CCT Total # of Minutes Spent Total Time Spent with Patient: Total time spent is greater than 50% in coordination of care (as documented) at patient's floor/unit and/or counseling patient: (1) Diabetes mellitus Diabetes mellitus complication status: with hyperglycemia Diabetes mellitus terminal gauger supervisor insulin use: without terminal gauger supervisor use Diabetes mellitus type: type 2 Qualified Code(s): E11.65 - Type 2 diabetes mellitus with hyperglycemia (2) Hypothermia Encounter type: initial encounter Qualified Code(s): T68.XXXA - Hypothermia, initial encounter (3) Altered mental status Altered mental status type: unspecified Qualified Code(s): R41.82 - Altered mental status, unspecified (4) Hypotension Hypotension type: unspecified hypotension type Qualified Code(s): I95.9 - Hypotension, unspecified
[2019-09-20] MEDS: OLANZapine 20 MG TABLET PO SCH (21:13)
[2019-09-20] MEDS: DOCUSATE SODIUM 100 MG CAP PO SCH (21:13)
[2019-09-20] MEDS: INSULIN GLARGINE SOLOSTAR 100 UNITS/ML 3 ML PEN SC SCH (22:38)
[2019-09-21] MEDS: RAMELTEON: ORDER AWAITING ACTION SCH ×3 (00:10→16:02)
[2019-09-21] MEDS: LORazepam 1 MG/2 ML VIAL IV PRN ×2 (00:43→05:49)
[2019-09-21] MEDS: VANCOMYCIN HCL 1,250 MG in SODIUM CHLORIDE 0.9% 250 ML IV SCH ×2 (01:56→13:02)
[2019-09-21] MEDS ORDERED: Nursing to Pharmacy Communication ONE (03:52)
[2019-09-21] MEDS: HYDROCORTISONE SOD 10 MG in SYRINGE 0 ML IV SCH ×2 (06:30→21:26)
[2019-09-21] MEDS: INSULIN ASPART 100 UNITS/ML 3 ML PEN SC SCH ×4 (07:52→21:28)
[2019-09-21] MEDS: POLYETHYLENE (MIRALAX) 17 GM PACK PO SCH (07:52)
[2019-09-21] MEDS: SENNA 8.6 MG TAB PO SCH (07:54)
[2019-09-21] MEDS: FERROUS SULFATE 325 MG TAB PO SCH (07:55)
[2019-09-21] MEDS: ASCORBIC ACID 500 MG TAB PO SCH (07:55)
[2019-09-21] MEDS: THIAMINE HCL 100 MG TAB PO SCH ×3 (07:55→21:29)
[2019-09-21] MEDS: CYANOCOBALAMIN (VITAMIN B-12) 100 MCG TABLET PO SCH (07:56)
[2019-09-21] MEDS: OLANZapine 10 MG TAB PO SCH (07:56)
[2019-09-21 08:32] LABS: Creatinine Clr Calc Pharmacy 83.3 ml/min; Est GFR (African American) 109.5; Est GFR (Non-African American) 94.5
--- NOTE | 2019-09-21 11:49 | Orthopedic Progress Note ---
Date of Service September 21, 2019 Assessment & Plan (1) Osteomyelitis of finger of left hand: This likely represents chronic osteo-of the left long finger distal phalanx. Clinically and the index finger distal phalanx appears relatively benign but there is some questionable changes of the bone on x-ray that may be suspicious for chronic osteo-. This can be followed up as an outpatient and and if surgical intervention is required it could be scheduled electively. Subjective patient still in 4-point restraints care of handcuffs guards at bedside state that they tried removing 1 handcuff today and immediately tried to hit or kick thus 4-point placed back on Physical Exam Musculoskeletal: Left hand: Ulceration with a small necrotic area over the distal phalanx of the left index finger. No erythema. No drainage. The distal phalanx of the index finger does not appear to have any erythema or wounds or drainage or any necrotic region. He is status post partial amputation of the ring finger Results & Data Vital Signs (Past 12 Hours) Vital Signs Temp Pulse Pulse Resp BP Pulse Ox 09/21/19 11:38 92 H 18 108/62 100 09/21/19 11:27 35.7 C L 09/21/19 10:48 35.3 C L 09/21/19 10:13 35.5 C L 09/21/19 09:42 35.6 C L 09/21/19 08:01 35.3 C L 09/21/19 08:00 52 L 09/21/19 06:58 74 18 133/70 98 09/21/19 03:39 36.5 C 92 H 19 132/68 99 09/21/19 01:25 80
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
--- NOTE | 2019-09-21 12:09 | Psychiatric Progress Note ---
Date of Service September 21, 2019 Impression / Recommendations Impression I believe presentation over the past few days is consistent with agitated catatonia which can be associated with dysautonomia, now appears catatonic on exam. No evidence of NMS. Would not restart clozaril today given can impact swallow and most appropriate rx is high dose benzodiazepine. Case discussed with Dr. Jeffrey as given length of time in restraint and ongoing AMS would recommend repeat CPK. He expressed that patient has multiple medical co-morbidities and may need to be considered for more palliative approach if does not respond. Ativan 2 mg TID ordered as trial with permission of Dr. Jeffrey who will order CPK. Risk Factors Assessment Do You Have Access To A Gun?: No Interval History Identifying Information 59-year-old prisoner with reported history of schizoaffective disorder and multiple medical problems admitted through the ER from [facility]. Chief Complaint "[]". Subjective Subjective Patient was seen & assessed and interval progress reviewed with [treatment team] [nursing and social work] Physical Exam Vital Signs (Past 24 Hours) Last Vital Signs Temp 35.7 C L 09/21/19 11:27 Pulse 92 H 09/21/19 11:38 Resp 18 09/21/19 11:38 BP 108/62 09/21/19 11:38 Pulse Ox 100 09/21/19 11:38 Results & Data Laboratory Results Laboratory Results - last 24 hr 09/13/19 09/20/19 09/20/19 06:50 07:58 16:45 Creatinine Est Cr Clr Drug Dosing Est GFR ( Amer) Est GFR (Non-Af Amer) POC Glucose 157 H C-Peptide 0.73 L Insulin Autoantibody <0.4 RPR Nonreactive 09/20/19 09/21/19 09/21/19 20:36 07:41 07:51 Creatinine 0.87 Est Cr Clr Drug Dosing 83.3 Est GFR ( Amer) 109.5 Est GFR (Non-Af Amer) 94.5 POC Glucose 183 H 114 H C-Peptide Insulin Autoantibody RPR 09/21/19 11:53 Creatinine Est Cr Clr Drug Dosing Est GFR ( Amer) Est GFR (Non-Af Amer) POC Glucose 239 H C-Peptide Insulin Autoantibody RPR Current Inpatient Medications Current Inpatient Medications: Current Inpatient Medications Acetaminophen (Tylenol) 650 mg PO Q4H PRN PRN Reason: Pain or Fever Stop: 10/12/19 16:10 Al Hydrox/Mg Hydrox/Simethicone (Maalox) 15 ml PO Q4H PRN PRN Reason: Dyspepsia Stop: 10/12/19 16:10 Ascorbic Acid (Vitamin C) 500 mg PO QAM [facility] Stop: 10/13/19 08:59 Last Admin: 09/21/19 07:55 Dose: 500 mg Documented by: Chlorpromazine HCl (Thorazine) 50 mg PO Q4H PRN PRN Reason: Agitation Stop: 10/18/19 15:44 Cyanocobalamin (Vitamin B-12) 100 mcg PO DAILY [facility] Stop: 10/13/19 08:59 Last Admin: 09/21/19 07:56 Dose: 100 mcg Documented by: Dextrose (Dextrose 50%) 25 - 50 ml IV UD PRN; Protocol PRN Reason: Hypoglycemia Protocol Stop: 10/13/19 10:04 Docusate Sodium (Colace) 200 mg PO HS [facility]; Protocol Stop: 10/12/19 20:59 Last Admin: 09/20/19 21:13 Dose: 200 mg Documented by: Ferrous Sulfate (Feosol) 325 mg PO DAILY [facility] Stop: 10/13/19 08:59 Last Admin: 09/21/19 07:55 Dose: 325 mg Documented by: Glucagon (Glucagen) 1 mg SQ UD PRN; Protocol PRN Reason: Hypoglycemia Protocol Stop: 10/13/19 10:04 Glucose (Dex4 Glucose) 4 - 8 tabs PO UD PRN; Protocol PRN Reason: Hypoglycemia Protocol Stop: 10/13/19 10:04 Glucose (Glucose 40%) 15 - 30 gm PO UD PRN; Protocol PRN Reason: Hypoglycemia Protocol Stop: 10/13/19 10:04 Dextrose (D5w) 1,000 mls @ 50 mls/hr IV .Q20H [facility] Stop: 10/18/19 01:59 Last Admin: 09/20/19 17:42 Dose: 100 mls/hr Documented by: Hydrocortisone Sodium (Succinate 10 mg/ Syringe) 0.2 mls @ 4 mls/min IV Q12H [facility] Stop: 10/20/19 06:59 Last Admin: 09/21/19 06:30 Dose: 4 mls/min Documented by: Vancomycin HCl 1,250 mg/ (Sodium Chloride) 275 mls @ 125 mls/hr IV Q12H [facility]; Protocol Stop: 11/02/19 01:59 Last Infusion: 09/21/19 04:08 Dose: Infused Documented by: Lorazepam (Ativan) 1 mg in 2 mls @ 2 mls/min IV Q4H [facility] Stop: 10/21/19 12:00 Insulin Aspart (Novolog Flexpen) 0 units SC ACHS [facility] Stop: 10/13/19 11:29 Last Admin: 09/21/19 07:52 Dose: Not Given Documented by: Insulin Glargine (Lantus Solostar Pen) 4 units SC HS [facility] Stop: 10/20/19 21:24 Last Admin: 09/20/19 22:38 Dose: 4 units Documented by: Magnesium Hydroxide (Milk Of Magnesia) 60 ml PO DAILY PRN PRN Reason: Constipation Stop: 10/12/19 16:10 Last Admin: 09/19/19 09:48 Dose: 60 ml Documented by: Magnesium Hydroxide (Milk Of Magnesia) 30 ml PO Q12H PRN PRN Reason: Constipation Stop: 10/12/19 16:10 Miscellaneous (Order Awaiting Action) 1 ea N/A QS [facility] Stop: 10/13/19 16:59 Last Admin: 09/21/19 07:57 Dose: Not Given Documented by: Miscellaneous (Carbohydrates For Hypoglycemia) 15 - 30 gm PO UD PRN PRN Reason: Hypoglycemia Protocol Stop: 10/13/19 10:04 Miscellaneous Information (Consult) 1 ea N/A UD PRN PRN Reason: Consult Stop: 10/20/19 12:20 Olanzapine (Zyprexa) 20 mg PO HS [facility] Stop: 10/12/19 20:59 Last Admin: 09/20/19 21:13 Dose: 20 mg Documented by: Olanzapine (Zyprexa) 10 mg IM HS PRN PRN Reason: If unable to take PO dose Stop: 10/14/19 08:52 Olanzapine (Zyprexa) 10 mg PO QAM [facility] Stop: 10/19/19 08:59 Last Admin: 09/21/19 07:56 Dose: 10 mg Documented by: Ondansetron HCl (Zofran) 4 mg IV Q6H PRN PRN Reason: Nausea Stop: 10/12/19 16:10 Polyethylene Glycol (Miralax Powder Packet) 17 gm PO DAILY [facility] Stop: 10/21/19 08:59 Last Admin: 09/21/19 07:52 Dose: 17 gm Documented by: Sennosides (Senokot) 17.2 mg PO QAM [facility] Stop: 10/21/19 08:59 Last Admin: 09/21/19 07:54 Dose: 17.2 mg Documented by: Thiamine HCl (Vitamin B-1) 100 mg PO TID [facility] Stop: 10/16/19 08:59 Last Admin: 09/21/19 07:55 Dose: 100 mg Documented by:
[2019-09-21] MEDS: LORazepam 1 MG/2 ML VIAL IV SCH ×3 (12:58→21:26)
[2019-09-21] MEDS: DEXTROSE 5% 1,000 ML IV SCH (13:32)
--- NOTE | 2019-09-21 14:49 | Orthopedic Progress Note ---
Date of Service September 21, 2019 Assessment & Plan (1) Osteomyelitis of finger of left hand: It looks like he has chronic osteomyelitis of the left middle finger distal phalanx with localized infection. No evidence of infection spreading further proximal than the DIP joint. No evidence of infection of the left index finger. He would likely benefit from an amputation of the left middle finger at the level of the middle phalanx. Since he is not systemically ill, this is not an urgent procedure. He currently cannot consent to any surgery due to his mental status. Per his guards, this is much different than his normal baseline mental status. He can follow-up with me as an outpatient if his mental status improves and he can consent to surgery on an elective basis. Call [phone] to set up an appointment with mo at [facility] after discharge. Subjective Patient was seen and examined today. Per his guards who are with him today, his mental status has slowly deteriorated over the past 2 weeks. They state this is much worse than his normal baseline mental status. He is difficult to arouse, and his speech is very garbled and difficult to understand. He seems confused and disoriented. He is unable to give a history as to the circumstances surrounding the amputation of his left ring finger. He denies any pain at the left index finger, but endorses pain at the left middle fingertip. Physical Exam Physical Exam: Examination left hand reveals a previous amputation of the ring finger at the level of the PIP joint. This appears well-healed without infection. The left middle finger shows some localized erythema at the fingertip. Nail plate is absent. There appears to be a small area of necrotic tissue at the very tip. It is difficult to tell whether this is some protruding bone of the distal phalanx. This area is tender to palpation. No expressible drainage or palpable fluid collections. No erythema spreading further proximal than the DIP joint area. The left index finger looks benign; he has nail clubbing, but no evidence of infection or necrosis. Results & Data Vital Signs (Past 12 Hours) Vital Signs Temp Pulse Pulse Resp BP Pulse Ox 09/21/19 14:44 35.4 C L 09/21/19 14:14 35.6 C L 09/21/19 13:41 35.8 C L 09/21/19 12:15 35.3 C L 09/21/19 11:38 92 H 18 108/62 100 09/21/19 11:27 35.7 C L 09/21/19 10:48 35.3 C L 09/21/19 10:13 35.5 C L 09/21/19 09:42 35.6 C L 09/21/19 08:01 35.3 C L 09/21/19 08:00 52 L 09/21/19 06:58 74 18 133/70 98 09/21/19 03:39 36.5 C 92 H 19 132/68 99 Laboratory Results WBC 4.84 Diagnostic Findings X-rays show osteolysis and lucency in the distal phalanx of the left middle finger. The DIP joint looks almost fused.
--- NOTE | 2019-09-21 15:51 | Hospitalist Progress Note ---
Date of Service September 21, 2019 Assessment & Plan (1) Osteomyelitis of finger of left hand: left 3rd finger. seems to have a component of cellulitis as well. continue Vancomycin IV hypothermia continues, could be related to infection or catatonia per orthopedics, certainly could consider an elective amputation of distal 3rd phalanx patient cannot consent at this time so would need to be back to baseline and see ortho in the office (2) Altered mental status: severe schizoaffective d/o. continue to treat osteomyelitis treat possible agitated catatonia with Ativan IV TID (3) Diabetes insipidus: Nephrogenic. 2nd to long-standing lithium use. lithium was discontinued earlier this stay. DI led to hypernatremia - now resolved with hypotonic fluids. continues to drink large amounts of water, check sodium tomorrow AM (4) Hypernatremia: 2nd to nephrogenic DI. see "DI" above check Na in the morning (5) Schizoaffective disorder, bipolar type: Appreciate psychiatric management. [place] and Clozaril both discontinued. Remains on zyprexa BID. added Ativan today for possible agitated catatonia His psychiatrist from [facility] suggests resuming clozaril. inpatient psychiatry does not wish to do this at this time CT head this admission neg. B12, ammonia, TSH wnl. per [facility], once he can be stabilized, the plan is for him to be transferred to mental health facility custodial (6) Metabolic acidosis, increased anion gap: resolved (7) Hypotension: Possible adrenal insufficiency entertained earlier this stay and placed on empiric hydrocortisone. However 2 cortisol levels were 15 or higher making adrenal insufficiency unlikely. Hypotension may simply have been volume contraction. BPs now normal. (8) Acute psychosis: 2nd to schizoaffective d/o Metabolic factors also likely contributed Med management per psych remains in 4-point restraints due to violent behavior treatment for agitated catatonia (9) Hypothermia: TSH, FT4 wnl cortisol 15 and 19 on 2 checks blood cx's neg cause? celluitis/osteomyelitis L 3rd finger? agitated catatonia? use Bear hugger, frequent temp checks (10) Hypokalemia: repleted and resolved (11) Acute renal insufficiency: resolved (12) Constipation: place on miralax with senna (13) AAA (abdominal aortic aneurysm): 5.7 cm in size - infrarenal Follow-up as outpatient very, very poor surgical candidate (14) Diabetes mellitus: HbA1c 6.9% Given his thin stature this is likely type 1 start low-dose lantus 4 units HS novolog w/ meals wean off steroids and dextrose-containing fluids (15) Anemia: stable exact cause uncertain b12, folate, Fe all acceptable chronic disease/osteomyelitis?? (16) Seizure: ? past seizure records suggest normal EEG in past not on AEDs follow (17) Sinus node dysfunction: suspect had sinus lceve in setting of hypothermia cardiology following - no Rx (18) Severe protein-calorie malnutrition: recent imaging showed left supraclavicular lymphadenopathy in light of COPD, prior tobacco, etc - chest malignancy would be high on differential too ill with other issues to perform w/u focus on his nutrition for now (19) DVT prophylaxis: Heparin 5000 units SQ q.12h remains very ill w/ very poor prognosis changed code status to DNR, due to severe mental health condition, cachexia, osteomyelitis performing heroic measures would be futile and would not be in the patient's best interest this was discussed with clinical test deck supervisor at [facility] who is in agreement Subjective patient is confused, hallucinating earlier he was spitting at staff discussed code status with the representative government relations from the snf, clinical test deck supervisor in the [facility] he said that the patient is basically like a Medicaid patient, treat him like someone off the street reviewing his chart and current condition I have concerns about the futility of coding this patient he has cachexia, malnutrition, psychotic illness that is difficult to control, diabetes insipidus, osteomyelitis, hypothermia very poor quality of life discussed with snf, he is serving life sentence, he has no family or next of kin to participate in conversation discussed situation with Dr. Carrillo from ethics committee will certainly continue current treatment but heroic measures would seem more detrimental than helpful I will change his code status to DNR and will request one of my colleagues to sign to note as well discussed with Dr. Tinoco from psychiatry, she feels patient currently in a state of agitated catatonia. She recommends high dose Ativan and following CPK level. This could explain the hypothermia and confusion, hallucinations. Review of Systems Review of Systems: Unobtainable due to mental health condition Physical Exam Constitutional: + ill appearing, + thin, + disheveled and + combative Eyes: PERRL, conjunctivae normal, anicteric sclerae ENMT: external ear and nose normal, oropharynx normal Neck: trachea midline, no thyromegaly Respiratory: normal respiratory effort, lungs clear to auscultation Cardiovascular: RRR, no murmur, no edema Gastrointestinal (Abdomen): normal bowel sounds, soft, nontender, no hepatosplenomegaly Musculoskeletal: no cyanosis or clubbing, extremities motor strength 5/5 Skin: no rashes, warm and dry Neurologic: patellar DTR's 2+ bilat, sensation intact and PERRL, EOMI, accommodation nl, no face palsy, no dysarthria Psychiatric: Orientation: alert and oriented to person; + not oriented to place and + not oriented to time Eye Contact: good eye contact Speech: + pressured speech and + loud speech Affect: + anxious affect Mood: + irritable mood Thought Process: + flight of ideas Thought Content: + paranoid and + delusions Hallucinations: + auditory hallucinations and + visual hallucinations Lymphatic: no cervical or axillary lymphadenopathy Results & Data Vital Signs (Past 12 Hours) Vital Signs Temp Pulse Pulse Resp BP Pulse Ox 09/21/19 15:15 35.1 C L 09/21/19 14:47 98 H 18 127/80 98 09/21/19 14:44 35.4 C L 09/21/19 14:14 35.6 C L 09/21/19 13:41 35.8 C L 09/21/19 12:15 35.3 C L 09/21/19 11:38 92 H 18 108/62 100 09/21/19 11:27 35.7 C L 09/21/19 10:48 35.3 C L 09/21/19 10:13 35.5 C L 09/21/19 09:42 35.6 C L 09/21/19 08:01 35.3 C L 09/21/19 08:00 52 L 09/21/19 06:58 74 18 133/70 98 PG Care Time/CCT Total # of Minutes Spent Total Time Spent with Patient: Total time spent is greater than 50% in coordination of care (as documented) at patient's floor/unit and/or counseling patient: (1) Diabetes mellitus Diabetes mellitus complication status: with hyperglycemia Diabetes mellitus termite treater helper insulin use: without custodial use Diabetes mellitus type: type 2 Qualified Code(s): E11.65 - Type 2 diabetes mellitus with hyperglycemia (2) AAA (abdominal aortic aneurysm) Presence of rupture: without rupture Qualified Code(s): I71.4 - Abdominal aortic aneurysm, without rupture (3) Anemia Anemia type: other cause Other causes of anemia: other cause, not classified Qualified Code(s): D64.89 - Other specified anemias (4) Hypothermia Encounter type: initial encounter Qualified Code(s): T68.XXXA - Hypothermia, initial encounter (5) Altered mental status Altered mental status type: unspecified Qualified Code(s): R41.82 - Altered mental status, unspecified (6) Hypotension Hypotension type: unspecified hypotension type Qualified Code(s): I95.9 - Hypotension, unspecified (7) Constipation Constipation type: other constipation type Qualified Code(s): K59.09 - Other constipation
[2019-09-21] MEDS: INSULIN GLARGINE SOLOSTAR 100 UNITS/ML 3 ML PEN SC SCH (21:27)
[2019-09-21] MEDS: OLANZapine 20 MG TABLET PO SCH (21:29)
[2019-09-21] MEDS: DOCUSATE SODIUM 100 MG CAP PO SCH (21:31)
[2019-09-22] MEDS: LORazepam 1 MG/2 ML VIAL IV SCH ×4 (00:32→11:32)
[2019-09-22] MEDS: RAMELTEON: ORDER AWAITING ACTION SCH ×4 (00:33→21:54)
[2019-09-22] MEDS: VANCOMYCIN HCL 1,250 MG in SODIUM CHLORIDE 0.9% 250 ML IV SCH (02:09)
[2019-09-22] MEDS: HYDROCORTISONE SOD 10 MG in SYRINGE 0 ML IV SCH ×2 (06:38→19:40)
[2019-09-22 07:51] LABS: Creatinine Clr Calc Pharmacy 99.3 ml/min; Est GFR (African American) 116.4; Est GFR (Non-African American) 100.4
--- NOTE | 2019-09-22 08:01 | Communication Note ---
Date of Service: September 22, 2019 I have previously seen and examined this patient. I reviewed the chart. Due to this patient's significant severe comorbidities and ongoing medical issu es, any heroic measures in the event of cardiopulmonary arrest would be futile. Agree with changing CODE STATUS to DNR/DNI
[2019-09-22 08:16] LABS: BUN Creatinine Ratio 17.9 (10-20); Calcium 9.4 mg/dl (8.5-10.1); Creatinine Clr Calc Pharmacy 91.9 ml/min; Est GFR (African American) 112.7; Est GFR (Non-African American) 97.3; Potassium 3.7 mmol/L (3.5-5.1)
[2019-09-22] MEDS: INSULIN ASPART 100 UNITS/ML 3 ML PEN SC SCH ×4 (10:59→20:56)
[2019-09-22] MEDS: POLYETHYLENE (MIRALAX) 17 GM PACK PO SCH ×2 (11:00→11:30)
[2019-09-22] MEDS: SENNA 8.6 MG TAB PO SCH ×2 (11:00→11:30)
[2019-09-22] MEDS: FERROUS SULFATE 325 MG TAB PO SCH ×2 (11:00→11:25)
[2019-09-22] MEDS: DEXTROSE 5% 1,000 ML IV SCH (11:01)
[2019-09-22] MEDS: OLANZapine 10 MG TAB PO SCH (11:01)
[2019-09-22] MEDS: CYANOCOBALAMIN (VITAMIN B-12) 100 MCG TABLET PO SCH ×2 (11:01→11:31)
[2019-09-22] MEDS: THIAMINE HCL 100 MG TAB PO SCH ×4 (11:01→20:57)
[2019-09-22] MEDS: ASCORBIC ACID 500 MG TAB PO SCH ×2 (11:01→11:31)
--- NOTE | 2019-09-22 12:30 | Psychiatric Progress Note ---
Date of Service September 22, 2019 Impression / Recommendations Impression chronic schizophrenia with agitated catatonia, some response to benzos. Titrate Ativan to 2 mg TID, continue Zyprexa, may resume Clozaril as previously discussed with Dr. Andersen/[facility] MD earlier in stay. Dose can be titrated by 25 mg daily. Will hold ordering titration until clear tolerating restart/taking PO reliably. Risk Factors Assessment Do You Have Access To A Gun?: No Interval History Chief Complaint "I'm going to sing you 3 cowboy songs". 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 He is still cuffed but not combative, protests rectal temps for ongoing low core body temp. He is able to take meds/swallow today and is looking forward to his meal. He is interacting somewhat with guards at bedside. His code status has been updated in consultation with the [facility] by Dr. Jeffrey and attending supports ongoing rx of catatonia with increase in Ativan. Physical Exam Mental Examination cachectic male, alert, garbled speech but clear when singing loudly, affect gen erally blunted, confuses with me nurse. very short attention span, no posturing. Unclear if responding to internal stimuli. He cannot reliably answer questions re: SI/HI Vital Signs (Past 24 Hours) Last Vital Signs Temp 35.1 C L 09/22/19 12:16 Pulse 57 L 09/22/19 07:00 Resp 18 09/22/19 07:00 BP 152/73 H 09/22/19 07:00 Pulse Ox 100 09/22/19 07:00 Results & Data Laboratory Results Laboratory Results - last 24 hr 09/21/19 09/21/19 09/22/19 16:41 20:08 06:49 Sodium Potassium Chloride Carbon Dioxide Anion Gap BUN Creatinine 0.75 Est Cr Clr Drug Dosing 99.3 Est GFR ( Amer) 116.4 Est GFR (Non-Af Amer) 100.4 BUN/Creatinine Ratio Glucose POC Glucose 250 H 94 Calcium Total Creatine Kinase 70 09/22/19 09/22/19 06:53 07:36 Sodium 148 H Potassium 3.7 Chloride 118 H Carbon Dioxide 28 Anion Gap 2.0 L BUN 14 Creatinine 0.81 Est Cr Clr Drug Dosing 91.9 Est GFR ( Amer) 112.7 Est GFR (Non-Af Amer) 97.3 BUN/Creatinine Ratio 17.9 Glucose 117 H POC Glucose 123 H Calcium 9.4 Total Creatine Kinase Current Inpatient Medications Current Inpatient Medications: Current Inpatient Medications Acetaminophen (Tylenol) 650 mg PO Q4H PRN PRN Reason: Pain or Fever Stop: 10/12/19 16:10 Al Hydrox/Mg Hydrox/Simethicone (Maalox) 15 ml PO Q4H PRN PRN Reason: Dyspepsia Stop: 10/12/19 16:10 Ascorbic Acid (Vitamin C) 500 mg PO QAM [facility] Stop: 10/13/19 08:59 Last Admin: 09/22/19 11:31 Dose: 500 mg Documented by: Chlorpromazine HCl (Thorazine) 50 mg PO Q4H PRN PRN Reason: Agitation Stop: 10/18/19 15:44 Clozapine (Clozaril) 25 mg PO HS [facility] Stop: 10/22/19 20:59 Cyanocobalamin (Vitamin B-12) 100 mcg PO DAILY [facility] Stop: 10/13/19 08:59 Last Admin: 09/22/19 11:31 Dose: 100 mcg Documented by: Dextrose (Dextrose 50%) 25 - 50 ml IV UD PRN; Protocol PRN Reason: Hypoglycemia Protocol Stop: 10/13/19 10:04 Docusate Sodium (Colace) 200 mg PO HS [facility]; Protocol Stop: 10/12/19 20:59 Last Admin: 09/21/19 21:31 Dose: 200 mg Documented by: Ferrous Sulfate (Feosol) 325 mg PO DAILY [facility] Stop: 10/13/19 08:59 Last Admin: 09/22/19 11:00 Dose: Not Given Documented by: Glucagon (Glucagen) 1 mg SQ UD PRN; Protocol PRN Reason: Hypoglycemia Protocol Stop: 10/13/19 10:04 Glucose (Dex4 Glucose) 4 - 8 tabs PO UD PRN; Protocol PRN Reason: Hypoglycemia Protocol Stop: 10/13/19 10:04 Glucose (Glucose 40%) 15 - 30 gm PO UD PRN; Protocol PRN Reason: Hypoglycemia Protocol Stop: 10/13/19 10:04 Dextrose (D5w) 1,000 mls @ 50 mls/hr IV .Q20H [facility] Stop: 10/18/19 01:59 Last Admin: 09/22/19 11:01 Dose: 50 mls/hr Documented by: Hydrocortisone Sodium (Succinate 10 mg/ Syringe) 0.2 mls @ 4 mls/min IV Q12H [facility] Stop: 10/20/19 06:59 Last Admin: 09/22/19 06:38 Dose: 4 mls/min Documented by: Vancomycin HCl 1,250 mg/ (Sodium Chloride) 275 mls @ 125 mls/hr IV Q12H [facility]; Protocol Stop: 11/02/19 01:59 Last Infusion: 09/22/19 04:21 Dose: Infused Documented by: Lorazepam (Ativan) 2 mg in 4 mls @ 4 mls/min IV TID [facility] Stop: 10/22/19 13:59 Insulin Aspart (Novolog Flexpen) 0 units SC ACHS [facility] Stop: 10/13/19 11:29 Last Admin: 09/22/19 10:59 Dose: Not Given Documented by: Insulin Glargine (Lantus Solostar Pen) 4 units SC HS [facility] Stop: 10/20/19 21:24 Last Admin: 09/21/19 21:27 Dose: 4 units Documented by: Magnesium Hydroxide (Milk Of Magnesia) 60 ml PO DAILY PRN PRN Reason: Constipation Stop: 10/12/19 16:10 Last Admin: 09/19/19 09:48 Dose: 60 ml Documented by: Magnesium Hydroxide (Milk Of Magnesia) 30 ml PO Q12H PRN PRN Reason: Constipation Stop: 10/12/19 16:10 Miscellaneous (Order Awaiting Action) 1 ea N/A QS [facility] Stop: 10/13/19 16:59 Last Admin: 09/22/19 10:59 Dose: Not Given Documented by: Miscellaneous (Carbohydrates For Hypoglycemia) 15 - 30 gm PO UD PRN PRN Reason: Hypoglycemia Protocol Stop: 10/13/19 10:04 Miscellaneous Information (Consult) 1 ea N/A UD PRN PRN Reason: Consult Stop: 10/20/19 12:20 Olanzapine (Zyprexa) 20 mg PO HS [facility] Stop: 10/12/19 20:59 Last Admin: 09/21/19 21:29 Dose: 20 mg Documented by: Olanzapine (Zyprexa) 10 mg IM HS PRN PRN Reason: If unable to take PO dose Stop: 12/30/19 08:52 Olanzapine (Zyprexa) 10 mg PO QAM [facility] Stop: 10/19/19 08:59 Last Admin: 09/22/19 11:01 Dose: Not Given Documented by: Ondansetron HCl (Zofran) 4 mg IV Q6H PRN PRN Reason: Nausea Stop: 10/12/19 16:10 Polyethylene Glycol (Miralax Powder Packet) 17 gm PO DAILY [facility] Stop: 10/21/19 08:59 Last Admin: 09/22/19 11:30 Dose: 17 gm Documented by: Sennosides (Senokot) 17.2 mg PO QAM [facility] Stop: 10/21/19 08:59 Last Admin: 09/22/19 11:30 Dose: 17.2 mg Documented by: Thiamine HCl (Vitamin B-1) 100 mg PO TID [facility] Stop: 10/16/19 08:59 Last Admin: 09/22/19 11:31 Dose: 100 mg Documented by:
[2019-09-22] MEDS ORDERED: VANCOMYCIN TROUGH ONE (13:30)
[2019-09-22] MEDS: LORazepam 2 MG/4 ML VIAL IV SCH ×2 (14:50→20:55)
--- NOTE | 2019-09-22 15:26 | Pharmacy Report ---
Pharmacy Abx Dose Short Note - Date of Service September 22, 2019 - Assessment & Plan Assessment 59 year old M was receiving Vancomycin 1250 mg IV Q12hr for treatment of Bone/Joint infection. Day #3 of antimicrobial therapy. Trough level obtained today ~1400 after 4 total doses of Vancomycin. Level is at steady state. Plan Vancomycin * Trough level of 25 mcg/mL is supratherapeutic. * Calculated Ke = 0.067/hr, t1/2 = 10.3 hrs. * Vancomycin dosing changed to 1000 mg IV Q14hr. * Goal trough level for Joint infection: 15 to 20 mcg/mL * Trough Vanc level ordered for: 09/23/19 before dose at midnight (09/24). Pharmacy will continue to follow and will adjust dose/frequency as necessary. Thank you.
--- NOTE | 2019-09-22 16:18 | Hospitalist Progress Note ---
Date of Service September 22, 2019 Assessment & Plan (1) Osteomyelitis of finger of left hand: left 3rd finger. seems to have a component of cellulitis as well. continue Vancomycin IV hypothermia improving, could be related to infection or catatonia per orthopedics, certainly could consider an elective amputation of distal 3rd phalanx patient cannot consent at this time so would need to be back to baseline and see ortho in the office clinically improving today (2) Altered mental status: severe schizoaffective d/o. continue to treat osteomyelitis treat possible agitated catatonia with Ativan IV TID some improvement today, Ativan appears to be working (3) Diabetes insipidus: Nephrogenic. 2nd to long-standing lithium use. lithium was discontinued earlier this stay. DI led to hypernatremia - now resolved with hypotonic fluids. continues to drink large amounts of water, Na is 148 which is acceptable (4) Hypernatremia: 2nd to nephrogenic DI. see "DI" above Na 148 (5) Schizoaffective disorder, bipolar type: Appreciate psychiatric management. Fostoria discontinued. Remains on zyprexa BID. Clozaril added back continue Ativan for possible agitated catatonia CT head this admission neg. B12, ammonia, TSH wnl. per [facility], once he can be stabilized, the plan is for him to be transferred to mental health facility senior living (6) Metabolic acidosis, increased anion gap: resolved (7) Hypotension: Possible adrenal insufficiency entertained earlier this stay and placed on empiric hydrocortisone. However 2 cortisol levels were 15 or higher making adrenal insufficiency unlikely. Hypotension may simply have been volume contraction. BPs now normal. (8) Hypothermia: TSH, FT4 wnl cortisol 15 and 19 on 2 checks blood cx's neg cause? celluitis/osteomyelitis L 3rd finger? agitated catatonia? use Bear hugger, frequent temp checks off the Bear hugger this afternoon with temp of 36 (9) Hypokalemia: K 3.7 this morning (10) Acute renal insufficiency: resolved (11) Constipation: place on miralax with senna (12) AAA (abdominal aortic aneurysm): 5.7 cm in size - infrarenal Follow-up as outpatient very, very poor surgical candidate (13) Diabetes mellitus: HbA1c 6.9% Given his thin stature this is likely type 1 start low-dose lantus 4 units HS novolog w/ meals wean off steroids and dextrose-containing fluids (14) Anemia: stable exact cause uncertain b12, folate, Fe all acceptable chronic disease/osteomyelitis?? (15) Seizure: ? past seizure records suggest normal EEG in past not on AEDs follow (16) Sinus node dysfunction: suspect had sinus cleve in setting of hypothermia cardiology following - no Rx (17) Severe protein-calorie malnutrition: recent imaging showed left supraclavicular lymphadenopathy in light of COPD, prior tobacco, etc - chest malignancy would be high on differential too ill with other issues to perform w/u focus on his nutrition for now (18) DVT prophylaxis: Heparin 5000 units SQ q.12h remains very ill w/ very poor prognosis changed code status to DNR, due to severe mental health condition, cachexia, osteomyelitis performing heroic measures would be futile and would not be in the patient's best interest this was discussed with clinical supervisor electric at [facility] who is in agreement Subjective patient in four point restraints today however, he is acting calmer had some hypothermia this AM but it is resolving reviewed labs, Na is 148, CPK level normal, Cr at baseline eating well still with delusions and hallucinations but knows he is in hospital and it is 2019 Review of Systems Review of Systems: Unobtainable due to mental health condition Physical Exam Constitutional: + ill appearing, + thin, + disheveled and + combative Eyes: PERRL, conjunctivae normal, anicteric sclerae ENMT: external ear and nose normal, oropharynx normal Neck: trachea midline, no thyromegaly Respiratory: normal respiratory effort, lungs clear to auscultation Cardiovascular: RRR, no murmur, no edema Gastrointestinal (Abdomen): normal bowel sounds, soft, nontender, no hepatosplenomegaly Musculoskeletal: no cyanosis or clubbing, extremities motor strength 5/5 Skin: no rashes, warm and dry Neurologic: patellar DTR's 2+ bilat, sensation intact and PERRL, EOMI, accommodation nl, no face palsy, no dysarthria Psychiatric: Orientation: alert, oriented to person, oriented to place and oriented to time Eye Contact: good eye contact Speech: + pressured speech and + loud speech Affect: + anxious affect Mood: + irritable mood Thought Process: + flight of ideas Thought Content: + paranoid and + delusions Hallucinations: + auditory hallucinations and + visual hallucinations Lymphatic: no cervical or axillary lymphadenopathy Results & Data Vital Signs (Past 12 Hours) Vital Signs Temp Pulse Resp BP Pulse Ox 09/22/19 15:18 36.4 C L 102 H 20 122/69 99 09/22/19 13:00 36 C L 09/22/19 12:16 35.1 C L 09/22/19 12:00 69 18 121/68 99 09/22/19 11:15 34.6 C L 09/22/19 10:17 34.5 C L 09/22/19 07:00 57 L 18 152/73 H 100 Laboratory Results Laboratory Results - last 24 hr 09/21/19 09/21/19 09/22/19 16:41 20:08 06:49 Sodium Potassium Chloride Carbon Dioxide Anion Gap BUN Creatinine 0.75 Est Cr Clr Drug Dosing 99.3 Est GFR ( Amer) 116.4 Est GFR (Non-Af Amer) 100.4 BUN/Creatinine Ratio Glucose POC Glucose 250 H 94 Calcium Total Creatine Kinase 70 Vancomycin Trough 09/22/19 09/22/19 09/22/19 06:53 07:36 12:12 Sodium 148 H Potassium 3.7 Chloride 118 H Carbon Dioxide 28 Anion Gap 2.0 L BUN 14 Creatinine 0.81 Est Cr Clr Drug Dosing 91.9 Est GFR ( Amer) 112.7 Est GFR (Non-Af Amer) 97.3 BUN/Creatinine Ratio 17.9 Glucose 117 H POC Glucose 123 H 186 H Calcium 9.4 Total Creatine Kinase Vancomycin Trough 09/22/19 13:47 Sodium Potassium Chloride Carbon Dioxide Anion Gap BUN Creatinine Est Cr Clr Drug Dosing Est GFR ( Amer) Est GFR (Non-Af Amer) BUN/Creatinine Ratio Glucose POC Glucose Calcium Total Creatine Kinase Vancomycin Trough 25.0 PG Care Time/CCT Total # of Minutes Spent Total Time Spent with Patient: Total time spent is greater than 50% in coordination of care (as documented) at patient's floor/unit and/or counseling patient: (1) Diabetes mellitus Diabetes mellitus complication status: with hyperglycemia 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: without senior living use Diabetes mellitus type: type 2 Qualified Code(s): E11.65 - Type 2 diabetes mellitus with hyperglycemia (2) AAA (abdominal aortic aneurysm) Presence of rupture: without rupture Qualified Code(s): I71.4 - Abdominal aortic aneurysm, without rupture (3) Anemia Anemia type: other cause Other causes of anemia: other cause, not classified Qualified Code(s): D64.89 - Other specified anemias (4) Hypothermia Encounter type: initial encounter Qualified Code(s): T68.XXXA - Hypothermia, initial encounter (5) Altered mental status Altered mental status type: unspecified Qualified Code(s): R41.82 - Altered mental status, unspecified (6) Hypotension Hypotension type: unspecified hypotension type Qualified Code(s): I95.9 - Hypotension, unspecified (7) Constipation Constipation type: other constipation type Qualified Code(s): K59.09 - Other constipation
[2019-09-22] MEDS: CARBOHYDRATES FOR HYPOGLYCEMIA PO PRN (16:35)
[2019-09-22] MEDS: VANCOMYCIN HCL 1,000 MG in SODIUM CHLORIDE 0.9% 250 ML IV SCH (19:39)
[2019-09-22] MEDS: INSULIN GLARGINE SOLOSTAR 100 UNITS/ML 3 ML PEN SC SCH (20:56)
[2019-09-22] MEDS: OLANZapine 20 MG TABLET PO SCH (20:57)
[2019-09-22] MEDS: DOCUSATE SODIUM 100 MG CAP PO SCH (20:59)
[2019-09-22] MEDS ORDERED: cloZAPine 25 MG TAB PO SCH (21:00)
[2019-09-23] MEDS: DEXTROSE 5% 1,000 ML IV SCH (06:25)
[2019-09-23] MEDS: HYDROCORTISONE SOD 10 MG in SYRINGE 0 ML IV SCH ×2 (06:26→19:31)
[2019-09-23] MEDS: RAMELTEON: ORDER AWAITING ACTION SCH ×2 (09:19→16:54)
[2019-09-23] MEDS: INSULIN ASPART 100 UNITS/ML 3 ML PEN SC SCH ×4 (09:21→21:04)
[2019-09-23] MEDS: LORazepam 2 MG/4 ML VIAL IV SCH ×3 (09:22→21:02)
[2019-09-23] MEDS: FERROUS SULFATE 325 MG TAB PO SCH (09:22)
[2019-09-23] MEDS: OLANZapine 10 MG TAB PO SCH (09:22)
[2019-09-23] MEDS: THIAMINE HCL 100 MG TAB PO SCH ×4 (09:22→21:04)
[2019-09-23] MEDS: CYANOCOBALAMIN (VITAMIN B-12) 100 MCG TABLET PO SCH (09:22)
[2019-09-23] MEDS: SENNA 8.6 MG TAB PO SCH (09:22)
[2019-09-23] MEDS: ASCORBIC ACID 500 MG TAB PO SCH (09:22)
[2019-09-23] MEDS: POLYETHYLENE (MIRALAX) 17 GM PACK PO SCH (09:23)
--- NOTE | 2019-09-23 09:32 | Psychiatric Progress Note ---
Date of Service September 23, 2019 Impression / Recommendations Impression 59-year-old male with history of chronic schizophrenia, present concern is for agitated catatonia. Has seemingly been responding to initiation of lorazepam 2 mg TID, which can slowly be tapered after he demonstrates baseline mental status. Clozapine was initiated at 25mg on 09/22 after review with hospitalist team and psychiatrist at the retirement, with recommendation for titration by 25mg daily - as he is seemingly been more consistent with PO medications, and will titrate to 50mg this evening. Continue Zyprexa at current dose of 10mg qAM and 20mg qHS - recommend ongoing evaluation of behavior, as it would be ideal to reduce dose of olanzapine once clozapine has been re-titrated. Per records, prior clozapine dosage was 200mg qAM and 250mg qHS - will require ongoing weekly CBC w/diff per clozapine protocols. CBC w/diff already ordered for 09/26/19. (1) Schizoaffective disorder, bipolar type: 09/13 - zyprexa 5mg qm, 20mg qhs - give olanzapine IM if refuses PO - considering reinitiation of clozapine but increases risk for seizure and will take weeks to retitrate 09/18 - Recommend titrating Zyprexa to 10mg qAM and 20mg qHS - IM Zyprexa for PO refusal as above 09/23 - Continue olanzapine 10mg qAM and 20mg qHS - Clozapine initiated last evening at 25mg - titrating to 50mg this evening; can continue daily titration by 25mg if patient continues to agree to PO medications (2) Delirium due to another medical condition, acute, mixed level of activity: 09/13 - supportive care while treating active medical conditions - reorientation prn - would prefer not to use benzodiazepine however we may need to add an ativan 1mg IV q4h prn if his agitation persists despite the olanzapine (with goal to use w/ minimal frequency). if ativan prn is started it should not be given within 1 hour of IM zyprexa. 09/18 - Recommend utilization of chlorpromazine 50mg q4h prn agitation, as alternative to lorazepam as patient continues to demonstrate agitation and disorganization - Continue routine reorientation as above 09/23 - Seems likely patient may be experiencing agitated catatonia - see recommendations below - Continue utilization of prn chlorpromazine if accepting of PO medications; olanzapine IM injections for acute threat to safety of patient or staff (3) Catatonic agitation: 09/23 - Lorazepam 2mg TID IV scheduled, initiated as above - Would suggest slow taper of dose once mentation returns to baseline - Continue to ensure IM olanzapine (ordered prn for acute agitation) is not utilized within 1 hour of lorazepam administration - Remains in 4-point restraints, though behavior is reportedly in better control. Repeat CK was requested yesterday - WNL at 70 Risk Factors Assessment Do You Have Access To A Gun?: No Interval History Identifying Information 59-year-old prisoner with reported history of schizoaffective disorder and multiple medical problems admitted through the ER from [facility]. Initial psychiatric consultation was requested to evaluate patient for "acute psychosis." Re-examination was requested due to "continued behavioral disturbance" with concern for agitated catatonia. Chief Complaint "I'm feeling good. Good." Review of Systems Notes Pt does not verbalize any specific physical concerns. Limitations in full review of systems is due to difficulty understanding significantly muffled speech and likely continued confusion. Subjective Subjective Patient's case was reviewed and discussed in morning report with psychiatric nurse liaison and supervising psychiatrist. Patient was seen on psychiatric consult service for follow-up visits over the weekend, and was initiated on scheduled high-dose lorazepam, for suspicion of agitated catatonia. It is reported that patient's condition has demonstrated some improvement with this medication adjustment. Patient was also initiated on titration of clozapine, as he had previously and stable with this medication in the past. Patient was seen today on psychiatric consult service for reevaluation of condition. Patient was initially sleeping soundly as this provider entered the room, but was awoken by verbal stimuli as history was being obtained from biosecurity officer. It was reported that patient had been sleeping for part of the morning, but was awake to receive breakfast. Patient tells this provider that he is feeling "good" today. He continues attempts to participate in productive conversation; however, speech remains consistently muffled and even unintelligible at times. This provider was able to learn that the patient is feeling "good". This provider attempted to review medication adjustments made over the weekend. He consistently seems surprised when this provider mentions he is currently in the hospital. When asked where the patient believes he is, he states "I do not know man, seems more like a junkyard or something." When asked what made him feel this way, he admits that he is seeing "fire in flames" in his doorway. Pt was asked if he was seeing any other things that would not normally be present in a hospital room. He states "there is a mona over there, sitting down, he is got a matt. Do see him?" Patient was informed that there is indeed a biosecurity officer sitting in his room, who has a matt. This provider explained that the biosecurity officer would remain in the room in order to monitor him. Patient denies any needs or concerns from our service at this time. Physical Exam Psychiatric Orientation: alert and oriented to person Apperance: appropriately dressed Cachectic-appearing male, observed in 4-point restraints. Initially found to be sleeping soundly, but easily awoken with verbal stimuli. Appropriately dressed in hospital gown. Eye Contact: good eye contact Motor Behavior: no abnormal motor movements (observed while laying in bed) and + psychomotor agitation (mildly restless, but not pulling agressively at handcuffs as before) Speech: + abnormal rate/rhythm/volume of speech (unintelligible at times; difficult to understand his responses) Affect: euthymic affect Mood: no depressed mood ("I'm good") Thought Process: + tangential thought process (and disorganized) Speech is unintelligible at times, making it difficult to accurately assess thought process and content Hallucinations: + visual hallucinations (reports of seeing "fire and flames" by the door of his room) Unclear to what extent patient may be experiencing hallucinations Insight: + impaired insight Judgement: + impaired judgement Vital Signs (Past 24 Hours) Last Vital Signs Temp 36.5 C 09/23/19 04:57 Pulse 71 09/23/19 08:00 Resp 16 09/23/19 08:00 BP 158/78 H 09/23/19 08:00 Pulse Ox 98 09/23/19 08:00 Results & Data Laboratory Results Laboratory Results - last 24 hr 09/22/19 09/22/19 09/22/19 12:12 13:47 16:35 Sodium Potassium Chloride Carbon Dioxide Anion Gap BUN Creatinine Est Cr Clr Drug Dosing Est GFR ( Amer) Est GFR (Non-Af Amer) BUN/Creatinine Ratio Glucose POC Glucose 186 H 59 L* Calcium Vancomycin Trough 25.0 09/22/19 09/22/19 09/22/19 16:37 16:53 20:20 Sodium Potassium Chloride Carbon Dioxide Anion Gap BUN Creatinine Est Cr Clr Drug Dosing Est GFR ( Amer) Est GFR (Non-Af Amer) BUN/Creatinine Ratio Glucose POC Glucose 61 L* 83 168 H Calcium Vancomycin Trough 09/23/19 09/23/19 07:41 09:04 Sodium Pending Potassium Pending Chloride Pending Carbon Dioxide Pending Anion Gap Pending BUN Pending Creatinine Pending Est Cr Clr Drug Dosing Pending Est GFR ( Amer) Pending Est GFR (Non-Af Amer) Pending BUN/Creatinine Ratio Pending Glucose Pending POC Glucose 118 H Calcium Pending Vancomycin Trough Current Inpatient Medications Current Inpatient Medications: Current Inpatient Medications Acetaminophen (Tylenol) 650 mg PO Q4H PRN PRN Reason: Pain or Fever Stop: 10/12/19 16:10 Al Hydrox/Mg Hydrox/Simethicone (Maalox) 15 ml PO Q4H PRN PRN Reason: Dyspepsia Stop: 10/12/19 16:10 Ascorbic Acid (Vitamin C) [facility] [place] Stop: 10/13/19 08:59 Last Admin: 09/23/19 09:22 Dose: 500 mg Documented by: Chlorpromazine HCl (Thorazine) 50 mg PO Q4H PRN PRN Reason: Agitation Stop: 10/18/19 15:44 Clozapine (Clozaril) 25 mg PO HS [facility]; Protocol Stop: 10/22/19 20:59 Last Admin: 09/22/19 20:55 Dose: 25 mg Documented by: Cyanocobalamin (Vitamin B-12) 100 mcg PO DAILY [facility] Stop: 10/13/19 08:59 Last Admin: 09/23/19 09:22 Dose: 100 mcg Documented by: Dextrose (Dextrose 50%) 25 - 50 ml IV UD PRN; Protocol PRN Reason: Hypoglycemia Protocol Stop: 10/13/19 10:04 Docusate Sodium (Colace) 200 mg PO HS [facility]; Protocol Stop: 10/12/19 20:59 Last Admin: 09/22/19 20:59 Dose: 200 mg Documented by: Ferrous Sulfate (Feosol) 325 mg PO DAILY [facility] Stop: 10/13/19 08:59 Last Admin: 09/23/19 09:22 Dose: 325 mg Documented by: Glucagon (Glucagen) 1 mg SQ UD PRN; Protocol PRN Reason: Hypoglycemia Protocol Stop: 10/13/19 10:04 Glucose (Dex4 Glucose) 4 - 8 tabs PO UD PRN; Protocol PRN Reason: Hypoglycemia Protocol Stop: 10/13/19 10:04 Glucose (Glucose 40%) 15 - 30 gm PO UD PRN; Protocol PRN Reason: Hypoglycemia Protocol Stop: 10/13/19 10:04 Dextrose (D5w) 1,000 mls @ 50 mls/hr IV .Q20H [facility] Stop: 10/18/19 01:59 Last Admin: 09/23/19 06:25 Dose: 50 mls/hr Documented by: Hydrocortisone Sodium (Succinate 10 mg/ Syringe) 0.2 mls @ 4 mls/min IV Q12H [facility] Stop: 10/20/19 06:59 Last Admin: 09/23/19 06:26 Dose: 4 mls/min Documented by: Lorazepam (Ativan) 2 mg in 4 mls @ 4 mls/min IV TID [facility] Stop: 10/22/19 13:59 Last Admin: 09/23/19 09:22 Dose: 4 mls/min Documented by: Vancomycin HCl 1,000 mg/ (Sodium Chloride) 270 mls @ 125 mls/hr IV Q14H [facility]; Protocol Stop: 11/01/19 19:59 Last Infusion: 09/22/19 21:49 Dose: Infused Documented by: Insulin Aspart (Novolog Flexpen) 0 units SC ACHS [facility] Stop: 10/13/19 11:29 Last Admin: 09/23/19 09:21 Dose: 2 units Documented by: Insulin Glargine (Lantus Solostar Pen) 4 units SC HS [facility] Stop: 10/20/19 21:24 Last Admin: 09/22/19 20:56 Dose: 4 units Documented by: Magnesium Hydroxide (Milk Of Magnesia) 60 ml PO DAILY PRN PRN Reason: Constipation Stop: 10/12/19 16:10 Last Admin: 09/19/19 09:48 Dose: 60 ml Documented by: Magnesium Hydroxide (Milk Of Magnesia) 30 ml PO Q12H PRN PRN Reason: Constipation Stop: 10/12/19 16:10 Miscellaneous (Order Awaiting Action) 1 ea N/A QS [facility] Stop: 10/13/19 16:59 Last Admin: 09/23/19 09:19 Dose: Not Given Documented by: Miscellaneous (Carbohydrates For Hypoglycemia) 15 - 30 gm PO UD PRN PRN Reason: Hypoglycemia Protocol Stop: 10/13/19 10:04 Last Admin: 09/22/19 16:35 Dose: 15 gm Documented by: Miscellaneous Information (Consult) 1 ea N/A UD PRN PRN Reason: Consult Stop: 10/20/19 12:20 Olanzapine (Zyprexa) 20 mg PO HS [facility] Stop: 10/12/19 20:59 Last Admin: 09/22/19 20:57 Dose: 20 mg Documented by: Olanzapine (Zyprexa) 10 mg IM HS PRN PRN Reason: If unable to take PO dose Stop: 10/14/19 08:52 Olanzapine (Zyprexa) 10 mg PO QAM [facility] Stop: 10/19/19 08:59 Last Admin: 09/23/19 09:22 Dose: 10 mg Documented by: Ondansetron HCl (Zofran) 4 mg IV Q6H PRN PRN Reason: Nausea Stop: 10/12/19 16:10 Polyethylene Glycol (Miralax Powder Packet) 17 gm PO DAILY [facility] Stop: 10/21/19 08:59 Last Admin: 09/23/19 09:23 Dose: 17 gm Documented by: Sennosides (Senokot) 17.2 mg PO QAM [facility] Stop: 10/21/19 08:59 Last Admin: 09/23/19 09:22 Dose: 17.2 mg Documented by: Thiamine HCl (Vitamin B-1) 100 mg PO TID [facility] Stop: 10/16/19 08:59 Last Admin: 09/23/19 09:22 Dose: 100 mg Documented by:
[2019-09-23 10:02] LABS: BUN Creatinine Ratio 14.8 (10-20); Calcium 9.4 mg/dl (8.5-10.1); Creatinine Clr Calc Pharmacy 90.8 ml/min; Est GFR (African American) 112.2; Est GFR (Non-African American) 96.8; Potassium 3.6 mmol/L (3.5-5.1)
[2019-09-23] MEDS: VANCOMYCIN HCL 1,000 MG in SODIUM CHLORIDE 0.9% 250 ML IV SCH (10:07)
[2019-09-23] MEDS ORDERED: cloZAPine 25 MG TAB PO SCH (21:00)
[2019-09-23] MEDS: DOCUSATE SODIUM 100 MG CAP PO SCH (21:03)
[2019-09-23] MEDS: OLANZapine 20 MG TABLET PO SCH (21:05)
[2019-09-23] MEDS: INSULIN GLARGINE SOLOSTAR 100 UNITS/ML 3 ML PEN SC SCH (21:05)
--- NOTE | 2019-09-23 23:04 | Hospitalist Progress Note ---
Date of Service September 23, 2019 Assessment & Plan (1) Osteomyelitis of finger of left hand: left 3rd finger. seems to have a component of cellulitis as well. continue Vancomycin IV hypothermia improving, could be related to infection or catatonia will ask ID if an oral option could be appropriate at this time/on discharge per orthopedics, certainly could consider an elective amputation of distal 3rd phalanx patient cannot consent at this time so would need to be back to baseline and see ortho in the office clinically improving every day (2) Altered mental status: severe schizoaffective d/o. continue to treat osteomyelitis treat possible agitated catatonia with Ativan IV TID marked improvement today, Ativan appears to be working (3) Diabetes insipidus: Nephrogenic. 2nd to long-standing lithium use. lithium was discontinued earlier this stay. DI led to hypernatremia - now resolved with hypotonic fluids. continues to drink large amounts of water, Na is 147 which is acceptable (4) Hypernatremia: 2nd to nephrogenic DI. see "DI" above Na 147 (5) Schizoaffective disorder, bipolar type: Appreciate psychiatric management. Pharr discontinued. Remains on zyprexa BID. Clozaril added back, will titrate up to 50mg in the past he was on 200mg AM and 250mg HS continue Ativan for possible agitated catatonia, will titrate back slowly will titrate off of Zyprexa as Clozaril increased CT head this admission neg. B12, ammonia, TSH wnl. per [facility] ER, once he can be stabilized, the plan is for him to be transferred to mental [facility] facility [facility] (6) Metabolic acidosis, increased anion gap: resolved (7) Hypotension: Possible adrenal insufficiency entertained earlier this stay and placed on empiric hydrocortisone. However 2 cortisol levels were 15 or higher making adrenal insufficiency unlikely. Hypotension may simply have been volume contraction. BPs now normal. (8) Hypothermia: TSH, FT4 wnl cortisol 15 and 19 on 2 checks blood cx's neg cause? celluitis/osteomyelitis L 3rd finger? agitated catatonia? use Bear hugger, frequent temp checks off the Bear hugger this afternoon with temp of 36 (9) Hypokalemia: K 3.6 this morning (10) Acute renal insufficiency: resolved (11) Constipation: place on miralax with senna (12) AAA (abdominal aortic aneurysm): 5.7 cm in size - infrarenal Follow-up as outpatient very, very poor surgical candidate (13) Diabetes mellitus: HbA1c 6.9% Given his thin stature this is likely type 1 continue low-dose lantus 4 units HS novolog w/ meals wean off steroids and dextrose-containing fluids (14) Anemia: stable exact cause uncertain b12, folate, Fe all acceptable chronic disease/osteomyelitis?? (15) Seizure: ? past seizure records suggest normal EEG in past not on AEDs follow (16) Sinus node dysfunction: suspect had sinus cleve in setting of hypothermia cardiology following - no Rx (17) Severe protein-calorie malnutrition: recent imaging showed left supraclavicular lymphadenopathy in light of COPD, prior tobacco, etc - chest malignancy would be high on differential too ill with other issues to perform w/u focus on his nutrition for now (18) DVT prophylaxis: Heparin 5000 units SQ q.12h remains very ill w/ very poor prognosis changed code status to DNR, due to severe mental health condition, cachexia, osteomyelitis performing heroic measures would be futile and would not be in the patient's best interest this was discussed with clinical produce department supervisor at [facility] who is in agreement Subjective patient alert and oriented today, knows it is September, cooperative temperature improving, up to 36.7 Na is stable at 147, Cr at baseline eating and drinking quite well discussed with psychiatry, appreciate their recommendations will try to resume Clozapine now that he is taking PO consistently, try to titrate back on Ativan Review of Systems Review of Systems: All systems reviewed & are unremarkable except as noted in HPI & below Physical Exam Constitutional: + thin and + disheveled Eyes: PERRL, conjunctivae normal, anicteric sclerae ENMT: external ear and nose normal, oropharynx normal Neck: trachea midline, no thyromegaly Respiratory: normal respiratory effort, lungs clear to auscultation Cardiovascular: RRR, no murmur, no edema Gastrointestinal (Abdomen): normal bowel sounds, soft, nontender, no hepatosplenomegaly Musculoskeletal: no cyanosis or clubbing, extremities motor strength 5/5 Skin: no rashes, warm and dry Neurologic: patellar DTR's 2+ bilat, sensation intact and PERRL, EOMI, accommodation nl, no face palsy, no dysarthria Psychiatric: Orientation: alert, oriented to person, oriented to place and oriented to time Eye Contact: good eye contact Lymphatic: no cervical or axillary lymphadenopathy Results & Data Vital Signs (Past 12 Hours) Vital Signs Temp Pulse Resp BP Pulse Ox 09/23/19 17:25 36.7 C 09/23/19 15:08 36.3 C L 99 H 19 132/67 93 09/23/19 13:31 36.4 C L 09/23/19 12:53 36.4 C L 09/23/19 12:11 36.4 C L 09/23/19 11:26 35 C L Laboratory Results Laboratory Results - last 24 hr 09/15/19 09/23/19 09/23/19 19:54 07:41 09:04 Sodium 147 H Potassium 3.6 Chloride 114 H Carbon Dioxide 31 Anion Gap 2.0 L BUN 12 Creatinine 0.82 Est Cr Clr Drug Dosing 90.8 Est GFR ( Amer) 112.2 Est GFR (Non-Af Amer) 96.8 BUN/Creatinine Ratio 14.8 Glucose 157 H POC Glucose 118 H Calcium 9.4 Whole Bld Vitamin B1 130 09/23/19 09/23/19 09/23/19 11:39 15:50 20:16 Sodium Potassium Chloride Carbon Dioxide Anion Gap BUN Creatinine Est Cr Clr Drug Dosing Est GFR ( Amer) Est GFR (Non-Af Amer) BUN/Creatinine Ratio Glucose POC Glucose 143 H 218 H 91 Calcium Whole Bld Vitamin B1 Medications Administered Current Inpatient Medications Acetaminophen (Tylenol) 650 mg PO Q4H PRN PRN Reason: Pain or Fever Stop: 10/12/19 16:10 Al Hydrox/Mg Hydrox/Simethicone (Maalox) 15 ml PO Q4H PRN PRN Reason: Dyspepsia Stop: 10/12/19 16:10 Ascorbic Acid (Vitamin C) 500 mg PO [facility] Stop: 10/13/19 08:59 Last Admin: 09/23/19 09:22 Dose: 500 mg Documented by: Chlorpromazine HCl (Thorazine) 50 mg PO Q4H PRN PRN Reason: Agitation Stop: 10/18/19 15:44 Clozapine (Clozaril) [address] [facility]; Protocol Stop: 10/23/19 20:59 Last Admin: 09/23/19 21:03 Dose: 50 mg Documented by: Cyanocobalamin (Vitamin B-12) 100 mcg PO DAILY [facility] Stop: 10/13/19 08:59 Last Admin: 09/23/19 09:22 Dose: 100 mcg Documented by: Dextrose (Dextrose 50%) 25 - 50 ml IV UD PRN; Protocol PRN Reason: Hypoglycemia Protocol Stop: 10/13/19 10:04 Docusate Sodium (Colace) 200 mg PO HS [facility]; Protocol Stop: 10/12/19 20:59 Last Admin: 09/23/19 21:03 Dose: 200 mg Documented by: Ferrous Sulfate (Feosol) 325 mg PO DAILY [facility] Stop: 10/13/19 08:59 Last Admin: 09/23/19 09:22 Dose: 325 mg Documented by: Glucagon (Glucagen) 1 mg SQ UD PRN; Protocol PRN Reason: Hypoglycemia Protocol Stop: 10/13/19 10:04 Glucose (Dex4 Glucose) 4 - 8 tabs PO UD PRN; Protocol PRN Reason: Hypoglycemia Protocol Stop: 10/13/19 10:04 Glucose (Glucose 40%) 15 - 30 gm PO UD PRN; Protocol PRN Reason: Hypoglycemia Protocol Stop: 10/13/19 10:04 Dextrose (D5w) 1,000 mls @ 50 mls/hr IV .Q20H [facility] Stop: 10/18/19 01:59 Last Admin: 09/23/19 06:25 Dose: 50 mls/hr Documented by: Hydrocortisone Sodium (Succinate 10 mg/ Syringe) 0.2 mls @ 4 mls/min IV Q12H [facility] Stop: 10/20/19 06:59 Last Admin: 09/23/19 19:31 Dose: 4 mls/min Documented by: Lorazepam (Ativan) 2 mg in 4 mls @ 4 mls/min IV TID [facility] Stop: 10/22/19 13:59 Last Admin: 09/23/19 21:02 Dose: 4 mls/min Documented by: Vancomycin HCl 1,000 mg/ (Sodium Chloride) 270 mls @ 125 mls/hr IV Q14H [facility]; Protocol Stop: 11/01/19 19:59 Last Infusion: 09/23/19 12:29 Dose: Infused Documented by: Insulin Aspart (Novolog Flexpen) 0 units SC ACHS [facility] Stop: 10/13/19 11:29 Last Admin: 09/23/19 21:04 Dose: Not Given Documented by: Insulin Glargine (Lantus Solostar Pen) 4 units SC HS [facility] Stop: 10/20/19 21:24 Last Admin: 09/23/19 21:05 Dose: 4 units Documented by: Magnesium Hydroxide (Milk Of Magnesia) 60 ml PO DAILY PRN PRN Reason: Constipation Stop: 10/12/19 16:10 Last Admin: 09/19/19 09:48 Dose: 60 ml Documented by: Magnesium Hydroxide (Milk Of Magnesia) 30 ml PO Q12H PRN PRN Reason: Constipation Stop: 10/12/19 16:10 Miscellaneous (Order Awaiting Action) 1 ea N/A QS [facility] Stop: 10/13/19 16:59 Last Admin: 09/23/19 16:54 Dose: Not Given Documented by: Miscellaneous (Carbohydrates For Hypoglycemia) 15 - 30 gm PO UD PRN PRN Reason: Hypoglycemia Protocol Stop: 10/13/19 10:04 Last Admin: 09/22/19 16:35 Dose: 15 gm Documented by: Miscellaneous Information (Consult) 1 ea N/A UD PRN PRN Reason: Consult Stop: 10/20/19 12:20 Olanzapine (Zyprexa) 20 mg PO HS [facility] Stop: 10/12/19 20:59 Last Admin: 09/23/19 21:05 Dose: 20 mg Documented by: Olanzapine (Zyprexa) 10 mg IM HS PRN PRN Reason: If unable to take PO dose Stop: 10/14/19 08:52 Olanzapine (Zyprexa) 10 mg PO QAM [facility] Stop: 10/19/19 08:59 Last Admin: 09/23/19 09:22 Dose: 10 mg Documented by: Ondansetron HCl (Zofran) 4 mg IV Q6H PRN PRN Reason: Nausea Stop: 10/12/19 16:10 Polyethylene Glycol (Miralax Powder Packet) 17 gm PO DAILY [facility] Stop: 10/21/19 08:59 Last Admin: 09/23/19 09:23 Dose: 17 gm Documented by: Sennosides (Senokot) 17.2 mg PO QAM [facility] Stop: 10/21/19 08:59 Last Admin: 09/23/19 09:22 Dose: 17.2 mg Documented by: Thiamine HCl (Vitamin B-1) 100 mg PO TID [facility] Stop: 10/16/19 08:59 Last Admin: 09/23/19 21:04 Dose: 100 mg Documented by: PG Care Time/CCT Total # of Minutes Spent Total Time Spent with Patient: Total time spent is greater than 50% in coordination of care (as documented) at patient's floor/unit and/or counseling patient: (1) Altered mental status Altered mental status type: unspecified Qualified Code(s): R41.82 - Altered mental status, unspecified (2) Hypotension Hypotension type: unspecified hypotension type Qualified Code(s): I95.9 - Hypotension, unspecified (3) Hypothermia Encounter type: initial encounter Qualified Code(s): T68.XXXA - Hypothermia, initial encounter (4) Constipation Constipation type: other constipation type Qualified Code(s): K59.09 - Other constipation (5) AAA (abdominal aortic aneurysm) Presence of rupture: without rupture Qualified Code(s): I71.4 - Abdominal aortic aneurysm, without rupture (6) Diabetes mellitus Diabetes mellitus type: type 2 Diabetes mellitus medical terminologist insulin use: without [facility] use Diabetes mellitus complication status: with hyperglycemia Qualified Code(s): E11.65 - Type 2 diabetes mellitus with hyperglycemia (7) Anemia Anemia type: other cause Other causes of anemia: other cause, not classified Qualified Code(s): D64.89 - Other specified anemias
[2019-09-23] MEDS ORDERED: VANCOMYCIN TROUGH ONE (23:30)
[2019-09-24] MEDS: VANCOMYCIN HCL 1,000 MG in SODIUM CHLORIDE 0.9% 250 ML IV SCH ×2 (00:29→14:05)
[2019-09-24] MEDS: RAMELTEON: ORDER AWAITING ACTION SCH ×4 (00:38→23:26)
[2019-09-24] MEDS: DEXTROSE 5% 1,000 ML IV SCH ×2 (02:48→20:42)
--- NOTE | 2019-09-24 07:45 | Pharmacy Report ---
Pharmacy Abx Dose Short Note - Date of Service September 24, 2019 - Assessment & Plan Assessment 59 year old M receiving vancomycin for treatment of osteomyelitis Day # 5 of antimicrobial therapy. Plan Vancomycin * Trough level of 18 mcg/mL is therapeutic. * Continue dose of 1000 mg IV every 14 hours. * Goal trough level for bone and joint infection : 15 to 20 mcg/mL * Trough will not be re-ordered at this point. Re-order trough based upon duration of therapy. Recommend at least once weekly. Pharmacy will continue to follow and will adjust dose/frequency as necessary. Thank you.
[2019-09-24 08:39] LABS: Hematocrit (blood only) 31.8 % (42-52); Hemoglobin 9.8 g/dL (14.0-18.0); Mean Corpuscular Hemoglobin 29.3 pg (25-34); Mean Corpuscular Hgb Conc 30.8 g/dL (32-36); Mean Corpuscular Volume 95.2 fL (80-100); Platelet Count 94 K/uL (130-400); Platelet Estimate Decreased (Normal); RDW Coefficient of Variation 15.5 % (11.5-14.5); RDW Standard Deviation 53.7 fL (36.4-46.3); Red Blood Count 3.34 M/uL (4.7-6.1); White Blood Count 4.73 K/uL (4.8-10.8)
[2019-09-24 08:45] LABS: BUN Creatinine Ratio 16.7 (10-20); Calcium 9.3 mg/dl (8.5-10.1); Creatinine Clr Calc Pharmacy 99.3 ml/min; Est GFR (African American) 116.4; Est GFR (Non-African American) 100.4; Potassium 3.4 mmol/L (3.5-5.1)
[2019-09-24] MEDS ORDERED: HYDROCORTISONE SOD 10 MG in SYRINGE 0 ML IV SCH (09:00)
[2019-09-24] MEDS: INSULIN ASPART 100 UNITS/ML 3 ML PEN SC SCH ×4 (09:09→20:36)
[2019-09-24] MEDS: SENNA 8.6 MG TAB PO SCH (09:11)
[2019-09-24] MEDS: CYANOCOBALAMIN (VITAMIN B-12) 100 MCG TABLET PO SCH (09:11)
[2019-09-24] MEDS: FERROUS SULFATE 325 MG TAB PO SCH (09:11)
[2019-09-24] MEDS: ASCORBIC ACID 500 MG TAB PO SCH (09:11)
[2019-09-24] MEDS: OLANZapine 10 MG TAB PO SCH (09:12)
[2019-09-24] MEDS: THIAMINE HCL 100 MG TAB PO SCH ×3 (09:12→20:35)
[2019-09-24] MEDS: POLYETHYLENE (MIRALAX) 17 GM PACK PO SCH (09:14)
[2019-09-24] MEDS: LORazepam 2 MG/4 ML VIAL IV SCH (09:21)
[2019-09-24] MEDS: LORazepam 3 MG/6 ML VIAL IV SCH ×2 (14:06→20:33)
[2019-09-24] MEDS: LACTULOSE SYRUP 20 GM/30 ML UDC PO SCH ×2 (14:06→20:35)
[2019-09-24] MEDS: HYDROCORTISONE SOD 50 MG in SYRINGE 0 ML IV SCH ×2 (14:06→20:33)
--- NOTE | 2019-09-24 14:54 | XRay Report ---
FILIPPO CLINICAL HISTORY: Constipation. COMPARISON STUDY: CT of the abdomen and pelvis August 28, 2019. FINDINGS: The bowel gas pattern is normal. A moderate to large amount of stool within the colon and r ectum is noted. Urinary calculi are identified. IMPRESSION: 1. No evidence for a bowel obstruction. 2. Moderate to large amount stool within the colon and rectum. Electronically signed by: Khanh Kauffman M.D. 09/24/2019 2:53 PM
--- NOTE | 2019-09-24 16:08 | Hospitalist Progress Note ---
Date of Service September 24, 2019 Assessment & Plan (1) Osteomyelitis of finger of left hand: left 3rd finger. seems to have a component of cellulitis as well. continue Vancomycin IV hypothermia ongoing, doubt it is due to infection WBC 4.7 per orthopedics, certainly could consider an elective amputation of distal 3rd phalanx patient cannot consent at this time so would need to be back to baseline and see ortho in the office (2) Altered mental status: severe schizoaffective d/o. continue to treat osteomyelitis treat possible agitated catatonia with Ativan IV TID was improved for a few days, now confused, hallucinating, sleeping all day, hypothermic increase Ativan to 3mg to treat catatonia (3) Diabetes insipidus: Nephrogenic. 2nd to long-standing lithium use. lithium was discontinued earlier this stay. DI led to hypernatremia - now resolved with hypotonic fluids. continues to drink large amounts of water, Na is 147 again today (4) Hypernatremia: 2nd to nephrogenic DI. see "DI" above Na 147 again today (5) Schizoaffective disorder, bipolar type: Appreciate psychiatric management. [place] discontinued. Remains on zyprexa BID. Clozaril added back, will titrate up to 50mg in the past he was on 200mg AM and 250mg HS continue Ativan for possible agitated catatonia, increase to 3gm TID today will titrate off of Zyprexa as Clozaril increased CT head this admission neg. B12, ammonia, TSH wnl. per [facility], once he can be stabilized, the plan is for him to be transferred to mental health facility supervisor intermediates (6) Metabolic acidosis, increased anion gap: resolved (7) Hypotension: Possible adrenal insufficiency entertained earlier this stay and placed on empiric hydrocortisone. However 2 cortisol levels were 15 or higher making adrenal insufficiency unlikely. Hypotension may simply have been volume contraction. BPs now normal. (8) Hypothermia: TSH, FT4 wnl cortisol 15 and 19 on 2 checks blood cx's neg the cause is still unclear, more hypothermia today celluitis/osteomyelitis L 3rd finger? agitated catatonia? use Bear hugger, frequent temp checks, increased Hydrocortisone today off the Bear hugger this afternoon with temp of 36 (9) Hypokalemia: K 3.6 this morning (10) Acute renal insufficiency: resolved (11) Constipation: place on miralax with senna no BM for 10-12 days KUB with stool in colon 09/24/19 start Lactulose TID until he moves bowels (12) AAA (abdominal aortic aneurysm): 5.7 cm in size - infrarenal Follow-up as outpatient very, very poor surgical candidate (13) Diabetes mellitus: HbA1c 6.9% Given his thin stature this is likely type 1 continue low-dose lantus 4 units HS novolog w/ meals wean off steroids and dextrose-containing fluids (14) Anemia: stable exact cause uncertain b12, folate, Fe all acceptable chronic disease/osteomyelitis?? (15) Seizure: ? past seizure records suggest normal EEG in past not on AEDs follow (16) Sinus node dysfunction: suspect had sinus cleve in setting of hypothermia cardiology following - no Rx (17) Severe protein-calorie malnutrition: recent imaging showed left supraclavicular lymphadenopathy in light of COPD, prior tobacco, etc - chest malignancy would be high on differential too ill with other issues to perform w/u focus on his nutrition for now (18) DVT prophylaxis: Heparin 5000 units SQ q.12h remains very ill w/ very poor prognosis changed code status to DNR, due to severe mental health condition, cachexia, osteomyelitis performing heroic measures would be futile and would not be in the patient's best interest this was discussed with clinical solid waste facility supervisor at [facility] who is in agreement Subjective patient more lethargic today, hypothermia worse today in the 34 celcius range placed Bear hugger only medication change from yesterday was decreasing Hydrocortisone from 10 BID to daily no clear etiology for change in mental status, labs stable, BP stable, not hypoxic will increase Ativan to 3mg TID, add back Hydrocortisone 50mg q8 no BM for 12 days, at least documented has bowel sounds, soft non distended abdomen KUB with large to moderate amount of stool in colon will start on Lactulose TID if he can wake up to take PO Review of Systems Review of Systems: Unobtainable due to mental health condition Physical Exam Constitutional: + thin and + disheveled Eyes: PERRL, conjunctivae normal, anicteric sclerae ENMT: external ear and nose normal, oropharynx normal Neck: trachea midline, no thyromegaly Respiratory: normal respiratory effort, lungs clear to auscultation Cardiovascular: RRR, no murmur, no edema Gastrointestinal (Abdomen): normal bowel sounds, soft, nontender, no hepatosplenomegaly Musculoskeletal: no cyanosis or clubbing, extremities motor strength 5/5 Skin: no rashes, warm and dry Neurologic: patellar DTR's 2+ bilat, sensation intact and PERRL, EOMI, accommodation nl, no face palsy, no dysarthria Psychiatric: Orientation: + not alert, + not oriented to person, + not oriented to place and + not oriented to time Eye Contact: + poor eye contact; + not good eye contact Hallucinations: + visual hallucinations (seeing things on the ground) Lymphatic: no cervical or axillary lymphadenopathy Results & Data Vital Signs (Past 12 Hours) Vital Signs Temp Pulse Resp BP Pulse Ox 09/24/19 15:25 109 H 20 107/60 99 09/24/19 14:51 35.6 C L 09/24/19 14:12 35.4 C L 09/24/19 13:15 35 C L 09/24/19 12:45 34.8 C L 09/24/19 12:13 34.4 C L 09/24/19 11:12 34.1 C L 09/24/19 10:50 34.5 C L 09/24/19 10:49 34.5 C L 09/24/19 07:10 62 16 146/83 H 99 Laboratory Results Laboratory Results - last 24 hr 09/23/19 09/24/19 09/24/19 23:10 07:36 07:49 WBC 4.73 L RBC 3.34 L Hgb 9.8 L Hct 31.8 L MCV 95.2 MCH 29.3 MCHC 30.8 L RDW Std Deviation 53.7 H RDW Coeff of Shamar 15.5 H Plt Count 94 L MPV 13.0 H Platelet Estimate Decreased L Sodium Potassium Chloride Carbon Dioxide Anion Gap BUN Creatinine Est Cr Clr Drug Dosing Est GFR ( Amer) Est GFR (Non-Af Amer) BUN/Creatinine Ratio Glucose POC Glucose 116 H Calcium Total Creatine Kinase Vancomycin Trough 18.9 09/24/19 09/24/19 09/24/19 07:49 11:08 16:49 WBC RBC Hgb Hct MCV MCH MCHC RDW Std Deviation RDW Coeff of Shamar Plt Count MPV Platelet Estimate Sodium 147 H Potassium 3.4 L Chloride 116 H Carbon Dioxide 27 Anion Gap 4.0 BUN 13 Creatinine 0.75 Est Cr Clr Drug Dosing 99.3 Est GFR ( Amer) 116.4 Est GFR (Non-Af Amer) 100.4 BUN/Creatinine Ratio 16.7 Glucose 122 H POC Glucose 173 H 132 H Calcium 9.3 Total Creatine Kinase 35 L Vancomycin Trough 09/24/19 20:13 WBC RBC Hgb Hct MCV MCH MCHC RDW Std Deviation RDW Coeff of Shamar Plt Count MPV Platelet Estimate Sodium Potassium Chloride Carbon Dioxide Anion Gap BUN Creatinine Est Cr Clr Drug Dosing Est GFR ( Amer) Est GFR (Non-Af Amer) BUN/Creatinine Ratio Glucose POC Glucose 145 H Calcium Total Creatine Kinase Vancomycin Trough Medications Administered Current Inpatient Medications Acetaminophen (Tylenol) 650 mg PO Q4H PRN PRN Reason: Pain or Fever Stop: 10/12/19 16:10 Al Hydrox/Mg Hydrox/Simethicone (Maalox) 15 ml PO Q4H PRN PRN Reason: Dyspepsia Stop: 10/12/19 16:10 Ascorbic Acid (Vitamin C) [facility] Stop: 10/13/19 08:59 Last Admin: 09/24/19 09:11 Dose: 500 mg Documented by: Chlorpromazine HCl (Thorazine) 50 mg PO Q4H PRN PRN Reason: Agitation Stop: 10/18/19 15:44 Clozapine (Clozaril) 75 mg PO HS [facility]; Protocol Stop: 10/24/19 20:59 Cyanocobalamin (Vitamin B-12) 100 mcg PO DAILY [facility] Stop: 10/13/19 08:59 Last Admin: 09/24/19 09:11 Dose: 100 mcg Documented by: Dextrose (Dextrose 50%) 25 - 50 ml IV UD PRN; Protocol PRN Reason: Hypoglycemia Protocol Stop: 10/13/19 10:04 Docusate Sodium (Colace) 200 mg PO HS DIANA; Protocol Stop: 10/12/19 20:59 Last Admin: 09/23/19 21:03 Dose: 200 mg Documented by: Ferrous Sulfate (Feosol) 325 mg PO DAILY DIANA Stop: 10/13/19 08:59 Last Admin: 09/24/19 09:11 Dose: 325 mg Documented by: Glucagon (Glucagen) 1 mg SQ UD PRN; Protocol PRN Reason: Hypoglycemia Protocol Stop: 10/13/19 10:04 Glucose (Dex4 Glucose) 4 - 8 tabs PO UD PRN; Protocol PRN Reason: Hypoglycemia Protocol Stop: 10/13/19 10:04 Glucose (Glucose 40%) 15 - 30 gm PO UD PRN; Protocol PRN Reason: Hypoglycemia Protocol Stop: 10/13/19 10:04 Dextrose (D5w) 1,000 mls @ 50 mls/hr IV .Q20H [facility] Stop: 10/18/19 01:59 Last Admin: 09/24/19 02:48 Dose: 50 mls/hr Documented by: Vancomycin HCl 1,000 mg/ (Sodium Chloride) 270 mls @ 125 mls/hr IV Q14H [facility]; Protocol Stop: 11/01/19 19:59 Last Infusion: 09/24/19 17:07 Dose: Infused Documented by: Hydrocortisone Sodium (Succinate 50 mg/ Syringe) 1 mls @ 4 mls/min IV Q8 [facility] Stop: 10/24/19 13:59 Last Admin: 09/24/19 14:06 Dose: 4 mls/min Documented by: Lorazepam (Ativan) 3 mg in 6 mls @ 4 mls/min IV TID [facility] Stop: 10/22/19 13:59 Last Admin: 09/24/19 14:06 Dose: 4 mls/min Documented by: Insulin Aspart (Novolog Flexpen) 0 units SC ACHS [facility] Stop: 10/13/19 11:29 Last Admin: 09/24/19 18:28 Dose: 4 units Documented by: Insulin Glargine (Lantus Solostar Pen) 4 units SC HS [facility] Stop: 10/20/19 21:24 Last Admin: 09/23/19 21:05 Dose: 4 units Documented by: Lactulose (Chronulac) 20 gm PO TID [facility] Stop: 10/24/19 13:59 Last Admin: 09/24/19 14:06 Dose: 20 gm Documented by: Magnesium Hydroxide (Milk Of Magnesia) 60 ml PO DAILY PRN PRN Reason: Constipation Stop: 10/12/19 16:10 Last Admin: 09/19/19 09:48 Dose: 60 ml Documented by: Magnesium Hydroxide (Milk Of Magnesia) 30 ml PO Q12H PRN PRN Reason: Constipation Stop: 10/12/19 16:10 Miscellaneous (Order Awaiting Action) 1 ea N/A QS [facility] Stop: 10/13/19 16:59 Last Admin: 09/24/19 17:06 Dose: Not Given Documented by: Miscellaneous (Carbohydrates For Hypoglycemia) 15 - 30 gm PO UD PRN PRN Reason: Hypoglycemia Protocol Stop: 10/13/19 10:04 Last Admin: 09/22/19 16:35 Dose: 15 gm Documented by: Miscellaneous Information (Consult) 1 ea N/A UD PRN PRN Reason: Consult Stop: 10/20/19 12:20 Olanzapine (Zyprexa) 20 mg PO HS [facility] Stop: 10/12/19 20:59 Last Admin: 09/23/19 21:05 Dose: 20 mg Documented by: Olanzapine (Zyprexa) 10 mg IM HS PRN PRN Reason: If unable to take PO dose Stop: 10/14/19 08:52 Olanzapine (Zyprexa) 10 mg PO QAM [facility] Stop: 10/19/19 08:59 Last Admin: 09/24/19 09:12 Dose: 10 mg Documented by: Ondansetron HCl (Zofran) 4 mg IV Q6H PRN PRN Reason: Nausea Stop: 10/12/19 16:10 Polyethylene Glycol (Miralax Powder Packet) 17 gm PO DAILY [facility] Stop: 10/21/19 08:59 Last Admin: 09/24/19 09:14 Dose: 17 gm Documented by: Sennosides (Senokot) 17.2 mg PO QAM [facility] Stop: 10/21/19 08:59 Last Admin: 09/24/19 09:11 Dose: 17.2 mg Documented by: Thiamine HCl (Vitamin B-1) 100 mg PO TID [facility] Stop: 10/16/19 08:59 Last Admin: 09/24/19 14:06 Dose: 100 mg Documented by: PG Care Time/CCT Total # of Minutes Spent Total Time Spent with Patient: Total time spent is greater than 50% in coordination of care (as documented) at patient's floor/unit and/or counseling patient: (1) Diabetes mellitus Diabetes mellitus complication status: with hyperglycemia Diabetes mellitus chcf insulin use: without supervisor intermediates use Diabetes mellitus type: type 2 Qualified Code(s): E11.65 - Type 2 diabetes mellitus with hyperglycemia (2) AAA (abdominal aortic aneurysm) Presence of rupture: without rupture Qualified Code(s): I71.4 - Abdominal aortic aneurysm, without rupture (3) Anemia Anemia type: other cause Other causes of anemia: other cause, not classified Qualified Code(s): D64.89 - Other specified anemias (4) Hypothermia Encounter type: initial encounter Qualified Code(s): T68.XXXA - Hypothermia, initial encounter (5) Altered mental status Altered mental status type: unspecified Qualified Code(s): R41.82 - Altered mental status, unspecified (6) Hypotension Hypotension type: unspecified hypotension type Qualified Code(s): I95.9 - Hypotension, unspecified (7) Constipation Constipation type: other constipation type Qualified Code(s): K59.09 - Other constipation
[2019-09-24] MEDS: INSULIN GLARGINE SOLOSTAR 100 UNITS/ML 3 ML PEN SC SCH (20:34)
[2019-09-24] MEDS: DOCUSATE SODIUM 100 MG CAP PO SCH (20:34)
[2019-09-24] MEDS: OLANZapine 20 MG TABLET PO SCH (20:34)
[2019-09-24] MEDS ORDERED: cloZAPine 25 MG TAB PO SCH (21:00)
[2019-09-25] MEDS: VANCOMYCIN HCL 1,000 MG in SODIUM CHLORIDE 0.9% 250 ML IV SCH ×2 (03:52→17:59)
[2019-09-25] MEDS: HYDROCORTISONE SOD 50 MG in SYRINGE 0 ML IV SCH ×3 (06:07→21:36)
[2019-09-25] MEDS: INSULIN ASPART 100 UNITS/ML 3 ML PEN SC SCH ×4 (09:44→21:38)
[2019-09-25] MEDS: RAMELTEON: ORDER AWAITING ACTION SCH ×3 (09:45→23:56)
[2019-09-25] MEDS: LACTULOSE SYRUP 20 GM/30 ML UDC PO SCH ×3 (09:45→20:07)
[2019-09-25] MEDS: LORazepam 2 MG/4 ML VIAL IV SCH ×3 (09:46→20:07)
[2019-09-25] MEDS: SENNA 8.6 MG TAB PO SCH (09:46)
[2019-09-25] MEDS: POLYETHYLENE (MIRALAX) 17 GM PACK PO SCH (09:47)
[2019-09-25] MEDS: FERROUS SULFATE 325 MG TAB PO SCH (09:47)
[2019-09-25] MEDS: CYANOCOBALAMIN (VITAMIN B-12) 100 MCG TABLET PO SCH (09:48)
[2019-09-25] MEDS: THIAMINE HCL 100 MG TAB PO SCH ×3 (09:48→20:08)
[2019-09-25] MEDS: ASCORBIC ACID 500 MG TAB PO SCH (09:48)
[2019-09-25] MEDS: OLANZapine 10 MG TAB PO SCH (09:49)
--- NOTE | 2019-09-25 15:47 | Hospitalist Progress Note ---
Date of Service September 25, 2019 Assessment & Plan (1) Osteomyelitis of finger of left hand: left 3rd finger. seems to have a component of cellulitis as well. continue Vancomycin IV hypothermia improving, doubt it is due to infection WBC 4.7 per orthopedics, certainly could consider an elective amputation of distal 3rd phalanx patient cannot consent at this time so would need to be back to baseline and see ortho in the office plan to downgrade to PO antibiotics on 09/27, will discuss with ID (2) Altered mental status: severe schizoaffective d/o. continue to treat osteomyelitis treat possible agitated catatonia with Ativan IV TID symptoms are waxing and waning better today, will taper Ativan back to 2mg TID then 1mg TID then stop (3) Diabetes insipidus: Nephrogenic. 2nd to long-standing lithium use. lithium was discontinued earlier this stay. DI led to hypernatremia - now resolved with hypotonic fluids. continues to drink large amounts of water, Na stable for several days (4) Hypernatremia: 2nd to nephrogenic DI. see "DI" above Na stable (5) Schizoaffective disorder, bipolar type: Appreciate psychiatric management. [place] discontinued. Remains on zyprexa BID. Clozaril added back, will titrate up to 50mg in the past he was on 200mg AM and 250mg HS continue Ativan for possible agitated catatonia, decrease to 2mg IV then 1mg IV TID on 09/26 will titrate off of Zyprexa as Clozaril increased CT head this admission neg. B12, ammonia, TSH wnl. per [facility], once he can be stabilized, the plan is for him to be transferred to mental health facility residential (6) Metabolic acidosis, increased anion gap: resolved (7) Hypotension: Possible adrenal insufficiency entertained earlier this stay and placed on empiric hydrocortisone. However 2 cortisol levels were 15 or higher making adrenal insufficiency unlikely. Hypotension may simply have been volume contraction. BPs now normal. (8) Hypothermia: TSH, FT4 wnl cortisol 15 and 19 on 2 checks blood cx's neg the cause is still unclear, more hypothermia today celluitis/osteomyelitis L 3rd finger? agitated catatonia? will increase Hydrocortisone to 50 q8 since he continues to have hypothermia despite antibiotics and Ativan (9) Hypokalemia: resolved (10) Acute renal insufficiency: resolved (11) Constipation: place on miralax with senna no BM for 10-12 days KUB with stool in colon 09/24/19 continue Lactulose TID until he moves bowels abdomen soft, NT, ND, and has positive bowel sounds (12) AAA (abdominal aortic aneurysm): 5.7 cm in size - infrarenal Follow-up as outpatient very, very poor surgical candidate (13) Diabetes mellitus: HbA1c 6.9% Given his thin stature this is likely type 1 novolog w/ meals will stop Dextrose in fluids tomorrow (14) Anemia: stable exact cause uncertain b12, folate, Fe all acceptable chronic disease/osteomyelitis?? (15) Seizure: ? past seizure records suggest normal EEG in past not on AEDs follow (16) Sinus node dysfunction: suspect had sinus cleve in setting of hypothermia cardiology following - no Rx (17) Severe protein-calorie malnutrition: recent imaging showed left supraclavicular lymphadenopathy in light of COPD, prior tobacco, etc - chest malignancy would be high on differential too ill with other issues to perform w/u focus on his nutrition for now (18) DVT prophylaxis: Heparin 5000 units SQ q.12h remains very ill w/ very poor prognosis changed code status to DNR, due to severe mental health condition, cachexia, osteomyelitis performing heroic measures would be futile and would not be in the patient's best interest this was discussed with clinical supervisor melt house at [facility] who is in agreement Subjective patient more alert today and temperature better eating well labs are stable he is still confused at times, delusional, seeing things discussed plan with psychiatry, will decrease Ativan to 2mg TID today then 1mg TID on 09/26 then stop 09/27 Review of Systems Review of Systems: Unobtainable due to mental health condition Physical Exam Constitutional: + thin and + disheveled Eyes: PERRL, conjunctivae normal, anicteric sclerae ENMT: external ear and nose normal, oropharynx normal Neck: trachea midline, no thyromegaly Respiratory: normal respiratory effort, lungs clear to auscultation Cardiovascular: RRR, no murmur, no edema Gastrointestinal (Abdomen): normal bowel sounds, soft, nontender, no h epatosplenomegaly Musculoskeletal: no cyanosis or clubbing, extremities motor strength 5/5 Skin: no rashes, warm and dry Neurologic: patellar DTR's 2+ bilat, sensation intact and PERRL, EOMI, accommodation nl, no face palsy, no dysarthria Psychiatric: Orientation: + not alert, + not oriented to person, + not oriented to place and + not oriented to time Eye Contact: + poor eye contact; + not good eye contact Speech: + pressured speech and + loud speech Affect: + anxious affect Mood: + irritable mood Thought Process: + flight of ideas Thought Content: + paranoid and + delusions Hallucinations: + visual hallucinations (seeing things on the ground) Lymphatic: no cervical or axillary lymphadenopathy Results & Data Vital Signs (Past 12 Hours) Vital Signs Temp Pulse Resp BP Pulse Ox 09/25/19 15:20 36.2 C L 81 18 132/82 100 09/25/19 07:24 36.3 C L 80 20 143/85 H 100 09/25/19 04:00 36.5 C 88 18 138/84 97 PG Care Time/CCT Total # of Minutes Spent Total Time Spent with Patient: Total time spent is greater than 50% in coordination of care (as documented) at patient's floor/unit and/or counseling patient: (1) Diabetes mellitus Diabetes mellitus complication status: with hyperglycemia Diabetes mellitus residential insulin use: without vermin exterminator use Diabetes mellitus type: type 2 Qualified Code(s): E11.65 - Type 2 diabetes mellitus with hyperglycemia (2) AAA (abdominal aortic aneurysm) Presence of rupture: without rupture Qualified Code(s): I71.4 - Abdominal aortic aneurysm, without rupture (3) Anemia Anemia type: other cause Other causes of anemia: other cause, not classified Qualified Code(s): D64.89 - Other specified anemias (4) Hypothermia Encounter type: initial encounter Qualified Code(s): T68.XXXA - Hypothermia, initial encounter (5) Altered mental status Altered mental status type: unspecified Qualified Code(s): R41.82 - Altered mental status, unspecified (6) Hypotension Hypotension type: unspecified hypotension type Qualified Code(s): I95.9 - Hypotension, unspecified (7) Constipation Constipation type: other constipation type Qualified Code(s): K59.09 - Other constipation
[2019-09-25] MEDS: DEXTROSE 5% 1,000 ML IV SCH (16:55)
[2019-09-25] MEDS: DOCUSATE SODIUM 100 MG CAP PO SCH (20:07)
[2019-09-25] MEDS: OLANZapine 20 MG TABLET PO SCH (20:09)
[2019-09-25] MEDS ORDERED: cloZAPine 100 MG TAB PO SCH (21:00)
[2019-09-25] MEDS: INSULIN GLARGINE SOLOSTAR 100 UNITS/ML 3 ML PEN SC SCH (21:36)
[2019-09-26] MEDS: HYDROCORTISONE SOD 50 MG in SYRINGE 0 ML IV SCH ×3 (05:50→21:10)
[2019-09-26] MEDS ORDERED: VANCOMYCIN TROUGH ONE (07:30)
[2019-09-26 08:21] LABS: Hematocrit (blood only) 33.1 % (42-52); Hemoglobin 10.3 g/dL (14.0-18.0); Immature Granulocytes # (auto) 0.01 K/uL (0.00-0.02); Immature Granulocytes % (auto) 0.1 %; Lymphocytes # (auto) 1.07 K/uL (1.2-3.4); Lymphocytes % (auto) 11.8 %; Mean Corpuscular Hemoglobin 29.4 pg (25-34); Mean Corpuscular Hgb Conc 31.1 g/dL (32-36); Mean Corpuscular Volume 94.6 fL (80-100); Mean Platelet Volume 12.3 fL (7.4-10.4); Monocytes # (auto) 0.37 K/uL (0.11-0.59); Monocytes % (auto) 4.1 %; Neutrophils # (auto) 7.59 K/uL (1.4-6.5); Platelet Count 94 K/uL (130-400); RDW Coefficient of Variation 15.6 % (11.5-14.5); RDW Standard Deviation 53.5 fL (36.4-46.3); White Blood Count 9.04 K/uL (4.8-10.8)
[2019-09-26 08:52] LABS: BUN Creatinine Ratio 19.5 (10-20); Calcium 9.6 mg/dl (8.5-10.1); Creatinine Clr Calc Pharmacy 87.6 ml/min; Est GFR (African American) 110.5; Est GFR (Non-African American) 95.4; Potassium 3.5 mmol/L (3.5-5.1)
--- NOTE | 2019-09-26 09:03 | Pharmacy Report ---
Pharmacy Abx Dose Short Note - Date of Service September 26, 2019 - Assessment & Plan Assessment 59 year old M receiving vancomycin for treatment of finger osteomyelitis Day # 6-7 of antimicrobial therapy. Plan Vancomycin * Trough level of 17.2 mcg/mL is therapeutic and trough drawn appropriately * Continue dose of 1000 mg IV every 14 hours * Goal trough level 15-20 mcg/mL * Trough will be ordered in 3-4 days or with changes in renal function Pharmacy will continue to follow and will adjust dose/frequency as necessary. Thank you.
[2019-09-26] MEDS: RAMELTEON: ORDER AWAITING ACTION SCH ×3 (09:17→23:16)
[2019-09-26] MEDS: SENNA 8.6 MG TAB PO SCH (09:27)
[2019-09-26] MEDS: POLYETHYLENE (MIRALAX) 17 GM PACK PO SCH (09:27)
[2019-09-26] MEDS: THIAMINE HCL 100 MG TAB PO SCH ×3 (09:27→20:34)
[2019-09-26] MEDS: LACTULOSE SYRUP 20 GM/30 ML UDC PO SCH ×3 (09:28→20:31)
[2019-09-26] MEDS: OLANZapine 10 MG TAB PO SCH (09:29)
[2019-09-26] MEDS: FERROUS SULFATE 325 MG TAB PO SCH (09:30)
[2019-09-26] MEDS: ASCORBIC ACID 500 MG TAB PO SCH (09:30)
[2019-09-26] MEDS: CYANOCOBALAMIN (VITAMIN B-12) 100 MCG TABLET PO SCH (09:30)
[2019-09-26] MEDS: INSULIN ASPART 100 UNITS/ML 3 ML PEN SC SCH ×4 (09:46→20:36)
[2019-09-26] MEDS: LORazepam 2 MG/4 ML VIAL IV SCH (10:07)
[2019-09-26] MEDS: VANCOMYCIN HCL 1,000 MG in SODIUM CHLORIDE 0.9% 250 ML IV SCH ×2 (10:07→21:12)
[2019-09-26] MEDS: LORazepam 1 MG/2 ML VIAL IV SCH ×2 (12:58→20:33)
[2019-09-26] MEDS: DEXTROSE 5% 1,000 ML IV SCH (14:44)
--- NOTE | 2019-09-26 19:22 | Hospitalist Progress Note ---
Date of Service September 26, 2019 Assessment & Plan (1) Osteomyelitis of finger of left hand: left 3rd finger. seems to have a component of cellulitis as well. treated with Vancomycin IV hypothermia improving, doubt it is due to infection WBC was low change to Doxycycline, continue for 4-6 weeks per orthopedics, certainly could consider an elective amputation of distal 3rd phalanx patient cannot consent at this time so would need to be back to baseline and see ortho in the office (2) Altered mental status: severe schizoaffective d/o. continue to treat osteomyelitis treat possible agitated catatonia with Ativan IV TID symptoms are waxing and waning better past few days, will taper Ativan back to 1mg TID, plan to stop tomorrow (3) Diabetes insipidus: Nephrogenic. 2nd to long-standing lithium use. lithium was discontinued earlier this stay. DI led to hypernatremia - now resolved with hypotonic fluids. continues to drink large amounts of water, Na stable for several days plan to stop D5W tomorrow (4) Hypernatremia: 2nd to nephrogenic DI. see "DI" above Na stable (5) Schizoaffective disorder, bipolar type: Appreciate psychiatric management. [place] discontinued. Remains on zyprexa BID. Clozaril added back, will titrate up to 50mg in the past he was on 200mg AM and 250mg HS continue Ativan for possible agitated catatonia, decrease to 2mg IV then 1mg IV TID on 09/26, plan to stop tomorrow will titrate off of Zyprexa as Clozaril increased CT head this admission neg. B12, ammonia, TSH wnl. per [facility], once he can be stabilized, the plan is for him to be transferred to mental health facility computer installer (6) Metabolic acidosis, increased anion gap: resolved (7) Hypotension: Possible adrenal insufficiency entertained earlier this stay and placed on empiric hydrocortisone. However 2 cortisol levels were 15 or higher making adrenal insufficiency unlikely. Hypotension may simply have been volume contraction. BPs now normal. (8) Hypothermia: TSH, FT4 wnl cortisol 15 and 19 on 2 checks blood cx's neg the cause is still unclear, more hypothermia prior three days improved with stress dose hydrocortisone will plan to place on PO Hydrocortisone and Florinef (9) Hypokalemia: resolved (10) Acute renal insufficiency: resolved (11) Constipation: place on miralax with senna no BM for 10-12 days KUB with stool in colon 09/24/19 continue Lactulose TID until he moves bowels abdomen soft, NT, ND, and has positive bowel sounds hope for BM soon (12) AAA (abdominal aortic aneurysm): 5.7 cm in size - infrarenal Follow-up as outpatient very, very poor surgical candidate (13) Diabetes mellitus: HbA1c 6.9% Given his thin stature this is likely type 1 novolog w/ meals will stop Dextrose in fluids tomorrow (14) Anemia: stable exact cause uncertain b12, folate, Fe all acceptable chronic disease/osteomyelitis?? (15) Seizure: ? past seizure records suggest normal EEG in past not on AEDs follow (16) Sinus node dysfunction: suspect had sinus cleve in setting of hypothermia cardiology following - no Rx (17) Severe protein-calorie malnutrition: recent imaging showed left supraclavicular lymphadenopathy in light of COPD, prior tobacco, etc - chest malignancy would be high on differential too ill with other issues to perform w/u focus on his nutrition for now (18) DVT prophylaxis: Heparin 5000 units SQ q.12h remains very ill w/ very poor prognosis changed code status to DNR, due to severe mental health condition, cachexia, osteomyelitis performing heroic measures would be futile and would not be in the patient's best interest this was discussed with clinical supervisor silvering department at [facility] who is in agreement Subjective patient's temperature better more alert in the afternoon, kept asking for hot dogs not alert to place or time, less agitated reviewed labs discussed with psychiatry, continue to titrate down on Ativan Review of Systems Review of Systems: Unobtainable due to mental health condition Physical Exam Constitutional: + thin and + disheveled Eyes: PERRL, conjunctivae normal, anicteric sclerae ENMT: external ear and nose normal, oropharynx normal Neck: trachea midline, no thyromegaly Respiratory: normal respiratory effort, lungs clear to auscultation Cardiovascular: RRR, no murmur, no edema Gastrointestinal (Abdomen): normal bowel sounds, soft, nontender, no hepatosplenomegaly Musculoskeletal: no cyanosis or clubbing, extremities motor strength 5/5 Skin: no rashes, warm and dry Neurologic: patellar DTR's 2+ bilat, sensation intact and PERRL, EOMI, accommodation nl, no face palsy, no dysarthria Psychiatric: Orientation: oriented to person; + not alert, + not oriented to place and + not oriented to time Eye Contact: + poor eye contact Speech: + pressured speech and + loud speech Affect: + anxious affect Thought Content: + paranoid Hallucinations: + visual hallucinations (seeing things on the ground) Lymphatic: no cervical or axillary lymphadenopathy Results & Data Vital Signs (Past 12 Hours) Vital Signs Temp Pulse Resp BP Pulse Ox 09/26/19 16:09 36.5 C 95 H 16 151/76 H 98 09/26/19 15:31 36.3 C L 105 H 18 138/72 97 09/26/19 12:26 36.4 C L 92 H 16 139/80 100 09/26/19 07:58 36.4 C L 85 18 139/88 98 Laboratory Results Laboratory Results - last 24 hr 09/25/19 09/26/19 09/26/19 20:59 07:49 08:08 WBC RBC Hgb Hct MCV MCH MCHC RDW Std Deviation RDW Coeff of Shamar Plt Count MPV Immature Gran % (Auto) Neut % (Auto) Lymph % (Auto) [place] % (Auto) Eos % (Auto) Baso % (Auto) Immature Gran # (Auto) Neut # (Auto) Lymph # (Auto) [place] # (Auto) Eos # (Auto) Baso # (Auto) Sodium Potassium Chloride Carbon Dioxide Anion Gap BUN Creatinine Est Cr Clr Drug Dosing Est GFR ( Amer) Est GFR (Non-Af Amer) BUN/Creatinine Ratio Glucose POC Glucose 199 H 177 H Calcium Vancomycin Trough 17.2 09/26/19 09/26/19 09/26/19 08:08 08:08 11:48 WBC 9.04 RBC 3.50 L Hgb 10.3 L Hct 33.1 L MCV 94.6 MCH 29.4 MCHC 31.1 L RDW Std Deviation 53.5 H RDW Coeff of Shamar 15.6 H Plt Count 94 L MPV 12.3 H Immature Gran % (Auto) 0.1 Neut % (Auto) 84.0 Lymph % (Auto) 11.8 [place] % (Auto) 4.1 Eos % (Auto) 0.0 Baso % (Auto) 0.0 Immature Gran # (Auto) 0.01 Neut # (Auto) 7.59 H Lymph # (Auto) 1.07 L [place] # (Auto) 0.37 Eos # (Auto) 0.00 Baso # (Auto) 0.00 Sodium 148 H Potassium 3.5 Chloride 115 H Carbon Dioxide 29 Anion Gap 4.0 BUN 17 Creatinine 0.85 Est Cr Clr Drug Dosing 87.6 Est GFR ( Amer) 110.5 Est GFR (Non-Af Amer) 95.4 BUN/Creatinine Ratio 19.5 Glucose 170 H POC Glucose 323 H* Calcium 9.6 Vancomycin Trough 09/26/19 09/26/19 09/26/19 12:24 16:04 16:34 WBC RBC Hgb Hct MCV MCH MCHC RDW Std Deviation RDW Coeff of Hsamar Plt Count MPV Immature Gran % (Auto) Neut % (Auto) Lymph % (Auto) [place] % (Auto) Eos % (Auto) Baso % (Auto) Immature Gran # (Auto) Neut # (Auto) Lymph # (Auto) [place] # (Auto) Eos # (Auto) Baso # (Auto) Sodium Potassium Chloride Carbon Dioxide Anion Gap BUN Creatinine Est Cr Clr Drug Dosing Est GFR ( Amer) Est GFR (Non-Af Amer) BUN/Creatinine Ratio Glucose POC Glucose 241 H 121 H 124 H Calcium Vancomycin Trough Medications Administered Current Inpatient Medications Acetaminophen (Tylenol) 650 mg PO Q4H PRN PRN Reason: Pain or Fever Stop: 10/12/19 16:10 Al Hydrox/Mg Hydrox/Simethicone (Maalox) 15 ml PO Q4H PRN PRN Reason: Dyspepsia Stop: 10/12/19 16:10 [facility]orbic [facility] [place]: 10/13/19 08:59 Last Admin: 09/26/19 09:30 Dose: 500 mg Documented by: Chlorpromazine HCl (Thorazine) 50 mg PO Q4H PRN PRN Reason: Agitation Stop: 10/18/19 15:44 Clozapine (Clozaril) 125 mg PO [facility]; Protocol Stop: 10/26/19 20:59 Clozapine (Clozaril) 25 mg PO QAM [facility] Stop: 10/27/19 08:59 Cyanocobalamin (Vitamin B-12) 100 mcg PO DAILY [facility] Stop: 10/13/19 08:59 Last Admin: 09/26/19 09:30 Dose: 100 mcg Documented by: Dextrose (Dextrose 50%) 25 - 50 ml IV UD PRN; Protocol PRN Reason: Hypoglycemia Protocol Stop: 10/13/19 10:04 Docusate Sodium (Colace) 200 mg PO HS [facility]IA[facility]; Protocol Stop: 10/12/19 20:59 Last Admin: 09/25/19 20:07 Dose: 200 mg Documented by: Ferrous Sulfate (Feosol) 325 mg PO DAILY [facility] Stop: 10/13/19 08:59 Last Admin: 09/26/19 09:30 Dose: 325 mg Documented by: Glucagon (Glucagen) 1 mg SQ UD PRN; Protocol PRN Reason: Hypoglycemia Protocol Stop: 10/13/19 10:04 Glucose (Dex4 Glucose) 4 - 8 tabs PO UD PRN; Protocol PRN Reason: Hypoglycemia Protocol Stop: 10/13/19 10:04 Glucose (Glucose 40%) 15 - 30 gm PO UD PRN; Protocol PRN Reason: Hypoglycemia Protocol Stop: 10/13/19 10:04 Vancomycin HCl 1,000 mg/ (Sodium Chloride) 270 mls @ 125 mls/hr IV Q14H [facility]; Protocol Stop: 11/01/19 19:59 Last Infusion: 09/26/19 14:41 Dose: Infused Documented by: Hydrocortisone Sodium (Succinate 50 mg/ Syringe) 1 mls @ 4 mls/min IV Q8 [facility] Stop: 10/24/19 13:59 Last Admin: 09/26/19 13:05 Dose: 4 mls/min Documented by: Lorazepam (Ativan) 1 mg in 2 mls @ 4 mls/min IV TID [facility] Stop: 10/25/19 11:59 Last Admin: 09/26/19 12:58 Dose: 4 mls/min Documented by: Insulin Aspart (Novolog Flexpen) 0 units SC ACHS [facility] Stop: 10/13/19 11:29 Last Admin: 09/26/19 17:21 Dose: 6 units Documented by: Insulin Glargine (Lantus Solostar Pen) 4 units SC HS [facility] Stop: 10/20/19 21:24 Last Admin: 09/25/19 21:36 Dose: 4 units Documented by: Lactulose (Chronulac) 20 gm PO TID [facility] Stop: 10/24/19 13:59 Last Admin: 09/26/19 13:05 Dose: 20 gm Documented by: Magnesium Hydroxide (Milk Of Magnesia) 60 ml PO DAILY PRN PRN Reason: Constipation Stop: 10/12/19 16:10 Last Admin: 09/19/19 09:48 Dose: 60 ml Documented by: Magnesium Hydroxide (Milk Of Magnesia) 30 ml PO Q12H PRN PRN Reason: Constipation Stop: 10/12/19 16:10 Last Admin: 09/25/19 14:02 Dose: 30 ml Documented by: Miscellaneous (Order Awaiting Action) 1 ea N/A QS [facility] Stop: 10/13/19 16:59 Last Admin: 09/26/19 17:21 Dose: Not Given Documented by: Miscellaneous (Carbohydrates For Hypoglycemia) 15 - 30 gm PO UD PRN PRN Reason: Hypoglycemia Protocol Stop: 10/13/19 10:04 Last Admin: 09/22/19 16:35 Dose: 15 gm Documented by: Miscellaneous Information (Consult) 1 ea N/A UD PRN PRN Reason: Consult Stop: 10/20/19 12:20 Olanzapine (Zyprexa) 20 mg PO HS [facility] Stop: 10/12/19 20:59 Last Admin: 09/25/19 20:09 Dose: 20 mg Documented by: Olanzapine (Zyprexa) 10 mg IM HS PRN PRN Reason: If unable to take PO dose Stop: 10/14/19 08:52 Olanzapine (Zyprexa) 10 mg PO QAM [facility] Stop: 10/19/19 08:59 Last Admin: 09/26/19 09:29 Dose: 10 mg Documented by: Ondansetron HCl (Zofran) 4 mg IV Q6H PRN PRN Reason: Nausea Stop: 10/12/19 16:10 Polyethylene Glycol (Miralax Powder Packet) 17 gm PO DAILY [facility] Stop: 10/21/19 08:59 Last Admin: 09/26/19 09:27 Dose: 17 gm Documented by: Sennosides (Senokot) 17.2 mg PO QAM [facility] Stop: 10/21/19 08:59 Last Admin: 09/26/19 09:27 Dose: 17.2 mg Documented by: Thiamine HCl (Vitamin B-1) 100 mg PO TID [facility] Stop: 10/16/19 08:59 Last Admin: 09/26/19 13:03 Dose: 100 mg Documented by: PG Care Time/CCT Total # of Minutes Spent Total Time Spent with Patient: Total time spent is greater than 50% in coordination of care (as documented) at patient's floor/unit and/or counseling patient: (1) Diabetes mellitus Diabetes mellitus complication status: with hyperglycemia Diabetes mellitus jail insulin use: without computer installer use Diabetes mellitus type: type 2 Qualified Code(s): E11.65 - Type 2 diabetes mellitus with hyperglycemia (2) AAA (abdominal aortic aneurysm) Presence of rupture: without rupture Qualified Code(s): I71.4 - Abdominal aortic aneurysm, without rupture (3) Anemia Anemia type: other cause Other causes of anemia: other cause, not classified Qualified Code(s): D64.89 - Other specified anemias (4) Hypothermia Encounter type: initial encounter Qualified Code(s): T68.XXXA - Hypothermia, initial encounter (5) Altered mental status Altered mental status type: unspecified Qualified Code(s): R41.82 - Altered mental status, unspecified (6) Hypotension Hypotension type: unspecified hypotension type Qualified Code(s): I95.9 - Hyp otension, unspecified (7) Constipation Constipation type: other constipation type Qualified Code(s): K59.09 - Other constipation
[2019-09-26] MEDS: DOCUSATE SODIUM 100 MG CAP PO SCH (20:31)
[2019-09-26] MEDS: OLANZapine 20 MG TABLET PO SCH (20:34)
[2019-09-26] MEDS: INSULIN GLARGINE SOLOSTAR 100 UNITS/ML 3 ML PEN SC SCH (20:36)
[2019-09-26] MEDS ORDERED: cloZAPine 25 MG TAB PO SCH (21:00)
[2019-09-27] MEDS: HYDROCORTISONE SOD 50 MG in SYRINGE 0 ML IV SCH (05:08)
[2019-09-27] MEDS: RAMELTEON: ORDER AWAITING ACTION SCH ×3 (07:27→23:13)
[2019-09-27] MEDS: LORazepam 1 MG/2 ML VIAL IV SCH (08:22)
[2019-09-27] MEDS: INSULIN ASPART 100 UNITS/ML 3 ML PEN SC SCH ×4 (08:23→21:27)
[2019-09-27] MEDS: LACTULOSE SYRUP 20 GM/30 ML UDC PO SCH ×3 (08:24→20:27)
[2019-09-27] MEDS: POLYETHYLENE (MIRALAX) 17 GM PACK PO SCH (08:24)
[2019-09-27] MEDS: ASCORBIC ACID 500 MG TAB PO SCH (08:25)
[2019-09-27] MEDS: THIAMINE HCL 100 MG TAB PO SCH ×3 (08:25→21:27)
[2019-09-27] MEDS: CYANOCOBALAMIN (VITAMIN B-12) 100 MCG TABLET PO SCH (08:25)
[2019-09-27] MEDS: SENNA 8.6 MG TAB PO SCH (08:25)
[2019-09-27] MEDS: FERROUS SULFATE 325 MG TAB PO SCH (08:26)
[2019-09-27] MEDS: OLANZapine 10 MG TAB PO SCH (08:26)
[2019-09-27] MEDS ORDERED: cloZAPine 25 MG TAB PO SCH (09:00)
[2019-09-27 09:16] LABS: BUN Creatinine Ratio 22.8 (10-20); Calcium 9.7 mg/dl (8.5-10.1); Creatinine Clr Calc Pharmacy 86.6 ml/min; Est GFR (Non-African American) 94.9; Potassium 3.7 mmol/L (3.5-5.1)
[2019-09-27] MEDS: FLUDROCORTISONE ACETATE 0.1 MG TAB PO SCH (09:31)
[2019-09-27] MEDS: HYDROCORTISONE 10 MG TAB PO SCH ×2 (09:31→13:44)
[2019-09-27] MEDS: DOXYCYCLINE HYCLATE 100 MG CAP PO SCH ×2 (09:32→21:27)
[2019-09-27] MEDS: COLLAGENASE OINT 30 GM TUBE EXT SCH (12:24)
[2019-09-27 14:22] LABS: Hematocrit (blood only) 34.3 % (42-52); Hemoglobin 10.7 g/dL (14.0-18.0); Mean Corpuscular Hemoglobin 29.4 pg (25-34); Mean Corpuscular Hgb Conc 31.2 g/dL (32-36); Mean Corpuscular Volume 94.2 fL (80-100); Mean Platelet Volume 13.3 fL (7.4-10.4); Platelet Count 93 K/uL (130-400); RDW Coefficient of Variation 15.7 % (11.5-14.5); RDW Standard Deviation 54.5 fL (36.4-46.3); Red Blood Count 3.64 M/uL (4.7-6.1)
--- NOTE | 2019-09-27 18:33 | Psychiatric Progress Note ---
Date of Service September 27, 2019 Impression / Recommendations Impression 59-year-old male with history of chronic schizophrenia, with most recent concern for agitated catatonia. Pt responded to initiation of lorazepam 2 mg TID, which had been tapered to discontinuation as he demonstrated improvement in mental status. Clozapine is being re-titrated after review with hospitalist team and psychiatrist at the correction, with recommendation for titration by 25-50mg daily - as he is seemingly been more consistent with PO medications. Continue Zyprexa at current dose of 10mg qAM and 20mg qHS - recommend ongoing evaluation of behavior, as it would be ideal to reduce dose of olanzapine once clozapine has been re-titrated. Per records, prior clozapine dosage was 200mg qAM and 250mg qHS - will require ongoing weekly CBC w/diff per clozapine protocols. CBC w/diff already ordered for 10/03/19. (1) Schizoaffective disorder, bipolar type: 09/13 - zyprexa 5mg qm, 20mg qhs - give olanzapine IM if refuses PO - considering reinitiation of clozapine but increases risk for seizure and will take weeks to retitrate 09/18 - Recommend titrating Zyprexa to 10mg qAM and 20mg qHS - IM Zyprexa for PO refusal as above 09/23 - Continue olanzapine 10mg qAM and 20mg qHS - Clozapine initiated last evening at 25mg - titrating to 50mg this evening; can continue daily titration by 25mg if patient continues to agree to PO medications 09/27 - Continue olanzapine 10mg qAM and 20mg qHS - Clozapine is being titrated - pt to receive 150mg this evening and 50mg tomorrow morning. Can continue titration by 25-50mg daily. - Weekly CBC w/ diff has been ordered in accordance with clozapine prescribing standards (2) Delirium due to another medical condition, acute, mixed level of activity: 09/13 - supportive care while treating active medical conditions - reorientation prn - would prefer not to use benzodiazepine however we may need to add an ativan 1mg IV q4h prn if his agitation persists despite the olanzapine (with goal to use w/ minimal frequency). if ativan prn is started it should not be given within 1 hour of IM zyprexa. 09/18 - Recommend utilization of chlorpromazine 50mg q4h prn agitation, as alternative to lorazepam as patient continues to demonstrate agitation and disorganization - Continue routine reorientation as above 09/23 - Seems likely patient may be experiencing agitated catatonia - see recommendations below - Continue utilization of prn chlorpromazine if accepting of PO medications; olanzapine IM injections for acute threat to safety of patient or staff 09/27 - Seems to be improving over time (3) Catatonic agitation: 09/23 - Lorazepam 2mg TID IV scheduled, initiated as above - Would suggest slow taper of dose once mentation returns to baseline - Continue to ensure IM olanzapine (ordered prn for acute agitation) is not utilized within 1 hour of lorazepam administration - Remains in 4-point restraints, though behavior is reportedly in better control. Repeat CK was requested yesterday - WNL at 70 Risk Factors Assessment Do You Have Access To A Gun?: No Interval History Identifying Information 59-year-old prisoner with reported history of schizoaffective disorder and multiple medical problems admitted through the ER from [facility]. Initial psychiatric consultation was requested to evaluate patient for "acute psychosis." Re-examination was requested due to "continued behavioral disturbance" with concern for agitated catatonia. He has been followed to assess progress over course of admission. Chief Complaint "Am I feeling better? Is that what you are asking?". Review of Systems Notes Constitutional: denied Cardiovascular: denied Respiratory: denied Gastrointestinal: denied Neurological: denied Psychiatric: denies symptoms other than stated above Total of at least 10 systems reviewed, pertinent positives as above and in HPI. Subjective Subjective Patient's case was reviewed and discussed during morning report with psychiatric nurse liaison and supervising psychiatrist. Patient's dose of clozapine has been titrated over the last several days. Patient was seen today on psychiatric consult service for follow-up visit to assess progress. Patient is appearing calm and comfortable, indicating to this provider that he is feeling "better than yesterday." Patient's speech remains somewhat muffled, but he is far easier to understand and seems to be speaking more linearly, but not necessarily more logically. Patient does report odd comments, such as being told to use his hospital bed as an exercise machine, and statements that he is "walking on ice that will break", as he presses his feet against the foot of his bed.Patient admits that he is feeling more comfortable and is noticing overall improvement. Patient continues to make some odd, off topic statements during our conversation, initially requesting to know the cost to rent a hospital room, as he states he would like to work and live here. Patient denies thoughts to harm himself, and denies episodes of frustration/agitation. Patient was asked if there was anything he was seeing or hearing that did not belong in a hospital room, to which he replied no. Patient was asked if he was continuing to see fire in the doorway as he had previously reported, and he states "no, that was just nonsense coming from the TV before." Patient denies other needs or concerns at this time. Physical Exam Psychiatric Orientation: alert, oriented to person, oriented to place, oriented to time (somewhat, pt believed it was 10/07/19) and cooperative (superficially) Apperance: appropriately dressed, + disheveled and appeared stated age Eye Contact: good eye contact Motor Behavior: no abnormal motor movements (Observed while laying in bed, four- point restraints) Speech: + abnormal rate/rhythm/volume of speech Speech remains muffled, though easier to understand Affect: euthymic affect and mood congruent with affect Mood: no depressed mood ("I am better than yesterday") Thought Process: goal directed thought process; + thought process not linear or logical (More linear, though not necessarily more logical) Thought Content: not paranoid and no hopelessness Patient does make odd, illogical statements; however, not clearly verbalizing any delusional thought content Suicidal Thoughts: denies suicidal thoughts and denies suicidal intent Homicidal Thoughts: denies homicidal thoughts Hallucinations: no auditory hallucinations and no visual hallucinations Cognition: attention grossly intact and language grossly intact Insight: + limited insight Judgement: + limited judgement Vital Signs (Past 24 Hours) Last Vital Signs Temp 36.5 C 09/27/19 15:20 Pulse 96 H 09/27/19 15:20 Resp 18 09/27/19 15:20 BP 155/88 H 09/27/19 15:20 Pulse Ox 96 09/27/19 15:20 Results & Data Laboratory Results Laboratory Results - last 24 hr 09/26/19 09/27/19 09/27/19 20:30 07:54 08:17 WBC 8.20 RBC 3.64 L Hgb 10.7 L Hct 34.3 L MCV 94.2 MCH 29.4 MCHC 31.2 L RDW Std Deviation 54.5 H RDW Coeff of Shamar 15.7 H Plt Count 93 L MPV 13.3 H Sodium Potassium Chloride Carbon Dioxide Anion Gap BUN Creatinine Est Cr Clr Drug Dosing Est GFR ( Amer) Est GFR (Non-Af Amer) BUN/Creatinine Ratio Glucose POC Glucose 185 H 167 H Calcium 09/27/19 09/27/19 09/27/19 08:17 11:50 16:39 WBC RBC Hgb Hct MCV MCH MCHC RDW Std Deviation RDW Coeff of Shamar Plt Count MPV Sodium 147 H Potassium 3.7 Chloride 114 H Carbon Dioxide 28 Anion Gap 5.0 BUN 20 H Creatinine 0.86 Est Cr Clr Drug Dosing 86.6 Est GFR ( Amer) 110.0 Est GFR (Non-Af Amer) 94.9 BUN/Creatinine Ratio 22.8 H Glucose 182 H POC Glucose 227 H 162 H Calcium 9.7 Current Inpatient Medications Current Inpatient Medications: Current Inpatient Medications Acetaminophen (Tylenol) 650 mg PO Q4H PRN PRN Reason: Pain or Fever Stop: 10/12/19 16:10 Al Hydrox/Mg Hydrox/Simethicone (Maalox) 15 ml PO Q4H PRN PRN Reason: Dyspepsia Stop: 10/12/19 16:10 Ascorbic Acid (Vitamin C) 500 mg PO QAM [facility] Stop: 10/13/19 08:59 Last Admin: 09/27/19 08:25 Dose: 500 mg Documented by: Chlorpromazine HCl (Thorazine) 50 mg PO Q4H PRN PRN Reason: Agitation Stop: 10/18/19 15:44 Clozapine (Clozaril) 150 mg PO [facility]; Protocol Stop: 10/27/19 20:59 Clozapine (Clozaril) 50 mg PO QAM [facility] Stop: 10/28/19 08:59 Collagenase (Santyl) 1 appln EXT DAILY [facility] Stop: 10/27/19 10:59 Last Admin: 09/27/19 12:24 Dose: 1 appln Documented by: Cyanocobalamin (Vitamin B-12) 100 mcg PO DAILY [facility] Stop: 10/13/19 08:59 Last Admin: 09/27/19 08:25 Dose: 100 mcg Documented by: Dextrose (Dextrose 50%) 25 - 50 ml IV UD PRN; Protocol PRN Reason: Hypoglycemia Protocol Stop: 10/13/19 10:04 Docusate Sodium (Colace) 200 mg PO HS [facility]; Protocol Stop: 10/12/19 20:59 Last Admin: 09/26/19 20:31 Dose: 200 mg Documented by: Doxycycline Hyclate (Vibramycin) 100 mg PO BID@0800,2000 [facility] Stop: 10/07/19 08:59 Last Admin: 09/27/19 09:32 Dose: 100 mg Documented by: Ferrous Sulfate (Feosol) 325 mg PO DAILY [facility] Stop: 10/13/19 08:59 Last Admin: 09/27/19 08:26 Dose: 325 mg Documented by: Fludrocortisone Acetate (Florinef) 0.05 mg PO QAM [facility] Stop: 10/27/19 08:59 Last Admin: 09/27/19 09:31 Dose: 0.05 mg Documented by: Glucagon (Glucagen) 1 mg SQ UD PRN; Protocol PRN Reason: Hypoglycemia Protocol Stop: 10/13/19 10:04 Glucose (Dex4 Glucose) 4 - 8 tabs PO UD PRN; Protocol PRN Reason: Hypoglycemia Protocol Stop: 10/13/19 10:04 Glucose (Glucose 40%) 15 - 30 gm PO UD PRN; Protocol PRN Reason: Hypoglycemia Protocol Stop: 10/13/19 10:04 Hydrocortisone (Cortef) 15 mg PO QAM [facility] Stop: 10/27/19 08:59 Last Admin: 09/27/19 09:31 Dose: 15 mg Documented by: Hydrocortisone (Cortef) 10 mg PO 1400 [facility] Stop: 10/27/19 13:59 Last Admin: 09/27/19 13:44 Dose: 10 mg Documented by: Insulin Aspart (Novolog Flexpen) 0 units SC ACHS [facility] Stop: 10/13/19 11:29 Last Admin: 09/27/19 17:34 Dose: 5 units Documented by: Insulin Glargine (Lantus Solostar Pen) 4 units SC HS [facility] Stop: 10/20/19 21:24 Last Admin: 09/26/19 20:36 Dose: 4 units Documented by: Lactulose (Chronulac) 20 gm PO TID [facility] Stop: 10/24/19 13:59 Last Admin: 09/27/19 13:44 Dose: 20 gm Documented by: Magnesium Hydroxide (Milk Of Magnesia) 60 ml PO DAILY PRN PRN Reason: Constipation Stop: 10/12/19 16:10 Last Admin: 09/19/19 09:48 Dose: 60 ml Documented by: Magnesium Hydroxide (Milk Of Magnesia) 30 ml PO Q12H PRN PRN Reason: Constipation Stop: 10/12/19 16:10 Last Admin: 09/25/19 14:02 Dose: 30 ml Documented by: Miscellaneous (Order Awaiting Action) 1 ea N/A QS [facility] Stop: 10/13/19 16:59 Last Admin: 09/27/19 15:15 Dose: Not Given Documented by: Miscellaneous (Carbohydrates For Hypoglycemia) 15 - 30 gm PO UD PRN PRN Reason: Hypoglycemia Protocol Stop: 10/13/19 10:04 Last Admin: 09/22/19 16:35 Dose: 15 gm Documented by: Olanzapine (Zyprexa) 20 mg PO HS [facility] Stop: 10/12/19 20:59 Last Admin: 09/26/19 20:34 Dose: 20 mg Documented by: Olanzapine (Zyprexa) 10 mg IM HS PRN PRN Reason: If unable to take PO dose Stop: 10/14/19 08:52 Olanzapine (Zyprexa) 10 mg PO QAM [facility] Stop: 10/19/19 08:59 Last Admin: 09/27/19 08:26 Dose: 10 mg Documented by: Ondansetron HCl (Zofran) 4 mg IV Q6H PRN PRN Reason: Nausea Stop: 10/12/19 16:10 Polyethylene Glycol (Miralax Powder Packet) 17 gm PO DAILY [facility] Stop: 10/21/19 08:59 Last Admin: 09/27/19 08:24 Dose: 17 gm Documented by: Sennosides (Senokot) 17.2 mg PO QAM [facility] Stop: 10/21/19 08:59 Last Admin: 09/27/19 08:25 Dose: 17.2 mg Documented by: Thiamine HCl (Vitamin B-1) 100 mg PO TID [facility] Stop: 10/16/19 08:59 Last Admin: 09/27/19 13:44 Dose: 100 mg Documented by:
[2019-09-27] MEDS: DOCUSATE SODIUM 100 MG CAP PO SCH (20:01)
[2019-09-27] MEDS: cloZAPine 25 MG TAB PO SCH (21:25)
[2019-09-27] MEDS: OLANZapine 20 MG TABLET PO SCH (21:49)
[2019-09-27] MEDS: INSULIN GLARGINE SOLOSTAR 100 UNITS/ML 3 ML PEN SC SCH (21:49)
--- NOTE | 2019-09-27 22:21 | Hospitalist Progress Note ---
Date of Service September 27, 2019 Assessment & Plan (1) Osteomyelitis of finger of left hand: left 3rd finger. seems to have a component of cellulitis as well. treated with Vancomycin IV for over a week hypothermia resolved, however, doubt it was due to infection WBC normal today change to Doxycycline on 09/27, continue for 4-6 weeks per orthopedics, certainly could consider an elective amputation of distal 3rd phalanx patient cannot consent at this time so would need to be back to baseline and see ortho in the office (2) Altered mental status: severe schizoaffective d/o. continue to treat osteomyelitis treat possible agitated catatonia with Ativan IV TID, that is now stopped symptoms are waxing and waning better past few days, he is calmer but still delusional thoughs (3) Diabetes insipidus: Nephrogenic. 2nd to long-standing lithium use. lithium was discontinued earlier this stay. DI led to hypernatremia - now resolved with hypotonic fluids. continues to drink large amounts of water, Na stable for several days, 147 today stopped low rate of D5W see if sodium remains stable off of D5W (4) Hypernatremia: 2nd to nephrogenic DI. see "DI" above Na stable, 147 (5) Schizoaffective disorder, bipolar type: Appreciate psychiatric management. [place] discontinued. Remains on zyprexa BID. Clozaril added back, will titrate up to 50mg in the past he was on 200mg AM and 250mg HS treated with Ativan for possible agitated catatonia, decreased to 2mg IV then 1mg IV TID on 09/26, stopped today will titrate off of Zyprexa as Clozaril increased CT head this admission neg. B12, ammonia, TSH wnl. per [facility], once he can be stabilized, the plan is for him to be transferred to mental health facility long-term discussed with [facility] today, no discharge until next week (6) Metabolic acidosis, increased anion gap: resolved (7) Hypotension: Possible adrenal insufficiency entertained earlier this stay and placed on empiric hydrocortisone. However 2 cortisol levels were 15 or higher making adrenal insufficiency unlikely. Hypotension may simply have been volume contraction. BPs now normal. (8) Hypothermia: TSH, FT4 wnl cortisol 15 and 19 on 2 checks blood cx's neg the cause is still unclear, more hypothermia prior three days RESOLVED with stress dose hydrocortisone of 50mg q8 will change to Hydrocortisone 15mg qAM and 10mg afternoon Florinef 0.05mg qAM see how he responds, if temperature remains stable then recommend continuing these (9) Hypokalemia: resolved (10) Acute renal insufficiency: resolved (11) Constipation: place on miralax with senna no BM for 10-12 days KUB with stool in colon 09/24/19 continue Lactulose TID until he moves bowels RESOLVED on 09/27, large solid BM experienced a lot of relief (12) AAA (abdominal aortic aneurysm): 5.7 cm in size - infrarenal Follow-up as outpatient very, very poor surgical candidate (13) Diabetes mellitus: HbA1c 6.9% Given his thin stature this is likely type 1 novolog w/ meals will stop Dextrose in fluids tomorrow (14) Anemia: stable, Hb 10.7 exact cause uncertain b12, folate, Fe all acceptable chronic disease/osteomyelitis?? (15) Seizure: ? past seizure records suggest normal EEG in past not on AEDs follow (16) Sinus node dysfunction: suspect had sinus cleve in setting of hypothermia cardiology following - no Rx (17) Severe protein-calorie malnutrition: recent imaging showed left supraclavicular lymphadenopathy in light of COPD, prior tobacco, etc - chest malignancy would be high on differential too ill with other issues to perform w/u focus on his nutrition for now (18) DVT prophylaxis: Heparin 5000 units SQ q.12h remains very ill w/ very poor prognosis changed code status to DNR, due to severe mental health condition, cachexia, osteomyelitis performing heroic measures would be futile and would not be in the patient's best interest this was discussed with clinical boiler tenders supervisor at [facility] who is in agreement Plan: return to [facility] next week if he remains stable Subjective patient much more conversive today, calmer he finally had a large BM today, provided him with great deal of relief last dose of Ativan 1mg IV was this morning tolerating food, eating a lot drinking a lot of water, consistent with his DI diagnosis left 3rd index finger stable, no pain he is oriented to person he has flight of ideas, accusing guards of stealing his food, says that they smell, cursing at them labs today show sodium 147, Cr stable, WBC normal Review of Systems Review of Systems: Unobtainable due to mental health condition Physical Exam Constitutional: + thin and + disheveled Eyes: PERRL, conjunctivae normal, anicteric sclerae ENMT: external ear and nose normal, oropharynx normal Neck: trachea midline, no thyromegaly Respiratory: normal respiratory effort, lungs clear to auscultation Cardiovascular: RRR, no murmur, no edema Gastrointestinal (Abdomen): normal bowel sounds, soft, nontender, no hepatosplenomegaly Musculoskeletal: no cyanosis or clubbing, extremities motor strength 5/5 Skin: no rashes, warm and dry Neurologic: patellar DTR's 2+ bilat, sensation intact and PERRL, EOMI, accommodation nl, no face palsy, no dysarthria Psychiatric: Orientation: alert and oriented to person; + not oriented to place and + not oriented to time Speech: + pressured speech and + loud speech Affect: + anxious affect Thought Process: + flight of ideas Thought Content: + paranoid Lymphatic: no cervical or axillary lymphadenopathy Results & Data Vital Signs (Past 12 Hours) Vital Signs Temp Pulse Resp BP Pulse Ox 09/27/19 15:20 36.5 C 96 H 18 155/88 H 96 Laboratory Results Laboratory Results - last 24 hr 09/27/19 09/27/19 09/27/19 07:54 08:17 08:17 WBC 8.20 RBC 3.64 L Hgb 10.7 L Hct 34.3 L MCV 94.2 MCH 29.4 MCHC 31.2 L RDW Std Deviation 54.5 H RDW Coeff of Shamar 15.7 H Plt Count 93 L MPV 13.3 H Sodium 147 H Potassium 3.7 Chloride 114 H Carbon Dioxide 28 Anion Gap 5.0 BUN 20 H Creatinine 0.86 Est Cr Clr Drug Dosing 86.6 Est GFR ( Amer) 110.0 Est GFR (Non-Af Amer) 94.9 BUN/Creatinine Ratio 22.8 H Glucose 182 H POC Glucose 167 H Calcium 9.7 Stool Occult Bld Scrn 09/27/19 09/27/19 09/27/19 11:50 16:39 20:24 WBC RBC Hgb Hct MCV MCH MCHC RDW Std Deviation RDW Coeff of Shamar Plt Count MPV Sodium Potassium Chloride Carbon Dioxide Anion Gap BUN Creatinine Est Cr Clr Drug Dosing Est GFR ( Amer) Est GFR (Non-Af Amer) BUN/Creatinine Ratio Glucose POC Glucose 227 H 162 H 116 H Calcium Stool Occult Bld Scrn 09/27/19 20:41 WBC RBC Hgb Hct MCV MCH MCHC RDW Std Deviation RDW Coeff of Shamar Plt Count MPV Sodium Potassium Chloride Carbon Dioxide Anion Gap BUN Creatinine Est Cr Clr Drug Dosing Est GFR ( Amer) Est GFR (Non-Af Amer) BUN/Creatinine Ratio Glucose POC Glucose Calcium Stool Occult Bld Scrn Negative Medications Administered Current Inpatient Medications Acetaminophen (Tylenol) 650 mg PO Q4H PRN PRN Reason: Pain or Fever Stop: 10/12/19 16:10 Al Hydrox/Mg Hydrox/Simethicone (Maalox) 15 ml PO Q4H PRN PRN Reason: Dyspepsia Stop: 10/12/19 16:10 Ascorbic Acid (Vitamin C) 500 mg PO QAM [facility] Stop: 10/13/19 08:59 Last Admin: 09/27/19 08:25 Dose: 500 mg Documented by: Chlorpromazine HCl (Thorazine) 50 mg PO Q4H PRN PRN Reason: Agitation Stop: 10/18/19 15:44 Clozapine (Clozaril) 150 mg PO HS [facility]; Protocol Stop: 10/27/19 20:59 Last Admin: 09/27/19 21:25 Dose: 150 mg Documented by: Clozapine (Clozaril) 50 mg PO QAM [facility] Stop: 10/28/19 08:59 Collagenase (Santyl) 1 appln EXT DAILY [facility] Stop: 10/27/19 10:59 Last Admin: 09/27/19 12:24 Dose: 1 appln Documented by: Cyanocobalamin (Vitamin B-12) 100 mcg PO DAILY [facility] Stop: 10/13/19 08:59 Last Admin: 09/27/19 08:25 Dose: 100 mcg Documented by: Dextrose (Dextrose 50%) 25 - 50 ml IV UD PRN; Protocol PRN Reason: Hypoglycemia Protocol Stop: 10/13/19 10:04 Docusate Sodium (Colace) 200 mg PO HS [facility]; Protocol Stop: 10/12/19 20:59 Last Admin: 09/27/19 20:01 Dose: Not Given Documented by: Doxycycline Hyclate (Vibramycin) 100 mg PO BID@0800,2000 [facility] Stop: 10/07/19 08:59 Last Admin: 09/27/19 21:27 Dose: 100 mg Documented by: Ferrous Sulfate (Feosol) 325 mg PO DAILY [facility] Stop: 10/13/19 08:59 Last Admin: 09/27/19 08:26 Dose: 325 mg Documented by: Fludrocortisone Acetate (Florinef) 0.05 mg PO QAM [facility] Stop: 10/27/19 08:59 Last Admin: 09/27/19 09:31 Dose: 0.05 mg Documented by: Glucagon (Glucagen) 1 mg SQ UD PRN; Protocol PRN Reason: Hypoglycemia Protocol Stop: 10/13/19 10:04 Glucose (Dex4 Glucose) 4 - 8 tabs PO UD PRN; Protocol PRN Reason: Hypoglycemia Protocol Stop: 10/13/19 10:04 Glucose (Glucose 40%) 15 - 30 gm PO UD PRN; Protocol PRN Reason: Hypoglycemia Protocol Stop: 10/13/19 10:04 Hydrocortisone (Cortef) 15 mg PO QAM [facility] Stop: 10/27/19 08:59 Last Admin: 09/27/19 09:31 Dose: 15 mg Documented by: Hydrocortisone (Cortef) 10 mg PO 1400 [facility] Stop: 10/27/19 13:59 Last Admin: 09/27/19 13:44 Dose: 10 mg Documented by: Insulin Aspart (Novolog Flexpen) 0 units SC ACHS [facility] Stop: 10/13/19 11:29 Last Admin: 09/27/19 21:27 Dose: Not Given Documented by: Insulin Glargine (Lantus Solostar Pen) 4 units SC HS [facility] Stop: 10/20/19 21:24 Last Admin: 09/27/19 21:49 Dose: 4 units Documented by: Lactulose (Chronulac) 20 gm PO TID [facility] Stop: 10/24/19 13:59 Last Admin: 09/27/19 20:27 Dose: Not Given Documented by: Magnesium Hydroxide (Milk Of Magnesia) 60 ml PO DAILY PRN PRN Reason: Constipation Stop: 10/12/19 16:10 Last Admin: 09/19/19 09:48 Dose: 60 ml Documented by: Magnesium Hydroxide (Milk Of Magnesia) 30 ml PO Q12H PRN PRN Reason: Constipation Stop: 10/12/19 16:10 Last Admin: 09/25/19 14:02 Dose: 30 ml Documented by: Miscellaneous (Order Awaiting Action) 1 ea N/A QS [facility] Stop: 10/13/19 16:59 Last Admin: 09/27/19 15:15 Dose: Not Given Documented by: Miscellaneous (Carbohydrates For Hypoglycemia) 15 - 30 gm PO UD PRN PRN Reason: Hypoglycemia Protocol Stop: 10/13/19 10:04 Last Admin: 09/22/19 16:35 Dose: 15 gm Documented by: Olanzapine (Zyprexa) 20 mg PO HS [facility] Stop: 10/12/19 20:59 Last Admin: 09/27/19 21:49 Dose: 20 mg Documented by: Olanzapine (Zyprexa) 10 mg IM HS PRN PRN Reason: If unable to take PO dose Stop: 10/14/19 08:52 Olanzapine (Zyprexa) 10 mg PO QAM [facility] Stop: 10/19/19 08:59 Last Admin: 09/27/19 08:26 Dose: 10 mg Documented by: Ondansetron HCl (Zofran) 4 mg IV Q6H PRN PRN Reason: Nausea Stop: 10/12/19 16:10 Polyethylene Glycol (Miralax Powder Packet) 17 gm PO DAILY [facility] Stop: 10/21/19 08:59 Last Admin: 09/27/19 08:24 Dose: 17 gm Documented by: Sennosides (Senokot) 17.2 mg PO QAM [facility] Stop: 10/21/19 08:59 Last Admin: 09/27/19 08:25 Dose: 17.2 mg Documented by: Thiamine HCl (Vitamin B-1) 100 mg PO TID [facility] Stop: 10/16/19 08:59 Last Admin: 09/27/19 21:27 Dose: 100 mg Documented by: PG Care Time/CCT Total # of Minutes Spent Total Time Spent with Patient: Total time spent is greater than 50% in coordination of care (as documented) at patient's floor/unit and/or counseling patient: (1) Altered mental status Altered mental status type: unspecified Qualified Code(s): R41.82 - Altered mental status, unspecified (2) Hypotension Hypotension type: unspecified hypotension type Qualified Code(s): I95.9 - Hypotension, unspecified (3) Hypothermia Encounter type: initial encounter Qualified Code(s): T68.XXXA - Hypothermia, initial encounter (4) Constipation Constipation type: other constipation type Qualified Code(s): K59.09 - Other constipation (5) AAA (abdominal aortic aneurysm) Presence of rupture: without rupture Qualified Code(s): I71.4 - Abdominal aortic aneurysm, without rupture (6) Diabetes mellitus Diabetes mellitus type: type 2 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
[2019-09-28] MEDS: RAMELTEON: ORDER AWAITING ACTION SCH ×3 (07:14→23:55)
[2019-09-28] MEDS ORDERED: cloZAPine 25 MG TAB PO SCH (09:00)
[2019-09-28 09:09] LABS: BUN Creatinine Ratio 23.3 (10-20); Calcium 9.4 mg/dl (8.5-10.1); Creatinine Clr Calc Pharmacy 83.7 ml/min; Est GFR (African American) 108.5; Est GFR (Non-African American) 93.6; Potassium 3.6 mmol/L (3.5-5.1)
[2019-09-28] MEDS: DOXYCYCLINE HYCLATE 100 MG CAP PO SCH ×2 (09:13→19:42)
[2019-09-28] MEDS: HYDROCORTISONE 10 MG TAB PO SCH ×2 (09:13→14:03)
[2019-09-28] MEDS: ASCORBIC ACID 500 MG TAB PO SCH (09:14)
[2019-09-28] MEDS: FERROUS SULFATE 325 MG TAB PO SCH (09:14)
[2019-09-28] MEDS: THIAMINE HCL 100 MG TAB PO SCH ×3 (09:14→20:27)
[2019-09-28] MEDS: CYANOCOBALAMIN (VITAMIN B-12) 100 MCG TABLET PO SCH (09:15)
[2019-09-28] MEDS: FLUDROCORTISONE ACETATE 0.1 MG TAB PO SCH (09:15)
[2019-09-28] MEDS: OLANZapine 10 MG TAB PO SCH (09:16)
[2019-09-28] MEDS: SENNA 8.6 MG TAB PO SCH (09:16)
[2019-09-28] MEDS: COLLAGENASE OINT 30 GM TUBE EXT SCH (09:17)
[2019-09-28] MEDS: LACTULOSE SYRUP 20 GM/30 ML UDC PO SCH ×3 (09:22→20:24)
[2019-09-28] MEDS: POLYETHYLENE (MIRALAX) 17 GM PACK PO SCH (09:22)
[2019-09-28] MEDS: INSULIN ASPART 100 UNITS/ML 3 ML PEN SC SCH ×4 (09:25→20:33)
--- NOTE | 2019-09-28 09:42 | Psychiatric Progress Note ---
Date of Service September 28, 2019 Impression / Recommendations Impression 59-year-old male with history of chronic schizophrenia, with most recent concern for agitated catatonia. Pt responded to initiation of lorazepam 2 mg TID, which had been tapered to discontinuation as he demonstrated improvement in mental status. Clozapine is being re-titrated after review with hospitalist team and psychiatrist at the [facility] care, with recommendation for titration by 25-50mg daily - as he is seemingly been more consistent with PO medications. Continue Zyprexa at current dose of 10mg qAM and 20mg qHS - recommend ongoing evaluation of behavior, as it would be ideal to reduce dose of olanzapine once clozapine has been re-titrated. Per records, prior clozapine dosage was 200mg qAM and 250mg qHS - will require ongoing weekly CBC w/diff per clozapine protocols. CBC w/diff already ordered for 10/03/19. (1) Schizoaffective disorder, bipolar type: 09/13 - zyprexa 5mg qm, 20mg qhs - give olanzapine IM if refuses PO - considering reinitiation of clozapine but increases risk for seizure and will take weeks to retitrate 09/18 - Recommend titrating Zyprexa to 10mg qAM and 20mg qHS - IM Zyprexa for PO refusal as above 09/23 - Continue olanzapine 10mg qAM and 20mg qHS - Clozapine initiated last evening at 25mg - titrating to 50mg this evening; can continue daily titration by 25mg if patient continues to agree to PO medications 09/27 - Continue olanzapine 10mg qAM and 20mg qHS - Clozapine is being titrated - pt to receive 150mg this evening and 50mg tomorrow morning. Can continue titration by 25-50mg daily. - Weekly CBC w/ diff has been ordered in accordance with clozapine prescribing standards 09/28 -Continue clozapine titration by increasing to 100 mg tomorrow (09/29/19) morning and will continue 150 mg nightly -Consider need for seizure prophylaxis in re-titrating clozapine in combination with olanzapine (2) Delirium due to another medical condition, acute, mixed level of activity: 09/13 - supportive care while treating active medical conditions - reorientation prn - would prefer not to use benzodiazepine however we may need to add an ativan 1mg IV q4h prn if his agitation persists despite the olanzapine (with goal to use w/ minimal frequency). if ativan prn is started it should not be given within 1 hour of IM zyprexa. 09/18 - Recommend utilization of chlorpromazine 50mg q4h prn agitation, as alternative to lorazepam as patient continues to demonstrate agitation and disorganization - Continue routine reorientation as above 09/23 - Seems likely patient may be experiencing agitated catatonia - see recommendations below - Continue utilization of prn chlorpromazine if accepting of PO medications; olanzapine IM injections for acute threat to safety of patient or staff 09/27 - Seems to be improving over time (3) Catatonic agitation: 09/23 - Lorazepam 2mg TID IV scheduled, initiated as above - Would suggest slow taper of dose once mentation returns to baseline - Continue to ensure IM olanzapine (ordered prn for acute agitation) is not utilized within 1 hour of lorazepam administration - Remains in 4-point restraints, though behavior is reportedly in better control. Repeat CK was requested yesterday - WNL at 70 Risk Factors Assessment Do You Have Access To A Gun?: No Interval History Identifying Information 59-year-old prisoner with reported history of schizoaffective disorder and multiple medical problems admitted through the ER from [facility]. Initial psychiatric consultation was requested to evaluate patient for "acute psychosis." Re-examination was requested due to "continued behavioral disturbance" with concern for agitated catatonia. He has been followed to assess progress over course of admission. Chief Complaint " I shit my pants so come back later". Review of Systems Notes He does not respond directly to questions about pain Subjective Subjective Patient has been much more consistently compliant with oral medications. Being re-titrated on clozapine. His dose was increased yesterday and again today. No hypotension or other obvious side effects associated with titration. He is remarkably more alert as compared to when I saw him at his initial presentation. He is still disorganized and psychotic but able to respond to a few brief questions. When asked how he is feeling he states that he is full and that it is nacho outside (it is very foggy and rainy right outside his window), seemingly indicating that he is feeling good. He becomes distracted by visual hallucination off to his right tracing his index finger downward in the air and then making some jabbing motions with it at unseen object. He is not able to provide history. States he came from "[facility] [place]." He is uncertain how long he has been here but does correctly identify that he is in the hospital. He becomes preoccupied with desire to have his brief changed and begin speaking in staccato phonemic utterances of "shama shama!" Physical Exam Psychiatric Orientation: alert and oriented to place Apperance: appeared stated age Eye Contact: + fair eye contact Motor Behavior: n EPS Speech: + abnormal rate/rhythm/volume of speech Affect: + labile affect Does not directly characterize mood Thought Process: + thought process not linear or logical +disorganization Thought Content: + delusions Hallucinations: + visual hallucinations Cognition: + attention not intact Insight: + poor insight Judgement: + poor judgement Vital Signs (Past 24 Hours) Last Vital Signs Temp 37.1 C 09/28/19 07:25 Pulse 95 H 09/28/19 07:25 Resp 18 09/28/19 07:25 BP 167/86 H 09/28/19 07:25 Pulse Ox 97 09/28/19 07:25 Results & Data Laboratory Results Laboratory Results - last 24 hr 09/27/19 09/27/19 09/27/19 08:17 11:50 16:39 WBC 8.20 RBC 3.64 L Hgb 10.7 L Hct 34.3 L MCV 94.2 MCH 29.4 MCHC 31.2 L RDW Std Deviation 54.5 H RDW Coeff of Shamar 15.7 H Plt Count 93 L MPV 13.3 H Sodium Potassium Chloride Carbon Dioxide Anion Gap BUN Creatinine Est Cr Clr Drug Dosing Est GFR ( Amer) Est GFR (Non-Af Amer) BUN/Creatinine Ratio Glucose POC Glucose 227 H 162 H Calcium Stool Occult Bld Scrn 09/27/19 09/27/19 09/28/19 20:24 20:41 08:13 WBC RBC Hgb Hct MCV MCH MCHC RDW Std Deviation RDW Coeff of Shamar Plt Count MPV Sodium Potassium Chloride Carbon Dioxide Anion Gap BUN Creatinine Est Cr Clr Drug Dosing Est GFR ( Amer) Est GFR (Non-Af Amer) BUN/Creatinine Ratio Glucose POC Glucose 116 H 133 H Calcium Stool Occult Bld Scrn Negative 09/28/19 08:17 WBC RBC Hgb Hct MCV MCH MCHC RDW Std Deviation RDW Coeff of Shamar Plt Count MPV Sodium 148 H Potassium 3.6 Chloride 114 H Carbon Dioxide 31 Anion Gap 2.0 L BUN 21 H Creatinine 0.89 Est Cr Clr Drug Dosing 83.7 Est GFR ( Amer) 108.5 Est GFR (Non-Af Amer) 93.6 BUN/Creatinine Ratio 23.3 H Glucose 141 H POC Glucose Calcium 9.4 Stool Occult Bld Scrn Current Inpatient Medications Current Inpatient Medications: Current Inpatient Medications Acetaminophen (Tylenol) 650 mg PO Q4H PRN PRN Reason: Pain or Fever Stop: 10/12/19 16:10 Last Admin: 09/28/19 04:43 Dose: 650 mg Documented by: Al Hydrox/Mg Hydrox/Simethicone (Maalox) 15 ml PO Q4H PRN PRN Reason: Dyspepsia Stop: 10/12/19 16:10 Ascorbic Acid (Vitamin C) 500 mg PO QAM [facility] Stop: 10/13/19 08:59 Last Admin: 09/28/19 09:14 Dose: 500 mg Documented by: Chlorpromazine HCl (Thorazine) 50 mg PO Q4H PRN PRN Reason: Agitation Stop: 10/18/19 15:44 Clozapine (Clozaril) 150 mg PO [facility]; Protocol Stop: 10/27/19 20:59 Last Admin: 09/27/19 21:25 Dose: 150 mg Documented by: Clozapine (Clozaril) 50 mg PO QAM [facility] Stop: 10/28/19 08:59 Last Admin: 09/28/19 09:16 Dose: 50 mg Documented by: Collagenase (Santyl) 1 appln EXT DAILY [facility] Stop: 10/27/19 10:59 Last Admin: 09/28/19 09:17 Dose: 1 appln Documented by: Cyanocobalamin (Vitamin B-12) 100 mcg PO DAILY [facility] Stop: 10/13/19 08:59 Last Admin: 09/28/19 09:15 Dose: 100 mcg Documented by: Dextrose (Dextrose 50%) 25 - 50 ml IV UD PRN; Protocol PRN Reason: Hypoglycemia Protocol Stop: 10/13/19 10:04 Docusate Sodium (Colace) 200 mg PO [facility]; Protocol Stop: 10/12/19 20:59 Last Admin: 09/27/19 20:01 Dose: Not Given Documented by: Doxycycline Hyclate (Vibramycin) 100 mg PO BID@0800,2000 [facility] Stop: 10/07/19 08:59 Last Admin: 09/28/19 09:13 Dose: 100 mg Documented by: Ferrous Sulfate (Feosol) 325 mg PO DAILY [facility] Stop: 10/13/19 08:59 Last Admin: 09/28/19 09:14 Dose: 325 mg Documented by: Fludrocortisone Acetate (Florinef) 0.05 mg PO QAM [facility] Stop: 10/27/19 08:59 Last Admin: 09/28/19 09:15 Dose: 0.05 mg Documented by: Glucagon (Glucagen) 1 mg SQ UD PRN; Protocol PRN Reason: Hypoglycemia Protocol Stop: 10/13/19 10:04 Glucose (Dex4 Glucose) 4 - 8 tabs PO UD PRN; Protocol PRN Reason: Hypoglycemia Protocol Stop: 10/13/19 10:04 Glucose (Glucose 40%) 15 - 30 gm PO UD PRN; Protocol PRN Reason: Hypoglycemia Protocol Stop: 10/13/19 10:04 Hydrocortisone (Cortef) 15 mg PO QAM [facility] Stop: 10/27/19 08:59 Last Admin: 09/28/19 09:13 Dose: 15 mg Documented by: Hydrocortisone (Cortef) 10 mg PO 1400 [facility] Stop: 10/27/19 13:59 Last Admin: 09/27/19 13:44 Dose: 10 mg Documented by: Insulin Aspart (Novolog Flexpen) 0 units SC ACHS [facility] Stop: 10/13/19 11:29 Last Admin: 09/28/19 09:25 Dose: 8 units Documented by: Insulin Glargine (Lantus Solostar Pen) 4 units SC HS [facility] Stop: 10/20/19 21:24 Last Admin: 09/27/19 21:49 Dose: 4 units Documented by: Lactulose (Chronulac) 20 gm PO TID [facility] Stop: 10/24/19 13:59 Last Admin: 09/28/19 09:22 Dose: Not Given Documented by: Magnesium Hydroxide (Milk Of Magnesia) 60 ml PO DAILY PRN PRN Reason: Constipation Stop: 10/12/19 16:10 Last Admin: 09/19/19 09:48 Dose: 60 ml Documented by: Magnesium Hydroxide (Milk Of Magnesia) 30 ml PO Q12H PRN PRN Reason: Constipation Stop: 10/12/19 16:10 Last Admin: 09/25/19 14:02 Dose: 30 ml Documented by: Miscellaneous (Order Awaiting Action) 1 ea N/A QS [facility] Stop: 10/13/19 16:59 Last Admin: 09/28/19 07:14 Dose: Not Given Documented by: Miscellaneous (Carbohydrates For Hypoglycemia) 15 - 30 gm PO UD PRN PRN Reason: Hypoglycemia Protocol Stop: 10/13/19 10:04 Last Admin: 09/22/19 16:35 Dose: 15 gm Documented by: Olanzapine (Zyprexa) 20 mg PO HS [facility] Stop: 10/12/19 20:59 Last Admin: 09/27/19 21:49 Dose: 20 mg Documented by: Olanzapine (Zyprexa) 10 mg IM HS PRN PRN Reason: If unable to take PO dose Stop: 10/14/19 08:52 Olanzapine (Zyprexa) 10 mg PO QAM [facility] Stop: 10/19/19 08:59 Last Admin: 09/28/19 09:16 Dose: 10 mg Documented by: Ondansetron HCl (Zofran) 4 mg IV Q6H PRN PRN Reason: Nausea Stop: 10/12/19 16:10 Polyethylene Glycol (Miralax Powder Packet) 17 gm PO DAILY [facility] Stop: 10/21/19 08:59 Last Admin: 09/28/19 09:22 Dose: Not Given Documented by: Sennosides (Senokot) 17.2 mg PO QAM [facility] Stop: 10/21/19 08:59 Last Admin: 09/28/19 09:16 Dose: 17.2 mg Documented by: Thiamine HCl (Vitamin B-1) 100 mg PO TID [facility] Stop: 10/16/19 08:59 Last Admin: 09/28/19 09:14 Dose: 100 mg Documented by:
[2019-09-28] MEDS: cloZAPine 25 MG TAB PO SCH (20:25)
[2019-09-28] MEDS: DOCUSATE SODIUM 100 MG CAP PO SCH (20:28)
[2019-09-28] MEDS: OLANZapine 20 MG TABLET PO SCH (20:29)
[2019-09-28] MEDS: INSULIN GLARGINE SOLOSTAR 100 UNITS/ML 3 ML PEN SC SCH (20:34)
[2019-09-29] MEDS: RAMELTEON: ORDER AWAITING ACTION SCH ×2 (07:07→15:08)
[2019-09-29] MEDS: THIAMINE HCL 100 MG TAB PO SCH ×3 (08:41→20:55)
[2019-09-29] MEDS: CYANOCOBALAMIN (VITAMIN B-12) 100 MCG TABLET PO SCH (08:41)
[2019-09-29] MEDS: DOXYCYCLINE HYCLATE 100 MG CAP PO SCH (08:41)
[2019-09-29] MEDS: SENNA 8.6 MG TAB PO SCH (08:41)
[2019-09-29] MEDS: ASCORBIC ACID 500 MG TAB PO SCH (08:41)
[2019-09-29] MEDS: FERROUS SULFATE 325 MG TAB PO SCH (08:42)
[2019-09-29] MEDS: cloZAPine 100 MG TAB PO SCH (08:42)
[2019-09-29] MEDS: OLANZapine 10 MG TAB PO SCH (08:42)
[2019-09-29] MEDS: HYDROCORTISONE 10 MG TAB PO SCH ×2 (08:42→14:40)
[2019-09-29] MEDS: FLUDROCORTISONE ACETATE 0.1 MG TAB PO SCH (08:42)
[2019-09-29] MEDS: LACTULOSE SYRUP 20 GM/30 ML UDC PO SCH ×3 (08:43→20:53)
[2019-09-29] MEDS: COLLAGENASE OINT 30 GM TUBE EXT SCH (08:43)
[2019-09-29] MEDS: POLYETHYLENE (MIRALAX) 17 GM PACK PO SCH (08:44)
[2019-09-29] MEDS: INSULIN ASPART 100 UNITS/ML 3 ML PEN SC SCH ×4 (08:45→20:55)
--- NOTE | 2019-09-29 12:02 | Hospitalist Progress Note ---
Date of Service September 28, 2019 Assessment & Plan (1) Osteomyelitis of finger of left hand: Left 3rd finger-improving. treated with Vancomycin IV for over a week hypothermia resolved, however, doubt it was due to infection WBC normal today. Continue doxycycline on 09/27, continue for 4-6 weeks per orthopedics, certainly could consider an elective amputation of distal 3rd phalanx Patient is able to consent for now will discuss with orthopedics again about treatment. (2) Altered mental status: Resolved pt is alert and oriented x 3, component of schizoaffective disorder is still present, appreciate psychiatry recommendations. Schizoaffective disorder, bipolar type: Recommend titrating Zyprexa to 10mg qAM and 20mg qHS IM Zyprexa for PO refusal as above Clozapine is being titrated - pt to receive 150mg this evening and 50mg tomorrow morning. Can continue titration by 25-50mg daily. Weekly CBC w/ diff has been ordered in accordance with clozapine prescribing standards (3) Diabetes insipidus: Nephrogenic. 2nd to long-standing lithium use. lithium was discontinued earlier this stay. DI led to hypernatremia - now resolved with hypotonic fluids. continues to drink large amounts of water, Na stable for several days, 147 today stopped low rate of D5W see if sodium remains stable off of D5W (4) Hypernatremia: 2nd to nephrogenic DI. see "DI" above Na stable, 147 (5) Schizoaffective disorder, bipolar type: Appreciate psychiatric management. [place] discontinued. Remains on zyprexa BID. Clozaril added back, will titrate up to 50mg in the past he was on 200mg AM and 250mg HS treated with Ativan for possible agitated catatonia, decreased to 2mg IV then 1mg IV TID on 09/26, stopped today will titrate off of Zyprexa as Clozaril increased CT head this admission neg. B12, ammonia, TSH wnl. per [facility], once he can be stabilized, the plan is for him to be transferred to mental health facility [employer] discussed with [facility] today, no discharge until next week (6) Metabolic acidosis, increased anion gap: resolved (7) Hypotension: Possible adrenal insufficiency entertained earlier this stay and placed on empiric hydrocortisone. However 2 cortisol levels were 15 or higher making adrenal insufficiency unlikely. Hypotension may simply have been volume contraction. BPs now normal. (8) Hypothermia: TSH, FT4 wnl cortisol 15 and 19 on 2 checks blood cx's neg the cause is still unclear, more hypothermia prior three days RESOLVED with stress dose hydrocortisone of 50mg q8 will change to Hydrocortisone 15mg qAM and 10mg afternoon Florinef 0.05mg qAM see how he responds, if temperature remains stable then recommend continuing these (9) Hypokalemia: resolved (10) Acute renal insufficiency: resolved (11) Constipation: RESOLVED on 09/27, large solid BM experienced a lot of relief (12) AAA (abdominal aortic aneurysm): 5.7 cm in size - infrarenal Follow-up as outpatient very, very poor surgical candidate (13) Diabetes mellitus: HbA1c 6.9% Given his thin stature this is likely type 1 novolog w/ meals will stop Dextrose in fluids tomorrow (14) Anemia: stable, Hb 10.7 exact cause uncertain b12, folate, Fe all acceptable chronic disease/osteomyelitis?? (15) Seizure: ? past seizure records suggest normal EEG in past not on AEDs follow (16) Sinus node dysfunction: suspect had sinus cleve in setting of hypothermia cardiology following - no Rx (17) Severe protein-calorie malnutrition: recent imaging showed left supraclavicular lymphadenopathy in light of COPD, prior tobacco, etc - chest malignancy would be high on differential too ill with other issues to perform w/u focus on his nutrition for now (18) DVT prophylaxis: Heparin 5000 units SQ q.12h remains very ill w/ very poor prognosis changed code status to DNR, due to severe mental health condition, cachexia, osteomyelitis performing heroic measures would be futile and would not be in the patient's best interest this was discussed with clinical delivery driver/supervisor at [facility] who is in agreement Plan: return to [facility] next week if he remains stable Subjective Patient seen and examined at the bedside. No acute event overnight. Patient much more conversive today, calmer, tolerates food well. Afebrile. Patient is oriented in person time and space. Patient denies fever, chills, chest pain, shortness of breath, abdominal pain, frequency, urgency, hematuria hematemesis melena. Review of Systems Review of Systems: All systems reviewed & are unremarkable except as noted in HPI & below Physical Exam Constitutional: well developed, + ill appearing, + thin, + cachectic, + altered mental status, + frail appearing, + disheveled, + combative and + malnourished; + not well nourished and no acute distress Eyes: PERRL, conjunctivae normal, anicteric sclerae + anicteric sclerae, PERRL and EOM intact bilaterally; no eyelid abnormality, normal pupil size and no nystagmus ENMT: external ear and nose normal, oropharynx normal Ears: no external ear abnormality Nose: no external nose abnormality Mouth: + oral mucosal abnormality (Dry mucous membranes); no lip abnormality Neck: trachea midline, no thyromegaly trachea midline Respiratory: normal respiratory effort, lungs clear to auscultation normal respiratory effort Auscultation: lungs clear to auscultation bilaterally (Anteriorly); no diminished lung sounds, no crackles, no rales and no rhonchi Cardiovascular: RRR, no murmur, no edema Rate/Rhythm: regular rate, regular rhythm and + tachycardic Heart Sounds: normal S1 and normal S2; no murmur Vessels: dorsalis pedis pulses present; no JVD Extremities: normal capillary refill; no calf tenderness, no pedal edema and no edema Chest (Breasts): Chest: normal inspection of chest Gastrointestinal (Abdomen): normal bowel sounds, soft, nontender, no hepatosplenomegaly Inspection/Auscultation: abdomen normal to inspection, normal bowel sounds and + hypoactive bowel sounds; abdomen not distended Percussion/Palpation: abdomen soft; abdomen nontender, no guarding and abdomen not rigid Musculoskeletal: no cyanosis or clubbing, extremities motor strength 5/5 Extremities: extremities normal to inspection and + muscle atrophy (generalized); no cyanosis and no clubbing Skin: no rashes, warm and dry + pallor Neurologic: patellar DTR's 2+ bilat, sensation intact and PERRL, EOMI, accommodation nl, no face palsy, no dysarthria moves all extremities, awake and + confused; no focal motor deficits (groslly normal) Motor/Sensory: no tremor Psychiatric: A+Ox3, euthymic affect Orientation: alert, oriented to place and cooperative Apperance: appropriately dressed Eye Contact: good eye contact Motor Behavior: + psychomotor retardation (With brief agitation) Speech: + pressured speech and normal rate/rhythm/volume of speech Affect: euthymic affect, + labile affect and mood congruent with affect Thought Process: goal directed thought process, + tangential thought process (and disorganized), + perseveration and + incoherent thought process Thought Content: + preoccupation, + paranoid, + compulsions, + neologisms and + thought insertion Suicidal Thoughts: denies suicidal thoughts and denies suicidal intent Homicidal Thoughts: denies homicidal thoughts Hallucinations: + visual hallucinations Cognition: attention grossly intact and language grossly intact Insight: + limited insight Judgement: + limited judgement Lymphatic: no cervical or axillary lymphadenopathy no lymphedema Results & Data Vital Signs (Past 12 Hours) Vital Signs Temp Pulse Resp BP Pulse Ox 09/29/19 07:35 37.0 C 62 16 174/101 H 94 PG Care Time/CCT Total # of Minutes Spent Total Time Spent with Patient: Total time spent is greater than 50% in coordination of care (as documented) at patient's floor/unit and/or counseling patient: (1) Diabetes mellitus Diabetes mellitus complication status: with hyperglycemia Diabetes mellitus residential insulin use: without [employer] use Diabetes mellitus type: type 2 Qualified Code(s): E11.65 - Type 2 diabetes mellitus with hyperglycemia (2) AAA (abdominal aortic aneurysm) Presence of rupture: without rupture Qualified Code(s): I71.4 - Abdominal aortic aneurysm, without rupture (3) Anemia Anemia type: other cause Other causes of anemia: other cause, not classified Qualified Code(s): D64.89 - Other specified anemias (4) Hypothermia Encounter type: initial encounter Qualified Code(s): T68.XXXA - Hypothermia, initial encounter (5) Altered mental status Altered mental status type: unspecified Qualified Code(s): R41.82 - Altered mental status, unspecified (6) Hypotension Hypotension type: unspecified hypotension type Qualified Code(s): I95.9 - Hypotension, unspecified (7) Constipation Constipation type: other constipation type Qualified Code(s): K59.09 - Other constipation
--- NOTE | 2019-09-29 12:03 | Hospitalist Progress Note ---
Date of Service September 29, 2019 Assessment & Plan (1) Osteomyelitis of finger of left hand: Left 3rd finger osteomyelitis per Xrays appears to be chronic. Pt switched from Doxycycline# 09/27 -->09/29 (can cause decreasing of platelets) to Clinda 300 mg PO QID. Discussed with dr. Terrell-orthopedic.The antibiotic should continue for 4-6 weeks. Treated with Vancomycin IV for over a week Per orthopedics, certainly could consider an elective amputation of distal 3rd phalanx.Pt is able to sign consult at this time. (2) Altered mental status: Improved, pt is alert and oriented x 3. (3) Diabetes insipidus: Nephrogenic and chronic due to the longstanding lithium use.[place] is discontinued. DI led to hypernatremia - now resolved with hypotonic fluids.Sodium today is 148. (4) Hypernatremia: Due to nephrogenic diabetes insipidus. Sodium is stable at 148. (5) Schizoaffective disorder, bipolar type: Appreciate psychiatric management. [place] discontinued. Remains on Zyprexa 10 mg QAM and 20 mg QPM. Continue Clozaril 100 mg PO QAM and 150 mg PO QHS.Check CBC weekly while pt on Clozaril to monitor for possible neutrophilia. Per psychiatry pt can be discharged from their standpoint. CT head this admission neg. B12, ammonia, TSH wnl. Per [facility], once he can be stabilized, the plan is for him to be transferred to mental health facility [facility] discussed with [facility] today, no discharge until next week (6) Metabolic acidosis, increased anion gap: resolved (7) Hypotension: Possible adrenal insufficiency entertained earlier this stay and placed on empiric hydrocortisone. However 2 cortisol levels were 15 or higher making adrenal insufficiency unlikely. Hypotension may simply have been volume contraction. BPs now normal. (8) Hypothermia: TSH, FT4 wnl cortisol 15 and 19 on 2 checks blood cx's neg the cause is still unclear, more hypothermia prior three days RESOLVED with stress dose hydrocortisone of 50mg q8 will change to Hydrocortisone 15mg qAM and 10mg afternoon Florinef 0.05mg qAM see how he responds, if temperature remains stable then recommend continuing these (9) Hypokalemia: resolved (10) Acute renal insufficiency: resolved (11) Constipation: place on miralax with senna no BM for 10-12 days KUB with stool in colon 09/24/19 continue Lactulose TID until he moves bowels RESOLVED on 09/27, large solid BM experienced a lot of relief (12) AAA (abdominal aortic aneurysm): 5.7 cm in size - infrarenal Follow-up as outpatient very, very poor surgical candidate (13) Diabetes mellitus: HbA1c 6.9% Given his thin stature this is likely type 1 novolog w/ meals will stop Dextrose in fluids tomorrow (14) Anemia: stable, Hb 10.7 exact cause uncertain b12, folate, Fe all acceptable chronic disease/osteomyelitis?? (15) Seizure: ? past seizure records suggest normal EEG in past not on AEDs follow (16) Sinus node dysfunction: suspect had sinus cleve in setting of hypothermia cardiology following - no Rx (17) Severe protein-calorie malnutrition: recent imaging showed left supraclavicular lymphadenopathy in light of COPD, prior tobacco, etc - chest malignancy would be high on differential too ill with other issues to perform w/u focus on his nutrition for now (18) DVT prophylaxis: Pt is off of Heparin due to decreasing platelets. DVT ppx with SCD and teds. Pt is DNR/DNI Plan: return to [facility] when medically stable. (19) Thrombocytopenia: Not clear origin. Pt was on heparin from 09/12-09/18. is his platelet count decreasing due to HIT? Will check for HIT antibodies. Stopped Doxycycline since it can also cause decrease in platelets. Pt denies easy bruising, hematemesis, nosebleed, hematuria, melena. Present on Admission?: Yes Subjective Patient seen and examined at the bedside. Noted that patient has decreased platelets from normal started from September 24, 2019. Patient denies melena, hematemesis, hemoptysis, nosebleed, easy bruising, or hematuria. Patient continue to be alert and oriented x3. He is appropriately conversive today. L eft third finger is stable. Patient is on doxycycline for osteomyelitis. All patient medication is reviewed and possibly doxycycline is responsible for patient's platelets to decrease . Per psychiatry patient from their standpoint patient is ready for discharge. Case was also discussed with orthopedics Dr. Terrell and he recommended to stop doxycycline and instead start patient on clindamycin. If any procedure deems to be appropriate at this time patient is able to sign the consent, because he is alert oriented and can make informed decision. Review of Systems Review of Systems: All systems reviewed & are unremarkable except as noted in HPI & below Physical Exam Constitutional: well developed, + acute distress, + ill appearing, + thin and + cachectic Eyes: PERRL, conjunctivae normal, anicteric sclerae ENMT: external ear and nose normal, oropharynx normal Neck: trachea midline, no thyromegaly Respiratory: normal respiratory effort, lungs clear to auscultation normal respiratory effort Cardiovascular: RRR, no murmur, no edema Vessels: dorsalis pedis pulses present Extremities: + edema Chest (Breasts): Chest: normal inspection of chest Gastrointestinal (Abdomen): normal bowel sounds, soft, nontender, no hepatosplenomegaly Musculoskeletal: no cyanosis or clubbing, extremities motor strength 5/5 Skin: no rashes, warm and dry Neurologic: patellar DTR's 2+ bilat, sensation intact and PERRL, EOMI, accommodation nl, no face palsy, no dysarthria moves all extremities Psychiatric: A+Ox3, euthymic affect Orientation: cooperative Suicidal Thoughts: denies suicidal thoughts and denies suicidal intent Homicidal Thoughts: denies homicidal thoughts Cognition: language grossly intact Insight: + limited insight Judgement: + limited judgement Lymphatic: no cervical or axillary lymphadenopathy Results & Data Vital Signs (Past 12 Hours) Vital Signs Temp Pulse Resp BP Pulse Ox 09/29/19 07:35 37.0 C 62 16 174/101 H 94 PG Care Time/CCT Total # of Minutes Spent Total Time Spent with Patient: Total time spent is greater than 50% in coordination of care (as documented) at patient's floor/unit and/or counseling patient: (1) Diabetes mellitus Diabetes mellitus complication status: with hyperglycemia Diabetes mellitus mcc insulin use: without mcc use Diabetes mellitus type: type 2 Qualified Code(s): E11.65 - Type 2 diabetes mellitus with hyperglycemia (2) AAA (abdominal aortic aneurysm) Presence of rupture: without rupture Qualified Code(s): I71.4 - Abdominal aortic aneurysm, without rupture (3) Anemia Anemia type: other cause Other causes of anemia: other cause, not classified Qualified Code(s): D64.89 - Other specified anemias (4) Hypothermia Encounter type: initial encounter Qualified Code(s): T68.XXXA - Hypothermia, initial encounter (5) Altered mental status Altered mental status type: unspecified Qualified Code(s): R41.82 - Altered mental status, unspecified (6) Hypotension Hypotension type: unspecified hypotension type Qualified Code(s): I95.9 - Hypotension, unspecified (7) Constipation Constipation type: other constipation type Qualified Code(s): K59.09 - Other constipation
[2019-09-29 13:09] LABS: Hematocrit (blood only) 37.3 % (42-52); Hemoglobin 11.5 g/dL (14.0-18.0); Mean Corpuscular Hemoglobin 29.5 pg (25-34); Mean Corpuscular Hgb Conc 30.8 g/dL (32-36); Mean Corpuscular Volume 95.6 fL (80-100); Mean Platelet Volume 12.9 fL (7.4-10.4); Platelet Count 87 K/uL (130-400); RDW Coefficient of Variation 16.2 % (11.5-14.5); RDW Standard Deviation 56.2 fL (36.4-46.3); White Blood Count 7.99 K/uL (4.8-10.8)
[2019-09-29] MEDS: CLINDAMYCIN HCL 150 MG CAP PO SCH (17:56)
[2019-09-29] MEDS: LACTOBACILLUS ACIDOPHILUS (FLORANEX) TAB PO SCH ×2 (17:57→20:54)
[2019-09-29] MEDS: cloZAPine 25 MG TAB PO SCH (20:53)
[2019-09-29] MEDS: INSULIN GLARGINE SOLOSTAR 100 UNITS/ML 3 ML PEN SC SCH (20:54)
[2019-09-29] MEDS: DOCUSATE SODIUM 100 MG CAP PO SCH (20:54)
[2019-09-29] MEDS: OLANZapine 20 MG TABLET PO SCH (20:56)
[2019-09-30] MEDS: CLINDAMYCIN HCL 150 MG CAP PO SCH ×5 (00:12→23:45)
[2019-09-30] MEDS: RAMELTEON: ORDER AWAITING ACTION SCH ×2 (00:39→07:29)
[2019-09-30] MEDS: LACTOBACILLUS ACIDOPHILUS (FLORANEX) TAB PO SCH ×4 (07:33→20:09)
[2019-09-30] MEDS: cloZAPine 100 MG TAB PO SCH (07:33)
[2019-09-30] MEDS: HYDROCORTISONE 10 MG TAB PO SCH ×2 (07:33→14:38)
[2019-09-30] MEDS: FLUDROCORTISONE ACETATE 0.1 MG TAB PO SCH (07:34)
[2019-09-30] MEDS: FERROUS SULFATE 325 MG TAB PO SCH (07:34)
[2019-09-30] MEDS: ASCORBIC ACID 500 MG TAB PO SCH (07:35)
[2019-09-30] MEDS: THIAMINE HCL 100 MG TAB PO SCH ×3 (07:35→20:10)
[2019-09-30] MEDS: COLLAGENASE OINT 30 GM TUBE EXT SCH (07:35)
[2019-09-30] MEDS: OLANZapine 10 MG TAB PO SCH (07:35)
[2019-09-30] MEDS: CYANOCOBALAMIN (VITAMIN B-12) 100 MCG TABLET PO SCH (07:35)
[2019-09-30] MEDS: SENNA 8.6 MG TAB PO SCH (08:04)
[2019-09-30] MEDS: LACTULOSE SYRUP 20 GM/30 ML UDC PO SCH (08:04)
[2019-09-30] MEDS: POLYETHYLENE (MIRALAX) 17 GM PACK PO SCH (08:04)
[2019-09-30] MEDS: INSULIN ASPART 100 UNITS/ML 3 ML PEN SC SCH ×4 (09:28→20:08)
[2019-09-30] MEDS ORDERED: POLYETHYLENE (MIRALAX) 17 GM PACK PO PRN (10:15)
[2019-09-30] MEDS ORDERED: DOCUSATE SODIUM 100 MG CAP PO PRN (10:15)
[2019-09-30] MEDS ORDERED: LACTULOSE SYRUP 20 GM/30 ML UDC PO PRN (10:16)
[2019-09-30] MEDS ORDERED: SENNA 8.6 MG TAB PO PRN (10:16)
[2019-09-30 10:49] LABS: Hematocrit (blood only) 35.4 % (42-52); Hemoglobin 11.1 g/dL (14.0-18.0); Mean Corpuscular Hemoglobin 29.8 pg (25-34); Mean Corpuscular Hgb Conc 31.4 g/dL (32-36); Mean Corpuscular Volume 95.2 fL (80-100); RDW Standard Deviation 55.6 fL (36.4-46.3); Red Blood Count 3.72 M/uL (4.7-6.1); White Blood Count 7.82 K/uL (4.8-10.8)
[2019-09-30 10:54] LABS: Albumin Level 2.6 gm/dl (3.4-5.0); BUN Creatinine Ratio 22.5 (10-20); Calcium 9.4 mg/dl (8.5-10.1); Creatinine Clr Calc Pharmacy 71.6 ml/min; Est GFR (African American) 90.7; Est GFR (Non-African American) 78.2; Potassium 3.3 mmol/L (3.5-5.1)
[2019-09-30 10:57] LABS: Albumin Globulin Ratio 0.7 (0.9-2); Bilirubin,Total 0.3 mg/dl (0.2-1); Globulin 3.7 gm/dl (2.5-4.0); Total Protein 6.3 gm/dl (6.4-8.2)
[2019-09-30 10:58] LABS: Mean Platelet Volume 12.8 fL (7.4-10.4); Platelet Count 73 K/uL (130-400); Platelet Estimate Decreased (Normal)
[2019-09-30] MEDS ORDERED: POTASSIUM CHLORIDE 20 MEQ TABCR PO STA (11:33)
[2019-09-30] MEDS: SODIUM CHLOR 0.45% + 20MEQ KCL 20 MEQ/1,000 ML BAG IV SCH ×2 (12:05→23:45)
--- NOTE | 2019-09-30 17:50 | Hospitalist Progress Note ---
Date of Service September 30, 2019 Assessment & Plan (1) Osteomyelitis of finger of left hand: Left 3rd finger osteomyelitis per Xrays appears to be chronic. Pt switched yesterday from Doxycycline# 09/27 -->09/29 (can cause decreasing of platelets) to Clinda 300 mg PO QID. Discussed with dr. Terrell-orthopedic.The antibiotic should continue for 4-6 weeks. Treated with Vancomycin IV for over a week Per orthopedics, certainly could consider an elective amputation of distal 3rd phalanx.Pt is able to sign consult at this time. (2) Altered mental status: Improved, pt is alert and oriented x 3. (3) Diabetes insipidus: Nephrogenic and chronic due to the longstanding lithium use.[place] is discontinued. DI led to hypernatremia - now resolved with hypotonic fluids.Sodium today is 148. (4) Hypernatremia: Due to nephrogenic diabetes insipidus. Sodium is stable at 148. (5) Schizoaffective disorder, bipolar type: Appreciate psychiatric management. [place] discontinued. Remains on Zyprexa 10 mg QAM and 20 mg QPM. Continue Clozaril 100 mg PO QAM and 150 mg PO QHS.Check CBC weekly while pt on Clozaril to monitor for possible neutrophilia. Per psychiatry pt can be discharged from their standpoint. CT head this admission neg. B12, ammonia, TSH wnl. Per [facility], once he can be stabilized, the plan is for him to be transferred to mental health facility correction discussed with [facility] today, no discharge until next week (6) Metabolic acidosis, increased anion gap: resolved (7) Hypotension: Possible adrenal insufficiency entertained earlier this stay and placed on empiric hydrocortisone. However 2 cortisol levels were 15 or higher making adrenal insufficiency unlikely. Hypotension may simply have been volume contraction. BPs now normal. (8) Hypothermia: TSH, FT4 wnl cortisol 15 and 19 on 2 checks blood cx's neg the cause is still unclear, more hypothermia prior three days RESOLVED with stress dose hydrocortisone of 50mg q8 will change to Hydrocortisone 15mg qAM and 10mg afternoon Florinef 0.05mg qAM see how he responds, if temperature remains stable then recommend continuing these (9) Hypokalemia: resolved (10) Acute renal insufficiency: resolved (11) Constipation: RESOLVED on 09/27, large solid BM experienced a lot of relief (12) AAA (abdominal aortic aneurysm): 5.7 cm in size - infrarenal Follow-up as outpatient very, very poor surgical candidate (13) Diabetes mellitus: HbA1c 6.9% Given his thin stature this is likely type 1 novolog w/ meals will stop Dextrose in fluids tomorrow (14) Anemia: stable, Hb 10.7 exact cause uncertain b12, folate, Fe all acceptable chronic disease/osteomyelitis?? (15) Seizure: ? past seizure records suggest normal EEG in past not on AEDs follow (16) Sinus node dysfunction: suspect had sinus cleve in setting of hypothermia cardiology following - no Rx (17) Severe protein-calorie malnutrition: recent imaging showed left supraclavicular lymphadenopathy in light of COPD, prior tobacco, etc - chest malignancy would be high on differential too ill with other issues to perform w/u focus on his nutrition for now (18) DVT prophylaxis: Pt is off of Heparin due to decreasing platelets. DVT ppx with SCD and teds. Pt is DNR/DNI Plan: return to [facility] when medically stable. (19) Thrombocytopenia: Not clear origin. Pt was on heparin from 09/12-09/18. HIT antibodies-negative. Stopped Doxycycline since it can also cause decrease in platelets, and started clindamycin yesterday. Pt denies easy bruising, hematemesis, nosebleed, hematuria, melena. We will consult hematology oncology for thrombocytopenia. Subjective Patient seen and examined at the bedside. Does continue to drop down from 87- 73. Not clear origin of thrombocytopenia. Patient denies melena, hematemesis, hemoptysis, nosebleed, easy bruising, or hematuria. Patient continue to be alert and oriented x3, but he was in combative more today. Patient has several large bowel movements since he is on laxatives. Review of Systems Review of Systems: All systems reviewed & are unremarkable except as noted in HPI & below Physical Exam Constitutional: well developed, well nourished and + frail appearing Eyes: PERRL, conjunctivae normal, anicteric sclerae + nystagmus ENMT: external ear and nose normal, oropharynx normal Neck: trachea midline, no thyromegaly trachea midline Respiratory: normal respiratory effort, lungs clear to auscultation normal respiratory effort Auscultation: lungs clear to auscultation bilaterally (Anteriorly) Cardiovascular: RRR, no murmur, no edema Rate/Rhythm: regular rate, regular rhythm and + tachycardic Heart Sounds: normal S1 and normal S2 Vessels: dorsalis pedis pulses present Chest (Breasts): Chest: normal inspection of chest Gastrointestinal (Abdomen): normal bowel sounds, soft, nontender, no hepatosplenomegaly Inspection/Auscultation: abdomen normal to inspection Musculoskeletal: no cyanosis or clubbing, extremities motor strength 5/5 Extremities: + muscle atrophy (generalized); no cyanosis and no clubbing Skin: no rashes, warm and dry Neurologic: patellar DTR's 2+ bilat, sensation intact Psychiatric: A+Ox3, euthymic affect Orientation: alert and oriented to place Eye Contact: good eye contact Suicidal Thoughts: denies suicidal thoughts and denies suicidal intent Homicidal Thoughts: denies homicidal thoughts Cognition: language grossly intact Lymphatic: no cervical or axillary lymphadenopathy Results & Data Vital Signs (Past 12 Hours) Vital Signs Temp Pulse Resp BP Pulse Ox 09/30/19 15:11 37 C 90 19 161/75 H 97 09/30/19 07:58 36.7 C 94 H 18 163/94 H 96 PG Care Time/CCT Total # of Minutes Spent Total Time Spent with Patient: Total time spent is greater than 50% in coordination of care (as documented) at patient's floor/unit and/or counseling patient: (1) Altered mental status Altered mental status type: unspecified Qualified Code(s): R41.82 - Altered mental status, unspecified (2) Hypotension Hypotension type: unspecified hypotension type Qualified Code(s): I95.9 - Hypotension, unspecified (3) Hypothermia Encounter type: initial encounter Qualified Code(s): T68.XXXA - Hypothermia, initial encounter (4) Constipation Constipation type: other constipation type Qualified Code(s): K59.09 - Other constipation (5) AAA (abdominal aortic aneurysm) Presence of rupture: without rupture Qualified Code(s): I71.4 - Abdominal aortic aneurysm, without rupture (6) Diabetes mellitus Diabetes mellitus type: type 2 Diabetes mellitus correction insulin use: without correction use Diabetes mellitus complication status: with hyperglycemia Qualified Code(s): E11.65 - Type 2 diabetes mellitus with hyperglycemia (7) Anemia Anemia type: other cause Other causes of anemia: other cause, not classified Qualified Code(s): D64.89 - Other specified anemias
[2019-09-30] MEDS: INSULIN GLARGINE SOLOSTAR 100 UNITS/ML 3 ML PEN SC SCH (20:08)
[2019-09-30] MEDS: cloZAPine 25 MG TAB PO SCH (20:10)
[2019-09-30] MEDS: OLANZapine 20 MG TABLET PO SCH (20:10)
[2019-10-01] MEDS: CLINDAMYCIN HCL 150 MG CAP PO SCH ×2 (05:51→11:49)
[2019-10-01] MEDS: LACTOBACILLUS ACIDOPHILUS (FLORANEX) TAB PO SCH ×4 (08:59→21:53)
[2019-10-01] MEDS: FERROUS SULFATE 325 MG TAB PO SCH (09:00)
[2019-10-01] MEDS: HYDROCORTISONE 10 MG TAB PO SCH ×2 (09:00→13:47)
[2019-10-01] MEDS: CYANOCOBALAMIN (VITAMIN B-12) 100 MCG TABLET PO SCH (09:01)
[2019-10-01] MEDS: FLUDROCORTISONE ACETATE 0.1 MG TAB PO SCH (09:01)
[2019-10-01] MEDS: ASCORBIC ACID 500 MG TAB PO SCH (09:02)
[2019-10-01] MEDS: OLANZapine 10 MG TAB PO SCH (09:02)
[2019-10-01] MEDS: cloZAPine 100 MG TAB PO SCH ×2 (09:03→22:03)
[2019-10-01] MEDS: INSULIN ASPART 100 UNITS/ML 3 ML PEN SC SCH ×4 (09:07→21:52)
--- NOTE | 2019-10-01 09:07 | Consultation Report ---
DATE OF CONSULTATION: 10/01/2019 REASON FOR CONSULTATION: Thrombocytopenia, etiology unclear. HISTORY OF PRESENT ILLNESS: The patient is a 59-year-old inmate from [facility] who was admitted to [facility] on 09/12/2019 for acute psychoses and metabolic acidosis. Unfortunately, this gentleman rambled throughout today's consultation and could not extract any meaningful information from Mr. Childers whatsoever. Thus, I am relying on medical records moving forward. The patient has been on psychotropic medications for quite some time. He began to decompensate from a psychiatric standpoint at night. Specifically was noted to ramble at night, spitting on staff. He was refusing medications and having active hallucinations and delusions. Psychiatry has been in consult and various adjustments to psychotropics have been undertaken during his stay. In the meantime, developed osteomyelitis of the index finger. He was started on oral clindamycin a couple of days ago. Clindamycin itself can cause thrombocytopenia and may result in slow recovery. I reviewed his medical record leading back to admission to the hospital. He presented with a platelet count of 269,000. There was actually a period of time in mid August where his platelets transiently dipped in the low 100 range. His T-max was 269,000 measured on 09/12/2019. Since that time, decline has been steady and last count on 09/30/2019 was 73,000. PAST MEDICAL HISTORY: Consists of bipolar disorder, schizophrenia, and bowel obstruction as well as diabetes insipidus and he also suffers from hepatitis C. MEDICATIONS: Prior to admission include Ramelteon 8 mg p.o. at bedtime, olanzapine 20 mg p.o. at bedtime, polyethylene glycol 17 g p.o. p.r.n., spironolactone 25 mg p.o. daily, milk of magnesia 60 mL p.o. daily as needed, docusate sodium 250 mg p.o. at bedtime, vitamin B12 100 mcg p.o. daily, ferrous sulfate 325 mg p.o. daily. ALLERGIES: HE HAS ALLERGIES TO HALOPERIDOL. SOCIAL HISTORY: The patient is an inmate at [facility]. He is a former smoker of 1 pack per day, duration unknown. Negative for alcohol, negative for substance abuse. FAMILY HISTORY: Unobtainable. REVIEW OF SYSTEMS: Unobtainable because of the patient's mental status. PHYSICAL EXAMINATION: GENERAL: A boisterous 59-year-old -[place] gentleman rambling throughout the entire examination, in no acute distress. VITAL SIGNS: Temperature 36.8, pulse 90, respiratory rate 20, blood pressure 154/89. SKIN: Without rash or lesion. No history of dermatoses. HEENT: Atraumatic, normocephalic. Could not do ocular examination as the patient was noncooperative. Throat appears clear. No buccal lesions are visible, again difficult examination. NECK: Supple. HEART: Regular rate and rhythm. LUNGS: Clear to auscultation, however, difficult to auscultate as he rambled throughout the exam. ABDOMEN: Firm, nontender, no rigidity or guarding. EXTREMITIES: No clubbing, cyanosis, or edema. Pulses are equal in all 4 quadrants. Strength testing not done. NEUROLOGIC: He is awake and alert, but again rambles throughout the encounter. LABORATORY DATA: WBC count 7820, hemoglobin 10.1, platelet count 73,000, these were actually from yesterday. Sodium 150, potassium 3.3, chloride 118, creatinine 1.04, BUN 23, albumin 2.6. IMPRESSION: 1. Thrombocytopenia, etiology unclear. 2. Schizophrenic disorder. 3. Bipolar disease. 4. Osteomyelitis of the index finger. PLAN: I visited with Mr. Childers at bedside. To say the least, examination and inquiry was somewhat difficult, but clearly upon investigating his medical record, his platelet trend has been heading downward. Somewhat unclear whether infection is playing a role and suppressing his platelet count. For completeness sake, I would proceed with DIC panel and peripheral smear to rule out consumptive coagulopathy. Mr. Childesr actually had a trend of platelet decrease back in mid August. He has been on various psychotropic drugs many of these can result in various cytopenias. Immune-mediated thrombocytopenia is certainly a possibility as well. Generally speaking, treatment is initiated if platelet count falls below 30,000. Mr. Childers at last check is not quite at that level. There is no external evidence of ongoing hemorrhage. I would recommend continuing monitoring peripheral counts. We will have pathology review his peripheral smear to rule out MAHA. Lastly, I would suggest considering alternative antimicrobial as clindamycin may slow recovery, even though he has only been on drug for a few days. This is not to suggest clindamycin is the underlying cause of Mr. Childers's low platelets. We will continue to follow him during his hospital stay. Thank you very much for allowing me to participate in his care. NATALI
[2019-10-01] MEDS: THIAMINE HCL 100 MG TAB PO SCH ×3 (10:33→21:54)
[2019-10-01 11:06] LABS: Hematocrit (blood only) 34.8 % (42-52); Hemoglobin 10.6 g/dL (14.0-18.0); Mean Corpuscular Hemoglobin 29.3 pg (25-34); Mean Corpuscular Hgb Conc 30.5 g/dL (32-36); Mean Corpuscular Volume 96.1 fL (80-100); Mean Platelet Volume 12.4 fL (7.4-10.4); Platelet Count 78 K/uL (130-400); RDW Standard Deviation 55.7 fL (36.4-46.3); Red Blood Count 3.62 M/uL (4.7-6.1); White Blood Count 8.65 K/uL (4.8-10.8)
[2019-10-01 11:19] LABS: Albumin Level 2.6 gm/dl (3.4-5.0); BUN Creatinine Ratio 19.3 (10-20); Calcium 8.9 mg/dl (8.5-10.1); Creatinine Clr Calc Pharmacy 83.7 ml/min; Est GFR (African American) 108.5; Est GFR (Non-African American) 93.6; Potassium 3.5 mmol/L (3.5-5.1)
[2019-10-01 11:20] LABS: Immature Granulocytes # (auto) 0.02 K/uL (0.00-0.02); Immature Granulocytes % (auto) 0.2 %; Lymphocytes # (auto) 1.36 K/uL (1.2-3.4); Lymphocytes % (auto) 15.7 %; Monocytes # (auto) 0.76 K/uL (0.11-0.59); Monocytes % (auto) 8.8 %; Neutrophils # (auto) 6.51 K/uL (1.4-6.5); Neutrophils % (auto) 75.3 %
[2019-10-01 11:21] LABS: Albumin Globulin Ratio 0.7 (0.9-2); Bilirubin,Total 0.3 mg/dl (0.2-1); Globulin 3.7 gm/dl (2.5-4.0); Total Protein 6.3 gm/dl (6.4-8.2)
[2019-10-01] MEDS: COLLAGENASE OINT 30 GM TUBE EXT SCH (11:48)
[2019-10-01] MEDS: SODIUM CHLOR 0.45% + 20MEQ KCL 20 MEQ/1,000 ML BAG IV SCH (11:48)
--- NOTE | 2019-10-01 12:34 | Hospitalist Progress Note ---
Date of Service October 01, 2019 Assessment & Plan (1) Osteomyelitis of finger of left hand: Left 3rd finger osteomyelitis per Xrays appears to be chronic. Pt switched to Doxycycline again from Clindamycin since it would cover better for osteo the clinda and per Hem?onc it ingrid not affect platelets count. Doxy at first started on 09/27 -->09/29 (can cause decreasing of platelets). Continue for 4-6 weeks. Treated with Vancomycin IV for over a week Per orthopedics, certainly could consider an elective amputation of distal 3rd phalanx.Pt is able to sign consult at this time. (2) Altered mental status: Improved, pt is alert and oriented x 3. (3) Diabetes insipidus: Nephrogenic and chronic due to the longstanding lithium use.[place] is discontinued. DI led to hypernatremia - now resolved with hypotonic fluids.Sodium today is 148. (4) Hypernatremia: Due to nephrogenic diabetes insipidus. Sodium is stable at 148. (5) Schizoaffective disorder, bipolar type: Appreciate psychiatric management. [place] discontinued. Remains on Zyprexa 10 mg QAM and 20 mg QPM. Pt is agitated today. per psychiatry recs we will increase Clozaril at night from 150 mg qhs to 200 mg qhs. Continue Clozaril 100 mg PO QAM.Check CBC weekly while pt on Clozaril to monitor for possible neutrophilia. Per psychiatry pt can be discharged from their standpoint. CT head this admission neg. B12, ammonia, TSH wnl. Per [facility], once he can be stabilized, the plan is for him to be transferred to mental health facility [facility] [employer] discussed with [facility] today, no discharge until next week Tried to contact fdc officials today w/o success in regard of the d/c. (6) Metabolic acidosis, increased anion gap: resolved (7) Hypotension: Possible adrenal insufficiency entertained earlier this stay and placed on empiric hydrocortisone. However 2 cortisol levels were 15 or higher making adrenal insufficiency unlikely. Hypotension may simply have been volume contraction. BPs now normal. (8) Hypothermia: TSH, FT4 wnl cortisol 15 and 19 on 2 checks blood cx's neg the cause is still unclear, more hypothermia prior three days RESOLVED with stress dose hydrocortisone of 50mg q8 will change to Hydrocortisone 15mg qAM and 10mg afternoon [place] 0.05mg qAM see how he responds, if temperature remains stable then recommend continuing these (9) Hypokalemia: resolved (10) Acute renal insufficiency: resolved (11) Constipation: RESOLVED on 09/27, large solid BM experienced a lot of relief (12) AAA (abdominal aortic aneurysm): 5.7 cm in size - infrarenal Follow-up as outpatient very, very poor surgical candidate (13) Diabetes mellitus: HbA1c 6.9% Given his thin stature this is likely type 1 novolog w/ meals will stop Dextrose in fluids tomorrow (14) Anemia: stable, Hb 10.7 exact cause uncertain b12, folate, Fe all acceptable chronic disease/osteomyelitis?? (15) Seizure: ? past seizure records suggest normal EEG in past not on AEDs follow (16) Sinus node dysfunction: suspect had sinus cleve in setting of hypothermia cardiology following - no Rx (17) Severe protein-calorie malnutrition: recent imaging showed left supraclavicular lymphadenopathy in light of COPD, prior tobacco, etc - chest malignancy would be high on differential too ill with other issues to perform w/u focus on his nutrition for now (18) DVT prophylaxis: Pt is off of Heparin due to decreasing platelets. DVT ppx with SCD and teds. Pt is DNR/DNI Plan: return to [facility] when medically stable. (19) Thrombocytopenia: Not clear origin. Pt was on heparin from 09/12-09/18. HIT antibodies-negative. Stopped Doxycycline since it can also cause decrease in platelets, and started clindamycin yesterday. Pt denies easy bruising, hematemesis, nosebleed, hematuria, melena. We will consult hematology oncology for thrombocytopenia. Subjective Patient seen and examined at the bedside. Platelets today are 78. Patient was more agitated today and combative. Guard was concerned that patient would not do well in the fdc while so agitated. Patient denies melena, hematemesis, hemoptysis, nosebleed, easy bruising, or hematuria. Patient continue to be alert and oriented x3, but he was in combative more today. Patient has several large bowel movements since he is on laxatives. Review of Systems Review of Systems: All systems reviewed & are unremarkable except as noted in HPI & below Physical Exam Constitutional: well developed, well nourished and + frail appearing Eyes: PERRL, conjunctivae normal, anicteric sclerae ENMT: external ear and nose normal, oropharynx normal Neck: trachea midline, no thyromegaly trachea midline Respiratory: normal respiratory effort Auscultation: lungs clear to auscultation bilaterally (Anteriorly) Cardiovascular: RRR, no murmur, no edema Rate/Rhythm: regular rate, regular rhythm and + tachycardic Heart Sounds: normal S1 and normal S2 Vessels: dorsalis pedis pulses present Extremities: + edema Chest (Breasts): Chest: normal inspection of chest Gastrointestinal (Abdomen): normal bowel sounds, soft, nontender, no hepatosplenomegaly Inspection/Auscultation: abdomen normal to inspection Musculoskeletal: no cyanosis or clubbing, extremities motor strength 5/5 Extremities: + muscle atrophy (generalized) Skin: no rashes, warm and dry + pallor Neurologic: patellar DTR's 2+ bilat, sensation intact moves all extremities Psychiatric: A+Ox3, euthymic affect Orientation: alert and oriented to place Apperance: appropriately dressed Eye Contact: good eye contact Speech: normal rate/rhythm/volume of speech Affect: + labile affect Mood: + angry mood Thought Process: goal directed thought process Suicidal Thoughts: denies suicidal thoughts and denies suicidal intent Homicidal Thoughts: denies homicidal thoughts Hallucinations: + visual hallucinations Cognition: language grossly intact Insight: + limited insight Lymphatic: no cervical or axillary lymphadenopathy Results & Data Vital Signs (Past 12 Hours) Vital Signs Temp Pulse Resp BP Pulse Ox 10/01/19 07:27 36.8 C 90 20 154/89 H 98 PG Care Time/CCT Total # of Minutes Spent Total Time Spent with Patient: Total time spent is greater than 50% in coordination of care (as documented) at patient's floor/unit and/or counseling patient: (1) Diabetes mellitus Diabetes mellitus complication status: with hyperglycemia Diabetes mellitus [employer] insulin use: without half-way use Diabetes mellitus type: type 2 Qualified Code(s): E11.65 - Type 2 diabetes mellitus with hyperglycemia (2) AAA (abdominal aortic aneurysm) Presence of rupture: without rupture Qualified Code(s): I71.4 - Abdominal aortic aneurysm, without rupture (3) Anemia Anemia type: other cause Other causes of anemia: other cause, not classified Qualified Code(s): D64.89 - Other specified anemias (4) Hypothermia Encounter type: initial encounter Qualified Code(s): T68.XXXA - Hypothermia, initial encounter (5) Altered mental status Altered mental status type: unspecified Qualified Code(s): R41.82 - Altered mental status, unspecified (6) Hypotension Hypotension type: unspecified hypotension type Qualified Code(s): I95.9 - Hypotension, unspecified (7) Constipation Constipation type: other constipation type Qualified Code(s): K59.09 - Other constipation
[2019-10-01] MEDS ORDERED: POTASSIUM CHLORIDE 20 MEQ TABCR PO STA (14:23)
[2019-10-01] MEDS: SODIUM CHLORIDE 0.45 % 1,000 ML IV SCH ×2 (14:53→22:35)
[2019-10-01] MEDS: DOXYCYCLINE HYCLATE 100 MG CAP PO SCH (21:52)
[2019-10-01] MEDS: INSULIN GLARGINE SOLOSTAR 100 UNITS/ML 3 ML PEN SC SCH (21:53)
[2019-10-01] MEDS: OLANZapine 20 MG TABLET PO SCH (21:54)
[2019-10-02 06:02] LABS: Hemoglobin 11.1 g/dL (14.0-18.0); Mean Corpuscular Hemoglobin 29.9 pg (25-34); Mean Corpuscular Hgb Conc 30.8 g/dL (32-36); Platelet Count 66 K/uL (130-400); RDW Coefficient of Variation 16.1 % (11.5-14.5); Red Blood Count 3.71 M/uL (4.7-6.1); White Blood Count 6.75 K/uL (4.8-10.8)
[2019-10-02 06:22] LABS: Immature Granulocytes # (auto) 0.01 K/uL (0.00-0.02); Immature Granulocytes % (auto) 0.1 %; Lymphocytes % (auto) 25.2 %; Monocytes # (auto) 0.53 K/uL (0.11-0.59); Monocytes % (auto) 7.9 %; Neutrophils # (auto) 4.51 K/uL (1.4-6.5); Neutrophils % (auto) 66.8 %
[2019-10-02 06:42] LABS: Albumin Globulin Ratio 0.8 (0.9-2); Albumin Level 2.8 gm/dl (3.4-5.0); BUN Creatinine Ratio 21.3 (10-20); Bilirubin,Total 0.3 mg/dl (0.2-1); Calcium 9.2 mg/dl (8.5-10.1); Creatinine Clr Calc Pharmacy 86.6 ml/min; Est GFR (Non-African American) 94.9; Globulin 3.7 gm/dl (2.5-4.0); Potassium 4.2 mmol/L (3.5-5.1); Total Protein 6.5 gm/dl (6.4-8.2)
[2019-10-02] MEDS: HYDROCORTISONE 10 MG TAB PO SCH ×2 (08:37→15:57)
[2019-10-02] MEDS: DOXYCYCLINE HYCLATE 100 MG CAP PO SCH ×2 (08:37→21:11)
[2019-10-02] MEDS: OLANZapine 10 MG TAB PO SCH (08:37)
[2019-10-02] MEDS: LACTOBACILLUS ACIDOPHILUS (FLORANEX) TAB PO SCH ×4 (08:37→21:09)
[2019-10-02] MEDS: FERROUS SULFATE 325 MG TAB PO SCH (08:38)
[2019-10-02] MEDS: FLUDROCORTISONE ACETATE 0.1 MG TAB PO SCH (08:38)
[2019-10-02] MEDS: cloZAPine 100 MG TAB PO SCH ×2 (08:38→21:12)
[2019-10-02] MEDS: ASCORBIC ACID 500 MG TAB PO SCH (08:38)
[2019-10-02 08:39] LABS: Partial Thromboplastin Ratio 1.1; Partial Thromboplastin Time 29.6 Seconds (21.0-31.0)
[2019-10-02] MEDS: THIAMINE HCL 100 MG TAB PO SCH ×3 (08:39→21:11)
[2019-10-02] MEDS: INSULIN ASPART 100 UNITS/ML 3 ML PEN SC SCH ×4 (08:40→21:21)
[2019-10-02] MEDS: CYANOCOBALAMIN (VITAMIN B-12) 100 MCG TABLET PO SCH (08:40)
[2019-10-02] MEDS: COLLAGENASE OINT 30 GM TUBE EXT SCH (08:42)
[2019-10-02 08:43] LABS: D Dimer 1170 ug/L FEU (0-500)
[2019-10-02] MEDS: SODIUM CHLORIDE 0.45 % 1,000 ML IV SCH ×2 (09:57→19:10)
[2019-10-02] MEDS ORDERED: cloZAPine 25 MG TAB PO ONE (10:00)
--- NOTE | 2019-10-02 11:45 | Hospitalist Progress Note ---
Date of Service October 02, 2019 Assessment & Plan (1) Osteomyelitis of finger of left hand: Left 3rd finger osteomyelitis per Xrays appears to be chronic. Continue doxycycline 100 mg p.o. twice daily for 6 weeks. Started on September 27. Patient was off of doxycycline for 2 days and instead he was given clindamycin between and . Continue doxycycline for 4- 6 weeks. Treated with Vancomycin IV for over a week Per orthopedics, certainly could consider an elective amputation of distal 3rd phalanx. Patient refused elective amputation of the distal third phalanx of the third finger left hand. I had long discussion with Dr. Nirmal MOYA, at [facility] and he stated that he can accept patient to [facility] only when he is electrolytes are stable including but not limited to hyponatremia, hyperkalemia etc, since over there he cannot give patient any IV fluids. He recommended for patient to be stable for 24 to 48 hours meeting his electrolytes before he can be transferred to [facility]. He agreed to check patient labs twice a week and inform Dr. Mancini if there is platelet count decreased below 30,000. DIC lab significant for positive D-dimers of 1170, PTT 29.6, platelets 66, PT pending, Antithrombin pending. Will discuss with Dr. Mancini. (2) Altered mental status: Improved, pt is alert and oriented x 3. (3) Diabetes insipidus: Nephrogenic and chronic due to the longstanding lithium use.[place] is discontinued. DI led to hypernatremia - now resolved with hypotonic fluids.Sodium today is 148. (4) Hypernatremia: Due to nephrogenic diabetes insipidus. Sodium is stable at 148. (5) Schizoaffective disorder, bipolar type: Appreciate psychiatric management. [place] discontinued. Remains on Zyprexa 10 mg QAM and 20 mg QPM. Continue Clozaril at night 200 mg qhs. Clozaril 100 mg PO QAM increased to 150 mg PO QAM since pt was yesterday agitated.Check CBC weekly while pt on Clozaril to monitor for possible neutrophilia. Per psychiatry pt can be discharged from their standpoint. CT head this admission neg. B12, ammonia, TSH wnl. Per [facility], once he can be stabilized, the plan is for him to be transferred to mental health facility custodial Discussed with [facility] today as I mention above. (6) Metabolic acidosis, increased anion gap: resolved (7) Hypotension: Possible adrenal insufficiency entertained earlier this stay and placed on empiric hydrocortisone. However 2 cortisol levels were 15 or higher making adrenal insufficiency unlikely. Hypotension may simply have been volume contraction. BPs now normal. (8) Hypothermia: TSH, FT4 wnl cortisol 15 and 19 on 2 checks blood cx's neg the cause is still unclear, more hypothermia prior three days RESOLVED with stress dose hydrocortisone of 50mg q8 will change to Hydrocortisone 5 mg daily and taper down see how he responds, if temperature remains stable then recommend continuing these (9) Hypokalemia: resolved (10) Acute renal insufficiency: resolved (11) Constipation: RESOLVED on 09/27, large solid BM experienced a lot of relief (12) AAA (abdominal aortic aneurysm): 5.7 cm in size - infrarenal Follow-up as outpatient very, very poor surgical candidate (13) Diabetes mellitus: HbA1c 6.9% Given his thin stature this is likely type 1 novolog w/ meals will stop Dextrose in fluids tomorrow (14) Anemia: stable, Hb 10.7 exact cause uncertain b12, folate, Fe all acceptable chronic disease/osteomyelitis?? (15) Seizure: ? past seizure records suggest normal EEG in past not on AEDs follow (16) Sinus node dysfunction: suspect had sinus cleve in setting of hypothermia cardiology following - no Rx (17) Severe protein-calorie malnutrition: recent imaging showed left supraclavicular lymphadenopathy in light of COPD, prior tobacco, etc - chest malignancy would be high on differential too ill with other issues to perform w/u focus on his nutrition for now (18) DVT prophylaxis: Pt is off of Heparin due to decreasing platelets. DVT ppx with SCD and teds. Pt is DNR/DNI Plan: return to [facility] when medically stable. (19) Thrombocytopenia: Not clear origin. Pt was on heparin from 09/12-09/18. HIT antibodies-negative. Stopped Doxycycline since it can also cause decrease in platelets, and started clindamycin yesterday. Pt denies easy bruising, hematemesis, nosebleed, hematuria, melena. We will consult hematology oncology for thrombocytopenia. Subjective Patient seen and examined at the bedside. Platelets today are 66. Patient is more calm today. Patient denies melena, hematemesis, hemoptysis, nosebleed, easy bruising, or hematuria. Patient continue to be alert and oriented x3. Regular BMs. Review of Systems Review of Systems: All systems reviewed & are unremarkable except as noted in HPI & below Physical Exam Constitutional: well developed, well nourished and + frail appearing Eyes: PERRL, conjunctivae normal, anicteric sclerae + nystagmus ENMT: external ear and nose normal, oropharynx normal Neck: trachea midline, no thyromegaly trachea midline Respiratory: normal respiratory effort, lungs clear to auscultation normal respiratory effort Auscultation: lungs clear to auscultation bilaterally (An teriorly) Cardiovascular: Rate/Rhythm: regular rate, regular rhythm and + tachycardic Heart Sounds: normal S1 and normal S2 Vessels: dorsalis pedis pulses present Chest (Breasts): Chest: normal inspection of chest Gastrointestinal (Abdomen): normal bowel sounds, soft, nontender, no hepatosplenomegaly Inspection/Auscultation: abdomen normal to inspection Percussion/Palpation: abdomen soft Musculoskeletal: no cyanosis or clubbing, extremities motor strength 5/5 Extremities: + muscle atrophy (generalized) Skin: + pallor Neurologic: patellar DTR's 2+ bilat, sensation intact moves all extremities Motor/Sensory: no tremor Psychiatric: Orientation: alert and oriented to place Apperance: appropriately dressed Eye Contact: good eye contact Speech: normal rate/rhythm/volume of speech Affect: + labile affect Thought Process: goal directed thought process Suicidal Thoughts: denies suicidal thoughts and denies suicidal intent Homicidal Thoughts: denies homicidal thoughts Cognition: language grossly intact Insight: + limited insight Judgement: + limited judgement Lymphatic: no cervical or axillary lymphadenopathy no lymphedema Results & Data Vital Signs (Past 12 Hours) Vital Signs Temp Pulse Resp BP Pulse Ox 10/02/19 07:00 36.4 C L 71 18 158/65 H 99 PG Care Time/CCT Total # of Minutes Spent Total Time Spent with Patient: Total time spent is greater than 50% in coordination of care (as documented) at patient's floor/unit and/or counseling patient: (1) Diabetes mellitus Diabetes mellitus complication status: with hyperglycemia Diabetes mellitus custodial insulin use: without offline cutter use Diabetes mellitus type: type 2 Qualified Code(s): E11.65 - Type 2 diabetes mellitus with hyperglycemia (2) AAA (abdominal aortic aneurysm) Presence of rupture: without rupture Qualified Code(s): I71.4 - Abdominal aortic aneurysm, without rupture (3) Anemia Anemia type: other cause Other causes of anemia: other cause, not classified Qualified Code(s): D64.89 - Other specified anemias (4) Hypothermia Encounter type: initial encounter Qualified Code(s): T68.XXXA - Hypothermia, initial encounter (5) Altered mental status Altered mental status type: unspecified Qualified Code(s): R41.82 - Altered mental status, unspecified (6) Hypotension Hypotension type: unspecified hypotension type Qualified Code(s): I95.9 - Hypotension, unspecified (7) Constipation Constipation type: other constipation type Qualified Code(s): K59.09 - Other constipation
--- NOTE | 2019-10-02 13:35 | Psychiatric Progress Note ---
Date of Service October 02, 2019 Impression / Recommendations Impression 59-year-old male with history of chronic schizophrenia, with most recent concern for agitated catatonia. Pt responded to initiation of lorazepam 2 mg TID, which had been tapered to discontinuation as he demonstrated improvement in mental status. Clozapine is being re-titrated after review with hospitalist team and psychiatrist at the halfway, with recommendation for titration by 25-50mg daily - as he is seemingly been more consistent with PO medications. Continue Zyprexa at current dose of 10mg qAM and 20mg qHS - recommend ongoing evaluation of behavior, as it would be ideal to reduce dose of olanzapine once clozapine has been re-titrated. Per records, prior clozapine dosage was 200mg qAM and 250mg qHS - will require ongoing weekly CBC w/diff per clozapine protocols. CBC w/diff already ordered for 10/03/19. (1) Schizoaffective disorder, bipolar type: 09/13 - zyprexa 5mg qm, 20mg qhs - give olanzapine IM if refuses PO - considering reinitiation of clozapine but increases risk for seizure and will take weeks to retitrate 09/18 - Recommend titrating Zyprexa to 10mg qAM and 20mg qHS - IM Zyprexa for PO refusal as above 09/23 - Continue olanzapine 10mg qAM and 20mg qHS - Clozapine initiated last evening at 25mg - titrating to 50mg this evening; can continue daily titration by 25mg if patient continues to agree to PO medications 09/27 - Continue olanzapine 10mg qAM and 20mg qHS - Clozapine is being titrated - pt to receive 150mg this evening and 50mg tomorrow morning. Can continue titration by 25-50mg daily. - Weekly CBC w/ diff has been ordered in accordance with clozapine prescribing standards 09/28 -Continue clozapine titration by increasing to 100 mg tomorrow (09/29/19) morning and will continue 150 mg nightly -Consider need for seizure prophylaxis in re-titrating clozapine in combination with olanzapine 10/02 - Clozapine titrated to 150mg qAM and 200mg qHS - CBC w/diff ordered weekly - next scheduled in series for 10/03/18 (2) Delirium due to another medical condition, acute, mixed level of activity: 09/13 - supportive care while treating active medical conditions - reorientation prn - would prefer not to use benzodiazepine however we may need to add an ativan 1mg IV q4h prn if his agitation persists despite the olanzapine (with goal to use w/ minimal frequency). if ativan prn is started it should not be given within 1 hour of IM zyprexa. 09/18 - Recommend utilization of chlorpromazine 50mg q4h prn agitation, as alternative to lorazepam as patient continues to demonstrate agitation and disorganization - Continue routine reorientation as above 09/23 - Seems likely patient may be experiencing agitated catatonia - see recommendations below - Continue utilization of prn chlorpromazine if accepting of PO medications; olanzapine IM injections for acute threat to safety of patient or staff 09/27 - Seems to be improving over time 10/03 - Reports provided that patient's behavior has been more agitated over the past day. Case reviewed with primary attending yesterday, and recommendation was for further titration of clozapine and utilization of prn chlorpromazine for acute agitation - as olanzapine is already at maximum recommended dosing - Clozapine has been titrated to 200mg last evening and 150mg qAM starting tomorrow morning - Recommend continued use of chlorpromazine for management of acute agitation; IM order added for refusal of PO medication - Consider obtaining a repeat CK, as patient has been requiring increase level of restraints as a result of increased agitation - Behaviorally, it is possible that prolonged hospitalization may not be offering benefit in regard to continued agitation. Ideally once medically stabilized, patient would return to a facility where is able to be safety be retained without chronic physical restraint - which is likely to offer benefit for both his physical and mental health. (3) Catatonic agitation: 09/23 - Lorazepam 2mg TID IV scheduled, initiated as above - Would suggest slow taper of dose once mentation returns to baseline - Continue to ensure IM olanzapine (ordered prn for acute agitation) is not utilized within 1 hour of lorazepam administration - Remains in 4-point restraints, though behavior is reportedly in better control. Repeat CK was requested yesterday - WNL at 70 Risk Factors Assessment Do You Have Access To A Gun?: No Interval History Identifying Information 59-year-old prisoner with reported history of schizoaffective disorder and multiple medical problems admitted through the ER from [facility]. Initial psychiatric consultation was requested to evaluate patient for "acute psychosis." Re-examination was requested due to "continued behavioral disturbance" with concern for agitated catatonia. He has been followed to assess progress over course of admission. Review of Systems Notes Patient sleeping during time of assessment. Correctional officers report increased agitation today, and patient just having gotten to sleep. For this reason, patient was not awoken to participate fully in follow-up evaluation. Subjective Subjective Patient's case was reviewed during morning report with supervising psychiatrist and psychiatric nurse liaison. Patient had reportedly been demonstrating improvement in his condition for several days; however, it is reported that he became more agitated throughout the day yesterday. Patient's case was briefly reviewed with attending physician, who requested to discuss other medication adjustments. Utilization of as needed chlorpromazine as well as titration of clozapine was recommended. Patient was evaluated for psychiatric follow-up today. Upon presentation to patient's room, patient is found to be sleeping peacefully. Brief collateral information was obtained from correctional officers present in the room. It is reported that patient was agitated this morning, but just recently began sleeping. It is reported that he was "a lot better than yesterday, even though he was still agitated." Based on reports of agitation and patient just recently beginning to sleep, this provider decided not to wake the patient for participation in conversation. Physical Exam Psychiatric Orientation: + not alert (Patient sleeping peacefully) Apperance: appropriately dressed (In hospital gown), + disheveled and appeared stated age Motor Behavior: no abnormal motor movements (Observed while sleeping, laying in bed) Vital Signs (Past 24 Hours) Last Vital Signs Temp 36.4 C L 10/02/19 07:00 Pulse 71 10/02/19 07:00 Resp 18 10/02/19 07:00 BP 158/65 H 10/02/19 07:00 Pulse Ox 99 10/02/19 07:00 Results & Data Laboratory Results Laboratory Results - last 24 hr 10/01/19 10/01/19 10/02/19 16:33 20:30 05:45 WBC 6.75 RBC 3.71 L Hgb 11.1 L Hct 36.0 L MCV 97.0 MCH 29.9 MCHC 30.8 L RDW Std Deviation 57.0 H RDW Coeff of Shamra 16.1 H Plt Count 66 L MPV 12.0 H Immature Gran % (Auto) 0.1 Neut % (Auto) 66.8 Lymph % (Auto) 25.2 [place] % (Auto) 7.9 Eos % (Auto) 0.0 Baso % (Auto) 0.0 Immature Gran # (Auto) 0.01 Neut # (Auto) 4.51 Lymph # (Auto) 1.70 [place] # (Auto) 0.53 Eos # (Auto) 0.00 Baso # (Auto) 0.00 APTT PTT Ratio D-Dimer Sodium Potassium Chloride Carbon Dioxide Anion Gap BUN Creatinine Est Cr Clr Drug Dosing Est GFR ( Amer) Est GFR (Non-Af Amer) BUN/Creatinine Ratio Glucose POC Glucose 185 H 162 H Calcium Total Bilirubin AST ALT Alkaline Phosphatase Total Protein Albumin Globulin Albumin/Globulin Ratio 10/02/19 10/02/19 10/02/19 05:45 07:45 08:01 WBC RBC Hgb Hct MCV MCH MCHC RDW Std Deviation RDW Coeff of Shamar Plt Count MPV Immature Gran % (Auto) Neut % (Auto) Lymph % (Auto) [place] % (Auto) Eos % (Auto) Baso % (Auto) Immature Gran # (Auto) Neut # (Auto) Lymph # (Auto) [place] # (Auto) Eos # (Auto) Baso # (Auto) APTT 29.6 PTT Ratio 1.1 D-Dimer 1170 H* Sodium 148 H Potassium 4.2 D Chloride 119 H Carbon Dioxide 27 Anion Gap 2.0 L BUN 18 Creatinine 0.86 Est Cr Clr Drug Dosing 86.6 Est GFR ( Amer) 110.0 Est GFR (Non-Af Amer) 94.9 BUN/Creatinine Ratio 21.3 H Glucose 138 H POC Glucose 135 H Calcium 9.2 Total Bilirubin 0.3 AST 9 L ALT 40 Alkaline Phosphatase 84 Total Protein 6.5 Albumin 2.8 L Globulin 3.7 Albumin/Globulin Ratio 0.8 L 10/02/19 11:37 WBC RBC Hgb Hct MCV MCH MCHC RDW Std Deviation RDW Coeff of Shamar Plt Count MPV Immature Gran % (Auto) Neut % (Auto) Lymph % (Auto) [place] % (Auto) Eos % (Auto) Baso % (Auto) Immature Gran # (Auto) Neut # (Auto) Lymph # (Auto) [place] # (Auto) Eos # (Auto) Baso # (Auto) APTT PTT Ratio D-Dimer Sodium Potassium Chloride Carbon Dioxide Anion Gap BUN Creatinine Est Cr Clr Drug Dosing Est GFR ( Amer) Est GFR (Non-Af Amer) BUN/Creatinine Ratio Glucose POC Glucose 209 H Calcium Total Bilirubin AST ALT Alkaline Phosphatase Total Protein Albumin Globulin Albumin/Globulin Ratio Current Inpatient Medications Current Inpatient Medications: Current Inpatient Medications Acetaminophen (Tylenol) 650 mg PO Q4H PRN PRN Reason: Pain or Fever Stop: 10/12/19 16:10 Last Admin: 09/28/19 04:43 Dose: 650 mg Documented by: Al Hydrox/Mg Hydrox/Simethicone (Maalox) 15 ml PO Q4H PRN PRN Reason: Dyspepsia Stop: 10/12/19 16:10 Ascorbic Acid (Vitamin C) 500 mg PO QAM DIANA Stop: 10/13/19 08:59 Last Admin: 10/02/19 08:38 Dose: 500 mg Documented by: Chlorpromazine HCl (Thorazine) 50 mg PO Q4H PRN PRN Reason: Agitation Stop: 10/18/19 15:44 Last Admin: 10/01/19 11:50 Dose: 50 mg Documented by: Clozapine (Clozapine) 200 mg PO HS DIANA; Protocol Stop: 10/31/19 20:59 Last Admin: 10/01/19 22:03 Dose: 200 mg Documented by: Clozapine (Clozapine) 150 mg PO QAM [facility] Stop: 10/29/19 08:59 Collagenase (Santyl) 1 appln EXT DAILY [facility] Stop: 10/27/19 10:59 Last Admin: 10/02/19 08:42 Dose: 1 appln Documented by: Cyanocobalamin (Vitamin B-12) 100 mcg PO DAILY [facility] Stop: 10/13/19 08:59 Last Admin: 10/02/19 08:40 Dose: 100 mcg Documented by: Dextrose (Dextrose 50%) 25 - 50 ml IV UD PRN; Protocol PRN Reason: Hypoglycemia Protocol Stop: 10/13/19 10:04 Docusate Sodium (Colace) 200 mg PO HS PRN; Protocol PRN Reason: constipation Stop: 10/12/19 20:59 Doxycycline Hyclate (Vibramycin) 100 mg PO BID [facility] Stop: 11/12/19 20:59 Last Admin: 10/02/19 08:37 Dose: 100 mg Documented by: Ferrous Sulfate (Feosol) 325 mg PO DAILY [facility] Stop: 10/13/19 08:59 Last Admin: 10/02/19 08:38 Dose: 325 mg Documented by: Fludrocortisone Acetate (Florinef) 0.05 mg PO QAM [facility] Stop: 10/27/19 08:59 Last Admin: 10/02/19 08:38 Dose: 0.05 mg Documented by: Glucagon (Glucagen) 1 mg SQ UD PRN; Protocol PRN Reason: Hypoglycemia Protocol Stop: 10/13/19 10:04 Glucose (Dex4 Glucose) 4 - 8 tabs PO UD PRN; Protocol PRN Reason: Hypoglycemia Protocol Stop: 10/13/19 10:04 Glucose (Glucose 40%) 15 - 30 gm PO UD PRN; Protocol PRN Reason: Hypoglycemia Protocol Stop: 10/13/19 10:04 Hydrocortisone (Cortef) 15 mg PO QAM [facility] Stop: 10/27/19 08:59 Last Admin: 10/02/19 08:37 Dose: 15 mg Documented by: Hydrocortisone (Cortef) 5 mg PO 1400 [facility] Stop: 10/27/19 13:59 Sodium Chloride (1/2 Nss) 1,000 mls @ 100 mls/hr IV .Q10H [facility] Stop: 10/31/19 14:29 Last Admin: 10/02/19 09:57 Dose: 100 mls/hr Documented by: Insulin Aspart (Novolog Flexpen) 0 units SC ACHS [facility] Stop: 10/13/19 11:29 Last Admin: 10/02/19 12:17 Dose: 13 units Documented by: Insulin Glargine (Lantus Solostar Pen) 4 units SC HS [facility] Stop: 10/20/19 21:24 Last Admin: 10/01/19 21:53 Dose: 4 units Documented by: Lactobacillus Acidophilus (Floranex) 4 tab PO QIDM [facility] Stop: 10/29/19 16:59 Last Admin: 10/02/19 12:17 Dose: 4 tab Documented by: Lactulose (Chronulac) 20 gm PO TID PRN PRN Reason: constipation Stop: 10/24/19 13:59 Magnesium Hydroxide (Milk Of Magnesia) 60 ml PO DAILY PRN PRN Reason: Constipation Stop: 10/12/19 16:10 Last Admin: 09/19/19 09:48 Dose: 60 ml Documented by: Magnesium Hydroxide (Milk Of Magnesia) 30 ml PO Q12H PRN PRN Reason: Constipation Stop: 10/12/19 16:10 Last Admin: 09/25/19 14:02 Dose: 30 ml Documented by: Miscellaneous (Carbohydrates For Hypoglycemia) 15 - 30 gm PO UD PRN PRN Reason: Hypoglycemia Protocol Stop: 10/13/19 10:04 Last Admin: 09/22/19 16:35 Dose: 15 gm Documented by: Olanzapine (Zyprexa) 20 mg PO HS [facility]IANA Stop: 10/12/19 20:59 Last Admin: 10/01/19 21:54 Dose: 20 mg Documented by: Olanzapine (Zyprexa) 10 mg IM HS PRN PRN Reason: If unable to take PO dose Stop: 10/14/19 08:52 Olanzapine (Zyprexa) 10 mg PO QAM [facility] Stop: 10/19/19 08:59 Last Admin: 10/02/19 08:37 Dose: 10 mg Documented by: Ondansetron HCl (Zofran) 4 mg IV Q6H PRN PRN Reason: Nausea Stop: 10/12/19 16:10 Polyethylene Glycol (Miralax Powder Packet) 17 gm PO DAILY PRN PRN Reason: constipation Stop: 10/21/19 08:59 Sennosides (Senokot) 17.2 mg PO QAM PRN PRN Reason: constipation Stop: 10/21/19 08:59 Thiamine HCl (Vitamin B-1) 100 mg PO TID [facility] Stop: 10/16/19 08:59 Last Admin: 10/02/19 08:39 Dose: 100 mg Documented by:
[2019-10-02] MEDS ORDERED: hydroCHLOROthiazide 25 MG TAB PO SCH (15:15)
[2019-10-02] MEDS ORDERED: CHLORPROMAZINE HCL INJ 25 MG/ML 2 ML AMP IM PRN (15:47)
[2019-10-02 16:21] LABS: Prothrombin Time 10.5 Seconds (9.0-12.0)
[2019-10-02] MEDS: OLANZapine 20 MG TABLET PO SCH (21:10)
[2019-10-02] MEDS: INSULIN GLARGINE SOLOSTAR 100 UNITS/ML 3 ML PEN SC SCH (21:13)
[2019-10-03] MEDS: SODIUM CHLORIDE 0.45 % 1,000 ML IV SCH ×2 (05:20→14:31)
[2019-10-03] MEDS: HYDROCORTISONE 10 MG TAB PO SCH ×2 (08:29→14:31)
[2019-10-03] MEDS: LACTOBACILLUS ACIDOPHILUS (FLORANEX) TAB PO SCH ×4 (08:29→20:41)
[2019-10-03] MEDS: OLANZapine 10 MG TAB PO SCH (08:30)
[2019-10-03] MEDS: THIAMINE HCL 100 MG TAB PO SCH ×3 (08:30→20:40)
[2019-10-03] MEDS: CYANOCOBALAMIN (VITAMIN B-12) 100 MCG TABLET PO SCH (08:30)
[2019-10-03] MEDS: FERROUS SULFATE 325 MG TAB PO SCH (08:30)
[2019-10-03] MEDS: ASCORBIC ACID 500 MG TAB PO SCH (08:30)
[2019-10-03] MEDS: cloZAPine 100 MG TAB PO SCH ×2 (08:31→20:41)
[2019-10-03] MEDS: COLLAGENASE OINT 30 GM TUBE EXT SCH (08:31)
[2019-10-03] MEDS: DOXYCYCLINE HYCLATE 100 MG CAP PO SCH ×2 (08:31→20:40)
[2019-10-03] MEDS: FLUDROCORTISONE ACETATE 0.1 MG TAB PO SCH (08:32)
[2019-10-03] MEDS: INSULIN ASPART 100 UNITS/ML 3 ML PEN SC SCH ×4 (08:37→20:44)
[2019-10-03 08:46] LABS: Hematocrit (blood only) 32.2 % (42-52); Hemoglobin 10.1 g/dL (14.0-18.0); Immature Granulocytes # (auto) 0.01 K/uL (0.00-0.02); Immature Granulocytes % (auto) 0.1 %; Lymphocytes # (auto) 1.48 K/uL (1.2-3.4); Lymphocytes % (auto) 22.1 %; Mean Corpuscular Hemoglobin 29.8 pg (25-34); Mean Corpuscular Hgb Conc 31.4 g/dL (32-36); Mean Platelet Volume 12.7 fL (7.4-10.4); Monocytes # (auto) 0.54 K/uL (0.11-0.59); Neutrophils # (auto) 4.68 K/uL (1.4-6.5); Neutrophils % (auto) 69.8 %; Platelet Count 75 K/uL (130-400); RDW Coefficient of Variation 16.2 % (11.5-14.5); RDW Standard Deviation 56.2 fL (36.4-46.3); Red Blood Count 3.39 M/uL (4.7-6.1); White Blood Count 6.71 K/uL (4.8-10.8)
[2019-10-03 09:03] LABS: Albumin Level 2.5 gm/dl (3.4-5.0); BUN Creatinine Ratio 27.1 (10-20); Calcium 8.9 mg/dl (8.5-10.1); Creatinine Clr Calc Pharmacy 88.7 ml/min; Est GFR (African American) 111.1; Est GFR (Non-African American) 95.8; Potassium 3.9 mmol/L (3.5-5.1)
[2019-10-03 09:06] LABS: Albumin Globulin Ratio 0.7 (0.9-2); Bilirubin,Total 0.3 mg/dl (0.2-1); Globulin 3.4 gm/dl (2.5-4.0); Total Protein 5.9 gm/dl (6.4-8.2)
--- NOTE | 2019-10-03 16:35 | Hospitalist Progress Note ---
Date of Service October 03, 2019 Assessment & Plan (1) Osteomyelitis of finger of left hand: Left 3rd finger osteomyelitis per Xrays appears to be chronic. Continue doxycycline 100 mg p.o. twice daily for 6 weeks. Started on September 27. Treated with Vancomycin IV for over a week Per orthopedics, certainly could consider an elective amputation of distal 3rd phalanx. Patient refused elective amputation of the distal third phalanx of the third finger left hand. - Dr. Shah had long discussion with Dr. Nirmal MOYA on 10/02 at [facility], and he stated that he can accept patient to [facility] only when he is electrolytes are stable including but not limited to hyponatremia, hyperkalemia etc, since over there he cannot give patient any IV fluids. He recommended for patient to be stable for 24 to 48 hours meeting his electrolytes before he can be transferred to [facility]. He agreed to check patient labs twice a week and inform Dr. Mancini if there is platelet count decreased below 30,000. DIC lab significant for positive D-dimers of 1170, PTT 29.6, platelets 66, PT pending, Antithrombin pending. - Platelets increasing slightly today. (2) Altered mental status: Improved, pt is alert and oriented x 3. 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 [place] is discontinued. DI led to hypernatremia - now resolved with hypotonic fluids. Sodium today is 146. - Still on 1/2 normal saline. Will stop tonight and see where his sodium goes. As above, he needs to have a stable sodium x 2-3 days without IV fluids before he can be discharged. (4) Hypernatremia: Due to nephrogenic diabetes insipidus. Sodium is stable at 146. (5) Schizoaffective disorder, bipolar type: Appreciate psychiatric management. [place] discontinued. Remains on Zyprexa 10 mg QAM and 20 mg QPM. Continue Clozaril at night 200 mg qhs. Clozaril 100 mg PO QAM increased to 150 mg PO QAM since pt was yesterday agitated.Check CBC weekly while pt on Clozaril to monitor for possible neutrophilia. Per psychiatry pt can be discharged from their standpoint. CT head this admission neg. B12, ammonia, TSH wnl. Per [facility], once he can be stabilized, the plan is for him to be transferred to mental health facility termite treater. Discussed with [facility] on 10/02 as above. (6) Metabolic acidosis, increased anion gap: resolved (7) Hypotension: Possible adrenal insufficiency entertained earlier this stay and placed on empiric hydrocortisone. However 2 cortisol levels were 15 or higher making adrenal insufficiency unlikely. Hypotension may simply have been volume contraction. BPs now normal. (8) Hypothermia: TSH, FT4 wnl cortisol 15 and 19 on 2 checks blood cx's neg the cause is still unclear, more hypothermia prior three days RESOLVED with stress dose hydrocortisone of 50mg q8 will change to Hydrocortisone 5 mg daily and taper down see how he responds, if temperature remains stable then recommend continuing these (9) Hypokalemia: resolved (10) Acute renal insufficiency: resolved (11) Constipation: RESOLVED on 09/27, large solid BM experienced a lot of relief (12) AAA (abdominal aortic aneurysm): 5.7 cm in size - infrarenal Follow-up as outpatient very, very poor surgical candidate (13) Diabetes mellitus: HbA1c 6.9% Given his thin stature this is likely type 1 novolog w/ meals will stop Dextrose in fluids tomorrow (14) Anemia: stable, Hb 10.7 exact cause uncertain b12, folate, Fe all acceptable chronic disease/osteomyelitis?? (15) Seizure: ? past seizure records suggest normal EEG in past not on AEDs follow (16) Sinus node dysfunction: suspect had sinus cleve in setting of hypothermia cardiology following - no Rx (17) Severe protein-calorie malnutrition: recent imaging showed left supraclavicular lymphadenopathy in light of COPD, prior tobacco, etc - chest malignancy would be high on differential too ill with other issues to perform w/u focus on his nutrition for now (18) DVT prophylaxis: Pt is off of Heparin due to decreasing platelets. DVT ppx with SCD and teds. Pt is DNR/DNI Plan[facility]. (19) Thrombocytopenia: Not clear origin. Pt was on heparin from 09/12-09/18. HIT antibodies-negative. Stopped Doxycycline since it can also cause decrease in platelets, and started clindamycin yesterday. Pt denies easy bruising, hematemesis, nosebleed, hematuria, melena. We will consult hematology oncology for thrombocytopenia. Subjective Doing well today. He is pleasant and responsive. Requests second portions of meals as he is very thin. Reports no fevers/chills, chest pain, shortness of breath, abdominal pain, nausea, or vomiting. Physical Exam Constitutional: WD/WN, vitals as above Eyes: EOM intact bilaterally; no conjunctival abnormality ENMT: external ear and nose normal, oropharynx normal Neck: trachea midline, no thyromegaly normal visual inspection Respiratory: normal respiratory effort, lungs clear to auscultation no respiratory distress Cardiovascular: RRR, no murmur, no edema Gastrointestinal (Abdomen): Inspection/Auscultation: abdomen normal to inspection; abdomen not distended Musculoskeletal: no cyanosis or clubbing, extremities motor strength 5/5 Skin: no rashes, warm and dry Neurologic: moves all extremities and awake Psychiatric: Orientation: alert, oriented to person and cooperative Results & Data Vital Signs (Past 12 Hours) Vital Signs Temp Pulse Resp BP BP Pulse Ox 10/03/19 15:12 36.4 C L 106 H 20 150/84 H 98 10/03/19 11:21 36.6 C 81 20 137/64 98 10/03/19 07:07 36.6 C 95 H 18 135/82 97 PG Care Time/CCT Total # of Minutes Spent Total Time Spent with Patient: Total time spent is greater than 50% in coordination of care (as documented) at patient's floor/unit and/or counseling patient: (1) Altered mental status Altered mental status type: unspecified Qualified Code(s): R41.82 - Altered mental status, unspecified (2) Hypotension Hypotension type: unspecified hypotension type Qualified Code(s): I95.9 - Hypotension, unspecified (3) Hypothermia Encounter type: initial encounter Qualified Code(s): T68.XXXA - Hypothermia, initial encounter (4) Constipation Constipation type: other constipation type Qualified Code(s): K59.09 - Other constipation (5) AAA (abdominal aortic aneurysm) Presence of rupture: without rupture Qualified Code(s): I71.4 - Abdominal aortic aneurysm, without rupture (6) Diabetes mellitus Diabetes mellitus type: type 2 Diabetes mellitus snf insulin use: without termite treater use Diabetes mellitus complication status: with hyperglycemia Qualified Code(s): E11.65 - Type 2 diabetes mellitus with hyperglycemia (7) Anemia Anemia type: other cause Other causes of anemia: other cause, not classified Qualified Code(s): D64.89 - Other specified anemias
[2019-10-03] MEDS: OLANZapine 20 MG TABLET PO SCH (20:40)
[2019-10-03] MEDS: INSULIN GLARGINE SOLOSTAR 100 UNITS/ML 3 ML PEN SC SCH (20:45)
[2019-10-03] MEDS ORDERED: IVF: STOP ORDER ONE (21:00)
[2019-10-04] MEDS: DOXYCYCLINE HYCLATE 100 MG CAP PO SCH ×2 (07:37→21:03)
[2019-10-04] MEDS: THIAMINE HCL 100 MG TAB PO SCH ×3 (07:37→21:04)
[2019-10-04] MEDS: FERROUS SULFATE 325 MG TAB PO SCH (07:37)
[2019-10-04] MEDS: COLLAGENASE OINT 30 GM TUBE EXT SCH (07:37)
[2019-10-04] MEDS: OLANZapine 10 MG TAB PO SCH (07:37)
[2019-10-04] MEDS: LACTOBACILLUS ACIDOPHILUS (FLORANEX) TAB PO SCH ×4 (07:38→21:10)
[2019-10-04] MEDS: HYDROCORTISONE 10 MG TAB PO SCH ×2 (07:38→13:05)
[2019-10-04] MEDS: CYANOCOBALAMIN (VITAMIN B-12) 100 MCG TABLET PO SCH (07:38)
[2019-10-04] MEDS: FLUDROCORTISONE ACETATE 0.1 MG TAB PO SCH (07:38)
[2019-10-04] MEDS: ASCORBIC ACID 500 MG TAB PO SCH (07:38)
[2019-10-04] MEDS: cloZAPine 100 MG TAB PO SCH ×2 (07:38→21:03)
[2019-10-04 08:26] LABS: Hematocrit (blood only) 33.9 % (42-52); Hemoglobin 10.5 g/dL (14.0-18.0); Mean Corpuscular Hemoglobin 29.5 pg (25-34); Mean Corpuscular Volume 95.2 fL (80-100); Mean Platelet Volume 12.8 fL (7.4-10.4); Platelet Count 73 K/uL (130-400); RDW Standard Deviation 55.7 fL (36.4-46.3); Red Blood Count 3.56 M/uL (4.7-6.1); White Blood Count 6.41 K/uL (4.8-10.8)
[2019-10-04 08:37] LABS: Albumin Level 2.7 gm/dl (3.4-5.0); BUN Creatinine Ratio 28.2 (10-20); Calcium 9.7 mg/dl (8.5-10.1); Creatinine Clr Calc Pharmacy 88.7 ml/min; Est GFR (African American) 111.1; Est GFR (Non-African American) 95.8
[2019-10-04 08:40] LABS: Albumin Globulin Ratio 0.7 (0.9-2); Bilirubin,Total 0.5 mg/dl (0.2-1); Globulin 3.8 gm/dl (2.5-4.0); Total Protein 6.5 gm/dl (6.4-8.2)
[2019-10-04] MEDS: INSULIN ASPART 100 UNITS/ML 3 ML PEN SC SCH ×5 (08:41→21:10)
[2019-10-04 08:50] LABS: Echinocytes 1+; Immature Granulocytes # (auto) 0.01 K/uL (0.00-0.02); Immature Granulocytes % (auto) 0.2 %; Lymphocytes # (auto) 1.95 K/uL (1.2-3.4); Lymphocytes % (auto) 30.4 %; Monocytes # (auto) 0.45 K/uL (0.11-0.59); Neutrophils % (auto) 62.4 %
[2019-10-04] MEDS: OLANZapine 20 MG TABLET PO SCH (21:04)
[2019-10-04] MEDS: INSULIN GLARGINE SOLOSTAR 100 UNITS/ML 3 ML PEN SC SCH ×2 (21:06→21:10)
--- NOTE | 2019-10-04 22:25 | Hospitalist Progress Note ---
Date of Service October 04, 2019 Assessment & Plan (1) Osteomyelitis of finger of left hand: Left 3rd finger osteomyelitis per Xrays appears to be chronic. Continue doxycycline 100 mg p.o. twice daily for 6 weeks. Started on September 27. Treated with Vancomycin IV for over a week Per orthopedics, certainly could consider an elective amputation of distal 3rd phalanx. Patient refused elective amputation of the distal third phalanx of the third finger left hand. - Dr. Shah had long discussion with Dr. Nirmal MOYA on 10/02 at [facility], and he stated that he can accept patient to [facility] only when he is electrolytes are stable including but not limited to hyponatremia, hyperkalemia etc, since over there he cannot give patient any IV fluids. He recommended for patient to be stable for 24 to 48 hours meeting his electrolytes before he can be transferred to [facility]. He agreed to check patient labs twice a week and inform Dr. Mancini if there is platelet count decreased below 30,000. - Platelets maintaining at 70. (2) Altered mental status: Patient appears to be waxing and waning. Patient continues to be confused, will monitor. 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 [place] is discontinued. DI led to hypernatremia - now resolved with hypotonic fluids. Sodium today is 146. - Still on 1/2 normal saline. Will stop tonight and see where his sodium goes. As above, he needs to have a stable sodium x 2-3 days without IV fluids before he can be discharged. (4) Hypernatremia: Due to nephrogenic diabetes insipidus. Sodium is stable at 146. (5) Schizoaffective disorder, bipolar type: Appreciate psychiatric management. [place] discontinued. Remains on Zyprexa 10 mg QAM and 20 mg QPM. Continue Clozaril at night 200 mg qhs. Clozaril 100 mg PO QAM increased to 150 mg PO QAM since pt was yesterday agitated.Check CBC weekly while pt on Clozaril to monitor for possible neutrophilia. Per psychiatry pt can be discharged from their standpoint. CT head this admission neg. B12, ammonia, TSH wnl. Per [facility], once he can be stabilized, the plan is for him to be transferred to mental health facility alf. Discussed with [facility] on 10/02 as above. (6) Metabolic acidosis, increased anion gap: resolved (7) Hypotension: Possible adrenal insufficiency entertained earlier this stay and placed on empiric hydrocortisone. However 2 cortisol levels were 15 or higher making adrenal insufficiency unlikely. Hypotension may simply have been volume contraction. BPs now normal. (8) Hypothermia: TSH, FT4 wnl cortisol 15 and 19 on 2 checks blood cx's neg the cause is still unclear, more hypothermia prior three days RESOLVED with stress dose hydrocortisone of 50mg q8 will change to Hydrocortisone 5 mg daily and taper down see how he responds, if temperature remains stable then recommend continuing these (9) Hypokalemia: resolved (10) Acute renal insufficiency: resolved (11) Constipation: RESOLVED on 09/27, large solid BM experienced a lot of relief (12) AAA (abdominal aortic aneurysm): 5.7 cm in size - infrarenal Follow-up as outpatient very, very poor surgical candidate (13) Diabetes mellitus: HbA1c 6.9% Given his thin stature this is likely type 1 novolog w/ meals fluids have been stopped. (14) Anemia: stable, Hb 10.7 exact cause uncertain b12, folate, Fe all acceptable chronic disease/osteomyelitis?? (15) Seizure: ? past seizure records suggest normal EEG in past not on AEDs follow (16) Sinus node dysfunction: suspect had sinus cleve in setting of hypothermia cardiology following - no Rx (17) Severe protein-calorie malnutrition: recent imaging showed left supraclavicular lymphadenopathy in light of COPD, prior tobacco, etc - chest malignancy would be high on differe ntial too ill with other issues to perform w/u focus on his nutrition for now (18) DVT prophylaxis: Pt is off of Heparin due to decreasing platelets. DVT ppx with SCD and teds. Pt is DNR/DNI Plan: return to [facility] when medically stable. (19) Thrombocytopenia: Not clear origin. Pt was on heparin from 09/12-09/18. HIT antibodies-negative. Stopped Doxycycline since it can also cause decrease in platelets, and started clindamycin yesterday. Pt denies easy bruising, hematemesis, nosebleed, hematuria, melena. We will consult hematology oncology for thrombocytopenia. Subjective 59 yo male is confused today. Not providing my history. Review of Systems Review of Systems: All systems reviewed & are unremarkable except as noted in HPI & below Physical Exam Physical Exam: Constitutional: WD/WN, vitals as above Eyes: EOM intact bilaterally; no conjunctival abnormality ENMT: external ear and nose normal, oropharynx normal Neck: trachea midline, no thyromegaly normal visual inspection Respiratory: normal respiratory effort, lungs clear to auscultation no respiratory distress Cardiovascular: RRR, no murmur, no edema Gastrointestinal (Abdomen): Inspection/Auscultation: abdomen normal to inspection; abdomen not distended Musculoskeletal: no cyanosis or clubbing, extremities motor strength 5/5 Skin: no rashes, warm and dry Neurologic: moves all extremities and awake Psychiatric: Orientation: alert, oriented to person and cooperative Results & Data Vital Signs (Past 12 Hours) Vital Signs Temp Pulse Resp BP Pulse Ox 10/04/19 18:37 37.2 C 108 H 18 131/80 99 10/04/19 15:50 36.9 C 90 18 147/92 H 98 PG Care Time/CCT Total # of Minutes Spent Total Time Spent with Patient: Total time spent is greater than 50% in coordination of care (as documented) at patient's floor/unit and/or counseling patient: (1) Diabetes mellitus Diabetes mellitus complication status: with hyperglycemia Diabetes mellitus alf insulin use: without equipment operator intermodal yard use Diabetes mellitus type: type 2 Qualified Code(s): E11.65 - Type 2 diabetes mellitus with hyperglycemia (2) AAA (abdominal aortic aneurysm) Presence of rupture: without rupture Qualified Code(s): I71.4 - Abdominal aortic aneurysm, without rupture (3) Anemia Anemia type: other cause Other causes of anemia: other cause, not classified Qualified Code(s): D64.89 - Other specified anemias (4) Hypothermia Encounter type: initial encounter Qualified Code(s): T68.XXXA - Hypothermia, initial encounter (5) Altered mental status Altered mental status type: unspecified Qualified Code(s): R41.82 - Altered mental status, unspecified (6) Hypotension Hypotension type: unspecified hypotension type Qualified Code(s): I95.9 - Hypotension, unspecified (7) Constipation Constipation type: other constipation type Qualified Code(s): K59.09 - Other constipation
[2019-10-05] MEDS: LACTOBACILLUS ACIDOPHILUS (FLORANEX) TAB PO SCH ×4 (09:27→21:14)
[2019-10-05] MEDS: HYDROCORTISONE 10 MG TAB PO SCH ×2 (09:27→14:21)
[2019-10-05] MEDS: FERROUS SULFATE 325 MG TAB PO SCH (09:28)
[2019-10-05] MEDS: DOXYCYCLINE HYCLATE 100 MG CAP PO SCH ×2 (09:28→21:12)
[2019-10-05] MEDS: CYANOCOBALAMIN (VITAMIN B-12) 100 MCG TABLET PO SCH (09:29)
[2019-10-05] MEDS: ASCORBIC ACID 500 MG TAB PO SCH (09:29)
[2019-10-05] MEDS: FLUDROCORTISONE ACETATE 0.1 MG TAB PO SCH (09:29)
[2019-10-05] MEDS: THIAMINE HCL 100 MG TAB PO SCH ×3 (09:30→21:13)
[2019-10-05] MEDS: OLANZapine 10 MG TAB PO SCH (09:30)
[2019-10-05] MEDS: cloZAPine 100 MG TAB PO SCH ×2 (09:31→21:13)
[2019-10-05] MEDS: COLLAGENASE OINT 30 GM TUBE EXT SCH (09:32)
[2019-10-05] MEDS: INSULIN ASPART 100 UNITS/ML 3 ML PEN SC SCH ×4 (09:32→21:18)
[2019-10-05 09:34] LABS: BUN Creatinine Ratio 23.8 (10-20); Calcium 9.1 mg/dl (8.5-10.1); Creatinine Clr Calc Pharmacy 75.2 ml/min; Est GFR (African American) 96.2; Potassium 3.8 mmol/L (3.5-5.1)
[2019-10-05 09:48] LABS: Hematocrit (blood only) 35.7 % (42-52); Hemoglobin 10.8 g/dL (14.0-18.0); Mean Corpuscular Hemoglobin 29.1 pg (25-34); Mean Corpuscular Hgb Conc 30.3 g/dL (32-36); Mean Corpuscular Volume 96.2 fL (80-100); Mean Platelet Volume 12.3 fL (7.4-10.4); Platelet Count 79 K/uL (130-400); RDW Coefficient of Variation 16.1 % (11.5-14.5); RDW Standard Deviation 56.7 fL (36.4-46.3); Red Blood Count 3.71 M/uL (4.7-6.1); White Blood Count 5.52 K/uL (4.8-10.8)
[2019-10-05] MEDS: CARBOHYDRATES FOR HYPOGLYCEMIA PO PRN (11:41)
[2019-10-05] MEDS: OLANZapine 20 MG TABLET PO SCH (21:15)
[2019-10-05] MEDS: INSULIN GLARGINE SOLOSTAR 100 UNITS/ML 3 ML PEN SC SCH (21:16)
[2019-10-05 21:36] LABS: Anti-Thrombin III Activity 111 % activity (80-120); Protein S Functional(Activity) 93 % (70-150)
--- NOTE | 2019-10-05 22:16 | Hospitalist Progress Note ---
Date of Service October 05, 2019 Assessment & Plan (1) Osteomyelitis of finger of left hand: Left 3rd finger osteomyelitis per Xrays appears to be chronic. Continue doxycycline 100 mg p.o. twice daily for 6 weeks. Started on September 27. Treated with Vancomycin IV for over a week Per orthopedics, certainly could consider an elective amputation of distal 3rd phalanx. Patient refused elective amputation of the distal third phalanx of the third finger left hand. - Dr. Shah had long discussion with Dr. Nirmal MOYA on 10/02 at [facility], and he stated that he can accept patient to [facility] only when he is electrolytes are stable including but not limited to hyponatremia, hyperkalemia etc, since over there he cannot give patient any IV fluids. He recommended for patient to be stable for 24 to 48 hours meeting his electrolytes before he can be transferred to [facility]. He agreed to check patient labs twice a week and inform Dr. Mancini if there is platelet count decreased below 30,000. - Platelets maintaining at 70. -Plan will be to discharge on 10/07. Hoping his mental status improves by then. However given his long hospital stay, unsure if this will occur. (2) Altered mental status: Patient appears to be waxing and waning. Patient continues to be confused, will monitor. 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 [place] is discontinued. DI led to hypernatremia - now resolved with hypotonic fluids. Sodium today is 146. - Still on 1/2 normal saline. Will stop tonight and see where his sodium goes. As above, he needs to have a stable sodium x 2-3 days without IV fluids before he can be discharged. (4) Hypernatremia: Due to nephrogenic diabetes insipidus. Sodium is stable at 146. (5) Schizoaffective disorder, bipolar type: Appreciate psychiatric management. [place] discontinued. Remains on Zyprexa 10 mg QAM and 20 mg QPM. Continue Clozaril at night 200 mg qhs. Clozaril 100 mg PO QAM increased to 150 mg PO QAM since pt was yesterday agitated.Check CBC weekly while pt on Clozaril to monitor for possible neutrophilia. Per psychiatry pt can be discharged from their standpoint. CT head this admission neg. B12, ammonia, TSH wnl. Per [facility], once he can be stabilized, the plan is for him to be transferred to mental health facility [facility]. Discussed with [facility] on 10/02 as above. (6) Metabolic acidosis, increased anion gap: resolved (7) Hypotension: Possible adrenal insufficiency entertained earlier this stay and placed on empiric hydrocortisone. However 2 cortisol levels were 15 or higher making adrenal insufficiency unlikely. Hypotension may simply have been volume contraction. BPs now normal. (8) Hypothermia: TSH, FT4 wnl cortisol 15 and 19 on 2 checks blood cx's neg the cause is still unclear, more hypothermia prior three days RESOLVED with stress dose hydrocortisone of 50mg q8 will change to Hydrocortisone 5 mg daily and taper down see how he responds, if temperature remains stable then recommend continuing these (9) Hypokalemia: resolved (10) Acute renal insufficiency: resolved (11) Constipation: RESOLVED on 09/27, large solid BM experienced a lot of relief (12) AAA (abdominal aortic aneurysm): 5.7 cm in size - infrarenal Follow-up as outpatient very, very poor surgical candidate (13) Diabetes mellitus: HbA1c 6.9% Given his thin stature this is likely type 1 novolog w/ meals fluids have been stopped. (14) Anemia: stable, Hb 10.7 exact cause uncertain b12, folate, Fe all acceptable chronic disease/osteomyelitis?? (15) Seizure: ? past seizure records suggest normal EEG in past not on AEDs follow (16) Sinus node dysfunction: suspect had sinus cleve in setting of hypothermia cardiology following - no Rx (17) Severe protein-calorie malnutrition: recent imaging showed left supraclavicular lymphadenopathy in light of COPD, prior tobacco, etc - chest malignancy would be high on differential too ill with other issues to perform w/u focus on his nutrition for now (18) DVT prophylaxis: Pt is off of Heparin due to decreasing platelets. DVT ppx with SCD and teds. Pt is DNR/DNI Plan: return to [facility] when medically stable. (19) Thrombocytopenia: Not clear origin. Pt was on heparin from 09/12-09/18. HIT antibodies-negative. Stopped Doxycycline since it can also cause decrease in platelets, and started clindamycin yesterday. Pt denies easy bruising, hematemesis, nosebleed, hematuria, melena. We will consult hematology oncology for thrombocytopenia. Subjective 59 y male is a poor historian. Asking for a peanut butter and jelly sandwich. Patient is still confused. Review of Systems Review of Systems: Unobtainable due to mental health condition Physical Exam Physical Exam: Constitutional: WD/WN, vitals as above Eyes: EOM intact bilaterally; no conjunctival abnormality ENMT: external ear and nose normal, oropharynx normal Neck: trachea midline, no thyromegaly normal visual inspection Respiratory: normal respiratory effort, lungs clear to auscultation no respiratory distress Cardiovascular: RRR, no murmur, no edema Gastrointestinal (Abdomen): Inspection/Auscultation: abdomen normal to inspection; abdomen not distended Musculoskeletal: no cyanosis or clubbing, extremities motor strength 5/5 Skin: no rashes, warm and dry Neurologic: moves all extremities and awake Psychiatric: Orientation: alert, oriented to person and cooperative Results & Data Vital Signs (Past 12 Hours) Vital Signs Temp Pulse Resp BP Pulse Ox 10/05/19 15:12 37.1 C 104 H 20 152/77 H 98 PG Care Time/CCT Total # of Minutes Spent Total Time Spent with Patient: Total time spent is greater than 50% in coordination of care (as documented) at patient's floor/unit and/or counseling patient: (1) Diabetes mellitus Diabetes mellitus complication status: with hyperglycemia Diabetes mellitus retirement insulin use: without retirement use Diabetes mellitus type: type 2 Qualified Code(s): E11.65 - Type 2 diabetes mellitus with hyperglycemia (2) AAA (abdominal aortic aneurysm) Presence of rupture: without rupture Qualified Code(s): I71.4 - Abdominal aortic aneurysm, without rupture (3) Anemia Anemia type: other cause Other causes of anemia: other cause, not classified Qualified Code(s): D64.89 - Other specified anemias (4) Hypothermia Encounter type: initial encounter Qualified Code(s): T68.XXXA - Hypothermia, initial encounter (5) Altered mental status Altered mental status type: unspecified Qualified Code(s): R41.82 - Altered mental status, unspecified (6) Hypotension Hypotension type: unspecified hypotension type Qualified Code(s): I95.9 - Hypotension, unspecified (7) Constipation Constipation type: other constipation type Qualified Code(s): K59.09 - Other constipation
[2019-10-06 09:12] LABS: Base Excess VBG 3.7 mEq/L; HCO3 VBG 29 mmol/L; PCO2 VBG 49 mmHg (38-50); PO2 VBG 31 mmHg; pH VBG 7.39 (7.36-7.41)
[2019-10-06 09:13] LABS: Oxygen Saturation VBG < 60.0 %
[2019-10-06 09:27] LABS: Albumin Level 2.7 gm/dl (3.4-5.0); BUN Creatinine Ratio 25.5 (10-20); Calcium 9.2 mg/dl (8.5-10.1); Creatinine Clr Calc Pharmacy 68.3 ml/min; Est GFR (African American) 85.7; Est GFR (Non-African American) 73.9; Potassium 3.9 mmol/L (3.5-5.1)
[2019-10-06 09:29] LABS: Albumin Globulin Ratio 0.8 (0.9-2); Bilirubin,Total 0.2 mg/dl (0.2-1); Globulin 3.5 gm/dl (2.5-4.0); Total Protein 6.2 gm/dl (6.4-8.2)
[2019-10-06 09:36] LABS: Hematocrit (blood only) 34.3 % (42-52); Hemoglobin 10.6 g/dL (14.0-18.0); Mean Corpuscular Hemoglobin 29.9 pg (25-34); Mean Corpuscular Hgb Conc 30.9 g/dL (32-36); Mean Corpuscular Volume 96.6 fL (80-100); Mean Platelet Volume 12.5 fL (7.4-10.4); Platelet Count 87 K/uL (130-400); RDW Coefficient of Variation 16.1 % (11.5-14.5); RDW Standard Deviation 56.9 fL (36.4-46.3); Red Blood Count 3.55 M/uL (4.7-6.1); White Blood Count 6.35 K/uL (4.8-10.8)
[2019-10-06] MEDS: INSULIN ASPART 100 UNITS/ML 3 ML PEN SC SCH ×4 (09:56→21:31)
[2019-10-06] MEDS: OLANZapine 10 MG TAB PO SCH (09:57)
[2019-10-06] MEDS: HYDROCORTISONE 10 MG TAB PO SCH ×2 (09:58→16:34)
[2019-10-06] MEDS: ASCORBIC ACID 500 MG TAB PO SCH (09:58)
[2019-10-06] MEDS: cloZAPine 100 MG TAB PO SCH ×2 (09:59→21:20)
[2019-10-06] MEDS: FERROUS SULFATE 325 MG TAB PO SCH (09:59)
[2019-10-06] MEDS: FLUDROCORTISONE ACETATE 0.1 MG TAB PO SCH (10:00)
[2019-10-06] MEDS: CYANOCOBALAMIN (VITAMIN B-12) 100 MCG TABLET PO SCH (10:01)
[2019-10-06] MEDS: DOXYCYCLINE HYCLATE 100 MG CAP PO SCH ×2 (10:01→21:22)
[2019-10-06] MEDS: LACTOBACILLUS ACIDOPHILUS (FLORANEX) TAB PO SCH ×4 (10:01→21:21)
[2019-10-06] MEDS: THIAMINE HCL 100 MG TAB PO SCH ×3 (10:01→21:23)
[2019-10-06] MEDS: COLLAGENASE OINT 30 GM TUBE EXT SCH (10:03)
--- NOTE | 2019-10-06 21:22 | Hospitalist Progress Note ---
Date of Service October 06, 2019 Assessment & Plan (1) Osteomyelitis of finger of left hand: Left 3rd finger osteomyelitis per Xrays appears to be chronic. Continue doxycycline 100 mg p.o. twice daily for 6 weeks. Started on September 27. Treated with Vancomycin IV for over a week Per orthopedics, certainly could consider an elective amputation of distal 3rd phalanx. Patient refused elective amputation of the distal third phalanx of the third finger left hand. - Dr. Shah had long discussion with Dr. Nirmal MOYA on 10/02 at [facility], and he stated that he can accept patient to [facility] only when he is electrolytes are stable including but not limited to hyponatremia, hyperkalemia etc, since over there he cannot give patient any IV fluids. He recommended for patient to be stable for 24 to 48 hours meeting his electrolytes before he can be transferred to [facility]. He agreed to check patient labs twice a week and inform Dr. Mancini if there is platelet count decreased below 30,000. - Platelets maintaining at 70. -Plan will be to discharge on 10/07. Hoping his mental status improves by then. However given his long hospital stay, unsure if this will occur. Plan is for [facility] to [facility]. Called [facility] on 10/06 to discuss discharge, but provider was not educational paraprofessional on the weekened, only nurse. Will need to call on 10/07. (2) Altered mental status: Patient appears to be waxing and waning. Patient continues to be confused, will monitor. 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 [place] is discontinued. DI led to hypernatremia - now resolved with hypotonic fluids. Sodium today is 146. - Still on 1/2 normal saline. Will stop tonight and see where his sodium goes. As above, he needs to have a stable sodium x 2-3 days without IV fluids before he can be discharged. (4) Hypernatremia: Due to nephrogenic diabetes insipidus. Sodium is stable at 145. (5) Schizoaffective disorder, bipolar type: Appreciate psychiatric management. [place] discontinued. Remains on Zyprexa 10 mg QAM and 20 mg QPM. Continue Clozaril at night 200 mg qhs. Clozaril 100 mg PO QAM increased to 150 mg PO QAM since pt was yesterday agitated.Check CBC weekly while pt on Clozaril to monitor for possible neutrophilia. Per psychiatry pt can be discharged from their standpoint. CT head this admission neg. B12, ammonia, TSH wnl. Per [facility], once he can be stabilized, the plan is for him to be transferred to mental health facility [facility]. Discussed with [facility] on 10/02 as above. (6) Metabolic acidosis, increased anion gap: resolved (7) Hypotension: Possible adrenal insufficiency entertained earlier this stay and placed on empiric hydrocortisone. However 2 cortisol levels were 15 or higher making adrenal insufficiency unlikely. Hypotension may simply have been volume contraction. BPs now normal. (8) Hypothermia: TSH, FT4 wnl cortisol 15 and 19 on 2 checks blood cx's neg the cause is still unclear, more hypothermia prior three days RESOLVED with stress dose hydrocortisone of 50mg q8 will change to Hydrocortisone 5 mg daily and taper down see how he responds, if temperature remains stable then recommend continuing these (9) Hypokalemia: resolved (10) Acute renal insufficiency: resolved (11) Constipation: RESOLVED on 09/27, large solid BM experienced a lot of relief (12) AAA (abdominal aortic aneurysm): 5.7 cm in size - infrarenal Follow-up as outpatient very, very poor surgical candidate (13) Diabetes mellitus: HbA1c 6.9% Given his thin stature this is likely type 1 novolog w/ meals fluids have been stopped. (14) Anemia: stable, Hb 10.6 exact cause uncertain b12, folate, Fe all acceptable chronic disease/osteomyelitis?? (15) Seizure: ? past seizure records suggest normal EEG in past not on AEDs follow (16) Sinus node dysfunction: suspect had sinus cleve in setting of hypothermia cardiology following - no Rx (17) Severe protein-calorie malnutrition: recent imaging showed left supraclavicular lymphadenopathy in light of COPD, prior tobacco, etc - chest malignancy would be high on differential too ill with other issues to perform w/u focus on his nutrition for now (18) DVT prophylaxis: Pt is off of Heparin due to decreasing platelets. DVT ppx with SCD and teds. Pt is DNR/DNI Plan: return to [facility] when medically stable. (19) Thrombocytopenia: Not clear origin. Pt was on heparin from 09/12-09/18. HIT antibodies-negative. Stopped Doxycycline since it can also cause decrease in platelets, and started clindamycin yesterday. Pt denies easy bruising, hematemesis, nosebleed, hematuria, melena. We will consult hematology oncology for thrombocytopenia. Subjective Patient has been confused today as well. Poor historian. Review of Systems Review of Systems: All systems reviewed & are unremarkable except as noted in HPI & below Physical Exam Physical Exam: Constitutional: WD/WN, vitals as above Eyes: EOM intact bilaterally; no conjunctival abnormality ENMT: external ear and nose normal, oropharynx normal Neck: trachea midline, no thyromegaly normal visual inspection Respiratory: normal respiratory effort, lungs clear to auscultation no respiratory distress Cardiovascular: RRR, no murmur, no edema Gastrointestinal (Abdomen): Inspection/Auscultation: abdomen normal to inspection; abdomen not distended Musculoskeletal: no cyanosis or clubbing, extremities motor strength 5/5 Skin: no rashes, warm and dry Neurologic: moves all extremities and awake Psychiatric: Orientation: alert, oriented to person and cooperative Results & Data Vital Signs (Past 12 Hours) Vital Signs Temp Pulse Resp BP Pulse Ox 10/06/19 16:00 36.4 C L 104 H 18 144/78 H 91 PG Care Time/CCT Total # of Minutes Spent Total Time Spent with Patient: Total time spent is greater than 50% in coordination of care (as documented) at patient's floor/unit and/or counseling patient: (1) Diabetes mellitus Diabetes mellitus complication status: with hyperglycemia Diabetes mellitus exterminator helper insulin use: without fpc use Diabetes mellitus type: type 2 Qualified Code(s): E11.65 - Type 2 diabetes mellitus with hyperglycemia (2) AAA (abdominal aortic aneurysm) Presence of rupture: without rupture Qualified Code(s): I71.4 - Abdominal aortic aneurysm, without rupture (3) Anemia Anemia type: other cause Other causes of anemia: other cause, not classified Qualified Code(s): D64.89 - Other specified anemias (4) Hypothermia Encounter type: initial encounter Qualified Code(s): T68.XXXA - Hypothermia, initial encounter (5) Altered mental status Altered mental status type: unspecified Qualified Code(s): R41.82 - Altered mental status, unspecified (6) Hypotension Hypotension type: unspecified hypotension type Qualified Code(s): I95.9 - Hypotension, unspecified (7) Constipation Constipation type: other constipation type Qualified Code(s): K59.09 - Other constipation
[2019-10-06] MEDS: OLANZapine 20 MG TABLET PO SCH (21:24)
[2019-10-06] MEDS: INSULIN GLARGINE SOLOSTAR 100 UNITS/ML 3 ML PEN SC SCH (21:30)
[2019-10-07] MEDS: HYDROCORTISONE 10 MG TAB PO SCH ×2 (09:16→14:33)
[2019-10-07] MEDS: OLANZapine 10 MG TAB PO SCH (09:16)
[2019-10-07] MEDS: cloZAPine 100 MG TAB PO SCH (09:16)
[2019-10-07] MEDS: FERROUS SULFATE 325 MG TAB PO SCH (09:16)
[2019-10-07] MEDS: ASCORBIC ACID 500 MG TAB PO SCH (09:16)
[2019-10-07] MEDS: FLUDROCORTISONE ACETATE 0.1 MG TAB PO SCH (09:17)
[2019-10-07] MEDS: THIAMINE HCL 100 MG TAB PO SCH ×3 (09:17→21:23)
[2019-10-07] MEDS: LACTOBACILLUS ACIDOPHILUS (FLORANEX) TAB PO SCH ×4 (09:18→21:19)
[2019-10-07] MEDS: COLLAGENASE OINT 30 GM TUBE EXT SCH (09:18)
[2019-10-07] MEDS: DOXYCYCLINE HYCLATE 100 MG CAP PO SCH ×2 (09:18→21:23)
[2019-10-07] MEDS: INSULIN ASPART 100 UNITS/ML 3 ML PEN SC SCH ×4 (09:19→21:21)
[2019-10-07] MEDS: CYANOCOBALAMIN (VITAMIN B-12) 100 MCG TABLET PO SCH (09:19)
[2019-10-07 09:35] LABS: INR 1.1 (0.9-1.1); Prothrombin Time 10.8 Seconds (9.0-12.0)
[2019-10-07 09:43] LABS: Hematocrit (blood only) 35.1 % (42-52); Hemoglobin 10.8 g/dL (14.0-18.0); Mean Corpuscular Hemoglobin 29.8 pg (25-34); Mean Corpuscular Hgb Conc 30.8 g/dL (32-36); Mean Corpuscular Volume 96.7 fL (80-100); Mean Platelet Volume 12.3 fL (7.4-10.4); Platelet Count 95 K/uL (130-400); RDW Coefficient of Variation 16.2 % (11.5-14.5); Red Blood Count 3.63 M/uL (4.7-6.1); White Blood Count 7.99 K/uL (4.8-10.8)
[2019-10-07 10:10] LABS: Albumin Level 2.8 gm/dl (3.4-5.0); BUN Creatinine Ratio 27.9 (10-20); Calcium 8.9 mg/dl (8.5-10.1); Est GFR (African American) 97.4; Est GFR (Non-African American) 84.1; Magnesium 2.1 mg/dl (1.8-2.4); Potassium 3.6 mmol/L (3.5-5.1)
[2019-10-07 10:13] LABS: Albumin Globulin Ratio 0.8 (0.9-2); Bilirubin,Total 0.4 mg/dl (0.2-1); Globulin 3.7 gm/dl (2.5-4.0); Phosphorus 3.3 mg/dl (2.5-4.9); Total Protein 6.5 gm/dl (6.4-8.2)
--- NOTE | 2019-10-07 20:17 | Hospitalist Progress Note ---
Date of Service October 07, 2019 Assessment & Plan (1) Altered mental status: Concern from long term guards who know him well that he is not back to his baseline self when he did return to after his last admission. His lithium was discontinued on 08/30/2019 therefore possible this was still having a good effect on his mood and his decline is just related to the discontinuation of this. Na mildly increased therefore recommend continued inpatient admission since we are not actively treating diabetes insipidus despite this being mentioned since admission. He is also still on treatment for adrenal insufficiency despite this diagnosis being questioned on multiple occasions with the plan to wean him off hydrocortisone. (see below) (2) Osteomyelitis of finger of left hand: Continue doxycycline 100 mg p.o. twice daily for 6 weeks. Started on Dece mber 13. No surrounding cellulitis on today's exam. (3) Diabetes insipidus: I am still unclear regarding this diagnosis as his urine osm has remained > 300 and not truly having polyuria. 2.5L yesterday. Given rise in Na to 147 and still not at baseline cannot rule out partial DI playing a part in his mood disturbance. He is not on a salt restriction and as per the guards he has been craving a lot of salt with his food and drinking lots of water. He was actually admitted on this occasion with Na 141 which I suspect was due to volume contraction from not drinking, therefore am reluctant to start a thiazide to treat a partial nephrogenic DI, suspect he may respond to vasopressin (appeared to have an effect earlier in his admission). On discharge on last occasion his Na was 145 and chloride 116 and apparently was at his baseline mental state at that stage - which is similar to his current values, therefore in all liklihood his current mood disturbance is down to discontinuation of lithium. Certainly hypernatremia is currently more fitting with DI rather than adrenal insufficiency for which he is still being treated but will wean off as below. (4) Hypernatremia: see above regarding DI discussion. (5) Schizoaffective disorder, bipolar type: Appreciate psychiatric management. [place] discontinued on last admission 08/30/2019 Continue on Zyprexa and Clozaril as per psychiatry CT head this admission neg. B12, ammonia, TSH wnl. Per [facility], once he can be stabilized, the plan is for him to be transferred to mental health facility [facility]. (6) Metabolic acidosis, increased anion gap: Present on admission with substantial thermodynamic and sinus node dysfunction. Now resolved, secondary ketosis from starvation state (7) Hypotension: Adrenal insufficiency treated earlier this stay and placed on empiric IV hydrocortisone. Unclear if this or IV fluids really improved his BP and hypothermia. 2 cortisol levels appropriate. However not weaned of hydrocortisone/fludrocortisone to date. Will reduce to 5mg tomorrow as certainly steroids may be making his mental state worse. BPs now normal. (8) Hypothermia: Now resolved, unclear exact etiology TSH, FT4 wnl cortisol 15 and 19 on 2 checks blood cx's neg (9) Acute renal insufficiency: Present on admission due to hypovolemia. Now resolved (10) Constipation: Resolved. Last recorded BM 10/04 (11) AAA (abdominal aortic aneurysm): 5.7 cm in size - infrarenal Follow-up as outpatient (12) Diabetes mellitus: HbA1c 6.9% Lantus 4 units daily. Novolog. (13) Anemia: stable, Hb 10.6 b12, folate, Fe all acceptable (14) Sinus node dysfunction: Now resolved Sinus node dysfunction in setting of electrolyte and metabolic acidosis. (15) Severe protein-calorie malnutrition: recent imaging showed left supraclavicular lymphadenopathy in light of COPD, prior tobacco, etc - chest malignancy would be high on differential too ill with other issues to perform w/u focus on his nutrition for now (16) Thrombocytopenia: Not clear origin. Pt was on heparin from 09/12-09/18. HIT antibodies-negative. (17) DVT prophylaxis: Chemoprophylaxis held in light of thrombocytopenia. Given anticipated discharge tomorrow will defer lovenox at present but if staying for longer will start tomorrow. Pt is DNR/DNI Plan: return to [facility] when medically stable. Subjective Patient unable to provide much of a history, appears particularly aggressive. Unable to give me much of a history due to aggressive nature and poor understanding of his disease process. Concentrates on his finger misunderstanding my questions and saying I told him I wanted to cut his finger off. Review of Systems Review of Systems: Unobtainable due to mental health condition Physical Exam Constitutional: + combative; + not well nourished and no acute distress Eyes: + anicteric sclerae; normal pupil size ENMT: external ear and nose normal, oropharynx normal Neck: trachea midline Respiratory: normal respiratory effort, lungs clear to auscultation Cardiovascular: RRR, no murmur, no edema (quiet heart soundsm occasional skipped beats) Gastrointestinal (Abdomen): Inspection/Auscultation: normal bowel sounds; abdomen not distended Percussion/Palpation: abdomen soft; abdomen nontender, no guarding and abdomen not rigid Musculoskeletal: no cellulitis around osteomyelitis areas Skin: no rashes, warm and dry Neurologic: moves all extremities, awake and + confused; no focal motor deficits (grossly normal but limited exam due to cognitive state) Speech / Cognition: normal speech Motor/Sensory: no tremor Psychiatric: Orientation: alert Eye Contact: + poor eye contact Speech: + pressured speech and + loud speech Affect: + angry affect Mood: + angry mood Thought Process: + flight of ideas Thought Content: + paranoid; no delusions Results & Data Vital Signs (Past 12 Hours) Vital Signs Temp Pulse Resp BP Pulse Ox 10/07/19 15:00 37.0 C 99 H 18 122/72 97 PG Care Time/CCT Total # of Minutes Spent Total Time Spent: 55 Total Time Spent with Patient: Total time spent is greater than 50% in coordination of care (as documented) at patient's floor/unit and/or counseling patient: (1) Diabetes mellitus Diabetes mellitus complication status: with hyperglycemia Diabetes mellitus [facility] insulin use: without longwall machine operator helper use Diabetes mellitus type: type 2 Qualified Code(s): E11.65 - Type 2 diabetes mellitus with hyperglycemia (2) AAA (abdominal aortic aneurysm) Presence of rupture: without rupture Qualified Code(s): I71.4 - Abdominal aortic aneurysm, without rupture (3) Anemia Anemia type: other cause Other causes of anemia: other cause, not classified Qualified Code(s): D64.89 - Other specified anemias (4) Hypothermia Encounter type: initial encounter Qualified Code(s): T68.XXXA - Hypothermia, initial encounter (5) Altered mental status Altered mental status type: unspecified Qualified Code(s): R41.82 - Altered mental status, unspecified (6) Hypotension Hypotension type: unspecified hypotension type Qualified Code(s): I95.9 - Hypotension, unspecified (7) Constipation Constipation type: other constipation type Qualified Code(s): K59.09 - Other constipation
[2019-10-07] MEDS ORDERED: cloZAPine 25 MG TAB PO SCH (21:00)
[2019-10-07] MEDS: INSULIN GLARGINE SOLOSTAR 100 UNITS/ML 3 ML PEN SC SCH (21:20)
[2019-10-07] MEDS: OLANZapine 20 MG TABLET PO SCH (21:24)
[2019-10-08 07:08] LABS: Hematocrit (blood only) 33.5 % (42-52); Hemoglobin 10.3 g/dL (14.0-18.0); Mean Corpuscular Hgb Conc 30.7 g/dL (32-36); Mean Corpuscular Volume 97.7 fL (80-100); Mean Platelet Volume 12.4 fL (7.4-10.4); Platelet Count 97 K/uL (130-400); RDW Coefficient of Variation 16.3 % (11.5-14.5); RDW Standard Deviation 58.1 fL (36.4-46.3); Red Blood Count 3.43 M/uL (4.7-6.1); White Blood Count 5.55 K/uL (4.8-10.8)
[2019-10-08 07:19] LABS: Albumin Level 2.8 gm/dl (3.4-5.0); BUN Creatinine Ratio 25.1 (10-20); Calcium 9.6 mg/dl (8.5-10.1); Creatinine Clr Calc Pharmacy 74.5 ml/min; Est GFR (African American) 95.1; Potassium 3.6 mmol/L (3.5-5.1)
[2019-10-08 07:22] LABS: Albumin Globulin Ratio 0.8 (0.9-2); Bilirubin,Total 0.3 mg/dl (0.2-1); Globulin 3.5 gm/dl (2.5-4.0); Total Protein 6.3 gm/dl (6.4-8.2)
[2019-10-08] MEDS: LACTOBACILLUS ACIDOPHILUS (FLORANEX) TAB PO SCH ×4 (07:39→20:54)
[2019-10-08] MEDS: COLLAGENASE OINT 30 GM TUBE EXT SCH (07:40)
[2019-10-08] MEDS: DOXYCYCLINE HYCLATE 100 MG CAP PO SCH ×2 (07:40→20:56)
[2019-10-08] MEDS: FERROUS SULFATE 325 MG TAB PO SCH (07:40)
[2019-10-08] MEDS: CYANOCOBALAMIN (VITAMIN B-12) 100 MCG TABLET PO SCH (07:41)
[2019-10-08] MEDS: THIAMINE HCL 100 MG TAB PO SCH ×3 (07:41→20:55)
[2019-10-08] MEDS: ASCORBIC ACID 500 MG TAB PO SCH (07:41)
[2019-10-08] MEDS: OLANZapine 10 MG TAB PO SCH (07:41)
[2019-10-08] MEDS: INSULIN ASPART 100 UNITS/ML 3 ML PEN SC SCH ×4 (08:49→20:57)
[2019-10-08] MEDS ORDERED: HYDROCORTISONE 10 MG TAB PO SCH (09:00)
[2019-10-08] MEDS ORDERED: cloZAPine 25 MG TAB PO SCH (09:00)
[2019-10-08] MEDS: ENOXAPARIN INJ 40 MG/0.4 ML SYR SQ SCH (11:30)
[2019-10-08] MEDS: DESMOPRESSIN ACETATE 0.1 MG TAB PO SCH ×2 (11:31→20:56)
--- NOTE | 2019-10-08 20:03 | Hospitalist Progress Note ---
Date of Service October 08, 2019 Assessment & Plan (1) Altered mental status: Ongoing negligible insight to his medical conditions. Unclear his true baseline. Not much changed since yesterday. Discussed with Dr Doyle and no indication to restart lithium even in absence of DI at present since not having any manic episodes. Na/Cl unlikely contributing at current levels but since increasing and requirement for discharge to residential is stability for 48 hours we are unable to discharge at present. (2) Osteomyelitis of finger of left hand: Continue doxycycline 100 mg p.o. twice daily for 6 weeks. Started on September 27. No surrounding cellulitis on today's exam. (3) Diabetes insipidus: Discussed and reviewed chart with Dr Montano. Agrees no clear diagnosis of diabetes insipidus given current urine osm, serum Na levels and urine output. However came to conclusion to treat with low dose desmopressin (suspeced mild partial nephrogenic) and monitor response. Continue salt restriction. Avoid thiazide diuretics currently as Na mildly elevated and admission initially for volume contraction. On last discharge in August his Na was 145 and chloride 116 and apparently was at his baseline mental state at that stage. (4) Hypernatremia: see above regarding DI discussion. (5) Schizoaffective disorder, bipolar type: Discussed with Dr Doyle as above. No indication to restart lithium even if he didn't have DI Appreciate psychiatric management. [place] discontinued on last admission 08/30/2019 Continue on Zyprexa and Clozaril as per psychiatry CT head this admission neg. B12, ammonia, TSH wnl. Per [facility], once he can be stabilized, the plan is for him to be transferred to mental health facility terminal computer operator. (6) Metabolic acidosis, increased anion gap: Present on admission with substantial hypothermic and sinus node dysfunction. Now resolved, secondary ketosis from starvation state (7) Hypotension: Suspected adrenal insufficiency treated earlier this stay and placed on empiric IV hydrocortisone. Unclear if ever present or IV fluids and improvement in acidosis and electrolytes truly improved his BP and hypothermia. 2 cortisol levels appropriate. BP stable after weaned down to 5mg hydrocortisone today. Will discontinue further doses. (8) Hypothermia: Now resolved, unclear exact etiology but suspect mostly due to metabolic acidosis on admission TSH, FT4 wnl cortisol 15 and 19 on 2 checks blood cx's neg (9) Acute renal insufficiency: Present on admission due to hypovolemia from poor oral intake. Now res olved (10) Constipation: Resolved. Last recorded BM 10/08 (11) AAA (abdominal aortic aneurysm): 5.7 cm in size - infrarenal Follow-up as outpatient (12) Diabetes mellitus: HbA1c 6.9%, recently increased from 6.2 on last admission when he was not on any diabetes medications. Will switch to metformin since renal function is stable and d/c lantus and carb coverage for novolog. (13) Anemia: stable, Hb 10.6 b12, folate, Fe all acceptable (14) Sinus node dysfunction: Now resolved Sinus node dysfunction in setting of electrolyte and metabolic acidosis. (15) Severe protein-calorie malnutrition: recent imaging showed left supraclavicular lymphadenopathy in light of COPD, prior tobacco, etc - chest malignancy would be high on differential too ill with other issues to perform w/u focus on his nutrition for now (16) Thrombocytopenia: Not clear origin. Pt was on heparin from 09/12-09/18. HIT antibodies-negative. Continues to improve. (17) DVT prophylaxis: Restarted on Lovenox 40mg SQ daily Pt is DNR/DNI Plan: return to [facility] when medically stable. Suspect in the next 1-2 days. Subjective Unable to get much of a history from patient due to altered mental state. He denies any current pain. No insight into his medical conditions. His main concern is getting a myles burger. Review of Systems Review of Systems: Unobtainable due to mental health condition Physical Exam Constitutional: + cachectic, + combative and + malnourished; no acute distress Eyes: + anicteric sclerae; normal pupil size ENMT: external ear and nose normal, oropharynx normal Neck: trachea midline Respiratory: normal respiratory effort, lungs clear to auscultation Cardiovascular: RRR, no murmur, no edema (quiet heart sounds) Extremities: no calf tenderness Chest (Breasts): Chest: normal inspection of chest Gastrointestinal (Abdomen): Inspection/Auscultation: abdomen normal to inspection and normal bowel sounds; abdomen not distended Percussion/Palpation: abdomen soft; abdomen nontender, no guarding and abdomen not rigid Musculoskeletal: Extremities: + muscle atrophy (generalized) and + clubbing; no cyanosis Skin: no rashes, warm and dry Neurologic: moves all extremities (in handcuffs on legs and left hand) and awake; no focal motor deficits (grossly normal but limited exam due to cognitive state) Speech / Cognition: normal speech Motor/Sensory: no tremor Psychiatric: Orientation: alert; + not oriented x 3 and + uncooperative Apperance: + disheveled Eye Contact: + poor eye contact Motor Behavior: no abnormal motor movements Speech: + loud speech Affect: + irritable affect Mood: + irritable mood Thought Process: + tangential thought process Thought Content: + preoccupation (food and work); no delusions Results & Data Vital Signs (Past 12 Hours) Vital Signs Temp Pulse Pulse Resp BP Pulse Ox 10/08/19 15:16 36.8 C 91 H 18 146/82 H 96 10/08/19 11:38 36.7 C 85 16 143/76 H 98 PG Care Time/CCT Total # of Minutes Spent Total Time Spent with Patient: Total time spent is greater than 50% in coordination of care (as documented) at patient's floor/unit and/or counseling patient: (1) Altered mental status Altered mental status type: unspecified Qualified Code(s): R41.82 - Altered mental status, unspecified (2) Hypotension Hypotension type: unspecified hypotension type Qualified Code(s): I95.9 - Hypotension, unspecified (3) Hypothermia Encounter type: initial encounter Qualified Code(s): T68.XXXA - Hypothermia, initial encounter (4) Constipation Constipation type: other constipation type Qualified Code(s): K59.09 - Other constipation (5) AAA (abdominal aortic aneurysm) Presence of rupture: without rupture Qualified Code(s): I71.4 - Abdominal aortic aneurysm, without rupture (6) Diabetes mellitus Diabetes mellitus type: type 2 Diabetes mellitus terminal computer operator insulin use: without alf use Diabetes mellitus complication status: with hyperglycemia Qualified Code(s): E11.65 - Type 2 diabetes mellitus with hyperglycemia (7) Anemia Anemia type: other cause Other causes of anemia: other cause, not classified Qualified Code(s): D64.89 - Other specified anemias
[2019-10-08] MEDS: METFORMIN HCL ER 500 MG TABCR PO SCH (20:53)
[2019-10-08] MEDS: cloZAPine 100 MG TAB PO SCH (20:55)
[2019-10-08] MEDS: OLANZapine 20 MG TABLET PO SCH (20:55)
[2019-10-09 07:06] LABS: BUN Creatinine Ratio 25.8 (10-20); Calcium 9.4 mg/dl (8.5-10.1); Creatinine Clr Calc Pharmacy 74.5 ml/min; Est GFR (African American) 95.1; Potassium 3.8 mmol/L (3.5-5.1)
[2019-10-09] MEDS: THIAMINE HCL 100 MG TAB PO SCH (08:49)
[2019-10-09] MEDS: ENOXAPARIN INJ 40 MG/0.4 ML SYR SQ SCH (08:49)
[2019-10-09] MEDS: FERROUS SULFATE 325 MG TAB PO SCH (08:49)
[2019-10-09] MEDS: LACTOBACILLUS ACIDOPHILUS (FLORANEX) TAB PO SCH ×4 (08:50→20:21)
[2019-10-09] MEDS: ASCORBIC ACID 500 MG TAB PO SCH (08:50)
[2019-10-09] MEDS: COLLAGENASE OINT 30 GM TUBE EXT SCH (08:51)
[2019-10-09] MEDS: DOXYCYCLINE HYCLATE 100 MG CAP PO SCH ×2 (08:51→20:24)
[2019-10-09] MEDS: DESMOPRESSIN ACETATE 0.1 MG TAB PO SCH ×2 (08:51→20:23)
[2019-10-09] MEDS: cloZAPine 100 MG TAB PO SCH ×2 (08:52→20:23)
[2019-10-09] MEDS: OLANZapine 10 MG TAB PO SCH (08:52)
[2019-10-09] MEDS: CYANOCOBALAMIN (VITAMIN B-12) 100 MCG TABLET PO SCH (08:52)
[2019-10-09] MEDS: INSULIN ASPART 100 UNITS/ML 3 ML PEN SC SCH ×4 (08:53→21:19)
[2019-10-09] MEDS: METFORMIN HCL ER 500 MG TABCR PO SCH ×2 (08:53→17:18)
--- NOTE | 2019-10-09 19:59 | Hospitalist Progress Note ---
Date of Service October 09, 2019 Assessment & Plan (1) Altered mental status: Ongoing poor insight to his medical conditions. Possible mild improvement from desmopressin added yesterday but also coming off hydrocortisone. Currently appears medical stable for discharge. (2) Osteomyelitis of finger of left hand: Continue doxycycline 100 mg p.o. twice daily for 6 weeks. Started on September 27. No surrounding cellulitis on today's exam. 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 Most of the time he appears to drink enough to keep up with his polyuria however sodium fluctuates 145-150 without desmopressin and if he doesn't get enough to drink I suspect he decompensates quickly which contributed towards this admission. I am unclear how much Continue salt restriction. Continue low dose desmopressin. Repeat BMP in AM. Avoid thiazide diuretics currently as Na mildly elevated and admission initially for volume contraction. (4) Hypernatremia: see above regarding DI discussion. (5) Schizoaffective disorder, bipolar type: Discussed with Dr Doyle as above. No indication to restart lithium even if he didn't have DI Appreciate psychiatric management. [place] discontinued on last admission 08/30/2019 Continue on Zyprexa and Clozaril as per psychiatry CT head this admission neg. B12, ammonia, TSH wnl. Per [facility], once he can be stabilized, the plan is for him to be transferred to mental health facility [facility]. (6) Metabolic acidosis, increased anion gap: Present on admission with substantial hypothermic and sinus node dysfunction. Now resolved, secondary ketosis from starvation state (7) Hypotension: Suspected adrenal insufficiency treated earlier this stay and placed on empiric IV hydrocortisone. Unclear if ever present or IV fluids and improvement in acidosis and electrolytes truly improved his BP and hypothermia. 2 cortisol levels appropriate. BP stable after weaned down to 5mg hydrocortisone today. Will discontinue further doses. (8) Hypothermia: Now resolved, unclear exact etiology but suspect mostly due to metabolic acidosis on admission TSH, FT4 wnl cortisol 15 and 19 on 2 checks blood cx's neg (9) Acute renal insufficiency: Present on admission due to hypovolemia from poor oral intake. Now resolved (10) Constipation: Resolved. Last recorded BM 10/08 (11) AAA (abdominal aortic aneurysm): 5.7 cm in size - infrarenal Follow-up as outpatient (12) Diabetes mellitus: HbA1c 6.9%, recently increased from 6.2 on last admission when he was not on any diabetes medications. Will switch to metformin since renal function is stable and d/c lantus and carb coverage for novolog. (13) Anemia: stable, Hb 10.6 b12, folate, Fe all acceptable (14) Sinus node dysfunction: Now resolved Sinus node dysfunction in setting of electrolyte and metabolic acidosis. (15) Severe protein-calorie malnutrition: recent imaging showed left supraclavicular lymphadenopathy in light of COPD, prior tobacco, etc - chest malignancy would be high on differential too ill with other issues to perform w/u focus on his nutrition for now (16) Thrombocytopenia: Not clear origin. Pt was on heparin from 09/12-09/18. HIT antibodies-negative. Continues to improve. (17) DVT prophylaxis: Continue Lovenox 40mg SQ daily Pt is DNR/DNI Patient is medically stable for discharge. Discussed with PA at [facility] and unable to get desmopressin therefore Subjective Patient appears more pleasant today. No current concerns or complaints. Happy to be off finger food. Review of Systems Review of Systems: All systems reviewed & are unremarkable except as noted in HPI & below Physical Exam Constitutional: cooperative and + malnourished; no acute distress and not combative Eyes: + anicteric sclerae; normal pupil size ENMT: external ear and nose normal, oropharynx normal Neck: trachea midline Respiratory: normal respiratory effort Auscultation: lungs clear to auscultation bilaterally (Anteriorly); no diminished lung sounds, no crackles, no rales and no rhonchi Cardiovascular: Rate/Rhythm: regular rate and regular rhythm Heart Sounds: normal S1 and normal S2; no murmur Gastrointestinal (Abdomen): Inspection/Auscultation: abdomen normal to inspection and normal bowel sounds; abdomen not distended Percussion/Palpation: abdomen soft; abdomen nontender, no guarding and abdomen not rigid Musculoskeletal: Extremities: + muscle atrophy (generalized) and + clubbing; no cyanosis Skin: no rashes, warm and dry Neurologic: moves all extremities (in handcuffs on legs and left hand) and awake; no focal motor deficits Speech / Cognition: normal speech Motor/Sensory: no tremor Psychiatric: Orientation: alert and cooperative Apperance: + disheveled Eye Contact: + fair eye contact Motor Behavior: no abnormal motor movements Speech: normal rate/rhythm/volume of speech Affect: euthymic affect Thought Process: + thought blocking Thought Content: no delusions Insight: + limited insight Results & Data Vital Signs (Past 12 Hours) Vital Signs Temp Pulse Resp BP Pulse Ox 10/09/19 19:52 36.8 C 99 H 20 132/77 98 10/09/19 15:06 36.9 C 85 20 138/78 99 PG Care Time/CCT Total # of Minutes Spent Total Time Spent with Patient: Total time spent is greater than 50% in coordination of care (as documented) at patient's floor/unit and/or counseling patient: (1) Diabetes mellitus Diabetes mellitus complication status: with hyperglycemia Diabetes mellitus sales agent protective service insulin use: without usp use Diabetes mellitus type: type 2 Qualified Code(s): E11.65 - Type 2 diabetes mellitus with hyperglycemia (2) AAA (abdominal aortic aneurysm) Presence of rupture: without rupture Qualified Code(s): I71.4 - Abdominal aortic aneurysm, without rupture (3) Anemia Anemia type: other cause Other causes of anemia: other cause, not classified Qualified Code(s): D64.89 - Other specified anemias (4) Hypothermia Encounter type: initial encounter Qualified Code(s): T68.XXXA - Hypothermia, initial encounter (5) Altered mental status Altered mental status type: unspecified Qualified Code(s): R41.82 - Altered mental status, unspecified (6) Hypotension Hypotension type: unspecified hypotension type Qualified Code(s): I95.9 - Hypotension, unspecified (7) Constipation Constipation type: other constipation type Qualified Code(s): K59.09 - Other constipation
[2019-10-09] MEDS: OLANZapine 20 MG TABLET PO SCH (20:22)
[2019-10-10 07:13] LABS: BUN Creatinine Ratio 26.5 (10-20); Calcium 9.8 mg/dl (8.5-10.1); Creatinine Clr Calc Pharmacy 70.3 ml/min; Est GFR (African American) 88.6; Est GFR (Non-African American) 76.4; Magnesium 2.1 mg/dl (1.8-2.4); Potassium 3.9 mmol/L (3.5-5.1)
[2019-10-10 07:17] LABS: Hematocrit (blood only) 34.7 % (42-52); Hemoglobin 10.8 g/dL (14.0-18.0); Mean Corpuscular Hemoglobin 29.4 pg (25-34); Mean Corpuscular Hgb Conc 31.1 g/dL (32-36); Mean Corpuscular Volume 94.6 fL (80-100); Mean Platelet Volume 12.5 fL (7.4-10.4); Platelet Count 106 K/uL (130-400); RDW Coefficient of Variation 15.8 % (11.5-14.5); RDW Standard Deviation 55.3 fL (36.4-46.3); Red Blood Count 3.67 M/uL (4.7-6.1); White Blood Count 4.91 K/uL (4.8-10.8)
[2019-10-10 07:18] LABS: Lymphocytes # (auto) 1.68 K/uL (1.2-3.4); Lymphocytes % (auto) 34.2 %; Monocytes # (auto) 0.48 K/uL (0.11-0.59); Monocytes % (auto) 9.8 %; Neutrophils # (auto) 2.75 K/uL (1.4-6.5)
[2019-10-10] MEDS: OLANZapine 10 MG TAB PO SCH (08:40)
[2019-10-10] MEDS: CYANOCOBALAMIN (VITAMIN B-12) 100 MCG TABLET PO SCH (08:40)
[2019-10-10] MEDS: DOXYCYCLINE HYCLATE 100 MG CAP PO SCH (08:40)
[2019-10-10] MEDS: ASCORBIC ACID 500 MG TAB PO SCH (08:40)
[2019-10-10] MEDS: FERROUS SULFATE 325 MG TAB PO SCH (08:40)
[2019-10-10] MEDS: LACTOBACILLUS ACIDOPHILUS (FLORANEX) TAB PO SCH ×2 (08:40→12:32)
[2019-10-10] MEDS: cloZAPine 100 MG TAB PO SCH (08:41)
[2019-10-10] MEDS: ENOXAPARIN INJ 40 MG/0.4 ML SYR SQ SCH (08:41)
[2019-10-10] MEDS: INSULIN ASPART 100 UNITS/ML 3 ML PEN SC SCH ×2 (08:48→12:31)
--- NOTE | 2019-10-10 09:19 | Discharge Summary ---
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 Per psychiatry note from [facility] the patient was hospitalized at [facility] for small bowel obstruction with complication of aspiration and ventilation requirement. Patient was at that point taken off Clozaril and tried on Stelazine instead but showed evidence of worsening psychosis, so his medication was changed to Zyprexa. Fair patient records patient supposed to take 20 mg of the proximal nightly. [place] was also discontinued at the previous visit to the hospital due to nephrogenic diabetes insipidus and continued with Zyprexa 2 stabilize patient mood. Per psychiatric notes patient continued to worsen from psychiatric perspective and started to deteriorate at night. Patient exhibits nonsensical word salad, spitting on staff, refusing medication, attempting to bite personnel, having active hallucinations and delusions. Patient is poor historian and review of system is extremely difficult. No significant complaint at this time. Patient is in his own internal world. Labs are reviewed: WBC is 8.18, hemoglobin 10.8, hematocrit 33.0, platelets 269, PT 11, INR 1.1, pH 7.26, PCO2 31, O2 54, sodium 142, potassium 4.2 chloride 109, carbon dioxide 16, BUN 56, creatinine 1.5, GFR 50, calcium 10.5, phosphorus 6.5, magnesium 2.7, AST 21, ALT 24, ammonia less than 10, troponin 0 0.015, TSH 1.81. Urine normal with 1+ ketones. Nasal MRSA negative from the previous visit. Head CT: No acute intracranial abnormality. Near complete resolution of the prior left occipital scalp contusion and hematoma. Chest x-ray no acute cardiopulmonary disease. Patient was treated in the emergency room with 1 L of normal saline and 1 L of D5 with normal saline, hypothyroid 2 mg IV x1, thiamine 100 mg x 1, olanzapine 10 mg x 1 IM. Decision was made to admit patient to PCU on telemetry for acute metabolic acidosis, electrolyte his balance including phosphorus and magnesium, acute kidney injury, severe dehydration and acute psychosis. In reviewing available outside records from the longterm patient has undergone multiple/recent psychotropic medication changes in the setting of several medical hospitalizations in the past few months. In June he was taking lithium ER 600 mg twice a day and clozapine 200 mg in the morning and 250 mg at bedtime and carried a diagnosis of schizoaffective disorder bipolar type. Per [facility] discharge documentation from 07/05/2019 to 07/30/2019 patient was treated for small bowel obstruction with laparotomy and septic shock and had altered mental status at that time. During that medical hospitalization it appears that his clozapine and lithium were held. He was seen by both neurology and psychiatry during that visit. Reportedly brain MRI and head CT and 24-hour EEG were unremarkable. Additional records from longterm indicate that the patient was taking clonazepam 1 mg twice daily (tapering) and olanzapine 10 mg nightly and lithium 3 mg twice a day prior to another medical hospitalization at [facility] where he was suspected of nephrogenic diabetes insipidus secondary to lithium which was discontinued and Zyprexa was increased to 15 mg nightly. Recent mental health note from Dr. Chung at the present reviewed which indicates increased disorganization of behavior. "Schizoaffective disorder bipolar type previously well-controlled with lithium and Clozaril." He described increased agitation, failure to comply with directions, suspected likelihood of multifactorial delirium. Zyprexa was increased to 20 mg at bedtime and started on Rozerem 8 mg at bedtime and suggested consideration for restarting clozapine if no improvement on 09/10/2019. Patient was admitted through the ER at [facility] on 09/12/2019 with altered mental status and was agitated on presentation. Receiving initially 2 mg of Haldol in the ER, then 10 mg of Zyprexa following my conversation with Dr. Shah. He was reportedly attempting to bite personnel and appeared to be hallucinating. Head CT showed no acute abnormality. Patient was medically admitted to the PCU on telemetry for acute metabolic acidosis and metabolic disarray. Patient is unable to provide any meaningful history. He is restrained with soft restraints. He is initially asleep on approach and wakes only briefly. He makes very brief eye contact and asks for water which he accepts from a straw. He then asks for more water but recoils his head and yells no jerking his hands. He quickly closes his eyes again and appears lethargic. Accompanying guards report that at his baseline he never seems normal however he is typically not so acutely confused and lethargic. Admission Exam Per Admitting Provider Constitutional: well developed, + ill appearing and + cachectic Eyes: PERRL, conjunctivae normal, anicteric sclerae ENMT: external ear and nose normal, oropharynx normal Neck: trachea midline, no thyromegaly Respiratory: normal respiratory effort, lungs clear to auscultation Cardiovascular: Rate/Rhythm: + tachycardic Heart Sounds: normal S1 and normal S2 Vessels: dorsalis pedis pulses present Gastrointestinal (Abdomen): normal bowel sounds, soft, nontender, no hepatosplenomegaly Musculoskeletal: no cyanosis or clubbing, extremities motor strength 5/5 Skin: no rashes, warm and dry Neurologic: patellar DTR's 2+ bilat, sensation intact Psychiatric: Apperance: + disheveled Motor Behavior: + psychomotor agitation and + akathisia Speech: + loud speech Affect: + irritable affect Mood: + angry mood Thought Process: + perseveration and + incoherent thought process Thought Content: + compulsions, + delusions, + neologisms and + thought insertion Insight: + impaired insight Lymphatic: no cervical or axillary lymphadenopathy Principal Diagnosis Acute metabolic acidosis due to starvation state with ketosis - causing hypotension, hypothermia, sinus node dysfunction Severe protein-calorie malnutrition Acute kidney failure Chronic schizophrenia with acute psychosis Episode of agitated catatonia Osteomyelitis of 3rd and 2nd distal phalanx Partial nephrogenic diabetes insipidus New diagnosis of diabetes mellitus - HbA1C 6.7% Incidentally enlarged left supraclavicular lymph node Discharge Exam Constitutional + thin, cooperative and + malnourished; no acute distress and not combative Eyes + anicteric sclerae; normal pupil size ENMT external ear and nose normal, oropharynx normal Ears: no external ear abnormality Nose: no external nose abnormality Mouth: no lip abnormality Neck trachea midline Respiratory normal respiratory effort, lungs clear to auscultation Cardiovascular RRR, no murmur, no edema (quiet heart sounds) Extremities: no calf tenderness Chest (Breasts) Chest: normal inspection of chest Gastrointestinal (Abdomen) Inspection/Auscultation: abdomen normal to inspection and normal bowel sounds; abdomen not distended Percussion/Palpation: abdomen soft; abdomen nontender, no guarding and abdomen not rigid Musculoskeletal Extremities: + muscle atrophy (generalized) and + clubbing; no cyanosis Skin no rashes, warm and dry Neurologic moves all extremities (in handcuffs on legs and left hand) and awake; no focal motor deficits Speech / Cognition: normal speech Motor/Sensory: no tremor Psychiatric Orientation: alert and cooperative Apperance: + disheveled Eye Contact: + poor eye contact Motor Behavior: no abnormal motor movements Speech: normal rate/rhythm/volume of speech Affect: euthymic affect Insight: + limited insight Discharge Data Allergies Allergy/AdvReac Type Severity Reaction Status Date / Time haloperidol [From Haldol] AdvReac Unknown Unknown Unverified 09/12/19 13:23 Consultations 09/12/19 13:54 ED Decision to Admit Stat 09/12/19 16:11 Consult Psychiatry Routine 09/12/19 18:00 Consult [employer] certified corporate travel executive Routine 09/13/19 13:19 Consult Neurology Routine 09/14/19 09:44 Consult Cardiology Routine 09/14/19 21:21 Consult Nephrology Routine 09/17/19 14:05 Consult Psychiatry Routine 09/20/19 12:21 Consult Orthopedic Surgery Routine 09/30/19 08:41 Consult Hematology Routine Ordered Studies 09/12/19 12:48 CT head/brain wo con Stat Hospital Course (1) Altered mental status: Dennis Childers is a 59 year old male admitted to [facility] from September 12 to October 10 2019 initially due to altered mental status. Initially he was diagnosed with acute renal failure and metabolic acidosis (pH 7.26) due to poor oral intake and starvation state (elevated ketones). Initial hypotension, hypothermia and sinus node dysfunction due to metabolic acidosis. Spironolactone was discontinued and he improved with IV fluids. After stabilization he was unable to keep up with his fluid intake to match his output causing hypernatremia. Given recent retirement lithium use and urine osmolalities around 300 he was diagnosed with partial nephrogenic diabetes insipidus and his sodium improved with salt restriction diet and low doses of desmopressin. If his renal function declines or sodium decreases too much recommend reducing desmopressin to once a day. Serum sodium 144 on discharge. Thiazide diuretics not recommended at the current time given presentation for acute renal failure and hypotension. Incidentally his HbA1C 6.7% - he was diagnosed with diabetes mellitus type 2 and started on metformin. Recommend repeating HbA1C in approximately 3 months for ongoing treatment. His schizophrenia medications were evaluated by psychiatry and he was restarted on Clozaril as prescribed below. He should be followed up by psychiatry shortly after discharge. He was diagnosed with an episode of agitated catatonia during his admission which resolved with Ativan, which was subsequently tapered. Due to hypotension there was a concern for possible adrenal insufficiency and he was initially treated with IV hydrocortisone, then switched to PO. However this has now been tapered off with no resulting blood pressure of electrolyte abnormalities associated with adrenal insufficiency therefore suspect initial hypotension and hypothermia much more likely related to metabolic acidosis on admission. On 09/19 he was diagnosed with worsening osteomyelitis of his 2nd and 3rd phalanx. He was reviewed by orthopedics and discussed but he refused amputation. Therefore he was started on doxycycline and should continue for 6 weeks (started on 09/27/2019) as prescribed below. May consider longer duration with repeat imaging close to time of discontinuation. He did have some thrombocytopenia which was suspected to be immune mediated related to this vs. doxycycline use. His thrombocytopenia appears to be resolving and Platelets 106 on discharge. No further follow up is required for this other than monitoring blood tests to make sure it continues to resolve. Incidental note was made of enlarged left supraclavicular lymph node on prior extremity venous study. Recommend follow up US to assess for this in 1-2 months. He was also noted to have a history of hepatitis C. Viral loads were taken on 09/13/2019 and not detected therefore suggesting this has been successfully treated in the past. (2) Osteomyelitis of finger of left hand: (3) Diabetes insipidus: (4) Hypernatremia: (5) Schizoaffective disorder, bipolar type: (6) Metabolic acidosis, increased anion gap: (7) Hypotension: (8) Hypothermia: (9) Acute renal insufficiency: (10) Constipation: (11) AAA (abdominal aortic aneurysm): (12) Diabetes mellitus: (13) Anemia: (14) Sinus node dysfunction: (15) Severe protein-calorie malnutrition: (16) Thrombocytopenia: (17) DVT prophylaxis: Restarted on Lovenox 40mg SQ daily Pt is DNR/DNI Plan: return to [facility] when medically stable. Suspect in the next 1-2 days. Total Time Total Time Spent Total Time Spent (In Minutes): 50 Total Time Includes: Examination of the Patient, Discharge Planning, Medication Reconciliation and Communication With Other Providers ([facility] physician) Discharge Plan Discharge Items Patient Disposition: [facility] Reason For Visit: METABOLIC ACIDOSIS,SEVERE DEHYDRATION,ACUTE PSYCHO Discharge Diagnosis: Acute metabolic acidosis due to starvation state with ketosis - causing hypotension, hypothermia, sinus node dysfunction Severe protein-calorie malnutrition Acute kidney failure Chronic schizophrenia with acute psychosis Episode of agitated catatonia Osteomyelitis of 3rd and 2nd distal phalanx Partial nephrogenic diabetes insipidus New diagnosis of diabetes mellitus - HbA1C 6.7% Incidentally enlarged left supraclavicular lymph node Condition on Discharge: Fair Activity: Resume your previous activity Non-emergency contact: Primary Care Provider Call non-emergency contact if: you have any medication questions, your symptoms worsen and your temperature is above 101 Follow-up/Referrals: Vascular Surgery [Other] (Please, follow up with a vascular surgeon regarding treatment for an abdominal aortic aneurysm. Dr. Jese Andujar is a local vascular surgeon. His office is at [facility] location. The address is [address] [place] [address] 1 in [place]. The office phone number is [phone]. ) [facility] [Primary Care Provider] - Diet: Carb Consistent or DM2 and Low Sodium (2gm) Addtl Attending Provider Instructions: Dennis Childers is a 59 year old male admitted to [facility] from September 12 to October 10 2019 initially due to altered mental status. Initially he was diagnosed with acute renal failure and metabolic acidosis (pH 7.26) due to poor oral intake and starvation state (elevated ketones). Initial hypotension, hypothermia and sinus node dysfunction due to metabolic acidosis. Spironolactone was discontinued and he improved with IV fluids. After stabilization he was unable to keep up with his fluid intake to match his output causing hypernatremia. Given recent terminal carman lithium use and urine osmolalities around 300 he was diagnosed with partial nephrogenic diabetes insipidus and his sodium improved with salt restriction diet and low doses of desmopressin. If his renal function declines or sodium decreases too much recommend reducing desmopressin to once a day. Serum sodium 144 on discharge. Thiazide diuretics not recommended at the current time given presentation for acute renal failure and hypotension. Incidentally his HbA1C 6.7% - he was diagnosed with diabetes mellitus type 2 and started on metformin. Recommend repeating HbA1C in approximately 3 months for ongoing treatment. His schizophrenia medications were evaluated by psychiatry and he was restarted on Clozaril as prescribed below. He should be followed up by psychiatry shortly after discharge. He was diagnosed with an episode of agitated catatonia during his admission which resolved with Ativan, which was subsequently tapered. Due to hypotension there was a concern for possible adrenal insufficiency and he was initially treated with IV hydrocortisone, then switched to PO. However this has now been tapered off with no resulting blood pressure of electrolyte abnormalities associated with adrenal insufficiency therefore suspect initial hy potension and hypothermia much more likely related to metabolic acidosis on admission. On 09/19 he was diagnosed with worsening osteomyelitis of his 2nd and 3rd phalanx. He was reviewed by orthopedics and discussed but he refused amputation. Therefore he was started on doxycycline and should continue for 6 weeks (started on 09/27/2019) as prescribed below. May consider longer duration with repeat imaging close to time of discontinuation. He did have some thrombocytopenia which was suspected to be immune mediated related to this vs. doxycycline use. His thrombocytopenia appears to be resolving and Platelets 106 on discharge. No further follow up is required for this other than monitoring blood tests to make sure it continues to resolve. Incidental note was made of enlarged left supraclavicular lymph node on prior extremity venous study. Recommend follow up US to assess for this in 1-2 months. He was also noted to have a history of hepatitis C. Viral loads were taken on 09/13/2019 and not detected therefore suggesting this has been successfully treated in the past. Pending Studies at Discharge: No Stand-Alone Forms: My [facility] Skilled Items Patient informed of condition?: Yes Discharge Level of Care: Other Communicable Disease: No Discharge Prognosis: Stable Lines: None Urinary Catheter: No Medications and DC Order Prescriptions: New doxycycline hyclate 100 mg Capsule 100 mg PO BID 29 Days Qty: 58 RF: 0 clozapine 100 mg Tablet 150 mg PO QAM Qty: 45 RF: 0 clozapine 100 mg Tablet 200 mg PO HS Qty: 60 RF: 0 olanzapine 10 mg Tablet 10 mg PO QAM Qty: 30 RF: 0 metformin 500 mg Tablet Extended Release 24 Hr 500 mg PO BIDM Qty: 60 RF: 0 desmopressin [DDAVP] 0.1 mg Tablet 0.05 mg PO BID Qty: 15 RF: 0 Lactobacillus acidoph-L.bulgar [Floranex] 1 million cell Tablet 4 tab PO QIDM 29 Days Qty: 464 RF: 0 Continued cyanocobalamin (vitamin B-12) 100 mcg Tablet 100 mcg PO DAILY RF: 0 magnesium hydroxide [Milk of Magnesia] 400 mg/5 mL Suspension 60 ml PO DAILY PRN (Reason: Constipation) RF: 0 docusate sodium 250 mg Capsule 250 mg PO HS RF: 0 polyethylene glycol 3350 [Miralax] 17 gram Powder In Packet 17 g PO ONCE PRN (Reason: constipation) Qty: 10 RF: 0 ferrous sulfate [Feosol] 325 mg (65 mg iron) Tablet 325 mg PO DAILY RF: 0 olanzapine 5 mg tablet 20 mg PO HS RF: 0 Discontinued spironolactone 25 mg Tablet 25 mg PO DAILY RF: 0 ramelteon 8 mg Tablet 8 mg PO HS RF: 0 Discharge Orders: Discharge Order (Routine); Ordered 10/10/19 Ordered By: Ananda Blackmon Admission Data Admit Date/Time: 09/12/19 14:35 Attending Provider: Ananda Blackmon Admit Provider: Susanne Shah Primary Care Provider: Richard MOON Other Providers: Volodymyr Jhaveri ; Babs Diaz ; Diego Franco ; Surendra Rivera James V ; Bobby Jiménez Other Interventions: Discharge Summary Assessment (RN) Last Done: 10/10/19 10:06 DC Date/Time DO NOT enter until pt leaves facility: 10/10/19 15:18
[2019-10-10] MEDS: METFORMIN HCL ER 500 MG TABCR PO SCH (09:46)
[2019-10-10] MEDS: DESMOPRESSIN ACETATE 0.1 MG TAB PO SCH (09:46)
[2019-10-10] MEDS: COLLAGENASE OINT 30 GM TUBE EXT SCH (09:47)
== END 2019-10-10 15:18 | DRG 922 ==
LOC: MERGE 12:28 → ED 12:28 → SUATTDRO 14:35 → 2E 14:35 → 2S 09-14 11:25 → 2W 09-15 11:23

== ENCOUNTER 2020-04-23 16:23 | Inpatient (IN) ==
[2020-04-23] MEDS ORDERED: OLANZapine 10 MG/2.1 ML SDV IM STA ×2 (16:47→19:56)
[2020-04-23] MEDS ORDERED: DiphenhydrAMINE HCL 50 MG/ML VIAL IM STA (16:47)
[2020-04-23] MEDS ORDERED: LORazepam 2 MG/ML VIAL (IM USE) IM STA (16:47)
--- NOTE | 2020-04-23 17:30 | Emergency Department Note ---
History of Present Illness General Chief complaint: Mental Health Evaluation Stated complaint: MEDICALLY CLEARED TO TRANSFER Time Seen by Provider: 04/23/20 16:48 History of Present Illness Provider complaint: Psychiatric clearance Onset (ago): unknown 6-year-old male presents emergency department for psychiatric clearance from [place] long term. Patient is not answering questions. Per Tanner collar, the patient is refusing to take medications and is uncooperative. Patient was sent by present for medical clearance. History of dementia. Home Medications Home Medications Medication Instructions Recorded Confirmed Type ferrous sulfate [Feosol] 325 mg PO DAILY 07/05/19 04/23/20 History docusate sodium 250 mg PO HS 08/28/19 04/23/20 History polyethylene glycol 3350 [Miralax] 17 g PO ONCE PRN #10 ea 09/02/19 04/23/20 Rx amlodipine 5 mg PO DAILY 04/23/20 04/23/20 History chlorthalidone 25 mg PO DAILY 04/23/20 04/23/20 History clozapine 200 mg PO QAM 04/23/20 04/23/20 History clozapine 300 mg PO HS 04/23/20 04/23/20 History cyanocobalamin (vitamin B-12) 1,000 mcg PO DAILY 04/23/20 04/23/20 History desmopressin [DDAVP] 0.05 mg PO QPM 04/23/20 04/23/20 History divalproex [Depakote] 250 mg PO BID 04/23/20 04/23/20 History memantine 10 mg PO BID 04/23/20 04/23/20 History metformin 850 mg PO BID 04/23/20 04/23/20 History olanzapine 10 mg PO QPM 04/23/20 04/23/20 History propranolol 20 mg PO TID 04/23/20 04/23/20 History ramelteon 8 mg PO HS 04/23/20 04/23/20 History Allergies Allergy/AdvReac Type Severity Reaction Status Date / Time haloperidol [From Haldol] AdvReac Unknown Unknown Verified 04/23/20 17:00 Past Med/Surg History Medical History Bipolar disorder Bowel obstruction (Inactive) Diabetes insipidus Diabetes mellitus Hepatitis C Hypernatremia Schizoaffective disorder Surgical History History of laparotomy Family History Other No pertinent family history in first degree relatives Social History Preferred Language: Amharic Communication Ability: Effective 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: No Beliefs That Will Affect Care: None Current Living Situation: Other Current Living Situation Comment: SARAI Ramos Feels Safe at Home: Declines to Answer Smoking Status: Former smoker Tobacco Type: cigarettes ; Cigarettes Per Day: 1 pack per day ; Second Hand Exposure: No ; Hx Alcohol Use: No Hx Substance Use: No Review of Systems Unobtainable due to cognitive status Physical Exam Vital Signs Vital Signs - 24 hr 04/23/20 16:30 04/23/20 17:06 04/23/20 17:08 Temperature 36.3 C L Temperature Source Oral Pulse Rate 138 H 110 H Pulse Rate [Apical] 110 H Pulse Rate from SpO2 Sensor Respiratory Rate 20 23 20 Blood Pressure 155/100 H 143/79 H Blood Pressure [Left Arm] 143/79 H Blood Pressure Mean 118 90 Blood Pressure Mean [Left Arm] 100 Blood Pressure Position Sitting Pulse Oximetry 95 99 96 Oxygen Delivery Method Room Air Room Air Sepsis Recent Fever Within 48 Hours No Sepsis New/Unexplained Change in Mental Status No Sepsis Action Taken by Nursing No Action Required 04/23/20 17:12 04/23/20 17:40 04/23/20 17:41 Temperature Temperature Source Pulse Rate 112 H 110 H 113 H Pulse Rate [Apical] Pulse Rate from SpO2 Sensor Respiratory Rate 22 15 16 Blood Pressure 136/91 Blood Pressure [Left Arm] Blood Pressure Mean 109 Blood Pressure Mean [Left Arm] Blood Pressure Position Pulse Oximetry 99 98 99 Oxygen Delivery Method Room Air Room Air Room Air Sepsis Recent Fever Within 48 Hours Sepsis New/Unexplained Change in Mental Status Sepsis Action Taken by Nursing 04/23/20 17:42 04/23/20 18:00 04/23/20 18:01 Temperature Temperature Source Pulse Rate 113 H 107 H 105 H Pulse Rate [Apical] Pulse Rate from SpO2 Sensor 107 H 105 H Respiratory Rate 21 18 22 Blood Pressure 152/77 H Blood Pressure [Left Arm] Blood Pressure Mean 93 Blood Pressure Mean [Left Arm] Blood Pressure Position Pulse Oximetry 99 99 99 Oxygen Delivery Method Room Air Room Air Room Air Sepsis Recent Fever Within 48 Hours Sepsis New/Unexplained Change in Mental Status Sepsis Action Taken by Nursing 04/23/20 18:30 04/23/20 18:34 04/23/20 19:02 Temperature Temperature Source Pulse Rate 107 H 106 H 105 H Pulse Rate [Apical] Pulse Rate from SpO2 Sensor 108 H Respiratory Rate 21 22 22 Blood Pressure 154/74 H 157/75 H 154/77 H Blood Pressure [Left Arm] Blood Pressure Mean 91 96 89 Blood Pressure Mean [Left Arm] Blood Pressure Position Pulse Oximetry 100 100 100 Oxygen Delivery Method Sepsis Recent Fever Within 48 Hours Sepsis New/Unexplained Change in Mental Status Sepsis Action Taken by Nursing 04/23/20 19:30 Temperature Temperature Source Pulse Rate 106 H Pulse Rate [Apical] Pulse Rate from SpO2 Sensor Respiratory Rate 17 Blood Pressure 161/96 H Blood Pressure [Left Arm] Blood Pressure Mean 109 Blood Pressure Mean [Left Arm] Blood Pressure Position Pulse Oximetry 100 Oxygen Delivery Method Sepsis Recent Fever Within 48 Hours Sepsis New/Unexplained Change in Mental Status Sepsis Action Taken by Nursing Physical Exam GENERAL: In spit mask HENT: Exam performed. - Head: Normocephalic and atraumatic. - Right Ear: External ear normal. No mastoid tenderness. - Left Ear: External ear normal. No mastoid tenderness. - Mouth/Throat: The oropharynx is clear and moist. No trismus in the jaw. No dental abscesses or uvula swelling. No oropharyngeal exudate or tonsillar abscesses. EYES: Conjunctivae and EOM are normal. Pupils are equal, round, and reactive to light. Right eye exhibits no discharge. Left eye exhibits no discharge. No scleral icterus. NECK: Normal range of motion. Neck supple. No JVD present. No spinous process tenderness present. No carotid bruit present. No rigidity. No tracheal deviation and normal range of motion present. No Brudzinski's sign and no Kernig's sign noted. CV: Tachycardic rate, regular rhythm, normal heart sounds and intact distal pulses. There is no peripheral edema. Palpable radial pulses bue. PULM/CHEST: Effort normal and breath sounds normal. No respiratory distress. No stridor. He has no wheezes. He has no rales. - Chest Wall: He exhibits no tenderness. ABD: The abdomen is soft. MUSC/SKEL: There is no deformity. Course Course 1640: The patient was evaluated in room A6. A complete history and physical exam was performed. 1810: Labs show acute kidney injury, creatinine of 2.4 baseline is 1.2. Will obtain CT of the abdomen to rule out any obstructing stone and plan on admitting the patient to the hospitalist service. 1999: Patient CT does not show any obstruction causing the acute kidney injury. Is thought that his acute kidney injury is due to dehydration from him not eating. Patient was admitted to Dr. Addy Tyler hospitalist service. Administered Medications Discontinued Medications Diphenhydramine HCl (Benadryl) 50 mg IM NOW STA Stop: 04/23/20 16:48 Last Admin: 04/23/20 17:50 Dose: Not Given Documented by: [id number] Sodium Chloride (Nss 1000ml) 1,000 mls @ 999 mls/hr IV .Q1H1M ONE Stop: 04/23/20 19:13 Last Infusion: 04/23/20 19:29 Dose: 0 mls/hr Documented by: [id number] Admin: 04/23/20 18:26 Dose: 999 mls/hr Documented by: [id number] Lorazepam (Ativan) 2 mg IM NOW STA Stop: 04/23/20 16:48 Last Admin: 04/23/20 17:49 Dose: Not Given Documented by: [id number] Olanzapine (Zyprexa) 5 mg IM NOW STA Stop: 04/23/20 16:48 Last Admin: 04/23/20 17:50 Dose: Not Given Documented by: [id number] Medical Decision Making Laboratory Data Result diagrams: 04/23/20 17:12 04/23/20 17:12 Lab Results 04/23/20 04/23/20 04/23/20 Range/Units 17:12 17:12 17:12 WBC 6.65 (4.8-10.8) K/uL RBC 4.42 L (4.7-6.1) M/uL Hgb 12.3 L (14.0-18.0) g/dL Hct 37.9 L (42-52) % MCV 85.7 (80-100) fL MCH 27.8 (25-34) pg MCHC 32.5 (32-36) g/dL RDW Std Deviation 50.9 H (36.4-46.3) fL RDW Coeff of Shamar 16.3 H (11.5-14.5) % Plt Count 120 L (130-400) K/uL MPV 11.5 H (7.4-10.4) fL Immature Gran % (Auto) 0.3 % Neut % (Auto) 66.3 % Lymph % (Auto) 24.8 % [place] % (Auto) 8.6 % Eos % (Auto) 0.0 % Baso % (Auto) 0.0 % Neut # (Auto) 4.41 (1.4-6.5) K/uL Lymph # (Auto) 1.65 (1.2-3.4) K/uL [place] # (Auto) 0.57 (0.11-0.59) K/uL Eos # (Auto) 0.00 (0-0.5) K/uL Baso # (Auto) 0.00 (0-0.2) K/uL Immature Gran # (Auto) 0.02 (0.00-0.02) K/uL VBG pH VBG pCO2 VBG pO2 VBG HCO3 VBG O2 Saturation VBG Base Excess Barometric Pressure Sodium 145 (136-145) mmol/L Potassium 3.5 (3.5-5.1) mmol/L Chloride 113 H (98-107) mmol/L Carbon Dioxide 19 L (21-32) mmol/L Anion Gap 14.0 H (3-11) BUN 50 H (7-18) mg/dl Creatinine 2.40 H (0.6-1.4) mg/dl Est Cr Clr Drug Dosing Not Reportable Est GFR ( Amer) 32.8 Est GFR (Non-Af Amer) 28.3 BUN/Creatinine Ratio 20.8 H (10-20) Glucose 133 H (70-99) mg/dl Calcium 10.0 (8.5-10.1) mg/dl Total Bilirubin 0.7 (0.2-1) mg/dl AST 41 H (15-37) U/L ALT 31 (12-78) U/L Alkaline Phosphatase 108 (45-117) U/L Troponin I < 0.015 (0-0.045) ng/ml Total Protein 8.7 H (6.4-8.2) gm/dl Albumin 4.1 (3.4-5.0) gm/dl Globulin 4.6 H (2.5-4.0) gm/dl Albumin/Globulin Ratio 0.9 (0.9-2) TSH 0.325 (0.300-4.500) uIu/ml Urine Color Urine Appearance (Clear) Urine pH (4.5-7.5) Ur Specific [place] (1.000-1.030) Urine Protein (Negative) Urine Glucose (UA) (Negative) Urine Ketones (Negative) Urine Blood (Negative) Urine Nitrite (Negative) Urine Bilirubin (Negative) Urine Urobilinogen (Negative) Ur Leukocyte Esterase (Negative) Urine WBC (Auto) (0-5) /hpf Urine RBC (Auto) (0-4) /hpf U Hyaline Cast (Auto) (0-5) /lpf U Epithel Cells (Auto) (0-5) /lpf Urine Bacteria (Auto) (Negative) Salicylates 2.2 L (2.8-20) mg/dl Urine Opiates Screen (Neg) Ur Methadone, Qual (Neg) Acetaminophen < 2 L (10-30) ug/ml Urine Barbiturates (Neg) Ur Phencyclidine (PCP) (Neg) U Amphetamin/Meth Scrn (Neg) MDMA (Ecstasy) Screen (Neg) U Benzodiazepines Scrn (Neg) [place] < 0.2 L (0.6-1.2) mmol/L Ur Cocaine Metabolite (Neg) U Marijuana (THC) Screen (Neg) Ethyl Alcohol mg/dL (0-3) mg/dl 04/23/20 04/23/20 04/23/20 Range/Units 17:12 17:12 17:26 WBC (4.8-10.8) K/uL RBC (4.7-6.1) M/uL Hgb (14.0-18.0) g/dL Hct (42-52) % MCV (80-100) fL MCH (25-34) pg MCHC (32-36) g/dL RDW Std Deviation (36.4-46.3) fL RDW Coeff of Shamar (11.5-14.5) % Plt Count (130-400) K/uL MPV (7.4-10.4) fL Immature Gran % (Auto) % Neut % (Auto) % Lymph % (Auto) % [place] % (Auto) % Eos % (Auto) % Baso % (Auto) % Neut # (Auto) (1.4-6.5) K/uL Lymph # (Auto) (1.2-3.4) K/uL [place] # (Auto) (0.11-0.59) K/uL Eos # (Auto) (0-0.5) K/uL Baso # (Auto) (0-0.2) K/uL Immature Gran # (Auto) (0.00-0.02) K/uL VBG pH Cancelled VBG pCO2 Cancelled VBG pO2 Cancelled VBG HCO3 Cancelled VBG O2 Saturation Cancelled VBG Base Excess Cancelled Barometric Pressure Cancelled Sodium (136-145) mmol/L Potassium (3.5-5.1) mmol/L Chloride (98-107) mmol/L Carbon Dioxide (21-32) mmol/L Anion Gap (3-11) BUN (7-18) mg/dl Creatinine (0.6-1.4) mg/dl Est Cr Clr Drug Dosing Est GFR ( Amer) Est GFR (Non-Af Amer) BUN/Creatinine Ratio (10-20) Glucose (70-99) mg/dl Calcium (8.5-10.1) mg/dl Total Bilirubin (0.2-1) mg/dl AST (15-37) U/L ALT (12-78) U/L Alkaline Phosphatase (45-117) U/L Troponin I (0-0.045) ng/ml Total Protein (6.4-8.2) gm/dl Albumin (3.4-5.0) gm/dl Globulin (2.5-4.0) gm/dl Albumin/Globulin Ratio (0.9-2) TSH (0.300-4.500) uIu/ml Urine Color Urine Appearance (Clear) Urine pH (4.5-7.5) Ur Specific [place] (1.000-1.030) Urine Protein (Negative) Urine Glucose (UA) (Negative) Urine Ketones (Negative) Urine Blood (Negative) Urine Nitrite (Negative) Urine Bilirubin (Negative) Urine Urobilinogen (Negative) Ur Leukocyte Esterase (Negative) Urine WBC (Auto) (0-5) /hpf Urine RBC (Auto) (0-4) /hpf U Hyaline Cast (Auto) (0-5) /lpf U Epithel Cells (Auto) (0-5) /lpf Urine Bacteria (Auto) (Negative) Salicylates (2.8-20) mg/dl Urine Opiates Screen Neg (Neg) Ur Methadone, Qual Neg (Neg) Acetaminophen (10-30) ug/ml Urine Barbiturates Neg (Neg) Ur Phencyclidine (PCP) Neg (Neg) U Amphetamin/Meth Scrn Neg (Neg) MDMA (Ecstasy) Screen Neg (Neg) U Benzodiazepines Scrn Neg (Neg) [place] (0.6-1.2) mmol/L Ur Cocaine Metabolite Neg (Neg) U Marijuana (THC) Screen Neg (Neg) Ethyl Alcohol mg/dL < 3.0 (0-3) mg/dl 04/23/20 04/23/20 Range/Units 17:26 18:40 WBC (4.8-10.8) K/uL RBC (4.7-6.1) M/uL Hgb (14.0-18.0) g/dL Hct (42-52) % MCV (80-100) fL MCH (25-34) pg MCHC (32-36) g/dL RDW Std Deviation (36.4-46.3) fL RDW Coeff of Shamar (11.5-14.5) % Plt Count (130-400) K/uL MPV (7.4-10.4) fL Immature Gran % (Auto) % Neut % (Auto) % Lymph % (Auto) % [place] % (Auto) % Eos % (Auto) % Baso % (Auto) % Neut # (Auto) (1.4-6.5) K/uL Lymph # (Auto) (1.2-3.4) K/uL [place] # (Auto) (0.11-0.59) K/uL Eos # (Auto) (0-0.5) K/uL Baso # (Auto) (0-0.2) K/uL Immature Gran # (Auto) (0.00-0.02) K/uL VBG pH 7.39 VBG pCO2 35 L VBG pO2 48 VBG HCO3 20 VBG O2 Saturation 81.1 VBG Base Excess -3.9 Barometric Pressure 730.5 Sodium (136-145) mmol/L Potassium (3.5-5.1) mmol/L Chloride (98-107) mmol/L Carbon Dioxide (21-32) mmol/L Anion Gap (3-11) BUN (7-18) mg/dl Creatinine (0.6-1.4) mg/dl Est Cr Clr Drug Dosing Est GFR ( Amer) Est GFR (Non-Af Amer) BUN/Creatinine Ratio (10-20) Glucose (70-99) mg/dl Calcium (8.5-10.1) mg/dl Total Bilirubin (0.2-1) mg/dl AST (15-37) U/L ALT (12-78) U/L Alkaline Phosphatase (45-117) U/L Troponin I (0-0.045) ng/ml Total Protein (6.4-8.2) gm/dl Albumin (3.4-5.0) gm/dl Globulin (2.5-4.0) gm/dl Albumin/Globulin Ratio (0.9-2) TSH (0.300-4.500) uIu/ml Urine Color Yellow Urine Appearance Clear (Clear) Urine pH 5.0 (4.5-7.5) Ur Specific [place] 1.020 (1.000-1.030) Urine Protein Trace H (Negative) Urine Glucose (UA) Negative (Negative) Urine Ketones 2+ H (Negative) Urine Blood Negative (Negative) Urine Nitrite Negative (Negative) Urine Bilirubin Negative (Negative) Urine Urobilinogen Negative (Negative) Ur Leukocyte Esterase Negative (Negative) Urine WBC (Auto) 1-5 (0-5) /hpf Urine RBC (Auto) 0-4 (0-4) /hpf U Hyaline Cast (Auto) 1-5 (0-5) /lpf U Epithel Cells (Auto) 5-10 H (0-5) /lpf Urine Bacteria (Auto) Negative (Negative) Salicylates (2.8-20) mg/dl Urine Opiates Screen (Neg) Ur Methadone, Qual (Neg) Acetaminophen (10-30) ug/ml Urine Barbiturates (Neg) Ur Phencyclidine (PCP) (Neg) U Amphetamin/Meth Scrn (Neg) MDMA (Ecstasy) Screen (Neg) U Benzodiazepines Scrn (Neg) [place] (0.6-1.2) mmol/L Ur Cocaine Metabolite (Neg) U Marijuana (THC) Screen (Neg) Ethyl Alcohol mg/dL (0-3) mg/dl Imaging Data Radiologist's Impression: CT SCAN OF THE ABDOMEN AND PELVIS WITHOUT IV CONTRAST CLINICAL HISTORY: Change in mental status. COMPARISON STUDY: Abdominal CT dated 08/28/2019. TECHNIQUE: CT scan of the abdomen and pelvis is performed from the lung bases to the proximal femora. Images are reviewed in the axial, sagittal, and coronal p lanes. IV contrast was not administered for this examination due to poor renal function. Note that the examination is suboptimal without oral and IV contrast. Examination is compromised by motion artifact. A dose lowering technique was utilized adhering to the principles of ALARA. CT DOSE: 311.37 mGy.cm FINDINGS: Lung bases: The heart is normal in size and without pericardial effusion. Emphysematous changes suspected. The lung bases are clear noting dependent atelectasis. Liver: The unenhanced liver is normal in size, contour, and attenuation. There is no intrahepatic biliary ductal dilatation. Gallbladder: Unremarkable. Spleen: The spleen is enlarged measuring 14.5 cm in length. Pancreas: The unenhanced pancreas is moderately atrophic and grossly unremarkable. Adrenal glands: Unremarkable. Kidneys: The unenhanced kidneys are normal in size and without hydronephrosis. There are no renal calculi identified. A 12 mm complex/hyperdense cyst is noted in the upper pole of left kidney. Abdominal vasculature: There is advanced atherosclerotic change seen in the abdominal aorta. An infrarenal abdominal aortic aneurysm measures 5.2 cm in AP diameter and 5.9 cm in transverse diameter. Bowel: There is rectosigmoid fecal retention and moderate constipation. No bowel obstruction is seen. The appendix is not visualized. Peritoneum: There is no intraperitoneal free air or abdominal ascites. Lymphadenopathy: A mildly enlarged right pelvic sidewall lymph node on image #352 measures 1.5 x 1.3 cm. There are mildly enlarged retroperitoneal lymph nodes a 1.6 x 1.3 cm left-sided node seen above the iliac bifurcation image #271. The left external iliac chain on image #94 measures 2.4 x 1.4 cm. Pelvic viscera: The prostate gland is mildly enlarged and heterogeneous noting median lobe hypertrophy. The bladder is distended but otherwise normal as imaged. Skeletal structures: The skeletal structures are osteopenic. Mild lumbosacral spondylosis is observed. No lytic or blastic lesions are seen. Soft tissues: The patient is cachectic. IMPRESSION: 1. Suboptimal examination without oral and IV contrast. The examination is also compromised by motion artifact. 2. There are no acute infectious or inflammatory findings in the abdomen or pelvis. 3. There is a 5.2 x 5.9 cm infrarenal abdominal aortic aneurysm. This is similar in appearance to the 08/28/2019 examination. Vascular surgical follow-up is recommended. 4. There is rectosigmoid fecal retention and moderate constipation. No bowel obstruction is seen. 5. Splenomegaly. 6. Mildly enlarged retroperitoneal, iliac chain, and right pelvic sidewall lymph nodes are nonspecific and similar to previous. 7. Additional findings as above. ACT 112: Negative or not required by law. Electronically signed by: Dennis Menon M.D. 04/23/2020 8:06 PM Dictated: 04/23/201955 Transcribed: 04/23/201955 CT SCAN OF THE BRAIN WITHOUT IV CONTRAST CLINICAL HISTORY: Change in mental status. COMPARISON STUDY: CT of the brain dated 09/12/2019. TECHNIQUE: Unenhanced axial CT scan of the brain is performed from the vertex to the skull base. A dose lowering technique was utilized adhering to the principles of ALARA. CT DOSE: 614.27 mGy.cm FINDINGS: Brain parenchyma: The brain parenchyma is normal in appearance. There is no hemorrhage, mass effect, or evidence of acute territorial ischemia by CT criteria. Baker-white matter differentiation is preserved. No extra-axial fluid collection is seen. Ventricles, sulci, cisterns: Normal in configuration. Intracranial vasculature: There is atherosclerotic calcification of the cavernous carotid arteries. Calvarium: Unremarkable. Sinuses and mastoids: The visualized paranasal sinuses are clear. The mastoid air cells are well pneumatized. Orbits: The bony orbits are grossly intact. IMPRESSION: There is no hemorrhage, mass effect, or evidence of acute territorial ischemia by CT criteria. ACT 112: Negative or not required by law. Electronically signed by: Dennis Menon M.D. 04/23/2020 5:49 PM Dictated: 04/23/[id number] Transcribed: 04/23/201744 SINGLE VIEW CHEST CLINICAL HISTORY: Change in mental status. FINDINGS: 2 AP, portable, upright chest radiographs on compared to study dated 09/12/2019. The examination is degraded by portable technique and patient rotation. The cardiomediastinal silhouette is unremarkable. Question a nodular opacity adjacent to the aortic arch. There is no airspace consolidation or pleural effusion. No pneumothorax is seen. The skeletal structures are osteopenic. The bony thorax is grossly intact. IMPRESSION: 1. No acute cardiopulmonary abnormality. 2. Question a nodular opacity adjacent to the aortic arch. This may artifactual. Correlation with a contrast-enhanced chest CT is recommended for further assessment. ACT 112: Negative or not required by law. Electronically signed by: Dennis Menon M.D. 04/23/2020 5:56 PM Dictated: 04/23/201752 Transcribed: 04/23/201752 ECG Data Indication: + weakness Rate (beats per minute): 110 Rhythm: + sinus tachycardia ECG Intervals/blocks: + Normal QRS, + Normal IN and + Normal QT-c ECG ST segments: + Normal ST segments MDM Narrative 1640: The patient was evaluated in room A6. A complete history and physical exam was performed. 1809: Labs show acute kidney injury, creatinine of 2.4 baseline is 1.2. Will obtain CT of the abdomen to rule out any obstructing stone and plan on admitting the patient to the hospitalist service. 1999: Patient CT does not show any obstruction causing the acute kidney injury. Is thought that his acute kidney injury is due to dehydration from him not eating. Patient was admitted to Dr. Daly [facility] hospitalist service. Impression & Plan DESIREE (acute kidney injury) Discharge Plan Visit Data Chief Complaint: Mental Health Evaluation Stated Complaint: MEDICALLY CLEARED TO TRANSFER ED Provider: Jenaro Vale Discharge Problem: DESIREE (acute kidney injury) Patient Disposition: Being Evaluated by Hospitalist Forms Stand Alone Forms: [facility], Suicide Prevention Resources Prescriptions Prescriptions: No Action docusate sodium 250 mg Capsule 250 mg PO HS RF: 0 polyethylene glycol 3350 [Miralax] 17 gram Powder In Packet 17 g PO ONCE PRN (Reason: constipation) Qty: 10 RF: 0 divalproex [Depakote] 250 mg Tablet,Delayed Release (Dr/Ec) 250 mg PO BID RF: 0 metformin 850 mg Tablet 850 mg PO BID RF: 0 cyanocobalamin (vitamin B-12) 1,000 mcg Tablet 1,000 mcg PO DAILY RF: 0 chlorthalidone 25 mg Tablet 25 mg PO DAILY RF: 0 amlodipine 5 mg Tablet 5 mg PO DAILY RF: 0 propranolol 20 mg Tablet 20 mg PO TID RF: 0 memantine 10 mg Tablet 10 mg PO BID RF: 0 ramelteon 8 mg Tablet 8 mg PO HS RF: 0 clozapine 100 mg tablet 200 mg PO QAM RF: 0 clozapine 100 mg tablet 300 mg PO HS RF: 0 olanzapine 10 mg tablet 10 mg PO QPM RF: 0 desmopressin [DDAVP] 0.1 mg tablet 0.05 mg PO QPM RF: 0 ferrous sulfate [Feosol] 325 mg (65 mg iron) Tablet 325 mg PO DAILY RF: 0 Referrals Referrals: Richard MOON [Primary Care Provider] -
[2020-04-23 17:31] LABS: Hematocrit (blood only) 37.9 % (42-52); Hemoglobin 12.3 g/dL (14.0-18.0); Immature Granulocytes # (auto) 0.02 K/uL (0.00-0.02); Immature Granulocytes % (auto) 0.3 %; Lymphocytes # (auto) 1.65 K/uL (1.2-3.4); Lymphocytes % (auto) 24.8 %; Mean Corpuscular Hemoglobin 27.8 pg (25-34); Mean Corpuscular Hgb Conc 32.5 g/dL (32-36); Mean Corpuscular Volume 85.7 fL (80-100); Mean Platelet Volume 11.5 fL (7.4-10.4); Monocytes # (auto) 0.57 K/uL (0.11-0.59); Monocytes % (auto) 8.6 %; Neutrophils # (auto) 4.41 K/uL (1.4-6.5); Neutrophils % (auto) 66.3 %; Platelet Count 120 K/uL (130-400); RDW Coefficient of Variation 16.3 % (11.5-14.5); RDW Standard Deviation 50.9 fL (36.4-46.3); Red Blood Count 4.42 M/uL (4.7-6.1); White Blood Count 6.65 K/uL (4.8-10.8)
[2020-04-23 17:50] LABS: Appearance Urine Clear (Clear); Bacteria Urine Automated Negative (Negative); Bilirubin Urine Negative (Negative); Blood Urine Negative (Negative); Color Urine Yellow; Glucose Urine UA Negative (Negative); Ketones Urine 2+ (Negative); Leukocyte Esterase Urine Negative (Negative); Nitrite Urine Negative (Negative); Protein Urine Trace (Negative); RBC Urine Automated 0-4 /hpf (0-4); Urobilinogen Urine Negative (Negative)
--- NOTE | 2020-04-23 17:51 | CT Scan Report ---
CT SCAN OF THE BRAIN WITHOUT IV CONTRAST CLINICAL HISTORY: Change in mental status. COMPARISON STUDY: CT of the brain dated 09/12/2019. TECHNIQUE: Unenhanced axial CT scan of the brain is performed from the vertex to the skull base. A d ose lowering technique was utilized adhering to the principles of ALARA. CT DOSE: 614.27 mGy.cm FINDINGS: Brain parenchyma: The brain parenchyma is normal in appearance. There is no hemorrhage, mass effect, or evidence of acute territorial ischemia by CT criteria. Baker-white matter differentiation is preser bobby. No extra-axial fluid collection is seen. Ventricles, sulci, cisterns: Normal in configuration. Intracranial vasculature: There is atherosclerotic calcification of the cavernous carotid arteries. Calvarium: Unremarkable. Sinuses and mastoids: The visualized paranasal sinuses are clear. The mastoid air cells are well pneu matized. Orbits: The bony orbits are grossly intact. IMPRESSION: There is no hemorrhage, mass effect, or evidence of acute territorial ischemia by CT dania donato. ACT 112: Negative or not required by law. Electronically signed by: Dennis Menon M.D. 04/23/2020 5:49 PM
[2020-04-23 17:55] LABS: Alanine Aminotransferase 31 U/L (12-78); Albumin Level 4.1 gm/dl (3.4-5.0); Aspartate Aminotransferase 41 U/L (15-37); BUN Creatinine Ratio 20.8 (10-20); Blood Urea Nitrogen 50 mg/dl (7-18); Carbon Dioxide 19 mmol/L (21-32); Chloride 113 mmol/L (98-107); Est GFR (African American) 32.8; Est GFR (Non-African American) 28.3; Glucose 133 mg/dl (70-99); Potassium 3.5 mmol/L (3.5-5.1); Sodium 145 mmol/L (136-145)
--- NOTE | 2020-04-23 17:57 | XRay Report ---
SINGLE VIEW CHEST CLINICAL HISTORY: Change in mental status. FINDINGS: 2 AP, portable, upright chest radiographs on compared to study dated 09/12/2019. The examin ation is degraded by portable technique and patient rotation. The cardiomediastinal silhouette is un remarkable. Question a nodular opacity adjacent to the aortic arch. There is no airspace consolidatio n or pleural effusion. No pneumothorax is seen. The skeletal structures are osteopenic. The bony thor ax is grossly intact. IMPRESSION: 1. No acute cardiopulmonary abnormality. 2. Question a nodular opacity adjacent to the aortic arch. This may artifactual. Correlation with a c ontrast-enhanced chest CT is recommended for further assessment. ACT 112: Negative or not required by law. Electronically signed by: Dennis Menon M.D. 04/23/2020 5:56 PM
[2020-04-23 18:03] LABS: Acetaminophen < 2 ug/ml (10-30); Lithium < 0.2 mmol/L (0.6-1.2); Salicylate 2.2 mg/dl (2.8-20)
[2020-04-23 18:06] LABS: Albumin Globulin Ratio 0.9 (0.9-2); Alkaline Phosphatase 108 U/L (45-117); Bilirubin,Total 0.7 mg/dl (0.2-1); Globulin 4.6 gm/dl (2.5-4.0); Thyroid Stimulating Hormone 0.325 uIu/ml (0.300-4.500); Total Protein 8.7 gm/dl (6.4-8.2); Troponin I < 0.015 ng/ml (0-0.045)
[2020-04-23] MEDS ORDERED: SODIUM CHLORIDE 0.9% 1000ML 1,000 ML IV ONE (18:13)
[2020-04-23 18:14] LABS: Amphetamines+Metham, Urine Neg (Neg); Barbiturates, Urine Neg (Neg); Benzodiazepine, Urine Neg (Neg); Cocaine, Urine Neg (Neg); MDMA (Ecstacy), Urine Neg (Neg); Methadone, Urine Neg (Neg); Opiate, Urine Neg (Neg); Phencyclidine, Urine Neg (Neg)
[2020-04-23 19:01] LABS: Base Excess VBG -3.9 mEq/L; Oxygen Saturation VBG 81.1 %; pH VBG 7.39 (7.36-7.41)
[2020-04-23] MEDS ORDERED: DiphenhydrAMINE HCL 50 MG/ML VIAL IV STA (19:56)
[2020-04-23] MEDS ORDERED: LORazepam 2 MG/4 ML VIAL IV STA (19:56)
--- NOTE | 2020-04-23 20:07 | CT Scan Report ---
CT SCAN OF THE ABDOMEN AND PELVIS WITHOUT IV CONTRAST CLINICAL HISTORY: Change in mental status. COMPARISON STUDY: Abdominal CT dated 08/28/2019. TECHNIQUE: CT scan of the abdomen and pelvis is performed from the lung bases to the proximal femora. Images are reviewed in the axial, sagittal, and coronal planes. IV contrast was not administered for this examination due to poor renal function. Note that the examination is suboptimal without oral an d IV contrast. Examination is compromised by motion artifact. A dose lowering technique was utilized adhering to the principles of ALARA. CT DOSE: 311.37 mGy.cm FINDINGS: Lung bases: The heart is normal in size and without pericardial effusion. Emphysematous changes suspe cted. The lung bases are clear noting dependent atelectasis. Liver: The unenhanced liver is normal in size, contour, and attenuation. There is no intrahepatic eagle iary ductal dilatation. Gallbladder: Unremarkable. Spleen: The spleen is enlarged measuring 14.5 cm in length. Pancreas: The unenhanced pancreas is moderately atrophic and grossly unremarkable. Adrenal glands: Unremarkable. Kidneys: The unenhanced kidneys are normal in size and without hydronephrosis. There are no renal gopi culi identified. A 12 mm complex/hyperdense cyst is noted in the upper pole of left kidney. Abdominal vasculature: There is advanced atherosclerotic change seen in the abdominal aorta. An infra renal abdominal aortic aneurysm measures 5.2 cm in AP diameter and 5.9 cm in transverse diameter. Bowel: There is rectosigmoid fecal retention and moderate constipation. No bowel obstruction is seen. The appendix is not visualized. Peritoneum: There is no intraperitoneal free air or abdominal ascites. Lymphadenopathy: A mildly enlarged right pelvic sidewall lymph node on image #352 measures 1.5 x 1.3 cm. There are mildly enlarged retroperitoneal lymph nodes a 1.6 x 1.3 cm left-sided node seen above t he iliac bifurcation image #271. The left external iliac chain on image #94 measures 2.4 x 1.4 cm. Pelvic viscera: The prostate gland is mildly enlarged and heterogeneous noting median lobe hypertroph y. The bladder is distended but otherwise normal as imaged. Skeletal structures: The skeletal structures are osteopenic. Mild lumbosacral spondylosis is observed . No lytic or blastic lesions are seen. Soft tissues: The patient is cachectic. IMPRESSION: 1. Suboptimal examination without oral and IV contrast. The examination is also compromised by motion artifact. 2. There are no acute infectious or inflammatory findings in the abdomen or pelvis. 3. There is a 5.2 x 5.9 cm infrarenal abdominal aortic aneurysm. This is similar in appearance to the 08/28/2019 examination. Vascular surgical follow-up is recommended. 4. There is rectosigmoid fecal retention and moderate constipation. No bowel obstruction is seen. 5. Splenomegaly. 6. Mildly enlarged retroperitoneal, iliac chain, and right pelvic sidewall lymph nodes are nonspecifi c and similar to previous. 7. Additional findings as above. ACT 112: Negative or not required by law. Electronically signed by: Dennis Menon M.D. 04/23/2020 8:06 PM
--- NOTE | 2020-04-23 21:03 | History & Physical Report ---
Date of Service April 23, 2020 Assessment & Plan (1) Altered mental status: 60yo male inmate at [facility] presenting for medical evaluation of functional decline, abnormal behavior, ?delirium. Patient with history of Schizoaffective bipolar type and dementia. His psychiatric illness is typically well managed on his current regimen of Clozaril, Zyrexa, Memantine and newly added Depakote. Laboratory workup significant for DESIREE with BUN of 50 and Cr of 2.4 (increased from prior values of 17 and 1.28, respectively on 12/05/19) which could be contributing to patient's recent behavioral disturbances. See below for discussion and plan. At this time patient does not appear to have a source of infection. He is afebrile, no leukocytosis, no UTI or evidence of PNA on imaging. His tachycardia on arrival is most likely secondary to agitation as it has since resolved. Electrolytes, TSH, Ammonia, Utox and CT head are unremarkable. -Frequent orientation to self, location, date and situation -Avoid interruptions in sleep -Treatment of other medical conditions as below. If patient's symptoms fail to improve with correction of DESIREE and continuation of his medications will pursue additional workup for AMS Present on Admission?: Yes (2) DESIREE (acute kidney injury): Patient with non-oliguric DESIREE. BUN=50, Cr=2.9, increased from prior values of 17 and 1.28, respectively. Patient has a mild anion gap metabolic acidosis with HCO3=19 and Gap=14. pH is normal at 7.39. K is normal at 3.5. CT of the abdomen performed which revealed normal kidneys without hydronephrosis or obstruction. DESIREE most likely multifactorial - patient states he has not been eating or drinking well of late. Possible dehydration, component of pre-renal azotemia contributing. Also with mild rhabdomyolysis, elevation in CK to 932. Possibly secondary to recent agitation. DESIREE may be contributing to patient's recent change in behavior. -Admit to medical floor -Monitor BUN, Cr, electrolytes, repeat CK in AM after IVF -Monitor UOP -Avoid nephrotoxic agents -Hold Chlorthalidone -Renal dosing where needed Present on Admission?: Yes (3) Schizoaffective disorder, bipolar type: Patient is managed by Psychiatry at [facility]. Has missed two days of medications which could also be contributing to recent decline -Continue Clozapine 200mg po qAM, 300mg po qHS. Normal neutrophil count on today's CBC/differential. -Continue Olanzapine 10mg po qPM - no renal adjustment needed -Continue Depakote 250mg po BID - no renal adjustment needed Present on Admission?: Yes (4) Diabetes mellitus: Well controlled. HgbA1C on 09/13/19 = 6.9. Blood sugar = 133 today. -Hold Metformin while inpatient and in setting of DESIREE -Insulin sliding scale - CF 40, CR 20 for goal blood sugar 100 - 140 -Consistent carb diet as tolerated Present on Admission?: Yes (5) Dementia: Patient with underlying dementia -Continue Memantine -Delirium prevention strategies with frequent orientation, maintenance of sleep/wake cycle and ambulation as tolerated -Avoidance of anticholinergics and other potentially delirium-inducing agents where able -Continue [place]elton qHS Present on Admission?: Yes (6) Diabetes insipidus: Se=016 -Monitor chemistry, Na levels -Monitor UOP -Continue DDAVP 0.05mg po qPM Present on Admission?: Yes (7) B12 deficiency: Chronic. Patient with stable normochromic/normocytic anemia -Continue B12 supplementation Present on Admission?: Yes (8) AAA (abdominal aortic aneurysm): Patient found to have a 5.2 x 5.9 cm infrarenal abdominal aortic aneurysm. This is similar in appearance to the 08/28/2019 examination. Vascular surgical follow-up is recommended. Patient was provided with contact information for Dr. Andujar at last hospitalization -Vascular surgery follow-up on discharge Dr. Jese Andujar - [address] [facility] [address] in [place]. The office phone number is [phone]. Present on Admission?: Yes (9) Lung nodule: CXR with possible nodular opacity adjacent to the aortic arch, may be sari factual. Correlation with a contrast CT of the chest is recommended. Patient also with some enlarged lymph nodes noted on CT abdomen and was diagnosed with a supraclavicular lymph node during last hospitalization. ?underlying malignancy vs chronic inflammatory condition? -Consider CT chest with contrast for further workup of possible nodule once patient's renal function improves F/E/N - LR at 125mL/hr x 2 liters, monitor electrolytes, renal function, Consistent carbohydrate diet as tolerated Ppx - low risk for DVT, Heparin BID Code - Full per review of record Dispo - Admission to medical floor Present on Admission?: Yes Admission and Anticipated Discharge Date Admission Date: 04/23/20 Anticipated date of discharge: 04/25/20 History of Present Illness Chief Complaint: agitation [facility] is a 60yo male inmate at [facility] being sent for medical evaluation. Patient is a poor historian at present and is unable to provide clear details of the events preceding arrival to [facility]. History obtained predominantly through record review, discussion with ER staff. Per review of records, patient has been declining over the last few days. He is minimally verbal and often growls in response to questions. He has also been demonstrating more bizarre behavior such as playing with excrement and urine and has been aggressive toward staff at [facility]. He reports he has not been eating or drinking well and has not been taking his medications. 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 He is currently being managed With Clozaril 200mg po qAM and 300mg po qHS as well as Zyprexa. He was recently prescribed Depakote for mood stabilization but has not yet started this medication. Overall, patient is fairly well managed on his current Psychiatric regimen. He did miss two consecutive days of medications this week and one day before that, otherwise he is compliant with his medications. Upon arrival to the ER patient afebrile, tachycardic and hypertensive. No respiratory distress noted, patient with adequate oxygenation on room air. He had episodes of agitation but was overall redirectable. ER Course: NSS x 1 L, Ativan 2mg IV, Benadryl 50mg IV Allergies Allergy/AdvReac Type Severity Reaction Status Date / Time haloperidol [From Haldol] AdvReac Unknown Unknown Verified 04/23/20 17:00 Home Medications Home Medications Medication Instructions Recorded Confirmed Type ferrous sulfate [Feosol] 325 mg PO DAILY 07/05/19 04/23/20 History docusate sodium 250 mg PO HS 08/28/19 04/23/20 History polyethylene glycol 3350 [Miralax] 17 g PO ONCE PRN #10 ea 09/02/19 04/23/20 Rx amlodipine 5 mg PO DAILY 04/23/20 04/23/20 History chlorthalidone 25 mg PO DAILY 04/23/20 04/23/20 History clozapine 200 mg PO QAM 04/23/20 04/23/20 History clozapine 300 mg PO HS 04/23/20 04/23/20 History cyanocobalamin (vitamin B-12) 1,000 mcg PO DAILY 04/23/20 04/23/20 History desmopressin [DDAVP] 0.05 mg PO QPM 04/23/20 04/23/20 History divalproex [Depakote] 250 mg PO BID 04/23/20 04/23/20 History memantine 10 mg PO BID 04/23/20 04/23/20 History metformin 850 mg PO BID 04/23/20 04/23/20 History olanzapine 10 mg PO QPM 04/23/20 04/23/20 History propranolol 20 mg PO TID 04/23/20 04/23/20 History ramelteon 8 mg PO HS 04/23/20 04/23/20 History Past Med/Surg History Medical History (Updated 04/24/20 @ 00:03 by Vicki Daly DO) Bipolar disorder Bowel obstruction (Inactive) Diabetes insipidus Diabetes mellitus Hepatitis C Hypernatremia Schizoaffective disorder Surgical History History of laparotomy Family History Other No pertinent family history in first degree relatives Social History Preferred Language: Greek Communication Ability: Effective Garage Helper Required: No Beliefs That Will Affect Care: None Current Living Situation: Other Current Living Situation Comment: halfway Feels Safe at Home: Declines to Answer Smoking Status: Former smoker Tobacco Type: cigarettes ; Cigarettes Per Day: 1 pack per day ; Second Hand Exposure: No ; Hx Alcohol Use: No Hx Substance Use: No Review of Systems Review of Systems: Unobtainable due to mental health condition Physical Exam Physical Exam: General: patient resting in bed, NAD, spit mask in place, will answer "Yes" or "No", otherwise does not answer questions appropriately, oriented x 0 Skin: warm, dry, intact, no rashes or lesions HEENT: NC/AT, PERRL, EOMI, anicteric sclera, conjunctiva without injection, external ear normal to inspection and nontender, nares patent, neck supple, trachea midline, no LAD, no thyromegaly, no JVD Heart: +S1/S2, regular, no m/r/g Lungs: equal air entry bilaterally, no rales/rhonchi/wheezes Abd: +BS, soft, NT/ND, no masses/organomegaly/ascites Ext: warm, 2+ pulses in UE/LE bilaterally, no clubbing/cyanosis or edema Neuro: grossly nonfocal, moving all extremities, patient answers "Yes" or "No", does not follow commands, oriented x 0 Results & Data Results & Data ([facility]) Vital Signs (Past 12 Hours) Vital Signs Temp Pulse Pulse Resp BP BP Pulse Ox 04/23/20 21:00 100 H 14 124/80 98 04/23/20 20:19 105 H 20 161/99 H 96 04/23/20 19:30 106 H 17 161/96 H 100 04/23/20 19:02 105 H 22 154/77 H 100 04/23/20 18:34 106 H 22 157/75 H 100 04/23/20 18:30 107 H 21 154/74 H 100 04/23/20 18:01 105 H 22 99 04/23/20 18:00 107 H 18 152/77 H 99 04/23/20 17:42 113 H 21 99 04/23/20 17:41 113 H 16 136/91 99 04/23/20 17:40 110 H 15 98 04/23/20 17:12 112 H 22 99 04/23/20 17:08 110 H 20 143/79 H 96 04/23/20 17:06 110 H 23 143/79 H 99 04/23/20 16:30 36.3 C L 138 H 20 155/100 H 95 Laboratory Results Lab Results 04/23/20 04/23/20 04/23/20 Range/Units 17:12 17:12 17:12 WBC 6.65 (4.8-10.8) K/uL RBC 4.42 L (4.7-6.1) M/uL Hgb 12.3 L (14.0-18.0) g/dL Hct 37.9 L (42-52) % MCV 85.7 (80-100) fL MCH 27.8 (25-34) pg MCHC 32.5 (32-36) g/dL RDW Std Deviation 50.9 H (36.4-46.3) fL RDW Coeff of Shamar 16.3 H (11.5-14.5) % Plt Count 120 L (130-400) K/uL MPV 11.5 H (7.4-10.4) fL Immature Gran % (Auto) 0.3 % Neut % (Auto) 66.3 % Lymph % (Auto) 24.8 % Wilkinson % (Auto) 8.6 % Eos % (Auto) 0.0 % Baso % (Auto) 0.0 % Neut # (Auto) 4.41 (1.4-6.5) K/uL Lymph # (Auto) 1.65 (1.2-3.4) K/uL Wilkinson # (Auto) 0.57 (0.11-0.59) K/uL Eos # (Auto) 0.00 (0-0.5) K/uL Baso # (Auto) 0.00 (0-0.2) K/uL Immature Gran # (Auto) 0.02 (0.00-0.02) K/uL VBG pH VBG pCO2 VBG pO2 VBG HCO3 VBG O2 Saturation VBG Base Excess Barometric Pressure Sodium 145 (136-145) mmol/L Potassium 3.5 (3.5-5.1) mmol/L Chloride 113 H (98-107) mmol/L Carbon Dioxide 19 L (21-32) mmol/L Anion Gap 14.0 H (3-11) BUN 50 H (7-18) mg/dl Creatinine 2.40 H (0.6-1.4) mg/dl Est Cr Clr Drug Dosing Not Reportable Est GFR ( Amer) 32.8 Est GFR (Non-Af Amer) 28.3 BUN/Creatinine Ratio 20.8 H (10-20) Glucose 133 H (70-99) mg/dl POC Glucose (70-99) mg/dl Calcium 10.0 (8.5-10.1) mg/dl Phosphorus (2.5-4.9) mg/dl Magnesium (1.8-2.4) mg/dl Total Bilirubin 0.7 (0.2-1) mg/dl AST 41 H (15-37) U/L ALT 31 (12-78) U/L Alkaline Phosphatase 108 (45-117) U/L Ammonia (11-32) umol/L Total Creatine Kinase (39-308) U/L Troponin I < 0.015 (0-0.045) ng/ml Total Protein 8.7 H (6.4-8.2) gm/dl Albumin 4.1 (3.4-5.0) gm/dl Globulin 4.6 H (2.5-4.0) gm/dl Albumin/Globulin Ratio 0.9 (0.9-2) TSH 0.325 (0.300-4.500) uIu/ml Urine Color Urine Appearance (Clear) Urine pH (4.5-7.5) Ur Specific [place] (1.000-1.030) Urine Protein (Negative) Urine Glucose (UA) (Negative) Urine Ketones (Negative) Urine Blood (Negative) Urine Nitrite (Negative) Urine Bilirubin (Negative) Urine Urobilinogen (Negative) Ur Leukocyte Esterase (Negative) Urine WBC (Auto) (0-5) /hpf Urine RBC (Auto) (0-4) /hpf U Hyaline Cast (Auto) (0-5) /lpf U Epithel Cells (Auto) (0-5) /lpf Urine Bacteria (Auto) (Negative) Salicylates 2.2 L (2.8-20) mg/dl Urine Opiates Screen (Neg) Ur Methadone, Qual (Neg) Acetaminophen < 2 L (10-30) ug/ml Urine Barbiturates (Neg) Ur Phencyclidine (PCP) (Neg) U Amphetamin/Meth Scrn (Neg) MDMA (Ecstasy) Screen (Neg) U Benzodiazepines Scrn (Neg) Sheyenne < 0.2 L (0.6-1.2) mmol/L Ur Cocaine Metabolite (Neg) U Marijuana (THC) Screen (Neg) Ethyl Alcohol mg/dL (0-3) mg/dl 04/23/20 04/23/20 04/23/20 Range/Units 17:12 17:12 17:26 WBC (4.8-10.8) K/uL RBC (4.7-6.1) M/uL Hgb (14.0-18.0) g/dL Hct (42-52) % MCV (80-100) fL MCH (25-34) pg MCHC (32-36) g/dL RDW Std Deviation (36.4-46.3) fL RDW Coeff of Shamar (11.5-14.5) % Plt Count (130-400) K/uL MPV (7.4-10.4) fL Immature Gran % (Auto) % Neut % (Auto) % Lymph % (Auto) % Wilkinson % (Auto) % Eos % (Auto) % Baso % (Auto) % Neut # (Auto) (1.4-6.5) K/uL Lymph # (Auto) (1.2-3.4) K/uL Wilkinson # (Auto) (0.11-0.59) K/uL Eos # (Auto) (0-0.5) K/uL Baso # (Auto) (0-0.2) K/uL Immature Gran # (Auto) (0.00-0.02) K/uL VBG pH Cancelled VBG pCO2 Cancelled VBG pO2 Cancelled VBG HCO3 Cancelled VBG O2 Saturation Cancelled VBG Base Excess Cancelled Barometric Pressure Cancelled Sodium (136-145) mmol/L Potassium (3.5-5.1) mmol/L Chloride (98-107) mmol/L Carbon Dioxide (21-32) mmol/L Anion Gap (3-11) BUN (7-18) mg/dl Creatinine (0.6-1.4) mg/dl Est Cr Clr Drug Dosing Est GFR ( Amer) Est GFR (Non-Af Amer) BUN/Creatinine Ratio (10-20) Glucose (70-99) mg/dl POC Glucose (70-99) mg/dl Calcium (8.5-10.1) mg/dl Phosphorus (2.5-4.9) mg/dl Magnesium (1.8-2.4) mg/dl Total Bilirubin (0.2-1) mg/dl AST (15-37) U/L ALT (12-78) U/L Alkaline Phosphatase (45-117) U/L Ammonia (11-32) umol/L Total Creatine Kinase (39-308) U/L Troponin I (0-0.045) ng/ml Total Protein (6.4-8.2) gm/dl Albumin (3.4-5.0) gm/dl Globulin (2.5-4.0) gm/dl Albumin/Globulin Ratio (0.9-2) TSH (0.300-4.500) uIu/ml Urine Color Urine Appearance (Clear) Urine pH (4.5-7.5) Ur Specific [place] (1.000-1.030) Urine Protein (Negative) Urine Glucose (UA) (Negative) Urine Ketones (Negative) Urine Blood (Negative) Urine Nitrite (Negative) Urine Bilirubin (Negative) Urine Urobilinogen (Negative) Ur Leukocyte Esterase (Negative) Urine WBC (Auto) (0-5) /hpf Urine RBC (Auto) (0-4) /hpf U Hyaline Cast (Auto) (0-5) /lpf U Epithel Cells (Auto) (0-5) /lpf Urine Bacteria (Auto) (Negative) Salicylates (2.8-20) mg/dl Urine Opiates Screen Neg (Neg) Ur Methadone, Qual Neg (Neg) Acetaminophen (10-30) ug/ml Urine Barbiturates Neg (Neg) Ur Phencyclidine (PCP) Neg (Neg) U Amphetamin/Meth Scrn Neg (Neg) MDMA (Ecstasy) Screen Neg (Neg) U Benzodiazepines Scrn Neg (Neg) Sheyenne (0.6-1.2) mmol/L Ur Cocaine Metabolite Neg (Neg) U Marijuana (THC) Screen Neg (Neg) Ethyl Alcohol mg/dL < 3.0 (0-3) mg/dl 04/23/20 04/23/20 04/23/20 Range/Units 17:26 18:40 22:16 WBC (4.8-10.8) K/uL RBC (4.7-6.1) M/uL Hgb (14.0-18.0) g/dL Hct (42-52) % MCV (80-100) fL MCH (25-34) pg MCHC (32-36) g/dL RDW Std Deviation (36.4-46.3) fL RDW Coeff of Shamar (11.5-14.5) % Plt Count (130-400) K/uL MPV (7.4-10.4) fL Immature Gran % (Auto) % Neut % (Auto) % Lymph % (Auto) % Wilkinson % (Auto) % Eos % (Auto) % Baso % (Auto) % Neut # (Auto) (1.4-6.5) K/uL Lymph # (Auto) (1.2-3.4) K/uL Wilkinson # (Auto) (0.11-0.59) K/uL Eos # (Auto) (0-0.5) K/uL Baso # (Auto) (0-0.2) K/uL Immature Gran # (Auto) (0.00-0.02) K/uL VBG pH 7.39 VBG pCO2 35 L VBG pO2 48 VBG HCO3 20 VBG O2 Saturation 81.1 VBG Base Excess -3.9 Barometric Pressure 730.5 Sodium (136-145) mmol/L Potassium (3.5-5.1) mmol/L Chloride (98-107) mmol/L Carbon Dioxide (21-32) mmol/L Anion Gap (3-11) BUN (7-18) mg/dl Creatinine (0.6-1.4) mg/dl Est Cr Clr Drug Dosing Est GFR ( Amer) Est GFR (Non-Af Amer) BUN/Creatinine Ratio (10-20) Glucose (70-99) mg/dl POC Glucose 145 H (70-99) mg/dl Calcium (8.5-10.1) mg/dl Phosphorus (2.5-4.9) mg/dl Magnesium (1.8-2.4) mg/dl Total Bilirubin (0.2-1) mg/dl AST (15-37) U/L ALT (12-78) U/L Alkaline Phosphatase (45-117) U/L Ammonia (11-32) umol/L Total Creatine Kinase (39-308) U/L Troponin I (0-0.045) ng/ml Total Protein (6.4-8.2) gm/dl Albumin (3.4-5.0) gm/dl Globulin (2.5-4.0) gm/dl Albumin/Globulin Ratio (0.9-2) TSH (0.300-4.500) uIu/ml Urine Color Yellow Urine Appearance Clear (Clear) Urine pH 5.0 (4.5-7.5) Ur Specific [place] 1.020 (1.000-1.030) Urine Protein Trace H (Negative) Urine Glucose (UA) Negative (Negative) Urine Ketones 2+ H (Negative) Urine Blood Negative (Negative) Urine Nitrite Negative (Negative) Urine Bilirubin Negative (Negative) Urine Urobilinogen Negative (Negative) Ur Leukocyte Esterase Negative (Negative) Urine WBC (Auto) 1-5 (0-5) /hpf Urine RBC (Auto) 0-4 (0-4) /hpf U Hyaline Cast (Auto) 1-5 (0-5) /lpf U Epithel Cells (Auto) 5-10 H (0-5) /lpf Urine Bacteria (Auto) Negative (Negative) Salicylates (2.8-20) mg/dl Urine Opiates Screen (Neg) Ur Methadone, Qual (Neg) Acetaminophen (10-30) ug/ml Urine Barbiturates (Neg) Ur Phencyclidine (PCP) (Neg) U Amphetamin/Meth Scrn (Neg) MDMA (Ecstasy) Screen (Neg) U Benzodiazepines Scrn (Neg) Sheyenne (0.6-1.2) mmol/L Ur Cocaine Metabolite (Neg) U Marijuana (THC) Screen (Neg) Ethyl Alcohol mg/dL (0-3) mg/dl 04/23/20 04/23/20 Range/Units 22:38 22:38 WBC (4.8-10.8) K/uL RBC (4.7-6.1) M/uL Hgb (14.0-18.0) g/dL Hct (42-52) % MCV (80-100) fL MCH (25-34) pg MCHC (32-36) g/dL RDW Std Deviation (36.4-46.3) fL RDW Coeff of Shamar (11.5-14.5) % Plt Count (130-400) K/uL MPV (7.4-10.4) fL Immature Gran % (Auto) % Neut % (Auto) % Lymph % (Auto) % Wilkinson % (Auto) % Eos % (Auto) % Baso % (Auto) % Neut # (Auto) (1.4-6.5) K/uL Lymph # (Auto) (1.2-3.4) K/uL Wilkinson # (Auto) (0.11-0.59) K/uL Eos # (Auto) (0-0.5) K/uL Baso # (Auto) (0-0.2) K/uL Immature Gran # (Auto) (0.00-0.02) K/uL VBG pH VBG pCO2 VBG pO2 VBG HCO3 VBG O2 Saturation VBG Base Excess Barometric Pressure Sodium (136-145) mmol/L Potassium (3.5-5.1) mmol/L Chloride (98-107) mmol/L Carbon Dioxide (21-32) mmol/L Anion Gap (3-11) BUN (7-18) mg/dl Creatinine (0.6-1.4) mg/dl Est Cr Clr Drug Dosing Est GFR ( Amer) Est GFR (Non-Af Amer) BUN/Creatinine Ratio (10-20) Glucose (70-99) mg/dl POC Glucose (70-99) mg/dl Calcium (8.5-10.1) mg/dl Phosphorus 5.0 H (2.5-4.9) mg/dl Magnesium 2.5 H (1.8-2.4) mg/dl Total Bilirubin (0.2-1) mg/dl AST (15-37) U/L ALT (12-78) U/L Alkaline Phosphatase (45-117) U/L Ammonia < 10.0 L (11-32) umol/L Total Creatine Kinase 932 H (39-308) U/L Troponin I (0-0.045) ng/ml Total Protein (6.4-8.2) gm/dl Albumin (3.4-5.0) gm/dl Globulin (2.5-4.0) gm/dl Albumin/Globulin Ratio (0.9-2) TSH (0.300-4.500) uIu/ml Urine Color Urine Appearance (Clear) Urine pH (4.5-7.5) Ur Specific [place] (1.000-1.030) Urine Protein (Negative) Urine Glucose (UA) (Negative) Urine Ketones (Negative) Urine Blood (Negative) Urine Nitrite (Negative) Urine Bilirubin (Negative) Urine Urobilinogen (Negative) Ur Leukocyte Esterase (Negative) Urine WBC (Auto) (0-5) /hpf Urine RBC (Auto) (0-4) /hpf U Hyaline Cast (Auto) (0-5) /lpf U Epithel Cells (Auto) (0-5) /lpf Urine Bacteria (Auto) (Negative) Salicylates (2.8-20) mg/dl Urine Opiates Screen (Neg) Ur Methadone, Qual (Neg) Acetaminophen (10-30) ug/ml Urine Barbiturates (Neg) Ur Phencyclidine (PCP) (Neg) U Amphetamin/Meth Scrn (Neg) MDMA (Ecstasy) Screen (Neg) U Benzodiazepines Scrn (Neg) Sheyenne (0.6-1.2) mmol/L Ur Cocaine Metabolite (Neg) U Marijuana (THC) Screen (Neg) Ethyl Alcohol mg/dL (0-3) mg/dl Diagnostic Findings SINGLE VIEW CHEST CLINICAL HISTORY: Change in mental status. FINDINGS: 2 AP, portable, upright chest radiographs on compared to study dated 09/12/2019. The examination is degraded by portable technique and patient rotation. The cardiomediastinal silhouette is unremarkable. Question a nodular opacity adjacent to the aortic arch. There is no airspace consolidation or pleural effusion. No pneumothorax is seen. The skeletal structures are osteopenic. The bony thorax is grossly intact. IMPRESSION: 1. No acute cardiopulmonary abnormality. 2. Question a nodular opacity adjacent to the aortic arch. This may artifactual. Correlation with a contrast-enhanced chest CT is recommended for further assessment. ACT 112: Negative or not required by law. Electronically signed by: Dennis Menon M.D. 04/23/2020 5:56 PM Dictated: [id number] Transcribed: 04/23/[address] SCAN OF THE BRAIN WITHOUT IV CONTRAST CLINICAL HISTORY: Change in mental status. COMPARISON STUDY: CT of the brain dated 09/12/2019. TECHNIQUE: Unenhanced axial CT scan of the brain is performed from the vertex to the skull base. A dose lowering technique was utilized adhering to the principles of ALARA. CT DOSE: 614.27 mGy.cm FINDINGS: Brain parenchyma: The brain parenchyma is normal in appearance. There is no hemorrhage, mass effect, or evidence of acute territorial ischemia by CT criteria. Baker-white matter differentiation is preserved. No extra-axial fluid collection is seen. Ventricles, sulci, cisterns: Normal in configuration. Intracranial vasculature: There is atherosclerotic calcification of the cavernous carotid arteries. Calvarium: Unremarkable. Sinuses and mastoids: The visualized paranasal sinuses are clear. The mastoid air cells are well pneumatized. Orbits: The bony orbits are grossly intact. IMPRESSION: There is no hemorrhage, mass effect, or evidence of acute territorial ischemia by CT criteria. ACT 112: Negative or not required by law. Electronically signed by: Dennis Menon M.D. 04/23/2020 5:49 PM Dictated: 04/23/20 1745 Transcribed: 04/23/[address] SCAN OF THE ABDOMEN AND PELVIS WITHOUT IV CONTRAST CLINICAL HISTORY: Change in mental status. COMPARISON STUDY: Abdominal CT dated 08/28/2019. TECHNIQUE: CT scan of the abdomen and pelvis is performed from the lung bases to the proximal femora. Images are reviewed in the axial, sagittal, and coronal planes. IV contrast was not administered for this examination due to poor renal function. Note that the examination is suboptimal without oral and IV contrast. Examination is compromised by motion artifact. A dose lowering technique was utilized adhering to the principles of ALARA. CT DOSE: 311.37 mGy.cm FINDINGS: Lung bases: The heart is normal in size and without pericardial effusion. Emphysematous changes suspected. The lung bases are clear noting dependent atelectasis. Liver: The unenhanced liver is normal in size, contour, and attenuation. There is no intrahepatic biliary ductal dilatation. Gallbladder: Unremarkable. Spleen: The spleen is enlarged measuring 14.5 cm in length. Pancreas: The unenhanced pancreas is moderately atrophic and grossly unremarkable. Adrenal glands: Unremarkable. Kidneys: The unenhanced kidneys are normal in size and without hydronephrosis. There are no renal calculi identified. A 12 mm complex/hyperdense cyst is noted in the upper pole of left kidney. Abdominal vasculature: There is advanced atherosclerotic change seen in the abdominal aorta. An infrarenal abdominal aortic aneurysm measures 5.2 cm in AP diameter and 5.9 cm in transverse diameter. Bowel: There is rectosigmoid fecal retention and moderate constipation. No bowel obstruction is seen. The appendix is not visualized. Peritoneum: There is no intraperitoneal free air or abdominal ascites. Lymphadenopathy: A mildly enlarged right pelvic sidewall lymph node on image #352 measures 1.5 x 1.3 cm. There are mildly enlarged retroperitoneal lymph nodes a 1.6 x 1.3 cm left-sided node seen above the iliac bifurcation image #[id number]. The left external iliac chain on image #94 measures 2.4 x 1.4 cm. Pelvic viscera: The prostate gland is mildly enlarged and heterogeneous noting median lobe hypertrophy. The bladder is distended but otherwise normal as imaged. Skeletal structures: The skeletal structures are osteopenic. Mild lumbosacral spondylosis is observed. No lytic or blastic lesions are seen. Soft tissues: The patient is cachectic. IMPRESSION: 1. Suboptimal examination without oral and IV contrast. The examination is also compromised by motion artifact. 2. There are no acute infectious or inflammatory findings in the abdomen or pelvis. 3. There is a 5.2 x 5.9 cm infrarenal abdominal aortic aneurysm. This is similar in appearance to the 08/28/2019 examination. Vascular surgical follow-up is recommended. 4. There is rectosigmoid fecal retention and moderate constipation. No bowel obstruction is seen. 5. Splenomegaly. 6. Mildly enlarged retroperitoneal, iliac chain, and right pelvic sidewall lymph nodes are nonspecific and similar to previous. 7. Additional findings as above. ACT 112: Negative or not required by law. Electronically signed by: Dennis Menon M.D. 04/23/2020 8:06 PM Dictated: 04/23/201955 Transcribed: 04/23/201955 ECG Additional Comments: The study shows sinus tachycardia at 110 bpm, normal axis, VN=249, DMH=339, XFy=678, no acute ischemic changes present Code Status & VTE Plan Code Status FULL PG Care Time/CCT Total # of Minutes Spent Total Time Spent with Patient: Total time spent is greater than 50% in coordination of care (as documented) at patient's floor/unit and/or counseling patient: Coding Level of Care Code 25186 Initial Inpt Care Lvl 3 Diagnoses Altered mental status R41.82 Altered mental status type: unspecified DESIREE (acute kidney injury) N17.9 Schizoaffective disorder, bipolar type F25.0 Diabetes mellitus E11.65 Diabetes mellitus type: type 2 Diabetes mellitus terminal supervisor insulin use: without senior care use Diabetes mellitus complication status: with hyperglycemia Dementia F03.91 Dementia type: unspecified type Dementia behavioral disturbance: with behavioral disturbance Diabetes insipidus E23.2 B12 deficiency E53.8 AAA (abdominal aortic aneurysm) I71.4 Presence of rupture: without rupture Lung nodule R91.1 (1) Altered mental status Altered mental status type: unspecified Qualified Code(s): R41.82 - Altered mental status, unspecified (2) Diabetes mellitus Diabetes mellitus type: type 2 Diabetes mellitus terminal supervisor insulin use: without terminal supervisor use Diabetes mellitus complication status: with hyperglycemia Qualified Code(s): E11.65 - Type 2 diabetes mellitus with hyperglycemia (3) Dementia Dementia type: unspecified type Dementia behavioral disturbance: with behavi oral disturbance Qualified Code(s): F03.91 - Unspecified dementia with behavioral disturbance (4) AAA (abdominal aortic aneurysm) Presence of rupture: without rupture Qualified Code(s): I71.4 - Abdominal aortic aneurysm, without rupture
[2020-04-23] MEDS ORDERED: ACETAMINOPHEN 325 MG TAB PO PRN (22:00)
[2020-04-23] MEDS ORDERED: DEXTROSE 50% 50 ML SYRINGE IV PRN (22:00)
[2020-04-23] MEDS ORDERED: GLUCAGON FOR INJ 1 MG VIAL SQ PRN (22:00)
[2020-04-23] MEDS ORDERED: CARBOHYDRATES FOR HYPOGLYCEMIA PO PRN (22:00)
[2020-04-23] MEDS ORDERED: GLUCOSE 10 TABS/TUBE PO PRN (22:00)
[2020-04-23] MEDS ORDERED: GLUCOSE 40% GEL 15 GM TUBE PO PRN (22:00)
[2020-04-23] MEDS ORDERED: bisacodyL 10 MG SUPP PR PRN (22:00)
[2020-04-23] MEDS ORDERED: POLYETHYLENE (MIRALAX) 17 GM PACK PO PRN (22:00)
[2020-04-23] MEDS: LACTATED RINGER'S 1,000 ML IV SCH (22:37)
[2020-04-23] MEDS: OLANZapine 10 MG TAB PO SCH (22:44)
[2020-04-23] MEDS: cloZAPine 100 MG TAB PO SCH (22:44)
[2020-04-23] MEDS: DOCUSATE SODIUM 100 MG CAP PO SCH (22:44)
[2020-04-23] MEDS: MEMANTINE HCL 10 MG TAB PO SCH (22:44)
[2020-04-23] MEDS: PROPRANOLOL HCL 20 MG TAB PO SCH (22:44)
[2020-04-23] MEDS: DIVALPROEX DELAY RELEASE 250 MG TABEC PO SCH (22:44)
[2020-04-23] MEDS: DESMOPRESSIN ACETATE 0.1 MG TAB PO SCH (22:44)
[2020-04-23] MEDS: INSULIN ASPART 100 UNITS/ML 3 ML PEN SC SCH (22:49)
[2020-04-23 23:10] LABS: Magnesium 2.5 mg/dl (1.8-2.4)
[2020-04-24 06:06] LABS: Hematocrit (blood only) 37.7 % (42-52); Hemoglobin 11.8 g/dL (14.0-18.0); Immature Granulocytes # (auto) 0.01 K/uL (0.00-0.02); Immature Granulocytes % (auto) 0.2 %; Lymphocytes # (auto) 1.77 K/uL (1.2-3.4); Lymphocytes % (auto) 30.2 %; Mean Corpuscular Hemoglobin 26.7 pg (25-34); Mean Corpuscular Hgb Conc 31.3 g/dL (32-36); Mean Corpuscular Volume 85.3 fL (80-100); Mean Platelet Volume 11.8 fL (7.4-10.4); Monocytes # (auto) 0.86 K/uL (0.11-0.59); Monocytes % (auto) 14.7 %; Neutrophils # (auto) 3.22 K/uL (1.4-6.5); Neutrophils % (auto) 54.9 %; Platelet Count 106 K/uL (130-400); RDW Coefficient of Variation 16.3 % (11.5-14.5); RDW Standard Deviation 50.7 fL (36.4-46.3); Red Blood Count 4.42 M/uL (4.7-6.1); White Blood Count 5.86 K/uL (4.8-10.8)
[2020-04-24] MEDS ORDERED: LORazepam 2 MG/4 ML VIAL IV ONE (06:15)
[2020-04-24] MEDS: LACTATED RINGER'S 1,000 ML IV SCH (06:18)
[2020-04-24] MEDS: cloZAPine 100 MG TAB PO SCH ×2 (06:23→21:34)
[2020-04-24] MEDS: FERROUS SULFATE 325 MG TAB PO SCH (06:24)
[2020-04-24] MEDS: PROPRANOLOL HCL 20 MG TAB PO SCH ×3 (06:24→21:35)
[2020-04-24] MEDS: CYANOCOBALAMIN 500 MCG TABLET (VITAMIN B-12) PO SCH (06:24)
[2020-04-24] MEDS: DIVALPROEX DELAY RELEASE 250 MG TABEC PO SCH ×2 (06:24→21:34)
[2020-04-24] MEDS: AMLODIPINE BESYLATE 5 MG TAB PO SCH (06:24)
[2020-04-24] MEDS: MEMANTINE HCL 10 MG TAB PO SCH ×2 (06:25→21:34)
[2020-04-24 06:47] LABS: Albumin Level 3.6 gm/dl (3.4-5.0); BUN Creatinine Ratio 21.9 (10-20); Bilirubin Direct 0.1 mg/dl (0-0.2); Calcium 9.5 mg/dl (8.5-10.1); Creatinine Clr Calc Pharmacy 52.1 ml/min; Est GFR (African American) 49.7; Est GFR (Non-African American) 42.9; Potassium 3.4 mmol/L (3.5-5.1)
[2020-04-24 06:51] LABS: Bilirubin,Total 0.7 mg/dl (0.2-1); Phosphorus 3.9 mg/dl (2.5-4.9); Total Protein 7.8 gm/dl (6.4-8.2)
[2020-04-24 07:10] LABS: Estimated Average Glucose 146 mg/dl; Hemoglobin A1C 6.7 % (4.5-5.6)
[2020-04-24] MEDS ORDERED: SODIUM CHLOR 0.45% + 20MEQ KCL 20 MEQ/1,000 ML BAG IV SCH (09:30)
[2020-04-24] MEDS: HEPARIN SOD 5,000 UNIT/0.5 ML VIAL SQ SCH ×2 (09:44→21:35)
[2020-04-24] MEDS: INSULIN ASPART 100 UNITS/ML 3 ML PEN SC SCH ×4 (09:46→21:39)
--- NOTE | 2020-04-24 16:40 | Hospitalist Progress Note ---
Date of Service April 24, 2020 Assessment & Plan (1) Altered mental status: 60yo male inmate at [facility] presenting for medical evaluation of functional decline, abnormal behavior, ?delirium. Patient with history of Schizoaffective bipolar type and dementia. His psychiatric illness is typically well managed on his current regimen of Clozaril, Zyrexa, Memantine and newly added Depakote. Laboratory workup significant for DESIREE with BUN of 50 and Cr of 2.4 (increased from prior values of 17 and 1.28, respectively on 12/05/19) which could be contributing to patient's recent behavioral disturbances. Electrolytes, TSH, Ammonia, Utox and CT head are unremarkable. -Frequent orientation to self, location, date and situation -Avoid interruptions in sleep -Treatment of other medical conditions as below. If patient's symptoms fail to improve with correction of DESIREE and continuation of his medications will pursue additional workup for AMS. Today however he spent most of his day sleeping after administration of lorazepam overnight and this morning. This afternoon he is more wakeful, talking with nursing. (2) DESIREE (acute kidney injury): Patient with non-oliguric DESIREE. BUN=50, Cr=2.9 on admission, previous creat 1.28. CT of the abdomen performed which revealed normal kidneys without hydronephrosis or obstruction. DESIREE most likely multifactorial - patient states he has not been eating or drinking well of late. Possible dehydration, component of pre-renal azotemia contributing. Also with mild rhabdomyolysis, elevation in CK to 932 on admission, now trending down. DESIREE may be contributing to patient's recent change in behavior. - Creat 1.7 today - Nursing attempted to place condom catheter to better track output but were unsuccessful so output not well characterized -Avoid nephrotoxic agents -Hold Chlorthalidone - repeat bmp this afternoon (3) Schizoaffective disorder, bipolar type: Patient is managed by Psychiatry at [facility]. Has missed two days of medications prior to admission which could also be contributing to recent decline -Continue Clozapine 200mg po qAM, 300mg po qHS. Normal neutrophil count on today's CBC/differential. -Continue Olanzapine 10mg po qPM - no renal adjustment needed -Continue Depakote 250mg po BID - no renal adjustment needed (4) Diabetes mellitus: Well controlled. HgbA1C on 09/13/19 = 6.9. Blood sugar = 133 today. -Hold Metformin while inpatient and in setting of DESIREE -Insulin sliding scale - CF 40, CR 20 for goal blood sugar 100 - 140 -Consistent carb diet as tolerated - Blood sugars acceptable (5) Dementia: Patient with underlying dementia -Continue Memantine -Delirium prevention strategies with frequent orientation, maintenance of sle ep/wake cycle and ambulation as tolerated -Avoidance of anticholinergics and other potentially delirium-inducing agents where able -Continue [place] qHS (6) Diabetes insipidus: Vb=724 -Monitor chemistry, Na levels - repeat this afternoon for mild hypernatremia -Continue DDAVP 0.05mg po qPM (7) B12 deficiency: Chronic. Patient with stable normochromic/normocytic anemia -Continue B12 supplementation (8) AAA (abdominal aortic aneurysm): Patient found to have a 5.2 x 5.9 cm infrarenal abdominal aortic aneurysm. This is similar in appearance to the 08/28/2019 examination. Vascular surgical follow-up is recommended. Patient was provided with contact information for Dr. Andujar at last hospitalization -Vascular surgery follow-up on discharge Dr. Jese Andujar - [address] [place] [address] [address] in [place]. The office phone number is [phone]. (9) Lung nodule: CXR with possible nodular opacity adjacent to the aortic arch, may be artifactual. Correlation with a contrast CT of the chest is recommended. Patient also with some enlarged lymph nodes noted on CT abdomen and was diagnosed with a supraclavicular lymph node during last hospitalization. ?underlying malignancy vs chronic inflammatory condition? -Consider CT chest with contrast for further workup of possible nodule once patient's renal function improves - will hold off on this today as kidney function is still decreased (10) Hypernatremia: Mild, Na 148 this morning IVF changed to 1/2 NSS 20k Recheck prp this afternoon (11) DVT prophylaxis: Ppx - low risk for DVT, Heparin BID Admission and Anticipated Discharge Date Admission Date: April 23, 2020 Supervising Physician Co-Signing Physician Notes chart reviewed and case d/w S Reji DAVIDSON. as above Subjective Mr. Childers was very somnolent this morning after receiving 2mg of IV lorazepam, unable to awaken though moving limbs spontaneously. Unable to do a ROS. This afternoon nursing reports he is much more alert and interacting. Physical Exam Physical Exam: General: no distress Eyes: normal inspection, PERLL Respiratory: chest non tender, clear to auscultation, normal breath sounds, no respiratory distress, no accessory muscle use Cardiac: regular rate and rhythm, no rub or gallop, no murmur, no edema, no jvd GI/: active bowel sounds, no abd pain or tenderness, soft, non distended Extremities: normal range of motion, normal strength, non tender Neuro/Psych: alert and oriented x 3, normal mood and affect Skin: normal color, dry Results & Data Results & Data ([facility]) Vital Signs (Past 12 Hours) Vital Signs Temp Pulse Resp BP Pulse Ox 04/24/20 15:52 36.7 C 95 H 18 125/74 99 04/24/20 12:42 81 16 121/69 99 04/24/20 09:42 74 16 115/71 99 PG Care Time/CCT Total # of Minutes Spent Total Time Spent with Patient: Total time spent is greater than 50% in coordination of care (as documented) at patient's floor/unit and/or counseling patient: Coding Level of Care Code 44865 Subseq Hosp Care Lvl 3 Diagnoses Altered mental status R41.82 Altered mental status type: unspecified DESIREE (acute kidney injury) N17.9 Schizoaffective disorder, bipolar type F25.0 Diabetes mellitus E11.65 Diabetes mellitus complication status: with hyperglycemia Diabetes mellitus care home insulin use: without adjunct faculty for medical terminology use Diabetes mellitus type: type 2 Dementia F03.91 Dementia behavioral disturbance: with behavioral disturbance Dementia type: unspecified type Diabetes insipidus E23.2 B12 deficiency E53.8 AAA (abdominal aortic aneurysm) I71.4 Presence of rupture: without rupture Lung nodule R91.1 Hypernatremia E87.0 DVT prophylaxis Z29.9 (1) Diabetes mellitus Diabetes mellitus complication status: with hyperglycemia Diabetes mellitus adjunct faculty for medical terminology insulin use: without care home use Diabetes mellitus type: type 2 Qualified Code(s): E11.65 - Type 2 diabetes mellitus with hyperglycemia (2) AAA (abdominal aortic aneurysm) Presence of rupture: without rupture Qualified Code(s): I71.4 - Abdominal aortic aneurysm, without rupture (3) Dementia Dementia behavioral disturbance: with behavioral disturbance Dementia type: unspecified type Qualified Code(s): F03.91 - Unspecified dementia with behavioral disturbance (4) Altered mental status Altered mental status type: unspecified Qualified Code(s): R41.82 - Altered mental status, unspecified
[2020-04-24 17:56] LABS: BUN Creatinine Ratio 20.2 (10-20); Calcium 9.2 mg/dl (8.5-10.1); Creatinine Clr Calc Pharmacy 64.2 ml/min; Est GFR (African American) 63.9; Est GFR (Non-African American) 55.2; Potassium 3.2 mmol/L (3.5-5.1)
[2020-04-24] MEDS ORDERED: POTASSIUM CHLORIDE 20 MEQ TABCR PO STA (18:29)
[2020-04-24] MEDS: POTASSIUM CHLORIDE 40 MEQ in SODIUM CHLORIDE 0.45 % 1,000 ML IV SCH (18:54)
[2020-04-24] MEDS: OLANZapine 10 MG TAB PO SCH (21:34)
[2020-04-24] MEDS: DESMOPRESSIN ACETATE 0.1 MG TAB PO SCH (21:34)
[2020-04-24] MEDS: DOCUSATE SODIUM 100 MG CAP PO SCH (21:35)
--- NOTE | 2020-04-24 21:49 | Electrocardiogram Report ---
Test Reason : Blood Pressure : / mmHG Vent. Rate : 110 BPM Atrial Rate : 110 BPM P-R Int : 162 ms QRS Dur : 100 ms QT Int : 358 ms P-R-T Axes : 083 080 075 degrees QTc Int : 484 ms Sinus tachycardia Possible Left atrial enlargement Incomplete right bundle branch block Nonspecific ST abnormality When compared with ECG of 14-SEP-2019 19:50, Vent. rate has increased BY 51 BPM Confirmed by Jamari Davenport ([id number]) on 04/24/2020 9:49:15 PM Referred By: [facility] Confirmed By:Jamari Davenport
[2020-04-25] MEDS: POTASSIUM CHLORIDE 40 MEQ in SODIUM CHLORIDE 0.45 % 1,000 ML IV SCH ×2 (02:50→10:48)
[2020-04-25] MEDS: DIVALPROEX DELAY RELEASE 250 MG TABEC PO SCH ×2 (08:14→21:39)
[2020-04-25] MEDS: CYANOCOBALAMIN 500 MCG TABLET (VITAMIN B-12) PO SCH (08:15)
[2020-04-25] MEDS: PROPRANOLOL HCL 20 MG TAB PO SCH ×3 (08:15→21:39)
[2020-04-25] MEDS: cloZAPine 100 MG TAB PO SCH ×2 (08:16→21:38)
[2020-04-25] MEDS: FERROUS SULFATE 325 MG TAB PO SCH (08:16)
[2020-04-25] MEDS: MEMANTINE HCL 10 MG TAB PO SCH ×2 (08:17→21:39)
[2020-04-25] MEDS: AMLODIPINE BESYLATE 5 MG TAB PO SCH (08:17)
[2020-04-25] MEDS: HEPARIN SOD 5,000 UNIT/0.5 ML VIAL SQ SCH ×2 (08:18→21:45)
[2020-04-25] MEDS: INSULIN ASPART 100 UNITS/ML 3 ML PEN SC SCH ×4 (09:46→21:44)
[2020-04-25 12:24] LABS: Hematocrit (blood only) 39.9 % (42-52); Hemoglobin 12.6 g/dL (14.0-18.0); Mean Corpuscular Hemoglobin 27.1 pg (25-34); Mean Corpuscular Hgb Conc 31.6 g/dL (32-36); Mean Corpuscular Volume 85.8 fL (80-100); Mean Platelet Volume 11.1 fL (7.4-10.4); Platelet Count 105 K/uL (130-400); RDW Coefficient of Variation 16.2 % (11.5-14.5); RDW Standard Deviation 50.5 fL (36.4-46.3); Red Blood Count 4.65 M/uL (4.7-6.1); White Blood Count 5.14 K/uL (4.8-10.8)
[2020-04-25 13:00] LABS: Calcium 9.8 mg/dl (8.5-10.1); Est GFR (African American) 79.7; Est GFR (Non-African American) 68.8; Phosphorus 2.1 mg/dl (2.5-4.9); Potassium 4.4 mmol/L (3.5-5.1)
[2020-04-25] MEDS: SODIUM CHLOR 0.45% + 20MEQ KCL 20 MEQ/1,000 ML BAG IV SCH ×2 (14:14→21:44)
--- NOTE | 2020-04-25 15:12 | Hospitalist Progress Note ---
Date of Service April 25, 2020 Assessment & Plan (1) Altered mental status: 60yo male inmate at [facility] presenting for medical evaluation of functional decline, abnormal behavior, ?delirium. Patient with history of Schizoaffective bipolar type and dementia. His psychiatric illness is typically well managed on his current regimen of Clozaril, Zyrexa, Memantine and newly added Depakote. Laboratory workup significant for DESIREE with BUN of 50 and Cr of 2.4 (increased from prior values of 17 and 1.28, respectively on 12/05/19) which could be contributing to patient's recent behavioral disturbances. Electrolytes, TSH, Ammonia, Utox and CT head are unremarkable. -Frequent orientation to self, location, date and situation -Avoid interruptions in sleep -Treatment of other medical conditions as below. (2) DESIREE (acute kidney injury): Patient with non-oliguric DESIREE. BUN=50, Cr=2.9 on admission, previous creat 1.28. CT of the abdomen performed which revealed normal kidneys without hydronephrosis or obstruction. DESIREE most likely multifactorial - patient stated he has not been eating or drinking well of late. Possible dehydration, component of pre-renal azotemia contributing. Also with mild rhabdomyolysis, elevation in CK to 932 on admission, now trending down. DESIREE may be contributing to patient's recent change in behavior. - Creat now wnl -Avoid nephrotoxic agents -Hold Chlorthalidone (3) Schizoaffective disorder, bipolar type: Patient is managed by Psychiatry at [facility]. Has missed two days of medications prior to admission which could also be contributing to recent declin e -Continue Clozapine 200mg po qAM, 300mg po qHS. Normal neutrophil count on today's CBC/differential. -Continue Olanzapine 10mg po qPM - no renal adjustment needed -Continue Depakote 250mg po BID - no renal adjustment needed (4) Diabetes mellitus: Well controlled. HgbA1C on 09/13/19 = 6.9. -Hold Metformin while inpatient and in setting of DESIREE -Insulin sliding scale - CF 40, CR 20 for goal blood sugar 100 - 140 -Consistent carb diet as tolerated - Blood sugars acceptable (5) Dementia: Patient with underlying dementia -Continue Memantine -Delirium prevention strategies with frequent orientation, maintenance of sleep/wake cycle and ambulation as tolerated -Avoidance of anticholinergics and other potentially delirium-inducing agents where able -Continue [place] qHS (6) Diabetes insipidus: Na peaked at 148, 146 today -Continue 1/2NSS with 20K @ 125 ml/hr -Continue DDAVP 0.05mg po qPM (7) B12 deficiency: Chronic. Patient with stable normochromic/normocytic anemia -Continue B12 supplementation (8) AAA (abdominal aortic aneurysm): Patient found to have a 5.2 x 5.9 cm infrarenal abdominal aortic aneurysm. This is similar in appearance to the 08/28/2019 examination. Vascular surgical follow-up is recommended. Patient was provided with contact information for Dr. Andujar at last hospitalization -Vascular surgery follow-up on discharge Dr. Jese Andujar - [address] [facility] [facility] [address] in [place]. The office phone number is [phone]. (9) Lung nodule: CXR with possible nodular opacity adjacent to the aortic arch, may be artifactual. Correlation with a contrast CT of the chest is recommended. Patient also with some enlarged lymph nodes noted on CT abdomen and was diagnosed with a supraclavicular lymph node during last hospitalization. ?underlying malignancy vs chronic inflammatory condition? -Consider CT chest with contrast for further workup of possible nodule once patient's renal function improves - will hold off on this today as patient does not seem like he would be able to be still for an image. May need his delirium to resolve before sending him for this (10) Hypernatremia: Mild and improving Continue 1/2 NSS 20k for tonight. Will discontinue am if Na is normal in the morning and see how his electrolytes do over the following 24 hours without IVF. (11) DVT prophylaxis: Ppx - low risk for DVT, Heparin BID dispo: If he is able to maintain his electrolytes after 24 hours without IVF period, can likely discharge back to the [facility] with further care from [facility] psychiatry Admission and Anticipated Discharge Date Admission Date: April 23, 2020 Supervising Physician Co-Signing Physician Notes chart reviewed and case d/w S Reji DAVIDSON. as above Subjective Mr. Childers is very alert today but though speaking quite a bit it is nonsensical and he is unable to answer ROS. Physical Exam Physical Exam: General: no distress Eyes: normal inspection, PERLL Respiratory: chest non tender, clear to auscultation, normal breath sounds, no respiratory distress, no accessory muscle use Cardiac: regular rate and rhythm, no rub or gallop, no murmur, no edema, no jvd GI/: active bowel sounds, no abd pain or tenderness, soft, non distended Extremities: normal range of motion, normal strength, non tender Neuro/Psych: alert, manic affect Skin: normal color, dry Results & Data Results & Data ([facility]) Vital Signs (Past 12 Hours) Vital Signs Temp Pulse Resp BP Pulse Ox 04/25/20 14:18 101 H 163/95 H 04/25/20 07:31 36.4 C L 103 H 20 159/87 H 99 PG Care Time/CCT Total # of Minutes Spent Total Time Spent with Patient: Total time spent is greater than 50% in coordination of care (as documented) at patient's floor/unit and/or counseling patient: Coding Level of Care Code 99971 Subseq Hosp Care Lvl 3 Diagnoses Altered mental status R41.82 Altered mental status type: unspecified DESIREE (acute kidney injury) N17.9 Schizoaffective disorder, bipolar type F25.0 Diabetes mellitus E11.65 Diabetes mellitus complication status: with hyperglycemia Diabetes mellitus group home insulin use: without group home use Diabetes mellitus type: type 2 Dementia F03.91 Dementia behavioral disturbance: with behavioral disturbance Dementia type: unspecified type Diabetes insipidus E23.2 B12 deficiency E53.8 AAA (abdominal aortic aneurysm) I71.4 Presence of rupture: without rupture Lung nodule R91.1 Hypernatremia E87.0 DVT prophylaxis Z29.9 (1) Diabetes mellitus Diabetes mellitus complication status: with hyperglycemia Diabetes mellitus group home insulin use: without intermediate teacher use Diabetes mellitus type: type 2 Qualified Code(s): E11.65 - Type 2 diabetes mellitus with hyperglycemia (2) AAA (abdominal aortic aneurysm) Presence of rupture: without rupture Qualified Code(s): I71.4 - Abdominal aortic aneurysm, without rupture (3) Dementia Dementia behavioral disturbance: with behavioral disturbance Dementia type: unspecified type Qualified Code(s): F03.91 - Unspecified dementia with behavioral disturbance (4) Altered mental status Altered mental status type: unspecified Qualified Code(s): R41.82 - Altered mental status, unspecified
[2020-04-25] MEDS: DESMOPRESSIN ACETATE 0.1 MG TAB PO SCH (21:39)
[2020-04-25] MEDS: OLANZapine 10 MG TAB PO SCH (21:39)
[2020-04-25] MEDS: DOCUSATE SODIUM 100 MG CAP PO SCH (21:40)
[2020-04-26] MEDS: SODIUM CHLOR 0.45% + 20MEQ KCL 20 MEQ/1,000 ML BAG IV SCH (05:15)
[2020-04-26 07:57] LABS: Mean Corpuscular Hgb Conc 31.5 g/dL (32-36)
[2020-04-26 08:22] LABS: Calcium 9.3 mg/dl (8.5-10.1); Creatinine Clr Calc Pharmacy 70.3 ml/min; Est GFR (African American) 71.4; Est GFR (Non-African American) 61.6; Potassium 4.2 mmol/L (3.5-5.1)
[2020-04-26 08:27] LABS: Hematocrit (blood only) 39.7 % (42-52); Hemoglobin 12.5 g/dL (14.0-18.0); Mean Corpuscular Hemoglobin 27.1 pg (25-34); Mean Corpuscular Volume 86.1 fL (80-100); Mean Platelet Volume 12.1 fL (7.4-10.4); Platelet Count 99 K/uL (130-400); Platelet Estimate Decreased (Normal); RDW Coefficient of Variation 16.2 % (11.5-14.5); Red Blood Count 4.61 M/uL (4.7-6.1); White Blood Count 5.23 K/uL (4.8-10.8)
[2020-04-26] MEDS: DIVALPROEX DELAY RELEASE 250 MG TABEC PO SCH ×2 (09:36→20:10)
[2020-04-26] MEDS: MEMANTINE HCL 10 MG TAB PO SCH ×2 (09:36→20:14)
[2020-04-26] MEDS: PROPRANOLOL HCL 20 MG TAB PO SCH ×3 (09:37→20:11)
[2020-04-26] MEDS: AMLODIPINE BESYLATE 5 MG TAB PO SCH (09:37)
[2020-04-26] MEDS: CYANOCOBALAMIN 500 MCG TABLET (VITAMIN B-12) PO SCH (09:38)
[2020-04-26] MEDS: FERROUS SULFATE 325 MG TAB PO SCH (09:40)
[2020-04-26] MEDS: cloZAPine 100 MG TAB PO SCH ×2 (09:40→20:28)
[2020-04-26] MEDS: INSULIN ASPART 100 UNITS/ML 3 ML PEN SC SCH ×4 (09:40→20:38)
[2020-04-26] MEDS: HEPARIN SOD 5,000 UNIT/0.5 ML VIAL SQ SCH ×2 (09:43→20:10)
--- NOTE | 2020-04-26 11:35 | Hospitalist Progress Note ---
Date of Service April 26, 2020 Assessment & Plan (1) Altered mental status: 60yo male inmate at [facility] presenting for medical evaluation of functional decline, abnormal behavior, ?delirium. Patient with history of Schizoaffective bipolar type and dementia. DESIREE was found on admission which could be contributing to patient's recent behavioral disturbances. CT head are unremarkable. -Frequent orientation to self, location, date and situation -Avoid interruptions in sleep -Treatment of other medical conditions as below. (2) DEISREE (acute kidney injury): Resolved. Patient with non-oliguric DESIREE. BUN=50, Cr=2.[address] of the abdomen performed which revealed normal kidneys without hydronephrosis or obstruction. DESIREE most likely multifactorial - patient stated he has not been eating or drinking well of late. Possible dehydration, component of pre-renal azotemia contributing. Also with mild rhabdomyolysis, elevation in CK to 932 on admission, now trending down. DESIREE may be contributing to patient's recent change in behavior. - Creat now wnl -Avoid nephrotoxic agents -Hold Chlorthalidone (3) Schizoaffective disorder, bipolar type: Patient is managed by Psychiatry at [facility]. Has missed two days of medications prior to admission which could also be contributing to recent decline -Continue Clozapine 200mg po qAM, 300mg po qHS. Normal neutrophil count on today's CBC/differential. -Continue Olanzapine 10mg po qPM - no renal adjustment needed -Continue Depakote 250mg po BID - no renal adjustment needed (4) Diabetes mellitus: Well controlled. HgbA1C on 09/13/19 = 6.9. -Hold Metformin while inpatient and in setting of DESIREE -Insulin sliding scale - CF 40, CR 20 for goal blood sugar 100 - 140 -Consistent carb diet as tolerated - Blood sugars acceptable (5) Dementia: Patient with underlying dementia -Continue Memantine -Delirium prevention strategies with frequent orientation, maintenance of sleep/wake cycle and ambulation as tolerated -Avoidance of anticholinergics and other potentially delirium-inducing agents where able -Continue [place] qHS (6) Diabetes insipidus: Na peaked at 148, now wnl - Discontinue IVF -Continue DDAVP 0.05mg po qPM (7) B12 deficiency: Chronic. Patient with stable normochromic/normocytic anemia -Continue B12 supplementation (8) AAA (abdominal aortic aneurysm): Patient found to have a 5.2 x 5.9 cm infrarenal abdominal aortic aneurysm. This is similar in appearance to the 08/28/2019 examination. Vascular surgical follow-up is recommended. Patient was provided with contact information for Dr. Andujar at last hospitalization -Vascular surgery follow-up on discharge Dr. Jese Andujar - [address] in [place]. The office phone number is [phone]. (9) Lung nodule: CXR with possible nodular opacity adjacent to the aortic arch, may be artifactual. Correlation with a contrast CT of the chest is recommended. Patient also with some enlarged lymph nodes noted on CT abdomen and was diagnosed with a supraclavicular lymph node during last hospitalization. ?underlying malignancy vs chronic inflammatory condition? -Consider CT chest with contrast for further workup of possible nodule once patient's renal function improves - will hold off on this today as patient does not seem like he would be able to be still for an image. (10) Hypernatremia: Mild and improving Discontinue IVF, will need to see if it maintains over the next 24 hours without IVF (11) DVT prophylaxis: Ppx - low risk for DVT, Heparin BID dispo: If he is able to maintain his electrolytes after 24 hours without IVF, can likely discharge back to the care home with further care from care home psychiatry on Monday Admission and Anticipated Discharge Date Admission Date: April 23, 2020 Supervising Physician Co-Signing Physician Notes case d/w S Reji DAVIDSON. as above Subjective Mr. Childers is awake and alert, doesn't make a whole lot of sense when he talks but able to say his name. ROS Constitutional: no chills, aches, sweats or fever Respiratory: no sob,cough, sputum, or wheezing Cardiac: no chest pain, palpitations, edema, orthopnea or lightheadedness GI: no abdominal pain, nausea, vomiting, diarrhea or constipation : no dysuria or hesitancy Extremities: no joint pain or weakness Skin: no rash All other systems reviewed and negative Physical Exam Physical Exam: General: no distress Eyes: normal inspection, PERLL Respiratory: chest non tender, clear to auscultation, normal breath sounds, no respiratory distress, no accessory muscle use Cardiac: regular rate and rhythm, no rub or gallop, no murmur, no edema, no jvd GI/: active bowel sounds, no abd pain or tenderness, soft, non distended Extremities: normal range of motion, normal strength, non tender Neuro/Psych: alert and oriented to self,manic affect Skin: normal color, dry Results & Data Results & Data ([facility]) Vital Signs (Past 12 Hours) Vital Signs Temp Pulse Resp BP Pulse Ox 04/26/20 08:30 36.8 C 105 H 17 173/84 H 99 04/25/20 23:34 37.2 C 95 H 18 157/96 H 99 PG Care Time/CCT Total # of Minutes Spent Total Time Spent with Patient: Total time spent is greater than 50% in coordination of care (as documented) at patient's floor/unit and/or counseling patient: Coding Level of Care Code 92098 Subseq Hosp Care Lvl 2 Diagnoses Altered mental status R41.82 Altered mental status type: unspecified DESIREE (acute kidney injury) N17.9 Schizoaffective disorder, bipolar type F25.0 Diabetes mellitus E11.65 Diabetes mellitus complication status: with hyperglycemia Diabetes mellitus watermelon inspector insulin use: without watermelon inspector use Diabetes mellitus type: type 2 Dementia F03.91 Dementia behavioral disturbance: with behavioral disturbance Dementia type: unspecified type Diabetes insipidus E23.2 B12 deficiency E53.8 AAA (abdominal aortic aneurysm) I71.4 Presence of rupture: without rupture Lung nodule R91.1 Hypernatremia E87.0 DVT prophylaxis Z29.9 (1) Diabetes mellitus Diabetes mellitus complication status: with hyperglycemia Diabetes mellitus correction insulin use: without watermelon inspector use Diabetes mellitus type: type 2 Qualified Code(s): E11.65 - Type 2 diabetes mellitus with hyperglycemia (2) AAA (abdominal aortic aneurysm) Presence of rupture: without rupture Qualified Code(s): I71.4 - Abdominal aortic aneurysm, without rupture (3) Dementia Dementia behavioral disturbance: with behavioral disturbance Dementia type: unspecified type Qualified Code(s): F03.91 - Unspecified dementia with behavioral disturbance (4) Altered mental status Altered mental status type: unspecified Qualified Code(s): R41.82 - Altered mental status, unspecified
[2020-04-26] MEDS: DOCUSATE SODIUM 100 MG CAP PO SCH (20:11)
[2020-04-26] MEDS: DESMOPRESSIN ACETATE 0.1 MG TAB PO SCH (20:12)
[2020-04-26] MEDS: OLANZapine 10 MG TAB PO SCH (20:28)
[2020-04-27 05:23] LABS: Mean Corpuscular Hgb Conc 31.5 g/dL (32-36)
[2020-04-27 05:27] LABS: Hematocrit (blood only) 41.6 % (42-52); Hemoglobin 13.1 g/dL (14.0-18.0); Mean Corpuscular Hemoglobin 27.3 pg (25-34); Mean Corpuscular Volume 86.7 fL (80-100); RDW Coefficient of Variation 16.4 % (11.5-14.5); RDW Standard Deviation 52.2 fL (36.4-46.3); White Blood Count 4.86 K/uL (4.8-10.8)
[2020-04-27 05:50] LABS: Platelet Count 81 K/uL (130-400); Platelet Estimate Decreased (Normal)
[2020-04-27 05:58] LABS: BUN Creatinine Ratio 15.1 (10-20); Calcium 9.2 mg/dl (8.5-10.1); Est GFR (African American) 77.3; Est GFR (Non-African American) 66.7; Potassium 4.2 mmol/L (3.5-5.1)
[2020-04-27] MEDS: PROPRANOLOL HCL 20 MG TAB PO SCH ×2 (08:50→12:52)
[2020-04-27] MEDS: cloZAPine 100 MG TAB PO SCH (08:50)
[2020-04-27] MEDS: CYANOCOBALAMIN 500 MCG TABLET (VITAMIN B-12) PO SCH (08:50)
[2020-04-27] MEDS: AMLODIPINE BESYLATE 5 MG TAB PO SCH (08:50)
--- NOTE | 2020-04-27 08:50 | Hospitalist Progress Note ---
Date of Service April 27, 2020 Assessment & Plan (1) Altered mental status: 60yo male inmate at [facility] presenting for medical evaluation of functional decline, abnormal behavior, ?delirium. Patient with history of Schizoaffective bipolar type and dementia. DESIREE was found on admission which could be contributing to patient's recent behavioral disturbances. CT head are unremarkable. -Frequent orientation to self, location, date and situation -Avoid interruptions in sleep -Treatment of other medical conditions as below. (2) DESIREE (acute kidney injury): Resolved. Patient with non-oliguric DESIREE. BUN=50, Cr=2.[address] of the abdomen performed which revealed normal kidneys without hydronephrosis or obstruction. DESIREE most likely multifactorial - patient stated he has not been eating or drinking well of late. Possible dehydration, component of pre-renal azotemia contributing. Also with mild rhabdomyolysis, elevation in CK to 932 on admission, now trending down. DESIREE may be contributing to patient's recent change in behavior. - Creat now wnl -Avoid nephrotoxic agents -Hold Chlorthalidone (3) Schizoaffective disorder, bipolar type: Patient is managed by Psychiatry at [facility]. Has missed two days of medications prior to admission which could also be contributing to recent decline -Continue Clozapine 200mg po qAM, 300mg po qHS. Normal neutrophil count on today's CBC/differential. -Continue Olanzapine 10mg po qPM - no renal adjustment needed -Continue Depakote 250mg po BID - no renal adjustment needed (4) Diabetes mellitus: Well controlled. HgbA1C on 09/13/19 = 6.9. -Hold Metformin while inpatient and in setting of DESIREE -Insulin sliding scale - CF 40, CR 20 for goal blood sugar 100 - 140 -Consistent carb diet as tolerated - Blood sugars acceptable (5) Dementia: Patient with underlying dementia -Continue Memantine -Delirium prevention strategies with frequent orientation, maintenance of sleep/wake cycle and ambulation as tolerated -Avoidance of anticholinergics and other potentially delirium-inducing agents where able -Continue Ramelton qHS (6) Diabetes insipidus: Na peaked at 148, now wnl - Discontinue IVF -Continue DDAVP 0.05mg po qPM (7) B12 deficiency: Chronic. Patient with stable normochromic/normocytic anemia -Continue B12 supplementation (8) AAA (abdominal aortic aneurysm): Patient found to have a 5.2 x 5.9 cm infrarenal abdominal aortic aneurysm. This is similar in appearance to the 08/28/2019 examination. Vascular surgical follow-up is recommended. Patient was provided with contact information for Dr. Andujar at last hospitalization -Vascular surgery follow-up on discharge Dr. Jese Andujar - [address] [facility] [address] in [place]. The office phone number is [phone]. (9) Lung nodule: CXR with possible nodular opacity adjacent to the aortic arch, may be artifactual. Correlation with a contrast CT of the chest is recommended. Patient also with some enlarged lymph nodes noted on CT abdomen and was diagnosed with a supraclavicular lymph node during last hospitalization. ?underlying malignancy vs chronic inflammatory condition? -Consider CT chest with contrast for further workup of possible nodule once patient's renal function improves - will hold off on this today as patient does not seem like he would be able to be still for an image. (10) Hypernatremia: Mild and improving Discontinue IVF, will need to see if it maintains over the next 24 hours without IVF (11) DVT prophylaxis: Ppx - low risk for DVT, Heparin BID dispo: If he is able to maintain his electrolytes after 24 hours without IVF, can likely discharge back to the group home with further care from group home psychiatry on Monday Admission and Anticipated Discharge Date Admission Date: April 23, 2020 Results & Data Results & Data ([facility]) Vital Signs (Past 12 Hours) Vital Signs Temp Pulse Pulse Resp BP Pulse Ox 04/27/20 07:55 98.6 F 87 18 143/88 H 98 04/26/20 23:23 97.5 F L 87 18 132/74 98 PG Care Time/CCT Total # of Minutes Spent Total Time Spent with Patient: Total time spent is greater than 50% in coordination of care (as documented) at patient's floor/unit and/or counseling patient: Coding Level of Care Code None Diagnoses Altered mental status R41.82 Altered mental status type: unspecified DESIREE (acute kidney injury) N17.9 Schizoaffective disorder, bipolar type F25.0 Diabetes mellitus E11.65 Diabetes mellitus complication status: with hyperglycemia Diabetes mellitus manager terminal insulin use: without manager terminal use Diabetes mellitus type: type 2 Dementia F03.91 Dementia behavioral disturbance: with behavioral disturbance Dementia type: unspecified type Diabetes insipidus E23.2 B12 deficiency E53.8 AAA (abdominal aortic aneurysm) I71.4 Presence of rupture: without rupture Lung nodule R91.1 Hypernatremia E87.0 DVT prophylaxis Z29.9 (1) Diabetes mellitus Diabetes mellitus complication status: with hyperglycemia Diabetes mellitus manager terminal insulin use: without prison use Diabetes mellitus type: type 2 Qualified Code(s): E11.65 - Type 2 diabetes mellitus with hyperglycemia (2) AAA (abdominal aortic aneurysm) Presence of rupture: without rupture Qualified Code(s): I71.4 - Abdominal aortic aneurysm, without rupture (3) Dementia Dementia behavioral disturbance: with behavioral disturbance Dementia type: unspecified type Qualified Code(s): F03.91 - Unspecified dementia with behavioral disturbance (4) Altered mental status Altered mental status type: unspecified Qualified Code(s): R41.82 - Altered mental status, unspecified
[2020-04-27] MEDS: DIVALPROEX DELAY RELEASE 250 MG TABEC PO SCH (08:51)
[2020-04-27] MEDS: MEMANTINE HCL 10 MG TAB PO SCH (08:51)
[2020-04-27] MEDS: FERROUS SULFATE 325 MG TAB PO SCH (08:51)
[2020-04-27] MEDS: HEPARIN SOD 5,000 UNIT/0.5 ML VIAL SQ SCH (08:52)
[2020-04-27] MEDS: INSULIN ASPART 100 UNITS/ML 3 ML PEN SC SCH ×2 (08:53→12:53)
[2020-04-27] MEDS ORDERED: CHLORTHALIDONE 25 MG TAB PO SCH (09:00)
--- NOTE | 2020-04-27 17:49 | Discharge Summary ---
Date of Service April 27, 2020 Admission HPI Per Admitting Provider Dennis Childers is a 60yo male inmate at [facility] being sent for medical evaluation. Patient is a poor historian at present and is unable to provide clear details of the events preceding arrival to [facility]. History obtained predominantly through record review, discussion with ER staff. Per review of records, patient has been declining over the last few days. He is minimally verbal and often growls in response to questions. He has also been demonstrating more bizarre behavior such as playing with excrement and urine and has been aggressive toward staff at [facility]. He reports he has not been eating or drinking well and has not been taking his medications. 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 He is currently being managed With Clozaril 200mg po qAM and 300mg po qHS as well as Zyprexa. He was recently prescribed Depakote for mood stabilization but has not yet started this medication. Overall, patient is fairly well managed on his current Psychiatric regimen. He did miss two consecutive days of medications this week and one day before that, otherwise he is compliant with his medications. Upon arrival to the ER patient afebrile, tachycardic and hypertensive. No respiratory distress noted, patient with adequate oxygenation on room air. He had episodes of agitation but was overall redirectable. ER Course: NSS x 1 L, Ativan 2mg IV, Benadryl 50mg IV Principal Diagnosis metabolic encephalopathy, secondary to Acute kidney injury, secondary to diabetes insipidus, secondary to psychotropic medication use to treat schizoaffective disorder Discharge Exam Pt was talkative and alert has regular heart beat and clear lungs mentally he was not following lines of thought and was tangential with his speech and reasoning Discharge Data Allergies Allergy/AdvReac Type Severity Reaction Status Date / Time haloperidol [From Haldol] AdvReac Unknown Unknown Verified 04/23/20 17:00 Consultations 04/23/20 20:51 ED Decision to Admit Stat 04/24/20 18:12 Consult Wound Care Provider Routine Ordered Studies 04/23/20 16:46 CT head/brain wo con Stat 04/23/20 18:13 CT abd pelvis wo con Stat Hospital Course (1) Altered mental status: 60yo male inmate at [facility] presenting for medical evaluation of functional decline, abnormal behavior, ?delirium. Patient with history of Schizoaffective bipolar type and dementia. DESIREE was found on admission which was contributing to patient's condition. CT head are unremarkable. -Frequent orientation to self, location, date and situation I spoke to medial physical at the long-term, he was updated and accepted the pt in return (2) DESIREE (acute kidney injury): Resolved. Patient with non-oliguric DESIREE. BUN=50, Cr=2.[address] of the abdomen performed which revealed normal kidneys without hydronephrosis or obstruction. DESIREE most likely multifactorial - patient stated he has not been eating or drinking well of late. Possible dehydration, component of pre-renal azotemia contributing. Also with mild rhabdomyolysis, elevation in CK to 932 on admission, now trending down. DESIREE also influenced by DI. - Creat now wnl -Hold Chlorthalidone (3) Schizoaffective disorder, bipolar type: Patient is managed by Psychiatry at [facility]. Has missed two days of medications prior to admission which could also be contributing to recent decline -Continue Clozapine 200mg po qAM, 300mg po qHS. Normal neutrophil count CBC/differential. -Continue Olanzapine 10mg po qPM - no renal adjustment needed -Continue Depakote 250mg po BID - no renal adjustment needed (4) Diabetes mellitus: Well controlled. HgbA1C on 09/13/19 = 6.9. resume outpt metformin and insulin (5) Dementia: Patient with underlying dementia -Continue Memantine -Delirium prevention strategies with frequent orientation, maintenance of sleep/wake cycle and ambulation as tolerated -Avoidance of anticholinergics and other potentially delirium-inducing agents where able -Continue Ramel[place] qHS (6) Diabetes insipidus: Na peaked at 148, remains slightly up -Continue DDAVP 0.05mg po qPM (7) B12 deficiency: Chronic. Patient with stable normochromic/normocytic anemia -Continue B12 supplementation (8) AAA (abdominal aortic aneurysm): Patient found to have a 5.2 x 5.9 cm infrarenal abdominal aortic aneurysm. This is similar in appearance to the 08/28/2019 examination. Vascular surgical follow-up is recommended. Patient was provided with contact information for Dr. Andujar at last hospitalization -Vascular surgery follow-up on discharge Dr. Jese Andujar - [address] [place] [address] [address] in [place]. The office phone number is [phone]. (9) Lung nodule: CXR with possible nodular opacity adjacent to the aortic arch, may be artifactual. Correlation with a contrast CT of the chest is recommended. Patien t also with some enlarged lymph nodes noted on CT abdomen and was diagnosed with a supraclavicular lymph node during last hospitalization. ?underlying malignancy vs chronic inflammatory condition? -Consider CT chest with contrast for further workup of possible nodule once patient's renal function improves - will hold off on this today as patient does not seem like he would be able to be still for an image. (10) Hypernatremia: Mild Total Time Total Time Spent Total Time Spent (In Minutes): greater than 30 minutes were required to prepare this discharge Discharge Plan Discharge Items [facility] Reason For Visit: WORSENING PSYCHOSIS, DELIRIUM Discharge Diagnosis: acute kidney injury, diabetes insipidus Activity: Resume your previous activity Non-emergency contact: Primary Care Provider Call non-emergency contact if: you have any medication questions Follow-up/Referrals: Richard MOON [Primary Care Provider] - Diet: Regular Addtl Attending Provider Instructions: there was a lung nodule discovered and the pt is enrolled in the lung nodule program with suggestion to have some follow up imaging in the future This pt also had an abdominal aortic aneurysm discovered and can follow up with DR Andujar for vasculr surgery opinion Pending Studies at Discharge: No Stand-Alone Forms: My [facility] [employer], Suicide Prevention Resources Skilled Items Patient informed of condition?: Yes Discharge Level of Care: Other Communicable Disease: No Discharge Prognosis: Stable Lines: None Urinary Catheter: No Medications and DC Order Prescriptions: Continued docusate sodium 250 mg Capsule 250 mg PO HS RF: 0 polyethylene glycol 3350 [Miralax] 17 gram Powder In Packet 17 g PO ONCE PRN (Reason: constipation) Qty: 10 RF: 0 divalproex [Depakote] 250 mg Tablet,Delayed Release (Dr/Ec) 250 mg PO BID RF: 0 metformin 850 mg Tablet 850 mg PO BID RF: 0 cyanocobalamin (vitamin B-12) 1,000 mcg Tablet 1,000 mcg PO DAILY RF: 0 amlodipine 5 mg Tablet 5 mg PO DAILY RF: 0 propranolol 20 mg Tablet 20 mg PO TID RF: 0 memantine 10 mg Tablet 10 mg PO BID RF: 0 ramelteon 8 mg Tablet 8 mg PO HS RF: 0 clozapine 100 mg tablet 200 mg PO QAM RF: 0 clozapine 100 mg tablet 300 mg PO HS RF: 0 olanzapine 10 mg tablet 10 mg PO QPM RF: 0 desmopressin [DDAVP] 0.1 mg tablet 0.05 mg PO QPM RF: 0 ferrous sulfate [Feosol] 325 mg (65 mg iron) Tablet 325 mg PO DAILY RF: 0 Discontinued chlorthalidone 25 mg Tablet 25 mg PO DAILY RF: 0 Discharge Orders: Discharge Order (Routine); Ordered 04/27/20 Ordered By: Wojciech Doherty Admission Data Admit Date/Time: 04/23/20 20:59 Attending Provider: Wojciech Doherty Admit Provider: Vicki Daly Primary Care Provider: Richard MOON Other Providers: Vicki Daly ; Juan Ames Other Interventions: Discharge Summary Assessment (RN) Last Done: 04/27/20 11:26 DC Date/Time DO NOT enter until pt leaves facility: 04/27/20 14:40 Coding Level of Care Code D/C Day Management >30 mins Diagnoses Altered mental status R41.82 Altered mental status type: unspecified DESIREE (acute kidney injury) N17.9 Schizoaffective disorder, bipolar type F25.0 Diabetes mellitus E11.65 Diabetes mellitus type: type 2 Diabetes mellitus mcfp insulin use: without extermination inspector use Diabetes mellitus complication status: with hyperglycemia Dementia F03.91 Dementia type: unspecified type Dementia behavioral disturbance: with behavioral disturbance Diabetes insipidus E23.2 B12 deficiency E53.8 AAA (abdominal aortic aneurysm) I71.4 Presence of rupture: without rupture Lung nodule R91.1 Hypernatremia E87.0
== END 2020-04-27 14:40 | DRG 682 ==
LOC: ED 16:23 → SUATTDRO 20:59 → 3N 20:59